=== PATIENT | male | born 1935 | race Caucasian/White ===

== ENCOUNTER → 2016-10-13 | Outpatient (CLI) | payer BC ==
[~2016-10-13] MED LIST: APIX1TAB3 PO; ASPCH81X PO; ASPI-435 PO; ATV/1 PO; ATV1 PO; CIPR-255 PO; CLON0.5T3 PO; CYAN10005 PO; DONE1TAB11 PO; ESCI10TA17 PO; HYDR-5688 PO; MECL1TAB42 PO; METO50TA7 PO; MONT1TAB3 PO; MULT-506 PO; OMEG10007 PO; OXYC-57 PO; PHEN-775 PO; PRS5 PO
== END | disposition home or self-care (01) ==
LOC: C.LABSPEC 17:07
PROVIDERS: ATTEND Internal Medicine
DX: N20.0 Calculus of kidney (principal)

== ENCOUNTER → 2016-11-04 | Day surgery (SDC) | payer BC ==
[2016-10-27 08:22] VITALS: BMI 21.0
[2016-10-27 10:17] LABS: BASO % 0.2 %; BASO ABS # 0.01 K/uL (0-0.2); COMPLETE YES; EOS % 1.7 %; HEMATOCRIT 40.4 % (42-52); LYMPH % 12.3 %; LYMPH ABS # 0.59 K/uL (1.2-3.4); MEAN CELL VOLUME 85.1 fL (80-100); MEAN CORPUSCULAR HEMOGLOBIN 29.3 pg (25-34); MEAN CORPUSCULAR HGB CONC 34.4 g/dl (32-36); MEAN PLATELET VOLUME 8.6 fL (7.4-10.4); MONO % 9.4 %; NEUT % 76.4 %; PLATELET COUNT 187 K/uL (130-400); RED BLOOD COUNT 4.75 M/uL (4.7-6.1)
[2016-10-27 10:54] LABS: BUN/CREATININE RATIO 25.2 (10-20); CALCIUM 8.9 mg/dl (8.5-10.1); CREATININE 0.8 mg/dl (0.60-1.40); POTASSIUM 3.8 mmol/L (3.5-5.1)
[~2016-11-04] VITALS: Ht 177.8 cm; Wt 68.2 kg
[~2016-11-04] MED LIST changes: +ATROPINE SULFATE 0.1 MG/ML 5ML SYR IV PRN; +CIPROFLOXACIN / D5W 400 MG IV SCH; +CONRAY 30% 150ML BOTTLE INSTIL ONE; +DEXAMETHASONE SOD INJ 4 MG/ML VIAL ONE; +EpHEDrine SULFATE INJ 50 MG/ML AMP IV PRN; +FENTANYL CITRATE INJ 50 MCG/1 ML 2 ML VIAL IV PRN; +FENTANYL CITRATE INJ 50 MCG/1 ML 2 ML VIAL ONE; +LACTATED RINGER'S 1000ML 1,000 ML IV SCH; +LIDOCAINE HCL 2% 2 ML VIAL (20MG/ML) ONE; +MIDAZOLAM HCL 1 MG/ML 2ML VIAL ONE; -OMEG10007 PO; +ONDANSETRON INJ 2 MG/ML 2 ML VIAL ONE; -OXYC-57 PO; +OXYCODONE/ACETAMINOPHEN 5-325 TAB PO PRN; +PROPOFOL IV EMULSION 10 MG/ML 20 ML VIAL IV ONE; +SODIUM CHLORIDE 0.9% 1000ML 1,000 ML IV SCH; +TAMSULOSIN HCL 0.4 MG CAP PO SCH
[2016-11-04 10:09] VITALS: BP 157/92; PULSE 92; TEMP 36.4; O2SAT 97
[2016-11-04 10:10] VITALS: Ht 177.8 cm; Wt 68.2 kg
--- NOTE | 2016-11-04 11:53 | History & Physical Bridge Note ---
H&P Re-Evaluation Bridge Note: I have examined the patient, reviewed the History & Physical and in the interval since the performance of the History & Physical I have noted the following changes of clinical significance: No changes noted
--- NOTE | 2016-11-04 13:05 | [facility] Post Operative Brief Note ---
Immediate Operative Summary Operative Date Nov 04, 2016. Pre-Operative Diagnosis Left ureteral pelvic junction stones Post-Operative Diagnosis Same as preoperative diagnosis Procedure(s) Performed Cystoscopy, Left Flexible Ureteroscopy, Laser Lithotripsy of renal stones; Stent placement left ureter ([id number]), left retrograde pyelogram Surgeon Dr. Silas Silvestre Sports Equipment Repairer Surgeon(s) None Estimated Blood Loss 0 mL Findings Healthy appearing left collecting system. Several small stones within the kidney. No single, large stone appreciated. 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 Specimens No pathology specimens Drains [id number] Anesthesia Gen Complication(s) None Disposition Recovery Room / PACU (stable)
--- NOTE | 2016-11-04 13:11 | Discharge Instructions ---
Discharge Instructions Admission Reason for Admission: Stones Discharge Discharge Diagnosis / Problem: stones Discharge Goals Goal(s): Decrease discomfort, Improve function, Increase independence, Improve disease control Activity Recommendations Activity Limitations: resume your previous activity Lifting Limitations: none Exercise/Sports Limitations: none May Resume Sexual Activity: when tolerated Shower/Bathe: no limitations Driving or Machine Use: no limitations (as long as you are off of pain medications.) . Instructions / Follow-Up Instructions / Follow-Up Please come to Dr. Silvestre's on November 12 at 12:40PM to have your stent removed. Discharge Diet Recommended Diet: Regular Diet Procedures Procedures Performed: Cystoscopy, Left Flexible Ureteroscopy, Laser Lithotripsy of renal stones; Stent placement left ureter ([id number]), left retrograde pyelogram Pending Studies Studies pending at discharge: no Medical Emergencies . Who to Call and When: Medical Emergencies: If at any time you feel your situation is an emergency, please call 911 immediately. . Non-Emergent Contact Non-Emergency issues call your: Urologist Call Non-Emergent contact if: you have a fever, temperature is above 101.5, your pain is not controlled, your pain is worsening . . "Provider Documentation" section prepared by Jesus Zelaya. VTE Core Measure Inpt VTE Proph given/why not?: Treatment not indicated [place] Drug Monitoring Program Search Results: patient reviewed within database, no issues identified
[2016-11-04 13:55] VITALS: BP 119/62; PULSE 61; TEMP 36.7; O2SAT 99
[2016-11-04 14:25] VITALS: BP 138/77; PULSE 69; O2SAT 98
--- NOTE | 2016-11-04 14:40 | OPERATIVE REPORT ---
DATE OF OPERATION: 11/04/2016 PREOPERATIVE DIAGNOSIS: Left renal calculi. POSTOPERATIVE DIAGNOSIS: Left renal calculi. PROCEDURES PERFORMED: Cystoscopy, left ureteroscopy, left laser lithotripsy, left ureteral stent placement 6 Slovenian x 22-32 cm. ANESTHESIA: General. ESTIMATED BLOOD LOSS: 0. URINE OUTPUT: Not recorded. SPECIMENS: There were no specimens. COMPLICATIONS: There were no complications. DESCRIPTION OF THE PROCEDURE: Luis Carlos Arzate was identified in the preoperative holding area. Appropriate informed consents were reviewed and completed and the patient was transported to the operating suite. Upon arrival, he received appropriate preoperative antibiotics in the form of ciprofloxacin as well as general anesthesia. He was sterilely prepped and draped in standard fashion before I passed a 22 Slovenian cystoscope per urethra. Inspection of the urethra revealed no evidence of stricture disease. Prostate was relatively small in size. Upon entering the bladder, he has moderate trabeculation. No other evidence of mucosal disease. Ureteral orifices were easily identified in an orthotopic position. I cannulated the left ureteral orifice with a sensor wire and a 10-Slovenian double lumen catheter. Under fluoroscopic guidance, I advanced this wire to the kidney. I then placed a second wire via the second port of the 10-Slovenian double lumen catheter. After withdrawing the catheter, I passed a flexible ureteroscope over one wire while reserving the other as a safety wire. Full renoscopy was carried out. There were several small stones found within the kidney, but no large stone. 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 After this inspection, I passed a 270 micron laser fiber and I fragmented all the small stones into dust and I freed all the Dontae plaques and fragmented these. I then performed a very careful repeat renoscopy and an exit ureteroscopy, confirming no other large stones or obstructing stones. I did opacify the collecting system before placing a 6 Slovenian x 22-32 cm double-J ureteral stent. I saw good curl in the kidney as well as the bladder. Bladder was decompressed and the case concluded. The patient was extubated and taken to the PACU in stable condition. I attest to the content of the Intraoperative Record and any orders documented therein. Any exceptio ns are noted below.
[2016-11-04 14:55] VITALS: BP 136/74; PULSE 78; TEMP 36.5; O2SAT 100
--- NOTE | 2016-11-04 16:50 | Anesthesiology Progress Note ---
Anesthesia Post Op Note Date & Time Nov 04, 2016 at 16:50 Vital Signs Pain Intensity: 0 Vital Signs Past 12 Hours Date Time Temp Pulse Resp B/P Pulse Ox O2 Delivery O2 Flow Rate FiO2 11/04/16 14:55 36.5 78 18 136/74 100 Room Air 11/04/16 14:25 69 18 138/77 98 Room Air 11/04/16 13:55 36.7 61 16 119/62 99 Room Air 11/04/16 13:50 36.2 11/04/16 13:45 62 16 115/55 96 Room Air 11/04/16 13:35 60 16 117/57 100 Room Air 11/04/16 13:25 60 16 123/64 100 Mask 10 11/04/16 13:16 36.3 62 16 124/64 100 Mask 10 11/04/16 10:09 36.4 92 20 157/92 97 Room Air Notes Mental Status: alert / awake / arousable, participated in evaluation Pt Amnestic to Procedure: Yes Nausea / Vomiting: adequately controlled Pain: adequately controlled Airway Patency, RR, SpO2: stable & adequate BP & HR: stable & adequate Hydration State: stable & adequate Anesthetic Complications: no major complications apparent
== END | disposition home or self-care (01) ==
LOC: C.ACU 09:41
PROVIDERS: ATTEND Urology
DX: N20.0 Calculus of kidney (principal); I48.91 Unspecified atrial fibrillation; G47.33 Obstructive sleep apnea (adult) (pediatric); N18.9 Chronic kidney disease, unspecified; I12.9 Hypertensive chronic kidney disease with stage 1 through stage 4 chronic kidney disease, or unspecified chronic kidney disease; I25.10 Atherosclerotic heart disease of native coronary artery without angina pectoris; G30.1 Alzheimer's disease with late onset; F02.80 Dementia in other diseases classified elsewhere, unspecified severity, without behavioral disturbance, psychotic disturbance, mood disturbance, and anxiety; Z98.890 Other specified postprocedural states; Z95.0 Presence of cardiac pacemaker; Z90.89 Acquired absence of other organs; Z95.1 Presence of aortocoronary bypass graft; Z90.49 Acquired absence of other specified parts of digestive tract; Z86.73 Personal history of transient ischemic attack (TIA), and cerebral infarction without residual deficits; Z87.891 Personal history of nicotine dependence; Z79.82 Long term (current) use of aspirin

== ENCOUNTER 2016-12-18 17:12 | Emergency (ER) | payer BC ==
[~2016-12-18] VITALS: Ht 182.9 cm; Wt 68.2 kg
[~2016-12-18 17:12] MED LIST changes: -APIX1TAB3 PO; -ASPCH81X PO; -ATROPINE SULFATE 0.1 MG/ML 5ML SYR IV PRN; -ATV/1 PO; -ATV1 PO; -CIPROFLOXACIN / D5W 400 MG IV SCH; -CONRAY 30% 150ML BOTTLE INSTIL ONE; -CYAN10005 PO; -DEXAMETHASONE SOD INJ 4 MG/ML VIAL ONE; -EpHEDrine SULFATE INJ 50 MG/ML AMP IV PRN; -FENTANYL CITRATE INJ 50 MCG/1 ML 2 ML VIAL IV PRN; -FENTANYL CITRATE INJ 50 MCG/1 ML 2 ML VIAL ONE; -LACTATED RINGER'S 1000ML 1,000 ML IV SCH; -LIDOCAINE HCL 2% 2 ML VIAL (20MG/ML) ONE; -MIDAZOLAM HCL 1 MG/ML 2ML VIAL ONE; -MONT1TAB3 PO; -MULT-506 PO; -ONDANSETRON INJ 2 MG/ML 2 ML VIAL ONE; -OXYCODONE/ACETAMINOPHEN 5-325 TAB PO PRN; -PHEN-775 PO; -PROPOFOL IV EMULSION 10 MG/ML 20 ML VIAL IV ONE; -SODIUM CHLORIDE 0.9% 1000ML 1,000 ML IV SCH; -TAMSULOSIN HCL 0.4 MG CAP PO SCH
[2016-12-18 17:17] VITALS: TEMP 36.8; Ht 182.9 cm; Wt 68.2 kg
[2016-12-18] MEDS ORDERED: SODIUM CHLORIDE 0.9% 500ML 500 ML IV STA (19:04)
[2016-12-18] MEDS ORDERED: FLUCONAZOLE 100 MG TAB PO STA (19:05)
[2016-12-18] MEDS ORDERED: NITROFURANTOIN MONOHYDRATE 100 MG CAP PO STA (19:05)
--- NOTE | 2016-12-18 19:05 | EMERGENCY ROOM VISIT NOTE ---
History Report prepared by Patsy: Flakito Cooper Under the Supervision of: Dr. Oskar Bee M.D. First contact with patient: 18:48 Chief Complaint: DIZZY Stated Complaint: FAST HEARTRATE, HEAD PAIN, DIZZY, HEAD FEELS FUNNY Nursing Triage Summary: family states he is dizzy and having trouble walking, feeling off over the past few days and feeling shaky, c/o chest pain earlier today, pt states everytime he takes a deep breath it hurts his heart, hx of valve replacement and pacemaker History of Present Illness The patient is a 81 year old male who presents to the Emergency Room with complaints of an episode of chest pain that started earlier today. He says the episode occurred when he was going bowling, and he had to quit his game of bowling due to the pain. The pain came on every time he took a deep breath. He says the pain did not radiate anywhere. The pain went away when he stopped bowling. Per the patient's family, the patient has said that he has been confused today. The patient also notes being dizzy and feeling shaky for the past few days. His head feels swollen and his eyes feel tight. He says he "cannot think" currently. The patient states his head symptoms are very similar to what he had a few years ago, and he ended up being sent to [facility] for treatment for sick sinus syndrome. The patient has a pacemaker and a history of a valve replacement. Source of History: patient, family Onset: Earlier today Position: chest Timing: other (episode) Modifying Factors (Worsening): breathing Note: Associated symptoms: Confusion, dizziness, shakiness. Head feels swollen and eyes feel tight. "Cannot think" currently. Review of Systems See HPI for pertinent positives & negatives. A total of 10 systems reviewed and were otherwise negative. Past Medical & Surgical Medical Problems: (1) A-fib (2) Altered mental status (3) Atrial fibrillation with RVR (4) Atrial fibrillation with RVR (5) Atrial fibrillation with RVR (6) Atrial flutter with rapid ventricular response (7) Back pain (8) Bradycardia (9) Cataract, left eye (10) Cataract, right eye (11) CHF (congestive heart failure) (12) Complete heart block (13) Constipation (14) Dyspnea (15) Elevated troponin (16) GERD (gastroesophageal reflux disease) (17) GERD (gastroesophageal reflux disease) (18) Heart disease (19) Hyperglycemia (20) Kidney disease (21) Kidney stone (22) Kidney stone (23) Kidney stones (24) Nausea (25) Patella fracture (26) Shortness of breath (27) Shortness of breath (28) Sick sinus syndrome with tachycardia (29) Sleep apnea (30) Symptomatic bradycardia (31) Tachyarrhythmia (32) Tick bite Surgical Problems: (1) Heart valve replaced Family History Diabetes mellitus FH: Parkinson's disease FH: aortic aneurysm Heart disease Hypertension Social History Smoking Status: Former Smoker Alcohol Use: occasionally Drug Use: none Marital Status: Housing Status: lives with family Occupation Status: retired Current/Historical Medications Scheduled Apixaban (Eliquis), 5 MG PO BID Clonazepam (Klonopin), 0.5 MG PO HS Cyanocobalamin (Vitamin B-12), 1,000 MCG PO QAM Donepezil Hydrochloride (Donepezil Hcl), 1 TAB PO HS Escitalopram (Lexapro), 10 MG PO QAM Finasteride (Finasteride), 5 MG PO QAM Metoprolol Succ (Toprol Xl) (Toprol-Xl), 0.5 TAB PO BID Scheduled PRN Hydrocodone/Acetaminophen 5MG/325MG ([place] 5MG/325MG), 1 TABLET PO Q6H PRN for Pain Lorazepam (Lorazepam), 0.5-1 MG PO HS PRN for Sleep Meclizine Hcl (Meclizine Hcl), 1 TAB PO TID PRN for Dizziness or Vertigo Allergies Coded Allergies: [place] Pepper (Verified Allergy, Severe, SHORTNESS OF BREATH, 11/04/16) NO KNOWN DRUG ALLERGIES (Verified Allergy, Unknown, none, 11/04/16) Physical Exam Vital Signs Date Time Temp Pulse Resp B/P Pulse Ox O2 Delivery O2 Flow Rate FiO2 12/18/16 21:53 80 18 133/66 96 Room Air 12/18/16 20:31 99 18 99 Room Air 12/18/16 19:40 100 Room Air 12/18/16 19:21 63 16 175/78 100 Room Air 71 168/82 76 140/72 12/18/16 19:17 73 12/18/16 19:08 72 14 177/98 99 Room Air 12/18/16 19:08 99 Room Air 12/18/16 17:17 36.8 83 18 177/83 95 Room Air Physical Exam GENERAL: Patient is a healthy-appearing well-nourished. Hard of hearing. HEAD: Normocephalic atraumatic EYES: Ocular movements intact pupils equal and react to light OROPHARYNX mucous membranes are moist no exudates present no erythema or edema present NECK: Supple no nuchal rigidity CHEST: Good equal expansion LUNGS: Clear and equal to auscultation CARDIAC: Normal S1 and S2 ABDOMEN: Soft nontender no guarding BACK: No CVA tenderness EXTREMITIES: No pain upon palpation normal muscle strength in all groups no clubbing cyanosis or edema NEURO: Patient is following commands is answering questions appropriately. Alert and oriented x3 Cranial Nerves 2-12 grossly intact Medical Decision & Procedures ER Provider Diagnostic Interpretation: Radiology results as stated below per my review and radiologist interpretation: CT HEAD WITHOUT CONTRAST (CT) CLINICAL HISTORY: Dizziness COMPARISON STUDY: 01/27/2016 TECHNIQUE: Axial CT of the brain is performed from the vertex to the skull base. IV contrast was not administered for this examination. CT DOSE: 884.54 mGy.cm FINDINGS: No intra or extra-axial mass lesions are visualized. There is no CT evidence of acute cortical infarction. There is no evidence of midline shift. There is no acute hemorrhage. No calvarial fractures are visualized. There are patchy white matter hypodensities likely on a small vessel basis. 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 There is no evidence of acute sinusitis IMPRESSION: No acute intracranial findings Electronically signed by: Pepe Rodrigez M.D. 12/18/2016 7:56 PM Dictated Date/Time: 12/18/2016 7:54 PM CHEST ONE VIEW PORTABLE CLINICAL HISTORY: Shortness of breath COMPARISON STUDY: June 04, 2016 FINDINGS: There are postsurgical changes of midline sternotomy. There is a left subclavian dual-chamber central venous pacemaker present. There is no focal pulmonary consolidation. There is no failure. There are no pleural effusions. There is a linear area of atelectasis/scar at the left lung base.[ IMPRESSION: No active disease in the chest. Electronically signed by: Pepe Rodrigez M.D. 12/18/2016 7:41 PM Dictated Date/Time: 12/18/2016 7:40 PM Laboratory Results 3/9/17 19:18 Red Blood Count 5.07, Mean Corpuscular Volume 80.7, Mean Corpuscular Hemoglobin 27.6, Mean Corpuscular Hemoglobin Concent 34.2, Mean Platelet Volume 8.8, Neutrophils (%) (Auto) 70.0, Lymphocytes (%) (Auto) 20.8, Monocytes (%) (Auto) 7.1, Eosinophils (%) (Auto) 1.3, Basophils (%) (Auto) 0.5, Neutrophils # (Auto) 2.66, Lymphocytes # (Auto) 0.79, Monocytes # (Auto) 0.27, Eosinophils # (Auto) 0.05, Basophils # (Auto) 0.02 12/18/16 19:18 Test 12/18/16 19:15 12/18/16 19:18 12/18/16 19:25 Bedside Glucose 95 mg/dl (70-99) White Blood Count 3.80 K/uL (4.8-10.8) Red Blood Count 5.07 M/uL (4.7-6.1) Hemoglobin 14.0 g/dL (14.0-18.0) Hematocrit 40.9 % (42-52) Mean Corpuscular Volume 80.7 fL (80-100) Mean Corpuscular Hemoglobin 27.6 pg (25-34) Mean Corpuscular Hemoglobin Concent 34.2 g/dl (32-36) Platelet Count 227 K/uL (130-400) Mean Platelet Volume 8.8 fL (7.4-10.4) Neutrophils (%) (Auto) 70.0 % Lymphocytes (%) (Auto) 20.8 % Monocytes (%) (Auto) 7.1 % Eosinophils (%) (Auto) 1.3 % Basophils (%) (Auto) 0.5 % Neutrophils # (Auto) 2.66 K/uL (1.4-6.5) Lymphocytes # (Auto) 0.79 K/uL (1.2-3.4) Monocytes # (Auto) 0.27 K/uL (0.11-0.59) Eosinophils # (Auto) 0.05 K/uL (0-0.5) Basophils # (Auto) 0.02 K/uL (0-0.2) RDW Standard Deviation 40.7 fL (36.4-46.3) RDW Coefficient of Variation 13.8 % (11.5-14.5) Immature Granulocyte % (Auto) 0.3 % Immature Granulocyte # (Auto) 0.01 K/uL (0.00-0.02) Anion Gap 6.0 mmol/L (3-11) Est Creatinine Clear Calc Drug Dose 72.2 ml/min Estimated GFR () 98.5 Estimated GFR (Non- 85.0 BUN/Creatinine Ratio 15.7 (10-20) Calcium Level 9.0 mg/dl (8.5-10.1) Total Bilirubin 2.7 mg/dl (0.2-1) Direct Bilirubin 0.4 mg/dl (0-0.2) Aspartate Amino Transf (AST/SGOT) 12 U/L (15-37) Alanine Aminotransferase (ALT/SGPT) 16 U/L (12-78) Alkaline Phosphatase 62 U/L (45-117) Total Creatine Kinase 27 U/L (39-308) Creatine Kinase MB 1.0 ng/ml (0.5-3.6) Creatine Kinase MB Ratio 3.7 (0-3.0) Troponin I < 0.015 ng/ml (0-0.045) Total Protein 7.4 gm/dl (6.4-8.2) Albumin 4.2 gm/dl (3.4-5.0) Thyroid Stimulating Hormone (TSH) 1.000 uIu/ml (0.300-4.500) Urine Color YELLOW Urine Appearance CLEAR (CLEAR) Urine pH 8.5 (4.5-7.5) Urine Specific [place] 1.003 (1.000-1.030) Urine Protein NEG (NEG) Urine Glucose (UA) NEG (NEG) Urine Ketones NEG (NEG) Urine Occult Blood 1+ (NEG) Urine Nitrite NEG (NEG) Urine Bilirubin NEG (NEG) Urine Urobilinogen NEG (NEG) Urine Leukocyte Esterase NEG (NEG) Urine WBC (Auto) 0 /hpf (0-5) Urine RBC (Auto) 5-10 /hpf (0-4) Urine Hyaline Casts (Auto) 0 /lpf (0-5) Urine Epithelial Cells (Auto) 0-5 /lpf (0-5) Urine Bacteria (Auto) NEG (NEG) Labs reviewed by ED physician. Medications Administered Medications (Trade) Dose Ordered Sig/Juan A Route Start Time Stop Time Status Last Admin Dose Admin Sodium Chloride (Nss 500ml) 500 ml @ 999 mls/hr Q31M STAT IV 12/18/16 19:04 12/18/16 19:34 DC 12/18/16 19:38 999 MLS/HR Fluconazole (Diflucan Tab) 150 mg NOW STAT PO 12/18/16 19:05 12/18/16 19:07 DC 12/18/16 19:35 150 MG Nitrofurantoin Macrocrystals (Macrobid Cap) 100 mg ONE STAT PO 12/18/16 19:05 12/18/16 19:07 DC 12/18/16 19:35 100 MG Meclizine HCl (Antivert Tab) 25 mg NOW STAT PO 12/18/16 20:59 12/18/16 21:00 DC 12/18/16 21:52 25 MG ECG Indication: chest pain Rate (beats per minute): 68 Rhythm: other (paced rhythm) Findings: no acute ischemic change, no ectopy ED Course 1849: Past medical records reviewed. The patient was evaluated in room C1B. A complete history and physical examination was performed. 1903: Ordered NSS 500 ml @ 999 mls/hr IV. 1904: Ordered Macrobid Cap 100 mg PO, Diflucan Tab 150 mg PO. 2058: Ordered Antivert Tab 25 mg PO. 2113: Upon reexamination the patient is resting comfortably. I discussed results and treatment plan with the patient. He verbalizes agreement and understanding. The patient is ready for discharge. Medical Decision Differential diagnosis: Etiologies such as cardiac ischemia, aortic dissection, pulmonary embolism, pneumonia, pneumothorax, musculoskeletal, infections, pericarditis, myocarditis , esophageal rupture, gastrointestinal, as well as others were entertained. This is a 81-year-old male who presents emergency part complaining of multiple complaints. His heart been down what exactly the patient is here for but he is complaining of chest pain, dizziness as well as rapid heart rate. I will note the patient is not tachycardic upon arrival to the emergency department. He was given normal saline bolus along with meclizine. He is a normal EKG as well as normal CK-MB troponin. I do believe that the patient is well enough he can be safely discharged home for follow-up with his primary care physician. I stressed no strenuous activity until follow-up with cardiology. Patient was in agreement with the treatment plan. Impression Primary Impression: Dizziness, nonspecific Scribe Attestation The scribe's documentation has been prepared under my direction and personally reviewed by me in its entirety. I confirm that the note above accurately reflects all work, treatment, procedures, and medical decision making performed by me. Departure Information Dispostion Home / Self-Care Prescriptions Meclizine Hcl (MECLIZINE HCL) 25 Mg Tab 1 TAB PO TID Y for Dizziness or Vertigo for 10 Days, #30 TAB Prov: Oskar Bee MD 12/18/16 Referrals Silas Garcia M.D. (PCP) Forms HOME CARE DOCUMENTATION FORM, IMPORTANT VISIT INFORMATION, School Instructions, Work Instructions Patient Instructions ED Dizziness [facility], My [facility] Additional Instructions Follow up with DR Borrego's office No strenuous activity until follow up You have been examined and treated today on an emergency basis only. This is not a substitute for, or an effort to provide, complete comprehensive medical care. It is impossible to recognize and treat all injuries or illnesses in a single emergency department visit. It is therefore important that you follow up closely with Dr Garcia. Call as soon as possible for an appointment. Thank you for your time and consideration. I look forward to speaking with you again soon. Please don't hesitate to call us if you have any questions.
[2016-12-18 19:40] VITALS: O2SAT 100
[2016-12-18 19:40] LABS: BASO % 0.5 %; BASO ABS # 0.02 K/uL (0-0.2); COMPLETE YES; EOS % 1.3 %; HEMATOCRIT 40.9 % (42-52); IG% 0.3 %; LYMPH % 20.8 %; LYMPH ABS # 0.79 K/uL (1.2-3.4); MEAN CELL VOLUME 80.7 fL (80-100); MEAN CORPUSCULAR HEMOGLOBIN 27.6 pg (25-34); MEAN CORPUSCULAR HGB CONC 34.2 g/dl (32-36); MEAN PLATELET VOLUME 8.8 fL (7.4-10.4); MONO % 7.1 %; PLATELET COUNT 227 K/uL (130-400); RED BLOOD COUNT 5.07 M/uL (4.7-6.1)
--- NOTE | 2016-12-18 19:42 | DIAGNOSTIC IMAGING REPORT ---
CHEST ONE VIEW PORTABLE CLINICAL HISTORY: Shortness of breath COMPARISON STUDY: June 04, 2016 FINDINGS: There are postsurgical changes of midline sternotomy. There is a left subclavian dual-chamber central venous pacemaker present. There is no focal pulmonary consolidation. There is no failure. There are no pleural effusions. There is a linear area of atelectasis/scar at the left lung base.[ IMPRESSION: No active disease in the chest. Electronically signed by: Pepe Rodrigez M.D. 12/18/2016 7:41 PM Dictated Date/Time: 12/18/2016 7:40 PM
--- NOTE | 2016-12-18 19:57 | DIAGNOSTIC IMAGING REPORT ---
CT HEAD WITHOUT CONTRAST (CT) CLINICAL HISTORY: Dizziness COMPARISON STUDY: 01/27/2016 TECHNIQUE: Axial CT of the brain is performed from the vertex to the skull base. IV contrast was not administered for this examination. CT DOSE: 884.54 mGy.cm FINDINGS: No intra or extra-axial mass lesions are visualized. There is no CT evidence of acute cortical infarction. There is no evidence of midline shift. There is no acute hemorrhage. No calvarial fractures are visualized. There are patchy white matter hypodensities likely on a small vessel basis. 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 There is no evidence of acute sinusitis IMPRESSION: No acute intracranial findings Electronically signed by: Pepe Rodrigez M.D. 12/18/2016 7:56 PM Dictated Date/Time: 12/18/2016 7:54 PM
[2016-12-18 20:04] LABS: ALT/SGPT 16 U/L (12-78); AST/SGOT 12 U/L (15-37); BLOOD UREA NITROGEN 13 mg/dl (7-18); BUN/CREATININE RATIO 15.7 (10-20); CARBON DIOXIDE 31 mmol/L (21-32); CHLORIDE 107 mmol/L (98-107); GLUCOSE 90 mg/dl (70-99); POTASSIUM 3.8 mmol/L (3.5-5.1); SODIUM 144 mmol/L (136-145)
[2016-12-18 20:15] LABS: ALKALINE PHOSPHATASE 62 U/L (45-117); CKMB/CK RATIO 3.7 (0-3.0)
[2016-12-18 20:20] LABS: URINE APPEARANCE CLEAR (CLEAR); URINE BILIRUBIN NEG (NEG); URINE COLOR YELLOW; URINE EPITHELIAL CELL AUTO 0-5 /lpf (0-5); URINE NITRITE NEG (NEG); URINE PH 8.5 (4.5-7.5); URINE SPECIFIC GRAVITY 1.003 (1.000-1.030); UROBILINOGEN NEG (NEG)
[2016-12-18 20:22] LABS: MANUAL MICROSCOPIC REQUIRED? NO; REVIEW REQ? NO
[2016-12-18] MEDS ORDERED: MECLIZINE HCL 25 MG TAB PO STA (20:59)
[2016-12-18] MEDS ORDERED: MECL1TAB42 PO (21:19)
[2016-12-18 21:53] VITALS: BP 133/66; PULSE 80; O2SAT 96
[2016-12-18] MEDS ORDERED: APIX1TAB3 PO (22:38)
[2016-12-18] MEDS ORDERED: CYAN10005 PO (23:01)
[2016-12-18] MEDS ORDERED: ATV1 PO (23:22)
== END 2016-12-18 22:14 | disposition home or self-care (01) ==
LOC: C.EDB 17:14 → C.EDC 22:14
DX: R42 Dizziness and giddiness (principal); I48.91 Unspecified atrial fibrillation; I48.92 Unspecified atrial flutter; I50.9 Heart failure, unspecified; K21.9 Gastro-esophageal reflux disease without esophagitis; N18.9 Chronic kidney disease, unspecified; G47.30 Sleep apnea, unspecified; Z87.442 Personal history of urinary calculi; Z87.81 Personal history of (healed) traumatic fracture; Z98.49 Cataract extraction status, unspecified eye; Z95.2 Presence of prosthetic heart valve; Z87.891 Personal history of nicotine dependence; Z79.899 Other long term (current) drug therapy; Z91.018 Allergy to other foods; Z83.3 Family history of diabetes mellitus; Z82.49 Family history of ischemic heart disease and other diseases of the circulatory system

== ENCOUNTER 2017-01-05 16:25 | Emergency (ER) | payer BC ==
[~2017-01-05 16:25] MED LIST changes: +APIX1TAB3 PO; -ASPI-435 PO; +ATV1 PO; -CIPR-255 PO; +CYAN10005 PO; -MECL1TAB42 PO
[2017-01-05 16:33] VITALS: BP 143/74; PULSE 84; TEMP 36.8; O2SAT 100; Ht 182.9 cm
== END 2017-01-05 17:45 | disposition left against medical advice (07) ==
LOC: C.EDB 16:27
DX: R06.00 Dyspnea, unspecified (principal); Z53.21 Procedure and treatment not carried out due to patient leaving prior to being seen by health care provider

== ENCOUNTER 2017-01-08 12:11 | Emergency (ER) | payer BC ==
[~2017-01-08] VITALS: Ht 182.9 cm; Wt 67.8 kg
[2017-01-08 12:29] VITALS: TEMP 36.7; Ht 182.9 cm; Wt 67.8 kg
--- NOTE | 2017-01-08 13:06 | EMERGENCY ROOM VISIT NOTE ---
History Report prepared by Kizzyibclaudia: Amanda Jefferson Under the Supervision of: Dr. Herbie Hernandes D.O. First contact with patient: 12:45 Chief Complaint: DIZZY Stated Complaint: DIZZINESS Nursing Triage Summary: Patient arrived via ALS. Patient states has not had a BM in 4 days. Patient states went to doctor this AM. Patient took senokot to help bowels. Patient felt dizzy on way home from doctors appointment. History of Present Illness The patient is a 81 year old male who presents to the Emergency Room via ALS with complaints of dizziness [employer] WORK[employer]. The patient states that he has been having intermittent constipation over the past 3-4 weeks. He states that he goes about 4 days between each bowel movement. He has been taking medication, including Senokot, to help him have bowel movements. Per nursing notes, the patient had a bowel movement earlier today. He saw his PCP today for dizziness, constipation, and high blood pressure. When he left his doctor's appointment, he was dizzy. He states that he was also concerned about his high blood pressure. He reports a burning chest pain at the site of his pacemaker earlier today. He does not currently have any chest pain. Denies abdominal pain, leg pain or swelling, or other complaints. 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 A total of 10 systems reviewed and were otherwise negative. Past Medical & Surgical Medical Problems: (1) A-fib (2) Altered mental status (3) Atrial fibrillation with RVR (4) Atrial fibrillation with RVR (5) Atrial fibrillation with RVR (6) Atrial flutter with rapid ventricular response (7) Back pain (8) Bradycardia (9) Cataract, left eye (10) Cataract, right eye (11) CHF (congestive heart failure) (12) Complete heart block (13) Constipation (14) Dyspnea (15) Elevated troponin (16) GERD (gastroesophageal reflux disease) (17) GERD (gastroesophageal reflux disease) (18) Heart disease (19) Hyperglycemia (20) Kidney disease (21) Kidney stone (22) Kidney stone (23) Kidney stones (24) Nausea (25) Patella fracture (26) Shortness of breath (27) Shortness of breath (28) Sick sinus syndrome with tachycardia (29) Sleep apnea (30) Symptomatic bradycardia (31) Tachyarrhythmia (32) Tick bite Surgical Problems: (1) Heart valve replaced Family History Diabetes mellitus FH: Parkinson's disease FH: aortic aneurysm Heart disease Hypertension Social History Smoking Status: Former Smoker Alcohol Use: occasionally Drug Use: none Marital Status: Housing Status: lives with family Occupation Status: retired Current/Historical Medications Scheduled Apixaban (Eliquis), 5 MG PO BID Clonazepam (Klonopin), 0.5 MG PO Q12 Donepezil Hydrochloride (Donepezil Hcl), 1 TAB PO HS Escitalopram (Lexapro), 10 MG PO QAM Finasteride (Finasteride), 5 MG PO QAM Metoprolol Succ (Toprol Xl) (Toprol-Xl), 50 MG PO DAILY Scheduled PRN Meclizine Hcl (Meclizine Hcl), 1 TAB PO TID PRN for Dizziness or Vertigo Allergies Coded Allergies: Greene Pepper (Verified Allergy, Severe, SHORTNESS OF BREATH, 11/04/16) NO KNOWN DRUG ALLERGIES (Verified Allergy, Unknown, none, 11/04/16) Physical Exam Vital Signs Date Time Temp Pulse Resp B/P Pulse Ox O2 Delivery O2 Flow Rate FiO2 01/08/17 16:22 77 20 162/86 100 01/08/17 14:29 63 20 149/75 99 Room Air 01/08/17 12:29 36.7 79 16 161/80 99 Room Air 01/08/17 12:18 86 Physical Exam GENERAL: Patient is awake, alert, and in no acute distress. Patient is resting comfortably and showing no signs of anxiety EYES: The conjunctivae are clear. The pupils are round and reactive. EARS, NOSE, MOUTH AND THROAT: The nose is without any evidence of any deformity. Mucous membranes are moist tongue is midline NECK: The neck is nontender and supple. RESPIRATORY: Normal respiratory effort is noted there is no evidence of wheezing rhonchi or rales CARDIOVASCULAR: Regular rate and rhythm noted there no murmurs rubs or gallops normal S1 normal S2 GASTROINTESTINAL: The abdomen is soft. Bowel sounds are present in all quadrants. Abdomen is nontender MUSCULOSKELETAL/EXTREMITIES: There is no evidence of gross deformity full range of motion is noted in the hips and shoulders SKIN: There is no obvious evidence of any rash. There are no petechiae, pallor or cyanosis noted. NEUROLOGIC: Patient is awake alert and oriented x3 strength is symmetric patellar reflexes are 2+ bilaterally Medical Decision & Procedures ER Provider Diagnostic Interpretation: Radiology results as stated below per my review and radiologist interpretation: ABDOMEN 2VIEW W/PA CHEST RTN CLINICAL HISTORY: Denies abdominal pain COMPARISON STUDY: Chest x-ray dated 12/18/2016 FINDINGS: The erect chest reveals no free intraperitoneal air. There is no focal pulmonary consolidation. There is no free intraperitoneal air. Erect and supine views the abdomen reveal multiple right lower quadrant air-fluid levels. There are surgical clips the right upper quadrant consistent with a prior cholecystectomy. There are calcifications project over each renal shadow. Renal calculi are suspected. There are no transition zones indicate bowel obstruction.. IMPRESSION: 1. No evidence of bowel obstruction. No evidence of free air 2. Bilateral nephrolithiasis 3. Scattered right lower quadrant air-fluid levels Electronically signed by: Pepe Rodrigez M.D. 01/08/2017 1:55 PM Dictated Date/Time: 01/08/2017 1:[address] SCAN OF THE ABDOMEN AND PELVIS WITHOUT IV CONTRAST CLINICAL HISTORY: Left flank pain. COMPARISON STUDY: Abdominal CT dated 05/28/2015. Abdominal radiographs dated 01/08/2017. TECHNIQUE: CT scan of the abdomen and pelvis is performed from the lung bases to the proximal femora. Images are reviewed in the axial, sagittal, and coronal planes. IV contrast was not administered for this examination. Automated dose control exposure was utilized. Examination is moderately degraded by motion artifact. CT DOSE: 283.25 mGy.cm FINDINGS: Lung bases: The patient is status post midline sternotomy. The heart is mildly enlarged and without pericardial effusion. The coronary arteries and mitral annulus are densely calcified. Pacemaker leads are noted. Emphysematous change is suspected. The lung bases are otherwise clear. Liver: The unenhanced liver is normal in size, contour, and attenuation. There is no intrahepatic biliary ductal dilatation. Gallbladder: Surgically absent noting clips in the gallbladder fossa. Spleen: Normal in size and attenuation. There are numerous calcified splenic granulomas. Pancreas: The unenhanced pancreas is moderately atrophic and grossly unremarkable. Adrenal glands: Unremarkable. Kidneys: The unenhanced kidneys are atrophic and without hydronephrosis. There are numerous bilateral nonobstructing renal calculi (less than 10) measuring up to 9 mm. A 2.7 cm partially exophytic cyst arises from the lower pole of the right kidney. Abdominal vasculature: There is advanced atherosclerotic calcification of ectasia of the abdominal aorta. Bowel: The small bowel and colon are normal in course and caliber. There is moderate sigmoid diverticulosis without CT evidence of acute diverticulitis. The appendix is normal as visualized. Peritoneum: There is no intraperitoneal free air or abdominal ascites. Lymphadenopathy: None. Pelvic viscera: The prostate gland is enlarged and heterogeneous, measuring 5.9 cm transverse diameter. There is median lobe hypertrophy. The bladder is distended and grossly unremarkable. The penile corpora are densely calcified suggesting Peyronie's disease. Skeletal structures: The skeletal structures are osteopenic. There is moderate lumbosacral spondylosis. Degenerative changes also seen involving the sacroiliac joints. There are mild chronic superior endplate compression deformities of L3 and L5. No lytic or blastic lesions are seen. IMPRESSION: 1. Significantly motion degraded examination. 2. There are no acute infectious or inflammatory findings in the abdomen or pelvis. 3. Bilateral nonobstructing renal calculi. 4. Moderate sigmoid diverticulosis without CT evidence of acute diverticulosis. 5. Prostatomegaly. 6. Additional changes as above. Electronically signed by: Naeem Farrell M.D. 01/08/2017 3:42 PM Dictated Date/Time: 01/08/2017 3:35 PM Laboratory Results 01/08/17 11:55 Red Blood Count 5.24, Mean Corpuscular Volume 79.4, Mean Corpuscular Hemoglobin 27.1, Mean Corpuscular Hemoglobin Concent 34.1, Mean Platelet Volume 8.8, Neutrophils (%) (Auto) 74.8, Lymphocytes (%) (Auto) 16.2, Monocytes (%) (Auto) 7.5, Eosinophils (%) (Auto) 1.1, Basophils (%) (Auto) 0.2, Neutrophils # (Auto) 3.27, Lymphocytes # (Auto) 0.71, Monocytes # (Auto) 0.33, Eosinophils # (Auto) 0.05, Basophils # (Auto) 0.01 01/08/17 11:55 Test 01/08/17 11:55 01/08/17 13:50 01/08/17 14:10 White Blood Count 4.38 K/uL (4.8-10.8) Red Blood Count 5.24 M/uL (4.7-6.1) Hemoglobin 14.2 g/dL (14.0-18.0) Hematocrit 41.6 % (42-52) Mean Corpuscular Volume 79.4 fL (80-100) Mean Corpuscular Hemoglobin 27.1 pg (25-34) Mean Corpuscular Hemoglobin Concent 34.1 g/dl (32-36) Platelet Count 251 K/uL (130-400) Mean Platelet Volume 8.8 fL (7.4-10.4) Neutrophils (%) (Auto) 74.8 % Lymphocytes (%) (Auto) 16.2 % Monocytes (%) (Auto) 7.5 % Eosinophils (%) (Auto) 1.1 % Basophils (%) (Auto) 0.2 % Neutrophils # (Auto) 3.27 K/uL (1.4-6.5) Lymphocytes # (Auto) 0.71 K/uL (1.2-3.4) Monocytes # (Auto) 0.33 K/uL (0.11-0.59) Eosinophils # (Auto) 0.05 K/uL (0-0.5) Basophils # (Auto) 0.01 K/uL (0-0.2) RDW Standard Deviation 41.2 fL (36.4-46.3) RDW Coefficient of Variation 14.4 % (11.5-14.5) Immature Granulocyte % (Auto) 0.2 % Immature Granulocyte # (Auto) 0.01 K/uL (0.00-0.02) Anion Gap 8.0 mmol/L (3-11) Est Creatinine Clear Calc Drug Dose 63.1 ml/min Estimated GFR () 92.6 Estimated GFR (Non- 79.9 BUN/Creatinine Ratio 22.4 (10-20) Calcium Level 9.3 mg/dl (8.5-10.1) Total Bilirubin 3.0 mg/dl (0.2-1) Direct Bilirubin 0.4 mg/dl (0-0.2) Aspartate Amino Transf (AST/SGOT) 14 U/L (15-37) Alanine Aminotransferase (ALT/SGPT) 17 U/L (12-78) Alkaline Phosphatase 56 U/L (45-117) Total Creatine Kinase 48 U/L (39-308) Creatine Kinase MB 1.8 ng/ml (0.5-3.6) Creatine Kinase MB Ratio 3.8 (0-3.0) Troponin I < 0.015 ng/ml (0-0.045) Total Protein 7.5 gm/dl (6.4-8.2) Albumin 4.3 gm/dl (3.4-5.0) Lipase 174 U/L (73-393) Prothrombin Time 14.0 SECONDS (9.0-12.0) Prothromb Time International Ratio 1.3 (0.9-1.1) Activated Partial Thromboplast Time 31.2 SECONDS (21.0-31.0) Partial Thromboplastin Ratio 1.2 Urine Color YELLOW Urine Appearance CLEAR (CLEAR) Urine pH 6.5 (4.5-7.5) Urine Specific [place] 1.006 (1.000-1.030) Urine Protein NEG (NEG) Urine Glucose (UA) NEG (NEG) Urine Ketones NEG (NEG) Urine Occult Blood TRACE (NEG) Urine Nitrite NEG (NEG) Urine Bilirubin NEG (NEG) Urine Urobilinogen NEG (NEG) Urine Leukocyte Esterase NEG (NEG) Urine WBC (Auto) 0 /hpf (0-5) Urine RBC (Auto) 0-4 /hpf (0-4) Urine Hyaline Casts (Auto) 0 /lpf (0-5) Urine Epithelial Cells (Auto) 0-5 /lpf (0-5) Urine Bacteria (Auto) NEG (NEG) Laboratory results per my review. ECG Indication: other (dizzy) Rate (beats per minute): 94 Rhythm: other (ventricularly paced) Findings: other (few [place]well beats, no acute ST segment abnormality) Comparison ECG Date: 12/18/16 Change: no significant change ED Course 1254: The patient was evaluated in room C1B. A complete history and physical examination were performed. 1610: Upon reevaluation, the patient is resting comfortably. I discussed the results and treatment plan with the patient. He verbalized agreement of the treatment plan. The patient was discharged home. Medical Decision Prior records/ancillary studies reviewed. Triage Nursing notes reviewed.. Differential diagnosis: Etiologies such as benign positional vertigo, dehydration, hypovolemia, anemia, tumor, infection, hypoglycemia, electrolyte abnormalities, cardiac sources, intracerebral event, toxicologic, neurologic, as well as others were entertained. The patient is a 81-year-old male who presented to the emergency department with multiple complaints. The patient has been seen in our facility recently for similar visits. He complains of constipation but also complains of left- sided abdominal pain and dizziness. The patient does not have any focal neurologic deficits. He is able to ambulate without difficulty. He had an episode of having a bowel movement while in the emergency department but states that he feels somewhat constipated yet. I discussed the patient's laboratory and radiographic studies with him. He complained of left flank pain so a CAT scan the abdomen and pelvis was obtained to rule out any ureteral cocktail's. The patient was reevaluated multiple times. The patient was also evaluated by the department medical case manager. No needs were identified at this time. The patient was encouraged to continue all medications and follow-up with his primary care physician as soon as possible for further evaluation. He was also encouraged to rest and avoid any strenuous activity and return to the emergency department immediately if symptoms change worsen or the need arises. Impression Primary Impression: Dizziness Additional Impressions: Constipation Abdominal pain, left upper quadrant Scribe Attestation The scribe's documentation has been prepared under my direction and personally reviewed by me in its entirety. I confirm that the note above accurately reflects all work, treatment, procedures, and medical decision making performed by me. Departure Information Dispostion Home / Self-Care Referrals Silas Garcia M.D. (PCP) Patient Instructions ED Dizziness [facility], [facility] Additional Instructions Continue all medications as prescribed. Follow-up with your family doctor as scheduled. Problem Qualifiers Additional Impressions: Constipation Constipation type: unspecified constipation type Qualified Codes: K59.00 - Constipation, unspecified
[2017-01-08 13:15] LABS: BASO % 0.2 %; BASO ABS # 0.01 K/uL (0-0.2); COMPLETE YES; EOS % 1.1 %; HEMATOCRIT 41.6 % (42-52); IG% 0.2 %; LYMPH % 16.2 %; LYMPH ABS # 0.71 K/uL (1.2-3.4); MEAN CELL VOLUME 79.4 fL (80-100); MEAN CORPUSCULAR HEMOGLOBIN 27.1 pg (25-34); MEAN CORPUSCULAR HGB CONC 34.1 g/dl (32-36); MEAN PLATELET VOLUME 8.8 fL (7.4-10.4); MONO % 7.5 %; NEUT % 74.8 %; PLATELET COUNT 251 K/uL (130-400); RED BLOOD COUNT 5.24 M/uL (4.7-6.1); WHITE BLOOD COUNT 4.38 K/uL (4.8-10.8)
[2017-01-08 13:21] LABS: BLOOD UREA NITROGEN 20 mg/dl (7-18); BUN/CREATININE RATIO 22.4 (10-20); CALCIUM 9.3 mg/dl (8.5-10.1); CARBON DIOXIDE 29 mmol/L (21-32); CHLORIDE 102 mmol/L (98-107); CREATININE 0.91 mg/dl (0.60-1.40); GLUCOSE 162 mg/dl (70-99); POTASSIUM 3.9 mmol/L (3.5-5.1); SODIUM 139 mmol/L (136-145)
[2017-01-08 13:26] LABS: ALKALINE PHOSPHATASE 56 U/L (45-117); ALT/SGPT 17 U/L (12-78); AST/SGOT 14 U/L (15-37); CKMB/CK RATIO 3.8 (0-3.0)
--- NOTE | 2017-01-08 13:56 | DIAGNOSTIC IMAGING REPORT ---
ABDOMEN 2VIEW W/PA CHEST RTN CLINICAL HISTORY: Denies abdominal pain COMPARISON STUDY: Chest x-ray dated 12/18/2016 FINDINGS: The erect chest reveals no free intraperitoneal air. There is no focal pulmonary consolidation. There is no free intraperitoneal air. Erect and supine views the abdomen reveal multiple right lower quadrant air-fluid levels. There are surgical clips the right upper quadrant consistent with a prior cholecystectomy. There are calcifications project over each renal shadow. Renal calculi are suspected. There are no transition zones indicate bowel obstruction.. IMPRESSION: 1. No evidence of bowel obstruction. No evidence of free air 2. Bilateral nephrolithiasis 3. Scattered right lower quadrant air-fluid levels Electronically signed by: Pepe Rodrigez M.D. 01/08/2017 1:55 PM Dictated Date/Time: 01/08/2017 1:51 PM
[2017-01-08 14:15] LABS: INR 1.3 (0.9-1.1); PARTIAL THROMBOPLASTIN RATIO 1.2
[2017-01-08] MEDS ORDERED: MECL1TAB42 PO (14:38)
[2017-01-08 14:49] LABS: URINE APPEARANCE CLEAR (CLEAR); URINE BILIRUBIN NEG (NEG); URINE COLOR YELLOW; URINE EPITHELIAL CELL AUTO 0-5 /lpf (0-5); URINE NITRITE NEG (NEG); URINE PH 6.5 (4.5-7.5); URINE SPECIFIC GRAVITY 1.006 (1.000-1.030); UROBILINOGEN NEG (NEG)
[2017-01-08 14:58] LABS: MANUAL MICROSCOPIC REQUIRED? NO; REVIEW REQ? NO
--- NOTE | 2017-01-08 15:43 | DIAGNOSTIC IMAGING REPORT ---
CT SCAN OF THE ABDOMEN AND PELVIS WITHOUT IV CONTRAST CLINICAL HISTORY: Left flank pain. COMPARISON STUDY: Abdominal CT dated 05/28/2015. Abdominal radiographs dated 01/08/2017. TECHNIQUE: CT scan of the abdomen and pelvis is performed from the lung bases to the proximal femora. Images are reviewed in the axial, sagittal, and coronal planes. IV contrast was not administered for this examination. Automated dose control exposure was utilized. Examination is moderately degraded by motion artifact. CT DOSE: 283.25 mGy.cm FINDINGS: Lung bases: The patient is status post midline sternotomy. The heart is mildly enlarged and without pericardial effusion. The coronary arteries and mitral annulus are densely calcified. Pacemaker leads are noted. Emphysematous change is suspected. The lung bases are otherwise clear. Liver: The unenhanced liver is normal in size, contour, and attenuation. There is no intrahepatic biliary ductal dilatation. Gallbladder: Surgically absent noting clips in the gallbladder fossa. Spleen: Normal in size and attenuation. There are numerous calcified splenic granulomas. Pancreas: The unenhanced pancreas is moderately atrophic and grossly unremarkable. Adrenal glands: Unremarkable. Kidneys: The unenhanced kidneys are atrophic and without hydronephrosis. There are numerous bilateral nonobstructing renal calculi (less than 10) measuring up to 9 mm. A 2.7 cm partially exophytic cyst arises from the lower pole of the right kidney. Abdominal vasculature: There is advanced atherosclerotic calcification of ectasia of the abdominal aorta. Bowel: The small bowel and colon are normal in course and caliber. There is moderate sigmoid diverticulosis without CT evidence of acute diverticulitis. The appendix is normal as visualized. Peritoneum: There is no intraperitoneal free air or abdominal ascites. Lymphadenopathy: None. Pelvic viscera: The prostate gland is enlarged and heterogeneous, measuring 5.9 cm transverse diameter. There is median lobe hypertrophy. The bladder is distended and grossly unremarkable. The penile corpora are densely calcified suggesting Peyronie's disease. Skeletal structures: The skeletal structures are osteopenic. There is moderate lumbosacral spondylosis. Degenerative changes also seen involving the sacroiliac joints. There are mild chronic superior endplate compression deformities of L3 and L5. No lytic or blastic lesions are seen. IMPRESSION: 1. Significantly motion degraded examination. 2. There are no acute infectious or inflammatory findings in the abdomen or pelvis. 3. Bilateral nonobstructing renal calculi. 4. Moderate sigmoid diverticulosis without CT evidence of acute diverticulosis. 5. Prostatomegaly. 6. Additional changes as above. Electronically signed by: Naeem Farrell M.D. 01/08/2017 3:42 PM Dictated Date/Time: 01/08/2017 3:35 PM
[2017-01-08 16:22] VITALS: BP 162/86; PULSE 77; O2SAT 100
== END 2017-01-08 16:22 | disposition home or self-care (01) ==
LOC: EDBD 12:11 → C.EDC 12:13
DX: R42 Dizziness and giddiness (principal); K59.00 Constipation, unspecified; R10.12 Left upper quadrant pain; I48.91 Unspecified atrial fibrillation; I50.9 Heart failure, unspecified; K21.9 Gastro-esophageal reflux disease without esophagitis; G47.30 Sleep apnea, unspecified; Z87.81 Personal history of (healed) traumatic fracture; Z87.442 Personal history of urinary calculi; Z95.2 Presence of prosthetic heart valve; Z87.891 Personal history of nicotine dependence; Z79.899 Other long term (current) drug therapy; Z91.018 Allergy to other foods; Z83.3 Family history of diabetes mellitus; Z82.49 Family history of ischemic heart disease and other diseases of the circulatory system

== ENCOUNTER → 2017-04-20 | Outpatient (CLI) | payer BC ==
[~2017-04-20] MED LIST changes: +ASPCH81X PO; +ATV/1 PO; -ATV1 PO; -CYAN10005 PO; -HYDR-5688 PO; +MECL1TAB42 PO; +MONT1TAB3 PO; +MULT-506 PO
[2017-04-20 12:24] LABS: BASO % 0.5 %; BASO ABS # 0.02 K/uL (0-0.2); COMPLETE YES; EOS % 1.1 %; HEMATOCRIT 40.6 % (42-52); LYMPH % 16.4 %; LYMPH ABS # 0.72 K/uL (1.2-3.4); MEAN CELL VOLUME 84.8 fL (80-100); MEAN CORPUSCULAR HEMOGLOBIN 29.6 pg (25-34); MEAN PLATELET VOLUME 8.5 fL (7.4-10.4); MONO % 7.5 %; NEUT % 74.5 %; PLATELET COUNT 220 K/uL (130-400); RED BLOOD COUNT 4.79 M/uL (4.7-6.1)
[2017-04-20 12:35] LABS: ALT/SGPT 17 U/L (12-78); BLOOD UREA NITROGEN 16 mg/dl (7-18); CALCIUM 9.1 mg/dl (8.5-10.1); CARBON DIOXIDE 29 mmol/L (21-32); CHLORIDE 106 mmol/L (98-107); CREATININE 0.99 mg/dl (0.60-1.40); GLUCOSE 91 mg/dl (70-99); POTASSIUM 4.1 mmol/L (3.5-5.1); SODIUM 141 mmol/L (136-145)
[2017-04-20 12:48] LABS: ALB/GLOB RATIO 1.2 (0.9-2); ALKALINE PHOSPHATASE 49 U/L (45-117); AST/SGOT 12 U/L (15-37); THYROID STIMULATING HORMONE 0.755 uIu/ml (0.300-4.500)
== END | disposition home or self-care (01) ==
LOC: C.LABBFT 10:57
PROVIDERS: ATTEND Physician Assistant Medical
DX: R63.4 Abnormal weight loss (principal)

== ENCOUNTER → 2017-04-23 | Outpatient (CLI) | payer BC ==
[~2017-04-23] MED LIST changes: -ASPCH81X PO; -ATV/1 PO; -MONT1TAB3 PO; -MULT-506 PO
--- NOTE | 2017-04-23 14:09 | DIAGNOSTIC IMAGING REPORT ---
CHEST 2 VIEWS ROUTINE CLINICAL HISTORY: R63.4 Weight [id number] weakness COMPARISON STUDY: 01/08/2017 FINDINGS: Mild emphysematous change. Lungs are clear. Prior median sternotomy. Permanent bipolar cardiac pacemaker area in IMPRESSION: Mild emphysematous change. No acute process. Electronically signed by: Josué Pena M.D. 04/23/2017 2:08 PM Dictated Date/Time: 04/23/2017 2:06 PM
== END | disposition home or self-care (01) ==
LOC: C.RAD 13:44
PROVIDERS: ATTEND Physician Assistant Medical
DX: R63.4 Abnormal weight loss (principal)

== ENCOUNTER → 2017-04-28 | Outpatient (CLI) | payer BC ==
[~2017-04-28] MED LIST changes: +ASPCH81X PO; +ATV/1 PO; +MONT1TAB3 PO; +MULT-506 PO
[2017-04-28 18:00] LABS: URINE APPEARANCE CLOUDY (CLEAR); URINE BILIRUBIN NEG (NEG); URINE COLOR DK YELLOW; URINE NITRITE NEG (NEG); URINE SPECIFIC GRAVITY 1.026 (1.000-1.030); UROBILINOGEN NEG (NEG); ZZUR CULT IF INDIC CLEAN CATCH NO
[2017-04-28 18:02] LABS: MANUAL MICROSCOPIC REQUIRED? NO; REVIEW REQ? YES
[2017-05-01 09:32] LABS: ALBUMIN 4.1 G/DL (3.8-4.8); ALBUMIN % 45.77 %; ALPHA-2-GLOBULIN % 15.12 %; BETA GLOBULIN % 20.08 %; CREATININE UR 182 MG/DL (20-370); GAMMA GLOBULIN % 15.78 %; TOTAL PROTEIN 6.6 G/DL (6.2-8.3)
== END ==
LOC: C.LABBFT 12:37
PROVIDERS: ATTEND Physician Assistant Medical
DX: R63.4 Abnormal weight loss (principal)

== ENCOUNTER → 2017-05-01 | Outpatient (CLI) | payer BC | LOC: C.LABBFT 10:36 | PROVIDERS: ATTEND Physician Assistant Medical | DX: R63.4 Abnormal weight loss (principal) ==

== ENCOUNTER → 2017-05-13 | Outpatient (CLI) | payer BC ==
--- NOTE | 2017-05-13 14:50 | DIAGNOSTIC IMAGING REPORT ---
KUB CLINICAL HISTORY: N20.0 Kidney [id number] COMPARISON STUDY: 01/08/2017 FINDINGS: There is no pathologic bowel dilatation. There are surgical clips within the right upper quadrant consistent with a prior cholecystectomy. There are multiple bilateral renal calcifications consistent with calculi. There is an 11 mm calcification projected over the L3 transverse process. While this could represent a proximal left ureteral calculus, no similar-appearing renal calculus was visualized on the prior examination. IMPRESSION: 1. No evidence of pathologic bowel dilatation 2. Bilateral nephrolithiasis 3. 11 mm calcification projected over the L3 transverse process. A proximal ureteral calculus cannot be excluded, although no similar appearing calcification was visualized on the prior December study. A follow-up KUB, or CT scan might be considered in follow-up as deemed clinically appropriate Electronically signed by: Pepe Rodrigez M.D. 05/13/2017 2:49 PM Dictated Date/Time: 05/13/2017 2:46 PM
== END | disposition home or self-care (01) ==
LOC: C.RAD 14:16
PROVIDERS: ATTEND Urology
DX: R31.29 Other microscopic hematuria (principal); N20.0 Calculus of kidney; R82.8 Abnormal findings on cytological and histological examination of urine

== ENCOUNTER → 2017-05-14 | Outpatient (CLI) | payer BC ==
--- NOTE | 2017-05-14 14:21 | DIAGNOSTIC IMAGING REPORT ---
(RENAL)RETROPERITONEA COMP HISTORY: Hematuria R31.29 Hematuria, microscopic COMPARISON: None. FINDINGS: Right kidney: Maximum dimension 12.3 cm. Several nonobstructing renal calcifications. Lower pole cyst measuring 3 cm. Normal corticomedullary differentiation and cortical thickness. Left kidney: Maximum dimension 11.5 cm. No evidence for hydronephrosis. Small nonobstructing lower pole calcification. 2.2 cm lower pole cyst. Normal corticomedullary differentiation and cortical thickness. Bladder: No bladder wall thickening. The bilateral ureteral jets were identified. IMPRESSION: 1. Several nonobstructing renal calcifications bilaterally. 2. Several small renal cysts bilaterally. 3. No evidence for hydronephrosis. The above report was generated using voice recognition software. It may contain grammatical, syntax or spelling errors. Electronically signed by: Josué Pena M.D. 05/14/2017 2:20 PM Dictated Date/Time: 05/14/2017 2:16 PM
== END | disposition home or self-care (01) ==
LOC: C.ULTR 13:18
PROVIDERS: ATTEND Nurse Practitioner Adult Health
DX: R31.29 Other microscopic hematuria (principal); N20.0 Calculus of kidney; N28.1 Cyst of kidney, acquired

== ENCOUNTER → 2017-06-03 | Outpatient (CLI) | payer BC | END | disposition home or self-care (01) | LOC: C.PATHSPEC 17:08 | PROVIDERS: ATTEND Dermatology | DX: L57.0 Actinic keratosis (principal); C44.612 Basal cell carcinoma of skin of right upper limb, including shoulder ==

== ENCOUNTER 2017-06-17 08:23 | Emergency (ER) | payer BC ==
[~2017-06-17] VITALS: Ht 182.9 cm; Wt 63.5 kg
[~2017-06-17 08:23] MED LIST changes: -ASPCH81X PO; -ATV/1 PO; -MONT1TAB3 PO; -MULT-506 PO
[2017-06-17 08:33] VITALS: TEMP 36.4; Ht 182.9 cm; Wt 63.5 kg
[2017-06-17 08:46] VITALS: O2SAT 100
[2017-06-17] MEDS ORDERED: MONT1TAB3 PO (09:01)
[2017-06-17] MEDS ORDERED: ASPCH81X PO (09:01)
[2017-06-17] MEDS ORDERED: MULT-506 PO (09:01)
[2017-06-17] MEDS ORDERED: ATV/1 PO (09:03)
[2017-06-17] MEDS ORDERED: SODIUM CHLORIDE 0.9% 1000ML 1,000 ML IV STA (09:07)
[2017-06-17 09:37] LABS: BASO % 0.7 %; BASO ABS # 0.03 K/uL (0-0.2); COMPLETE YES; EOS % 0.9 %; IG% 0.2 %; LYMPH % 12.5 %; LYMPH ABS # 0.54 K/uL (1.2-3.4); MEAN CELL VOLUME 85.4 fL (80-100); MEAN CORPUSCULAR HEMOGLOBIN 30.3 pg (25-34); MEAN CORPUSCULAR HGB CONC 35.5 g/dl (32-36); MEAN PLATELET VOLUME 8.5 fL (7.4-10.4); MONO % 7.4 %; NEUT % 78.3 %; PLATELET COUNT 192 K/uL (130-400); RED BLOOD COUNT 4.92 M/uL (4.7-6.1); WHITE BLOOD COUNT 4.32 K/uL (4.8-10.8)
[2017-06-17 09:42] LABS: URINE APPEARANCE CLEAR (CLEAR); URINE BILIRUBIN NEG (NEG); URINE COLOR YELLOW; URINE EPITHELIAL CELL AUTO 0-5 /lpf (0-5); URINE NITRITE NEG (NEG); URINE SPECIFIC GRAVITY 1.017 (1.000-1.030); UROBILINOGEN NEG (NEG); ZZUR CULT IF INDIC CLEAN CATCH NO
[2017-06-17 09:43] LABS: INR 1.3 (0.9-1.1); PARTIAL THROMBOPLASTIN RATIO 1.2; PROTHROMBIN TIME (PATIENT) 13.8 SECONDS (9.0-12.0)
[2017-06-17 09:44] LABS: ALT/SGPT 16 U/L (12-78); BLOOD UREA NITROGEN 14 mg/dl (7-18); BUN/CREATININE RATIO 15.7 (10-20); CALCIUM 9.6 mg/dl (8.5-10.1); CARBON DIOXIDE 31 mmol/L (21-32); CHLORIDE 104 mmol/L (98-107); CREATININE 0.91 mg/dl (0.60-1.40); GLUCOSE 94 mg/dl (70-99); MAGNESIUM 2.3 mg/dl (1.8-2.4); POTASSIUM 3.6 mmol/L (3.5-5.1); SODIUM 138 mmol/L (136-145)
[2017-06-17 09:47] LABS: MANUAL MICROSCOPIC REQUIRED? NO; REVIEW REQ? NO
[2017-06-17 09:53] LABS: ALKALINE PHOSPHATASE 52 U/L (45-117); AST/SGOT 18 U/L (15-37); CKMB/CK RATIO 3.2 (0-3.0)
--- NOTE | 2017-06-17 10:11 | DIAGNOSTIC IMAGING REPORT ---
CHEST ONE VIEW PORTABLE CLINICAL HISTORY: EVALUATE ALTERED MENTAL STATUS/WEAKNESS COMPARISON STUDY: 04/23/2017 FINDINGS: Prior median sternotomy. Permanent bipolar cardiac pacer. Diaphragms smooth. Lungs are clear. IMPRESSION: No acute process. The above report was generated using voice recognition software. It may contain grammatical, syntax or spelling errors. Electronically signed by: Josué Pena M.D. 06/17/2017 10:10 AM Dictated Date/Time: 06/17/2017 10:09 AM
--- NOTE | 2017-06-17 10:48 | EMERGENCY ROOM VISIT NOTE ---
History Report prepared by Patsy: Mary Doran Under the Supervision of: Dr. Oskar Copeland D.O. First contact with patient: 09:06 Chief Complaint: ILLNESS Stated Complaint: CAN'T WARM UP, DIZZY History of Present Illness The patient is a 81 year old male who presents to the Emergency Room with complaints of a persistent illness over the past several weeks. Per the patient 's , the patient has been feeling "lousy" over the past few weeks, noting that she feels it is more of his dementia setting in. The patient reports a headache, stating that he felt his sinuses were recently congested. He additionally reports feeling dizzy today. Per nursing notes the patient has complained of a cough and shortness of breath intermittently. Source of History: patient Onset: past several weeks Position: other (global) Quality: other (illness) Timing: other (persistent) Associated Symptoms: + headache, + cough, + SOB Note: Associated Symptoms: sinus congestion, feeling lousy, increased dementia, dizzy Review of Systems See HPI for pertinent positives & negatives. A total of 10 systems reviewed and were otherwise negative. Past Medical & Surgical Medical Problems: (1) A-fib (2) Altered mental status (3) Atrial fibrillation with RVR (4) Atrial fibrillation with RVR (5) Atrial fibrillation with RVR (6) Atrial flutter with rapid ventricular response (7) Back pain (8) Bradycardia (9) Cataract, left eye (10) Cataract, right eye (11) CHF (congestive heart failure) (12) Complete heart block (13) Constipation (14) Dyspnea (15) Elevated troponin (16) GERD (gastroesophageal reflux disease) (17) GERD (gastroesophageal reflux disease) (18) Heart disease (19) Hyperglycemia (20) Kidney disease (21) Kidney stone (22) Kidney stone (23) Kidney stones (24) Nausea (25) Patella fracture (26) Shortness of breath (27) Shortness of breath (28) Sick sinus syndrome with tachycardia (29) Sleep apnea (30) Symptomatic bradycardia (31) Tachyarrhythmia (32) Tick bite Surgical Problems: (1) Heart valve replaced Family History Diabetes mellitus FH: Parkinson's disease FH: aortic aneurysm Heart disease Hypertension Social History Smoking Status: Former Smoker Alcohol Use: occasionally Drug Use: none Marital Status: Housing Status: lives with family Occupation Status: retired Current/Historical Medications Scheduled Apixaban (Eliquis), 5 MG PO BID Aspirin (Aspirin Chewable), 81 MG PO DAILY Escitalopram (Lexapro), 10 MG PO QAM Finasteride (Finasteride), 5 MG PO QAM Metoprolol Succ (Toprol Xl) (Toprol-Xl), 50 MG PO DAILY Montelukast Sodium (Singulair), 10 MG PO DAILY Multivitamin (Multivitamin), 1 TAB PO DAILY Scheduled PRN Lorazepam (Ativan), 0.5-1 MG PO UD PRN for SLEEP OR SOB Meclizine Hcl (Meclizine Hcl), 1 TAB PO TID PRN for Dizziness or Vertigo Allergies Coded Allergies: [place] Pepper (Verified Allergy, Severe, SHORTNESS OF BREATH, 06/17/17) NO KNOWN DRUG ALLERGIES (Verified Allergy, Unknown, none, 06/17/17) Physical Exam Vital Signs Date Time Temp Pulse Resp B/P (MAP) Pulse Ox O2 Delivery O2 Flow Rate FiO2 06/17/17 10:21 62 18 139/66 98 Room Air 06/17/17 08:49 77 06/17/17 08:46 100 Room Air 06/17/17 08:42 88 141/83 90 132/75 89 122/67 06/17/17 08:33 36.4 94 18 126/78 98 Room Air Physical Exam CONSTITUTIONAL/VITAL SIGNS: Reviewed / noted above. GENERAL: Non-toxic in appearance. INTEGUMENTARY: Warm, dry, and [place]. HEAD: Normocephalic. EYES: without scleral icterus or trauma. ENT/OROPHARYNX: clear and moist. LYMPHADENOPATHY/NECK: Is supple without lymphadenopathy or meningismus. RESPIRATORY: Lungs clear and equal. CARDIOVASCULAR: Regular rate and rhythm. GI/ABDOMEN: Soft and nontender. No organomegaly or pulsatile mass. No rebound or guarding. Normal bowel sounds. EXTREMITIES: Warm and well perfused. BACK: No CVA tenderness. NEUROLOGICAL: Intact without focal deficits. PSYCHIATRIC: normal affect. MUSCULOSKELETAL: Normally developed with good muscle tone. Medical Decision & Procedures ER Provider Diagnostic Interpretation: Radiology results as stated below per my review and radiologist interpretation: CHEST ONE VIEW PORTABLE CLINICAL HISTORY: EVALUATE ALTERED MENTAL STATUS/WEAKNESS COMPARISON STUDY: 04/23/2017 FINDINGS: Prior median sternotomy. Permanent bipolar cardiac pacer. Diaphragms smooth. Lungs are clear. IMPRESSION: No acute process. The above report was generated using voice recognition software. It may contain grammatical, syntax or spelling errors. Electronically signed by: Josué Pena M.D. 06/17/2017 10:10 AM Dictated Date/Time: 06/17/2017 10:09 AM Laboratory Results 06/17/17 09:00 Red Blood Count 4.92, Mean Corpuscular Volume 85.4, Mean Corpuscular Hemoglobin 30.3, Mean Corpuscular Hemoglobin Concent 35.5, Mean Platelet Volume 8.5, Neutrophils (%) (Auto) 78.3, Lymphocytes (%) (Auto) 12.5, Monocytes (%) (Auto) 7.4, Eosinophils (%) (Auto) 0.9, Basophils (%) (Auto) 0.7, Neutrophils # (Auto) 3.38, Lymphocytes # (Auto) 0.54, Monocytes # (Auto) 0.32, Eosinophils # (Auto) 0.04, Basophils # (Auto) 0.03 06/17/17 09:00 Test 06/17/17 09:00 06/17/17 09:30 White Blood Count 4.32 K/uL (4.8-10.8) Red Blood Count 4.92 M/uL (4.7-6.1) Hemoglobin 14.9 g/dL (14.0-18.0) Hematocrit 42.0 % (42-52) Mean Corpuscular Volume 85.4 fL (80-100) Mean Corpuscular Hemoglobin 30.3 pg (25-34) Mean Corpuscular Hemoglobin Concent 35.5 g/dl (32-36) Platelet Count 192 K/uL (130-400) Mean Platelet Volume 8.5 fL (7.4-10.4) Neutrophils (%) (Auto) 78.3 % Lymphocytes (%) (Auto) 12.5 % Monocytes (%) (Auto) 7.4 % Eosinophils (%) (Auto) 0.9 % Basophils (%) (Auto) 0.7 % Neutrophils # (Auto) 3.38 K/uL (1.4-6.5) Lymphocytes # (Auto) 0.54 K/uL (1.2-3.4) Monocytes # (Auto) 0.32 K/uL (0.11-0.59) Eosinophils # (Auto) 0.04 K/uL (0-0.5) Basophils # (Auto) 0.03 K/uL (0-0.2) RDW Standard Deviation 43.5 fL (36.4-46.3) RDW Coefficient of Variation 13.9 % (11.5-14.5) Immature Granulocyte % (Auto) 0.2 % Immature Granulocyte # (Auto) 0.01 K/uL (0.00-0.02) Prothrombin Time 13.8 SECONDS (9.0-12.0) Prothromb Time International Ratio 1.3 (0.9-1.1) Activated Partial Thromboplast Time 32.2 SECONDS (21.0-31.0) Partial Thromboplastin Ratio 1.2 Anion Gap 3.0 mmol/L (3-11) Est Creatinine Clear Calc Drug Dose 59.1 ml/min Estimated GFR () 92.6 Estimated GFR (Non- 79.9 BUN/Creatinine Ratio 15.7 (10-20) Calcium Level 9.6 mg/dl (8.5-10.1) Magnesium Level 2.3 mg/dl (1.8-2.4) Total Bilirubin 3.8 mg/dl (0.2-1) Direct Bilirubin 0.3 mg/dl (0-0.2) Aspartate Amino Transf (AST/SGOT) 18 U/L (15-37) Alanine Aminotransferase (ALT/SGPT) 16 U/L (12-78) Alkaline Phosphatase 52 U/L (45-117) Total Creatine Kinase 25 U/L (39-308) Creatine Kinase MB 0.8 ng/ml (0.5-3.6) Creatine Kinase MB Ratio 3.2 (0-3.0) Troponin I < 0.015 ng/ml (0-0.045) Total Protein 6.9 gm/dl (6.4-8.2) Albumin 3.9 gm/dl (3.4-5.0) Lipase 98 U/L (73-393) Thyroid Stimulating Hormone (TSH) 0.790 uIu/ml (0.300-4.500) Urine Color YELLOW Urine Appearance CLEAR (CLEAR) Urine pH 6.0 (4.5-7.5) Urine Specific [place] 1.017 (1.000-1.030) Urine Protein NEG (NEG) Urine Glucose (UA) NEG (NEG) Urine Ketones NEG (NEG) Urine Occult Blood 1+ (NEG) Urine Nitrite NEG (NEG) Urine Bilirubin NEG (NEG) Urine Urobilinogen NEG (NEG) Urine Leukocyte Esterase NEG (NEG) Urine WBC (Auto) 1-5 /hpf (0-5) Urine RBC (Auto) 5-10 /hpf (0-4) Urine Hyaline Casts (Auto) 0 /lpf (0-5) Urine Epithelial Cells (Auto) 0-5 /lpf (0-5) Urine Bacteria (Auto) NEG (NEG) Laboratory results as stated above per my review. Medications Administered Medications (Trade) Dose Ordered Sig/Juan A Route Start Time Stop Time Status Last Admin Dose Admin Sodium Chloride 1,000 ml @ 999 mls/hr Q1H1M STAT IV 06/17/17 09:07 06/17/17 10:07 DC 06/17/17 09:35 999 MLS/HR ECG Indication: other (illness) Rate (beats per minute): 71 Rhythm: other (paced ventricular rhtyhm) Findings: no acute ischemic change, no ectopy ED Course 0907: Ordered Sodium Chloride 1000 ml @ 999 mls/hr IV. 1026: Previous medical records were reviewed. The patient was evaluated in room A12B. A complete history and physical examination was performed. I discussed all the exam findings with him and I discussed the treatment plan. He verbalized complete understanding and agreement. He is ready to go home. Medical Decision Differentials include: Acute coronary syndrome, myocardial infarction, CVA, TIA , anemia, infection, pneumonia, UTI, pyelonephritis, poor nutrition, dehydration , electrolyte disturbance, and hypoglycemia. This is a 81-year-old male who presents to the ED with a chief complaint of generalized malaise. The patient's reports that he has been feeling this way for several weeks. He also seems to focus on nasal issues. He has seen multiple ENT doctors for this. The patient had some dizziness this morning and this is the reason that he was brought in. The states that he has dementia and is a poor historian anyway. The reports that he has had dizziness in the past and was given a meclizine this morning. He is no longer dizzy. The patient's exam was unremarkable. He is in no distress. His vital signs are stable. His laboratory studies including a CBC, complete metabolic panel, cardiac enzymes were normal. Chest x-ray did not show acute disease. Urine did not show infection. EKG shows a paced rhythm. After evaluating the patient and talking with the as well as reviewing the laboratory studies and other tests, the patient is felt to be stable for discharge and outpatient follow-up. Medication Reconcilliation Current Medication List: was personally reviewed by me Blood Pressure Screening Patient's blood pressure: Normal blood pressure Blood pressure disposition: Did not require urgent referral Impression Primary Impression: Dizziness, nonspecific Scribe Attestation The scribe's documentation has been prepared under my direction and personally reviewed by me in its entirety. I confirm that the note above accurately reflects all work, treatment, procedures, and medical decision making performed by me. Departure Information Dispostion Home / Self-Care Referrals Silas Garcia M.D. (PCP) Patient Instructions My [facility] Additional Instructions Use meclizine as needed. Follow-up with your doctor for further care and evaluation in 1-2 days. Return to the emergency department for worsening or new symptoms or any concerns. You have been examined and treated today on an emergency basis only. This is not a substitute for, or an effort to provide, complete comprehensive medical care. It is impossible to recognize and treat all injuries or illnesses in a single emergency department visit. It is therefore important that you follow up closely with your doctor. Call as soon as possible for an appointment.
[2017-06-17 10:59] VITALS: BP 134/64; PULSE 66; O2SAT 99
== END 2017-06-17 11:00 | disposition home or self-care (01) ==
LOC: C.EDB 08:26 → C.EDA 11:00
DX: R42 Dizziness and giddiness (principal); R06.02 Shortness of breath; R05 Cough; I48.91 Unspecified atrial fibrillation; Z79.01 Long term (current) use of anticoagulants; Z79.82 Long term (current) use of aspirin; Z87.442 Personal history of urinary calculi; Z95.2 Presence of prosthetic heart valve

== ENCOUNTER 2017-06-20 21:02 | Emergency (ER) | payer BC ==
[~2017-06-20] VITALS: Ht 182.9 cm; Wt 64.3 kg
[~2017-06-20 21:02] MED LIST changes: +ASPCH81X PO; +ATV/1 PO; -CLON0.5T3 PO; -DONE1TAB11 PO; +MONT1TAB3 PO; +MULT-506 PO
[2017-06-20 21:05] VITALS: BP 116/65; TEMP 36.5; Ht 182.9 cm; Wt 64.3 kg
[2017-06-20] MEDS ORDERED: SODIUM CHLORIDE 0.9% 1000ML 500 ML IV STA (21:23)
--- NOTE | 2017-06-20 21:50 | DIAGNOSTIC IMAGING REPORT ---
CHEST ONE VIEW PORTABLE CLINICAL HISTORY: EVALUATE ALTERED MENTAL STATUS/WEAKNESS dyspnea COMPARISON STUDY: 06/17/2017 FINDINGS: Prior median sternotomy. Bipolar cardiac pacemaker. Lungs are clear. There is component of mild emphysematous change. IMPRESSION: Chronic change. No acute process. The above report was generated using voice recognition software. It may contain grammatical, syntax or spelling errors. Electronically signed by: Josué Pena M.D. 06/20/2017 9:48 PM Dictated Date/Time: 06/20/2017 9:48 PM
[2017-06-20 21:57] LABS: BASO % 0.4 %; BASO ABS # 0.02 K/uL (0-0.2); COMPLETE YES; EOS % 0.6 %; LYMPH % 13.7 %; LYMPH ABS # 0.65 K/uL (1.2-3.4); MEAN CELL VOLUME 86.1 fL (80-100); MEAN CORPUSCULAR HEMOGLOBIN 30.7 pg (25-34); MEAN CORPUSCULAR HGB CONC 35.6 g/dl (32-36); MEAN PLATELET VOLUME 8.6 fL (7.4-10.4); MONO % 7.6 %; NEUT % 77.7 %; PLATELET COUNT 208 K/uL (130-400); RED BLOOD COUNT 4.53 M/uL (4.7-6.1); WHITE BLOOD COUNT 4.74 K/uL (4.8-10.8)
--- NOTE | 2017-06-20 22:03 | EMERGENCY ROOM VISIT NOTE ---
History Report prepared by Patsy: Lia Nunez Under the Supervision of: Dr. Naeem Edmond M.D. First contact with patient: 21:18 Chief Complaint: RESPIRATORY PROBLEMS Stated Complaint: BREATHING DIFFICULTIES History of Present Illness The patient is a 81 year old male who presents to the Emergency Room with complaints of an episode of breathing difficulties starting a few days ago. The patient states that his forced him to come to the ED tonight because he has had increased shortness of breath. The patient complains of dizziness. The patient denies a cough, fever, vomiting, and diarrhea. He reports that he has O2 at home and has been using it occasionally. The son notes that he does not know of O2 being available at home, but notes that the patient is on a C-PAP machine. The son notes he may have early dementia. The patient notes he has been drinking and eating enough. The son states that the patient has been losing weight for the past year. Source of History: patient, family Onset: few days ago Position: other (global) Quality: other (global) Timing: other (episode) Associated Symptoms: No fevers, No cough, No vomiting, No diarrhea Note: The patient complains of dizziness. Review of Systems See HPI for pertinent positives & negatives. A total of 10 systems reviewed and were otherwise negative. Past Medical & Surgical Medical Problems: (1) A-fib (2) Altered mental status (3) Atrial fibrillation with RVR (4) Atrial fibrillation with RVR (5) Atrial fibrillation with RVR (6) Atrial flutter with rapid ventricular response (7) Back pain (8) Bradycardia (9) Cataract, left eye (10) Cataract, right eye (11) CHF (congestive heart failure) (12) Complete heart block (13) Constipation (14) Dyspnea (15) Elevated troponin (16) GERD (gastroesophageal reflux disease) (17) GERD (gastroesophageal reflux disease) (18) Heart disease (19) Hyperglycemia (20) Kidney disease (21) Kidney stone (22) Kidney stone (23) Kidney stones (24) Nausea (25) Patella fracture (26) Shortness of breath (27) Shortness of breath (28) Sick sinus syndrome with tachycardia (29) Sleep apnea (30) Symptomatic bradycardia (31) Tachyarrhythmia (32) Tick bite Surgical Problems: (1) Heart valve replaced Family History Diabetes mellitus FH: Parkinson's disease FH: aortic aneurysm Heart disease Hypertension Social History Smoking Status: Never Smoker Alcohol Use: occasionally Drug Use: none Marital Status: Housing Status: lives with family Occupation Status: retired Current/Historical Medications Scheduled Apixaban (Eliquis), 5 MG PO BID Aspirin (Aspirin Chewable), 81 MG PO DAILY Finasteride (Finasteride), 5 MG PO QAM Metoprolol Succ (Toprol Xl) (Toprol-Xl), 50 MG PO DAILY Multivitamin (Multivitamin), 1 TAB PO DAILY Scheduled PRN Lorazepam (Ativan), 0.5-1 MG PO UD PRN for SLEEP OR SOB Meclizine Hcl (Meclizine Hcl), 1 TAB PO TID PRN for Dizziness or Vertigo Allergies Coded Allergies: [place] Pepper (Verified Allergy, Severe, SHORTNESS OF BREATH, 06/20/17) NO KNOWN DRUG ALLERGIES (Verified Allergy, Unknown, none, 06/20/17) Physical Exam Vital Signs Date Time Temp Pulse Resp B/P (MAP) Pulse Ox O2 Delivery O2 Flow Rate FiO2 06/20/17 22:45 80 18 94 06/20/17 22:04 62 06/20/17 21:05 36.5 88 22 116/65 97 Room Air Physical Exam GENERAL: Patient is in no acute distress. Seems mildly anxious. HEENT: No acute trauma, normocephalic atraumatic, mucous membranes moist, no nasal congestion, no scleral icterus. NECK: No stridor, no adenopathy, no meningismus, trachea is midline. LUNGS: Clear to auscultation bilaterally, no wheeze, no rhonchi, breath sounds equal. HEART: Without murmurs gallops or rubs, regular rate and rhythm. ABDOMEN: Soft, nontender, bowel sounds positive, no hernias, no peritonitis. EXTREMITIES: No cyanosis or edema, full range of motion of all the joints without pain or difficulty, no signs for acute trauma. NEUROLOGIC: Mild dementia noted. Awake and alert. No focal motor deficits. SKIN: No rash, no jaundice, no diaphoresis. Medical Decision & Procedures ER Provider Diagnostic Interpretation: Radiology results as stated below per my review and radiologist interpretation: CHEST ONE VIEW PORTABLE CLINICAL HISTORY: EVALUATE ALTERED MENTAL STATUS/WEAKNESS dyspnea COMPARISON STUDY: 06/17/2017 FINDINGS: Prior median sternotomy. Bipolar cardiac pacemaker. Lungs are clear. There is component of mild emphysematous change. IMPRESSION: Chronic change. No acute process. The above report was generated using voice recognition software. It may contain grammatical, syntax or spelling errors. Electronically signed by: Josué Pena M.D. 06/20/2017 9:48 PM Dictated Date/Time: 06/20/2017 9:48 PM Laboratory Results 06/20/17 21:43 Red Blood Count 4.53, Mean Corpuscular Volume 86.1, Mean Corpuscular Hemoglobin 30.7, Mean Corpuscular Hemoglobin Concent 35.6, Mean Platelet Volume 8.6, Neutrophils (%) (Auto) 77.7, Lymphocytes (%) (Auto) 13.7, Monocytes (%) (Auto) 7.6, Eosinophils (%) (Auto) 0.6, Basophils (%) (Auto) 0.4, Neutrophils # (Auto) 3.68, Lymphocytes # (Auto) 0.65, Monocytes # (Auto) 0.36, Eosinophils # (Auto) 0.03, Basophils # (Auto) 0.02 06/20/17 21:43 Test 06/20/17 21:43 White Blood Count 4.74 K/uL (4.8-10.8) Red Blood Count 4.53 M/uL (4.7-6.1) Hemoglobin 13.9 g/dL (14.0-18.0) Hematocrit 39.0 % (42-52) Mean Corpuscular Volume 86.1 fL (80-100) Mean Corpuscular Hemoglobin 30.7 pg (25-34) Mean Corpuscular Hemoglobin Concent 35.6 g/dl (32-36) Platelet Count 208 K/uL (130-400) Mean Platelet Volume 8.6 fL (7.4-10.4) Neutrophils (%) (Auto) 77.7 % Lymphocytes (%) (Auto) 13.7 % Monocytes (%) (Auto) 7.6 % Eosinophils (%) (Auto) 0.6 % Basophils (%) (Auto) 0.4 % Neutrophils # (Auto) 3.68 K/uL (1.4-6.5) Lymphocytes # (Auto) 0.65 K/uL (1.2-3.4) Monocytes # (Auto) 0.36 K/uL (0.11-0.59) Eosinophils # (Auto) 0.03 K/uL (0-0.5) Basophils # (Auto) 0.02 K/uL (0-0.2) RDW Standard Deviation 43.0 fL (36.4-46.3) RDW Coefficient of Variation 13.8 % (11.5-14.5) Immature Granulocyte % (Auto) 0.0 % Immature Granulocyte # (Auto) 0.00 K/uL (0.00-0.02) Anion Gap 6.0 mmol/L (3-11) Est Creatinine Clear Calc Drug Dose 64.1 ml/min Estimated GFR () 96.1 Estimated GFR (Non- 82.9 BUN/Creatinine Ratio 28.8 (10-20) Calcium Level 8.8 mg/dl (8.5-10.1) Magnesium Level 2.3 mg/dl (1.8-2.4) Total Bilirubin 2.6 mg/dl (0.2-1) Aspartate Amino Transf (AST/SGOT) 14 U/L (15-37) Alanine Aminotransferase (ALT/SGPT) 14 U/L (12-78) Alkaline Phosphatase 53 U/L (45-117) Troponin I 0.020 ng/ml (0-0.045) Total Protein 6.8 gm/dl (6.4-8.2) Albumin 3.7 gm/dl (3.4-5.0) Globulin 3.1 gm/dl (2.5-4.0) Albumin/Globulin Ratio 1.2 (0.9-2) Thyroid Stimulating Hormone (TSH) 1.100 uIu/ml (0.300-4.500) Laboratory results reviewed by me. Medications Administered Medications (Trade) Dose Ordered Sig/Juan A Route Start Time Stop Time Status Last Admin Dose Admin Sodium Chloride 500 ml @ 999 mls/hr Q31M STAT IV 06/20/17 21:23 06/20/17 21:53 DC 06/20/17 22:01 999 MLS/HR ECG Indication: SOB/dyspnea Rate (beats per minute): 60 Rhythm: other (ventricular pace maker) Findings: no acute ischemic change, no ectopy ED Course 2119: The patient was evaluated in room C9. A complete history and physical exam was performed. 2122: Ordered NSS 500 ml @ 999 mls/hr IV. 2240: Reevaluated the patient and he feels fine. He was reassured. The is here now and states that the patient becomes panicked frequently. Discussed results and discharge instructions: he and his verbalized understanding and agreement. The patient is ready for discharge. Medical Decision Differential diagnoses include bronchitis, pneumonia, CHF, cardiac ischemia, anemia, electrolyte imbalance, dehydration, anxiety, dementia. There is no leukocytosis or concerning anemia. No significant electrolyte abnormality, kidney failure or hepatitis. EKG shows a ventricular pacemaker, no acute ischemia. Cardiac enzyme testing times one is not consistent with acute cardiac injury. Chest x-ray does not show pneumonia, CHF or mediastinal widening. There was no pneumothorax. The patient appears to be in a euthyroid state. On exam, the patient was not hypoxic or febrile. He was not toxic. His lungs were clear. The patient received IV saline, he is resting comfortably. His has arrived. She is going to take him home. She feels he is anxious and suffers from some dementia, she does not feel his lungs are the problem. Certainly, his workup is benign. He is being discharged in the care of his spouse. He can follow with his doctors for a recheck this week. Medication Reconcilliation Current Medication List: was personally reviewed by me Blood Pressure Screening Patient's blood pressure: Normal blood pressure Blood pressure disposition: Did not require urgent referral Impression Primary Impression: SOB (shortness of breath) Scribe Attestation The scribe's documentation has been prepared under my direction and personally reviewed by me in its entirety. I confirm that the note above accurately reflects all work, treatment, procedures, and medical decision making performed by me. Departure Information Dispostion Home / Self-Care Referrals Silas Garcia M.D. (PCP) Forms HOME CARE DOCUMENTATION FORM, IMPORTANT VISIT INFORMATION, WORK / SCHOOL INSTRUCTIONS Patient Instructions My [facility] [employer] Additional Instructions testing today was all ok chest film was ok oxygen level today was ok follow with ghazala garcia this week for a recheck
[2017-06-20 22:14] LABS: BUN/CREATININE RATIO 28.8 (10-20); CALCIUM 8.8 mg/dl (8.5-10.1); CREATININE 0.85 mg/dl (0.60-1.40); MAGNESIUM 2.3 mg/dl (1.8-2.4); POTASSIUM 3.9 mmol/L (3.5-5.1)
[2017-06-20 22:25] LABS: ALB/GLOB RATIO 1.2 (0.9-2); THYROID STIMULATING HORMONE 1.1 uIu/ml (0.300-4.500)
[2017-06-20 22:45] VITALS: PULSE 80; O2SAT 94
== END 2017-06-20 22:45 | disposition home or self-care (01) ==
LOC: C.EDB 21:03 → C.EDC 22:45
DX: R06.02 Shortness of breath (principal); I48.91 Unspecified atrial fibrillation; I48.92 Unspecified atrial flutter; K21.9 Gastro-esophageal reflux disease without esophagitis; N18.9 Chronic kidney disease, unspecified; I51.9 Heart disease, unspecified; G47.39 Other sleep apnea; Z87.442 Personal history of urinary calculi; Z87.828 Personal history of other (healed) physical injury and trauma; Z98.49 Cataract extraction status, unspecified eye; Z95.2 Presence of prosthetic heart valve; Z79.82 Long term (current) use of aspirin; Z79.899 Other long term (current) drug therapy; Z91.018 Allergy to other foods; Z83.3 Family history of diabetes mellitus; Z82.49 Family history of ischemic heart disease and other diseases of the circulatory system

== ENCOUNTER 2017-07-03 10:40 | Emergency (ER) | payer BC ==
[~2017-07-03 10:40] MED LIST changes: -ESCI10TA17 PO; -MONT1TAB3 PO
[2017-07-03 10:51] VITALS: TEMP 36.6; Ht 188 cm
--- NOTE | 2017-07-03 11:33 | EMERGENCY ROOM VISIT NOTE ---
History First contact with patient: 11:02 Chief Complaint: LEG PAIN,LEG INJURY Stated Complaint: GROIN DOWN TO KNEE BLACK AND BLUE/PAINFUL History of Present Illness The patient is a 81 year old male who presents to the Emergency Room via private vehicle accompanied by with complaints of "right groin pain, black and blue down to knee. The patient states that approximately 1 week ago he was bowling, as he was returning the ball, he states that he developed pain in the right groin. He now notes that his right leg is turning yellow, and has bruising. He has been on all her questions for 2 years now. 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 He denies any abdominal pain, fevers or chills. Review of Systems A complete 10-point Review of Systems was discussed with the patient, with pertinent positives and negatives listed in the History of Present Illness. All remaining Review of Systems questions can be considered negative unless otherwise specified. Past Medical/Surgical History Medical Problems: (1) A-fib (2) Altered mental status (3) Atrial fibrillation with RVR (4) Atrial fibrillation with RVR (5) Atrial fibrillation with RVR (6) Atrial flutter with rapid ventricular response (7) Back pain (8) Bradycardia (9) Cataract, left eye (10) Cataract, right eye (11) CHF (congestive heart failure) (12) Complete heart block (13) Constipation (14) Dyspnea (15) Elevated troponin (16) GERD (gastroesophageal reflux disease) (17) GERD (gastroesophageal reflux disease) (18) Heart disease (19) Hyperglycemia (20) Kidney disease (21) Kidney stone (22) Kidney stone (23) Kidney stones (24) Nausea (25) Patella fracture (26) Shortness of breath (27) Shortness of breath (28) Sick sinus syndrome with tachycardia (29) Sleep apnea (30) Symptomatic bradycardia (31) Tachyarrhythmia (32) Tick bite Surgical Problems: (1) Heart valve replaced Family History Diabetes mellitus FH: Parkinson's disease FH: aortic aneurysm Heart disease Hypertension Social History Smoking Status: Former Smoker Alcohol Use: occasionally Drug Use: none Marital Status: Housing Status: lives with family Occupation Status: retired Current/Historical Medications Scheduled Apixaban (Eliquis), 5 MG PO BID Aspirin (Aspirin Chewable), 81 MG PO DAILY Finasteride (Finasteride), 5 MG PO QAM Metoprolol Succ (Toprol Xl) (Toprol-Xl), 25 MG PO BID Multivitamin (Multivitamin), 1 TAB PO DAILY Scheduled PRN Lorazepam (Ativan), 0.5-1 MG PO UD PRN for SLEEP OR SOB Meclizine Hcl (Meclizine Hcl), 1 TAB PO TID PRN for Dizziness or Vertigo Physical Exam Vital Signs Date Time Temp Pulse Resp B/P (MAP) Pulse Ox O2 Delivery O2 Flow Rate FiO2 07/03/17 13:45 61 16 126/66 100 Room Air 07/03/17 11:45 68 17 107/53 100 Room Air 07/03/17 10:51 36.6 74 18 116/55 99 Room Air Physical Exam VITAL SIGNS - Vital signs and nursing notes were reviewed. Stable. GENERAL -81-year-old male appearing his stated age who is in no acute distress. Communicates well with provider and answers questions appropriately. SKIN - there is bruising noted to the right leg, with various stages of bruising , mostly yellow, with some darkened purple/black bruising to the right distal medial thigh. HEAD - NC/AT. EYES - Sclera anicteric. EARS - No deformities of external structures noted on gross examination bilaterally. NOSE - Midline and without cyanosis. No epistaxis or purulent drainage noted. MOUTH/OROPHARYNX - Without perioral cyanosis. LUNGS - Chest wall symmetric without accessory muscle use, intercostals retractions, or central cyanosis. Normal vesicular breath sounds CTA B/L. No wheezes, rales, or rhonchi appreciated. CARDIAC - RRR with S1/S2. No murmur, rubs, or gallops appreciated. ABDOMEN - Abdominal contour without pulsations or visible masses. BS normoactive all four quadrants. No tenderness, palpable masses, hepatosplenomegaly, or ascites noted. EXTREMITIES - No clubbing or peripheral cyanosis. No pretibial edema present. Neurovascularly intact in the right lower extremity. Full range of motion. Tenderness in the right medial proximal groin. +5/5 strength noted in UE/LE bilaterally. NEUROLOGIC - Cranial nerves II through XII grossly intact. Sensory intact to light touch throughout. PSYCH - A&Ox3 and cooperates fully with examiner. Pt is very pleasant and interacts well with examiner. Medical Decision & Procedures ER Provider Diagnostic Interpretation: RIGHT THIGH ULTRASOUND CLINICAL HISTORY: Right thigh pain, bruising. Concern for hematoma. COMPARISON STUDY: No previous studies for comparison. FINDINGS: Note is made of a 6.2 x 2.7 x 5.4 cm intramuscular hypoechoic mass-like abnormality within the musculature of the proximal medial right thigh. This represents the palpable abnormality. No color flow is shown within this suspected hematoma. IMPRESSION: 6.2 x 2.7 x 5.4 cm intramuscular hematoma within the proximal medial right thigh. A follow-up ultrasound in 3 months to ensure resolution is recommended to exclude the unlikely possibility of an underlying mass. Electronically signed by: Troy Dejesus M.D. 07/03/2017 2:09 PM Dictated Date/Time: 07/03/2017 2:02 PM R FEMUR 2 VIEWS ROUTINE CLINICAL HISTORY: Right thigh pain diffuse ecchymosis. COMPARISON: None. DISCUSSION: There are vascular calcifications present. No acute fractures are visualized. No destructive lesions are evident. IMPRESSION: No acute fractures. No destructive lesions are visualized on conventional radiographic imaging Electronically signed by: Pepe Rodrigez M.D. 07/03/2017 11:42 AM Dictated Date/Time: 07/03/2017 11:42 AM Laboratory Results 07/03/17 11:45 Red Blood Count 4.26, Mean Corpuscular Volume 85.0, Mean Corpuscular Hemoglobin 30.3, Mean Corpuscular Hemoglobin Concent 35.6, Mean Platelet Volume 8.3, Neutrophils (%) (Auto) 83.4, Lymphocytes (%) (Auto) 8.8, Monocytes (%) (Auto) 6.9, Eosinophils (%) (Auto) 0.2, Basophils (%) (Auto) 0.5, Neutrophils # (Auto) 3.60, Lymphocytes # (Auto) 0.38, Monocytes # (Auto) 0.30, Eosinophils # (Auto) 0.01, Basophils # (Auto) 0.02 07/03/17 11:45 Test 07/03/17 11:45 White Blood Count 4.32 K/uL (4.8-10.8) Red Blood Count 4.26 M/uL (4.7-6.1) Hemoglobin 12.9 g/dL (14.0-18.0) Hematocrit 36.2 % (42-52) Mean Corpuscular Volume 85.0 fL (80-100) Mean Corpuscular Hemoglobin 30.3 pg (25-34) Mean Corpuscular Hemoglobin Concent 35.6 g/dl (32-36) Platelet Count 245 K/uL (130-400) Mean Platelet Volume 8.3 fL (7.4-10.4) Neutrophils (%) (Auto) 83.4 % Lymphocytes (%) (Auto) 8.8 % Monocytes (%) (Auto) 6.9 % Eosinophils (%) (Auto) 0.2 % Basophils (%) (Auto) 0.5 % Neutrophils # (Auto) 3.60 K/uL (1.4-6.5) Lymphocytes # (Auto) 0.38 K/uL (1.2-3.4) Monocytes # (Auto) 0.30 K/uL (0.11-0.59) Eosinophils # (Auto) 0.01 K/uL (0-0.5) Basophils # (Auto) 0.02 K/uL (0-0.2) RDW Standard Deviation 42.6 fL (36.4-46.3) RDW Coefficient of Variation 13.8 % (11.5-14.5) Immature Granulocyte % (Auto) 0.2 % Immature Granulocyte # (Auto) 0.01 K/uL (0.00-0.02) Prothrombin Time 14.1 SECONDS (9.0-12.0) Prothromb Time International Ratio 1.3 (0.9-1.1) Activated Partial Thromboplast Time 32.3 SECONDS (21.0-31.0) Partial Thromboplastin Ratio 1.2 Anion Gap 5.0 mmol/L (3-11) Estimated GFR () 97.5 Estimated GFR (Non- 84.1 BUN/Creatinine Ratio 15.9 (10-20) Calcium Level 9.0 mg/dl (8.5-10.1) Total Bilirubin 4.1 mg/dl (0.2-1) Aspartate Amino Transf (AST/SGOT) 16 U/L (15-37) Alanine Aminotransferase (ALT/SGPT) 12 U/L (12-78) Alkaline Phosphatase 48 U/L (45-117) Total Protein 6.6 gm/dl (6.4-8.2) Albumin 3.7 gm/dl (3.4-5.0) Globulin 2.9 gm/dl (2.5-4.0) Albumin/Globulin Ratio 1.3 (0.9-2) Medical Decision Patient was seen and evaluated as above. He presents to us today with right medial groin pain radiating down to the knee area with bruising. It appears as though his request is making him more likely to bleed, and is likely pulled a muscle,/had a small blood vessel rupture and had bleeding. There is no evidence of active extravasation on exam. X-rays negative for acute process. Results as above. Ultrasound was then obtained, and reveals a hematoma. I do not believe that there is any active extravasation. At this time the patient appears stable for outpatient management. He is anemic, with a 2.0 drop since the beginning of the month but favor the hematoma to be the cause of most of the decrease. No concerning leukocytosis. No evidence of kidney or liver failure. Case was discussed with the attending physician, who also personally evaluate the patient. The patient also had an abrasion to his finger, noting amputation in the past. This was cleansed, dressed with a bacitracin dressing. Patient was educated upon worrisome symptoms which to return, had questions admitted, and was discharged home in good condition. In evaluation treatment this patient the following differential diagnoses retained: Fracture, dislocation, muscle tear, strain, hematoma, among others. Impression Primary Impression: Leg pain, right Additional Impressions: Anemia Hematoma Departure Information Dispostion Home / Self-Care Condition GOOD Referrals Silas Garcia M.D. (PCP) Patient Instructions My [facility] Additional Instructions You were seen in the emergency Department for right leg pain. The ultrasound revealed that you have a large area collection of blood in the right leg, this should subside over time. This will take weeks to go away. I do recommend icing the area, and elevation. Please follow with Dr. Garcia/your family doctor for recheck within 1 week. Please also follow-up regarding your blood work here. Please follow with your family doctor. Please watch for signs of infection on your finger. Please return with any new/concerning symptoms. Problem Qualifiers
--- NOTE | 2017-07-03 11:44 | DIAGNOSTIC IMAGING REPORT ---
R FEMUR 2 VIEWS ROUTINE CLINICAL HISTORY: Right thigh pain diffuse ecchymosis. COMPARISON: None. DISCUSSION: There are vascular calcifications present. No acute fractures are visualized. No destructive lesions are evident. IMPRESSION: No acute fractures. No destructive lesions are visualized on conventional radiographic imaging Electronically signed by: Pepe Rodrigez M.D. 07/03/2017 11:42 AM Dictated Date/Time: 07/03/2017 11:42 AM
[2017-07-03 12:05] LABS: BASO % 0.5 %; BASO ABS # 0.02 K/uL (0-0.2); COMPLETE YES; EOS % 0.2 %; HEMATOCRIT 36.2 % (42-52); IG% 0.2 %; LYMPH % 8.8 %; LYMPH ABS # 0.38 K/uL (1.2-3.4); MEAN CORPUSCULAR HEMOGLOBIN 30.3 pg (25-34); MEAN CORPUSCULAR HGB CONC 35.6 g/dl (32-36); MEAN PLATELET VOLUME 8.3 fL (7.4-10.4); MONO % 6.9 %; NEUT % 83.4 %; PLATELET COUNT 245 K/uL (130-400); RED BLOOD COUNT 4.26 M/uL (4.7-6.1); WHITE BLOOD COUNT 4.32 K/uL (4.8-10.8)
[2017-07-03 12:16] LABS: INR 1.3 (0.9-1.1); PARTIAL THROMBOPLASTIN RATIO 1.2; PROTHROMBIN TIME (PATIENT) 14.1 SECONDS (9.0-12.0)
[2017-07-03 12:24] LABS: ALT/SGPT 12 U/L (12-78); BLOOD UREA NITROGEN 13 mg/dl (7-18); BUN/CREATININE RATIO 15.9 (10-20); CARBON DIOXIDE 32 mmol/L (21-32); CHLORIDE 101 mmol/L (98-107); CREATININE 0.82 mg/dl (0.60-1.40); GLUCOSE 136 mg/dl (70-99); POTASSIUM 3.7 mmol/L (3.5-5.1); SODIUM 138 mmol/L (136-145)
[2017-07-03 12:27] LABS: ALB/GLOB RATIO 1.3 (0.9-2); ALKALINE PHOSPHATASE 48 U/L (45-117); AST/SGOT 16 U/L (15-37)
[2017-07-03 13:45] VITALS: BP 126/66; PULSE 61; O2SAT 100
--- NOTE | 2017-07-03 14:10 | DIAGNOSTIC IMAGING REPORT ---
RIGHT THIGH ULTRASOUND CLINICAL HISTORY: Right thigh pain, bruising. Concern for hematoma. COMPARISON STUDY: No previous studies for comparison. FINDINGS: Note is made of a 6.2 x 2.7 x 5.4 cm intramuscular hypoechoic mass-like abnormality within the musculature of the proximal medial right thigh. This represents the palpable abnormality. No color flow is shown within this suspected hematoma. IMPRESSION: 6.2 x 2.7 x 5.4 cm intramuscular hematoma within the proximal medial right thigh. A follow-up ultrasound in 3 months to ensure resolution is recommended to exclude the unlikely possibility of an underlying mass. Electronically signed by: Troy Dejesus M.D. 07/03/2017 2:09 PM Dictated Date/Time: 07/03/2017 2:02 PM
--- NOTE | 2017-07-03 14:25 | EMERGENCY ROOM VISIT NOTE ---
ED Visit Note First contact with patient: 11:02 The patient was seen and examined with Clayton Zapata PA-C. I agree with the history, physical and findings. Please see the note for disposition and details. Ultrasound shows a hematoma. Clinically the patient is doing well. Conservative management discussed.
== END 2017-07-03 14:45 | disposition home or self-care (01) ==
LOC: C.EDB 10:42 → C.EDC 14:45
DX: R10.31 Right lower quadrant pain (principal); D64.9 Anemia, unspecified; S70.11XA Contusion of right thigh, initial encounter; X58.XXXA Exposure to other specified factors, initial encounter; I48.91 Unspecified atrial fibrillation; H26.9 Unspecified cataract; I50.9 Heart failure, unspecified; I44.2 Atrioventricular block, complete; K59.00 Constipation, unspecified; K21.9 Gastro-esophageal reflux disease without esophagitis; G47.30 Sleep apnea, unspecified; Z89.022 Acquired absence of left finger(s); Z95.2 Presence of prosthetic heart valve; Z87.891 Personal history of nicotine dependence; Z83.3 Family history of diabetes mellitus; Z82.49 Family history of ischemic heart disease and other diseases of the circulatory system; Z82.0 Family history of epilepsy and other diseases of the nervous system; Z79.82 Long term (current) use of aspirin; M79.604 Pain in right leg

== ENCOUNTER → 2017-10-20 | Outpatient (CLI) | payer BC ==
--- NOTE | 2017-10-20 12:16 | DIAGNOSTIC IMAGING REPORT ---
CHEST 2 VIEWS ROUTINE HISTORY: M10.9 Gout, unspecified cause, unspecified chronicity, unspecified COMPARISON: Chest 06/20/2017. FINDINGS: Left-sided dual-chamber pacemaker. 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 Mild calcified plaque within the thoracic aorta. No focal lung consolidations to suggest pneumonia. No evidence for pulmonary edema. The heart is normal in size. No pleural effusions. No pneumothorax. IMPRESSION: No significant change compared to the prior study. No acute process. Electronically signed by: Steve Elliott M.D. 10/20/2017 12:14 PM Dictated Date/Time: 10/20/2017 12:13 PM
--- NOTE | 2017-10-20 12:19 | DIAGNOSTIC IMAGING REPORT ---
L HAND MIN 3 VIEWS ROUTINE CLINICAL HISTORY: M10.9 Gout, unspecified cause, unspecified chronicity, unspecifi COMPARISON: None. DISCUSSION: Severe degenerative change first carpometacarpal joint. Absent distal phalanx third finger with absent distal aspect middle phalanx. Absent distal aspect of the distal phalanx fourth finger. Generalized degenerative change throughout. Soft tissue vascular calcification. There is no evidence for soft tissue swelling. IMPRESSION: Considerable degenerative change with no acute process. Findings consistent with old posttraumatic or postoperative changes to the distal phalanges of the third and fourth fingers. The above report was generated using voice recognition software. It may contain grammatical, syntax or spelling errors. Electronically signed by: Josué Pena M.D. 10/20/2017 12:18 PM Dictated Date/Time: 10/20/2017 12:17 PM
--- NOTE | 2017-10-20 12:21 | DIAGNOSTIC IMAGING REPORT ---
R HAND MIN 3 VIEWS ROUTINE CLINICAL HISTORY: GOUT, UNSPECIFIED CAUSE pain COMPARISON: None. DISCUSSION: Considerable degenerative change throughout all major osseous structures. Soft tissue calcifications adjacent to the articular services of the proximal interphalangeal joint of the fourth and fifth fingers. Considerable degenerative change of the distal interphalangeal joints throughout. Significant degenerative change first carpometacarpal joint. No apparent acute bony abnormality. No significant and/or only mild soft tissue edematous change. IMPRESSION: Considerable degenerative change throughout all major osseous structures and and wrist. No acute process. The above report was generated using voice recognition software. It may contain grammatical, syntax or spelling errors. Electronically signed by: Josué Pena M.D. 10/20/2017 12:20 PM Dictated Date/Time: 10/20/2017 12:19 PM
--- NOTE | 2017-10-20 12:46 | DIAGNOSTIC IMAGING REPORT ---
SI JOINTS 3 OR MORE VIEWS CLINICAL HISTORY: M10.9 Gout, unspecified cause, unspecified chronicity, unspecifi pain COMPARISON STUDY: None FINDINGS: Sinuses is partial bony ankylosis and/or fusion of the sacroiliac joints. Sacral foramina appear symmetric. Soft tissue vascular calcifications are present. Moderate degenerative change of both hips. No evidence for acetabular protrusion. 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 Moderate degenerative change of both hips. Probable ankylosis of components of the low lumbar spine The above report was generated using voice recognition software. It may contain grammatical, syntax or spelling errors. Electronically signed by: Josué Pena M.D. 10/20/2017 12:44 PM Dictated Date/Time: 10/20/2017 12:43 PM
--- NOTE | 2017-10-20 15:13 | DIAGNOSTIC IMAGING REPORT ---
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 COMPARISON: None. FINDINGS: Mild scattered degenerative activity throughout the entire spine. Potentially is indicative of a component of ankylosis and/or ankylosing spondylitis. Bilateral renal activity is present. Findings minimal scattered degenerative activity osseous structures. No abnormal soft tissue activity characteristics are present. IMPRESSION: 1. Subtle increase in activity throughout the entire spine suggesting potential ankylosis or ankylosing spondylitis. 2. Minimal additional degenerative change of the major joints. 3. The study is otherwise negative. The above report was generated using voice recognition software. It may contain grammatical, syntax or spelling errors. Electronically signed by: Josué Pena M.D. 10/20/2017 3:12 PM Dictated Date/Time: 10/20/2017 3:10 PM
[2017-10-20 17:02] LABS: URIC ACID 5.4 mg/dl (2.6-7.2)
== END | disposition home or self-care (01) ==
LOC: C.NUCL 11:18
PROVIDERS: ATTEND Internal Medicine Rheumatology
DX: J34.89 Other specified disorders of nose and nasal sinuses (principal); M13.0 Polyarthritis, unspecified; M45.9 Ankylosing spondylitis of unspecified sites in spine; R63.4 Abnormal weight loss; M1A.9XX0 Chronic gout, unspecified, without tophus (tophi)

== ENCOUNTER → 2017-11-02 | Outpatient (CLI) | payer BC ==
--- NOTE | 2017-11-02 13:45 | DIAGNOSTIC IMAGING REPORT ---
KUB CLINICAL HISTORY: Nephrolithiasis. Microscopic hematuria. FINDINGS: 2 AP supine abdominal radiograph are compared to study dated 05/13/2017 and correlated with abdominal CT dated 01/08/2017. Cholecystectomy clips are seen in the right upper quadrant. There is a nonobstructed abdominal bowel gas pattern. Moderate fecal retention is observed. There are at least 4 nonobstructing left or a calculi measuring up to 6 mm. There are least 3 small nonobstructing right renal calculi measuring up to 5 mm. No calcifications are seen along the course of the ureters. Calcified splenic granulomas are noted in the left upper quadrant. Phleboliths are seen in the pelvis. The skeletal structures are osteopenic. Lumbosacral spondylosis is observed. IMPRESSION: 1. Bilateral nonobstructing renal calculi. 2. There is no radiographic evidence of ureteral stone. Electronically signed by: Naeem Farrell M.D. 11/02/2017 1:44 PM Dictated Date/Time: 11/02/2017 1:41 PM
== END | disposition home or self-care (01) ==
LOC: C.RAD 12:51
PROVIDERS: ATTEND Urology
DX: N20.0 Calculus of kidney (principal); R41.3 Other amnesia; R20.0 Anesthesia of skin

== ENCOUNTER 2017-11-10 13:52 | Emergency (ER) | payer BC ==
[~2017-11-10] VITALS: Ht 182.9 cm; Wt 68.0 kg
[2017-11-10 13:58] VITALS: TEMP 36.7; Ht 182.9 cm; Wt 68.0 kg
[2017-11-10] MEDS ORDERED: ARC5 PO (14:36)
[2017-11-10] MEDS ORDERED: SNG10 PO (14:36)
--- NOTE | 2017-11-10 15:05 | DIAGNOSTIC IMAGING REPORT ---
R WRIST W/NAVICULAR MIN 3 VIEWS CLINICAL HISTORY: Right wrist pain following fall. COMPARISON: Right hand radiographs October 20, 2017. FINDINGS: Alignment of the right wrist is anatomic. There is no acute fracture. There is extensive vascular calcification. 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 There is suspected mild right wrist soft tissue swelling. IMPRESSION: No acute fracture or dislocation of the right wrist. Electronically signed by: Troy Dejesus M.D. 11/10/2017 3:03 PM Dictated Date/Time: 11/10/2017 3:01 PM
--- NOTE | 2017-11-10 15:08 | EMERGENCY ROOM VISIT NOTE ---
History First contact with patient: 14:02 Chief Complaint: FALL Stated Complaint: FELL AND HURT R WRIST, History of Present Illness The patient is a 82 year old male who presents to the Emergency Room via private vehicle accompanied by with complaints of "fell on her right wrist ". The patient states that earlier today he was descending a flight of steps that were icy, and notes that he slipped, and fell to the ground landing on his right wrist. He denies hitting his head or loss of consciousness. He does not that he is on a Eliquis. His notes that he did then walk into town. He was feeling fine up until about 2 hours ago he developed right wrist pain. He decided to have this checked therefore prompting his visit here to the emergency department today. Review of Systems A complete 6-point Review of Systems was discussed with the patient, with pertinent positives and negatives listed in the History of Present Illness. All remaining Review of Systems questions can be considered negative unless otherwise specified. Past Medical/Surgical History Medical Problems: (1) A-fib (2) Altered mental status (3) Atrial fibrillation with RVR (4) Atrial fibrillation with RVR (5) Atrial fibrillation with RVR (6) Atrial flutter with rapid ventricular response (7) Back pain (8) Bradycardia (9) Cataract, left eye (10) Cataract, right eye (11) CHF (congestive heart failure) (12) Complete heart block (13) Constipation (14) Dyspnea (15) Elevated troponin (16) GERD (gastroesophageal reflux disease) (17) GERD (gastroesophageal reflux disease) (18) Heart disease (19) Hyperglycemia (20) Kidney disease (21) Kidney stone (22) Kidney stone (23) Kidney stones (24) Nausea (25) Patella fracture (26) Shortness of breath (27) Shortness of breath (28) Sick sinus syndrome with tachycardia (29) Sleep apnea (30) Symptomatic bradycardia (31) Tachyarrhythmia (32) Tick bite Surgical Problems: (1) Heart valve replaced Family History Diabetes mellitus FH: Parkinson's disease FH: aortic aneurysm Heart disease Hypertension Social History Smoking Status: Former Smoker Alcohol Use: occasionally Drug Use: none Marital Status: Housing Status: lives with family Occupation Status: retired Current/Historical Medications Scheduled Apixaban (Eliquis), 5 MG PO BID Aspirin (Aspirin Chewable), 81 MG PO DAILY Finasteride (Finasteride), 5 MG PO QAM Metoprolol Succ (Toprol Xl) (Toprol-Xl), 50 MG PO QAM Montelukast Sod (Montelukast Sodium), 10 MG PO DAILY Multivitamin (Multivitamin), 1 TAB PO DAILY Scheduled PRN Meclizine Hcl (Meclizine Hcl), 1 TAB PO TID PRN for Dizziness or Vertigo Physical Exam Vital Signs Date Time Temp Pulse Resp B/P (MAP) Pulse Ox O2 Delivery O2 Flow Rate FiO2 11/10/17 15:35 81 20 136/80 100 11/10/17 13:58 36.7 78 16 130/60 94 Room Air Physical Exam VITAL SIGNS - Vital signs and nursing notes were reviewed. Stable. GENERAL - 82-year-old male appearing his stated age who is in no acute distress. Communicates well with provider and answers questions appropriately. SKIN - Without rashes. Skin overlying R wrist is unremarkable. HEAD - NC/AT. EYES - PERRL with EOMI bilaterally. EARS - No deformities of external structures noted on gross examination bilaterally. EXTREMITIES - R wrist unremarkable to inspection. R wrist is tender to palpation throughout. No hand or proximal forearm tenderness on the right. FROM noted. Neurovascularly intact in the R upper extremity. Medical Decision & Procedures ER Provider Diagnostic Interpretation: R WRIST W/NAVICULAR MIN 3 VIEWS CLINICAL HISTORY: Right wrist pain following fall. COMPARISON: Right hand radiographs October 20, 2017. FINDINGS: Alignment of the right wrist is anatomic. There is no acute fracture. There is extensive vascular calcification. 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 There is suspected mild right wrist soft tissue swelling. IMPRESSION: No acute fracture or dislocation of the right wrist. Electronically signed by: Troy Dejesus M.D. 11/10/2017 3:03 PM Dictated Date/Time: 11/10/2017 3:01 PM Medical Decision Patient was seen and evaluated as above. He presents to us today status post fall with right wrist pain. He is nontoxic on exam. He notes that he did not hit his head, this was verified by his . She notes that he has been acting appropriate. I did discuss in depth with him that he is on a blood thinner, but he verifies that he did not hit his head or loose consciousness. There is no headache. He reassures me that he just fell landing on his right wrist. That is the only thing that is hurting him at this time. X-ray was obtained. Results as above. No fracture. I suspect he likely has a soft tissue contusion or perhaps a sprain. He was placed in a Velcro wrist lacer splint of the right wrist. He appears stable for outpatient management. They were educated upon worrisome symptoms which to return, to include but not limited to signs of intracranial injury. Again he is not presenting as such, however this was thoroughly discussed given his anticoagulant history. He was educated upon management, educated on worrisome symptoms which to return, had questions about discharge, and was discharged home in good condition. In the evaluation and treatment of this patient, the following differential diagnoses were considered: Wrist Sprain, Wrist Fracture, Wrist Dislocation, Scapholunate Dissociation, Carpal Fracture, Metacarpal Fracture, Radial Styloid Process Fracture, Ulnar Styloid Process Fracture, or Carpal Tunnel Syndrome. Impression Primary Impression: Fall Departure Information Dispostion Home / Self-Care Condition GOOD Referrals Silas Garcia M.D. (PCP) Russell Castillo D.O. Patient Instructions My [facility] Additional Instructions You have been treated in the Emergency Department for Wrist Pain. For pain control, you can use the following [id number] medicines: - Regular strength (325mg/tab) Tylenol (acetaminophen) 2 tabs every 4-6 hours as needed. Do not exceed 12 tablets in a 24 hour period. Avoid taking more than 3 grams (3000 mg) of Tylenol per day. This includes any other sources of acetaminophen you may take on a regular basis. - Regular strength (200 mg/tab) Advil (ibuprofen) 1-2 tabs every 4-6 hours as needed. Do not exceed a dose of 3200 mg per day. If this is a recent injury (<24 hrs), ice can be applied to the area of pain for the first 3 days to help decrease pain and inflammation. You have been provided the number for an Orthopaedic Surgeon. You should call this number as soon as possible to establish a follow-up visit from today's Emergency Department visit. Keep the brace/splint in place until evaluated by Orthopedics. Return to the Emergency Department if your current symptoms worsen despite treatment course outlined above, or if you develop any of the following symptoms : intractable pain despite aforementioned treatment course or new onset of numbness or tingling of the fingers.
--- NOTE | 2017-11-10 15:26 | EMERGENCY ROOM VISIT NOTE ---
ED Visit Note First contact with patient: 14:02 Staff note: I have reviewed the Patients chart and have discussed this case with my PA. I generally agree with the ED note and findings.
[2017-11-10 15:35] VITALS: BP 136/80; PULSE 81; O2SAT 100
== END 2017-11-10 15:25 | disposition home or self-care (01) ==
LOC: C.EDB 13:54 → C.EDD 15:25
DX: M25.531 Pain in right wrist (principal); W00.1XXA Fall from stairs and steps due to ice and snow, initial encounter; I50.9 Heart failure, unspecified; I48.2 Chronic atrial fibrillation; R00.1 Bradycardia, unspecified; I49.5 Sick sinus syndrome; Z79.01 Long term (current) use of anticoagulants; Z79.82 Long term (current) use of aspirin; Z87.891 Personal history of nicotine dependence; Z83.3 Family history of diabetes mellitus; Z82.49 Family history of ischemic heart disease and other diseases of the circulatory system; Z82.0 Family history of epilepsy and other diseases of the nervous system

== ENCOUNTER 2017-12-22 08:08 | Inpatient (IN) | payer BC, OTHER ==
[~2017-12-22] VITALS: Ht 188 cm; Wt 70.5 kg
[~2017-12-22 08:08] MED LIST changes: -ATV/1 PO; +DONE5TAB26 PO; -METO50TA7 PO; +METO50TA8 PO; +SNG10 PO
[2017-12-22] MEDS ORDERED: HYDROmorphone INJ 0.5 MG/0.5 ML SYR IV PRN (08:30)
--- NOTE | 2017-12-22 09:57 | DIAGNOSTIC IMAGING REPORT ---
HEAD WITHOUT CONTRAST (CT) CT DOSE: 691.05 mGy.cm HISTORY: Pain Pt c/o Rt hip pain TECHNIQUE: Multiaxial CT images of the head were performed without the use of intravenous contrast. A dose lowering technique was utilized adhering to the principles of ALARA. Comparison: 12/18/2016 Findings: The paranasal sinuses and mastoid air cells are clear. The calvarium and skull base are intact. The ventricles and sulci are within normal limits. There is no mass, hematoma, midline shift, or acute infarct. Age-related atrophy and chronic small vessel change. Ventricular system is midline. Impression: Age-related atrophy and chronic small vessel change. No acute process. The above report was generated using voice recognition software. It may contain grammatical, syntax or spelling errors. Electronically signed by: Josué Pena M.D. 12/22/2017 9:55 AM Dictated Date/Time: 12/22/2017 9:50 AM
--- NOTE | 2017-12-22 10:03 | DIAGNOSTIC IMAGING REPORT ---
PELVIS 1 OR 2 VIEW ROUTINE CLINICAL HISTORY: Pt c/o Rt hip pain pain COMPARISON: None. DISCUSSION: Comminuted fracture proximal femoral shaft. No evidence for dislocation or acetabular protrusion. Old partial avulsion of the greater trochanter. Moderate degenerative change of all additional osseous structures. There is no evidence for soft tissue swelling. IMPRESSION: Oblique moderately distracted and comminuted fracture proximal right femoral shaft. The above report was generated using voice recognition software. It may contain grammatical, syntax or spelling errors. Electronically signed by: Josué Pena M.D. 12/22/2017 10:01 AM Dictated Date/Time: 12/22/2017 10:00 AM
--- NOTE | 2017-12-22 10:04 | DIAGNOSTIC IMAGING REPORT ---
CHEST ONE VIEW PORTABLE HISTORY: 82 years-old Male Pt c/o Rt hip pain acute chest injury status post post fall. COMPARISON: Chest radiographs 10/20/2017 TECHNIQUE: Portable AP view the chest FINDINGS: The patient is rotated to the right. Cardiac silhouette is within normal limits. Prior median sternotomy. Atherosclerosis of the aorta. Left subclavian pacer is noted with leads unchanged. There is no pneumothorax, pleural effusion, focal airspace consolidation or overt pulmonary edema. Linear subsegmental opacity of the left lung base suggest areas of atelectasis. The bones of the chest appear grossly intact. Degenerative changes are seen within the shoulders and spine. Surgical clips of the right upper abdomen suggest prior cholecystectomy. IMPRESSION: No acute process. The above report was generated using voice recognition software. It may contain grammatical, syntax or spelling errors. Electronically signed by: Bob Quinn M.D. 12/22/2017 10:02 AM Dictated Date/Time: 12/22/2017 10:01 AM
--- NOTE | 2017-12-22 10:05 | DIAGNOSTIC IMAGING REPORT ---
R FEMUR 2 VIEWS ROUTINE CLINICAL HISTORY: Pt c/o Rt hip pain trauma. Pain. COMPARISON: 07/03/2017 DISCUSSION: Comminuted oblique fracture proximal femoral shaft. Fracture extends to and demonstrates avulsion of the lesser trochanter. Significant bony distraction at the inferior aspect of the fracture with an estimated distance of distraction of 4.5 cm. No evidence of dislocation. No evidence for acetabular protrusion. Mid and distal femoral shafts including visualized components of the right knee show no additional acute abnormality. There is a small partial old avulsion of the greater trochanter There is no evidence for soft tissue swelling. IMPRESSION: Comminuted distracted oblique fracture proximal right femoral shaft. The above report was generated using voice recognition software. It may contain grammatical, syntax or spelling errors. Electronically signed by: Josué Pena M.D. 12/22/2017 10:03 AM Dictated Date/Time: 12/22/2017 10:02 AM
--- NOTE | 2017-12-22 10:12 | EMERGENCY ROOM VISIT NOTE ---
History Report prepared by Scribe: Brian Singh Under the Supervision of: Dr. Oskar Bee M.D. First contact with patient: 08:13 Chief Complaint: FALL Stated Complaint: FALL/R-HIP PAIN History of Present Illness The patient is a 82 year old male who presents to the Emergency Room by EMS with complaints of constant right hip pain s/p fall occurring just prior to arrival. He was out moving trash cans this morning when he slipped on ice. He was down for about 10 minutes before he was found on the ground. The patient states that he is unable to move his right leg currently. He did not hit his head or lose consciousness during the fall. He has a pacemaker in place. Source of History: patient Onset: Just prior to arrival Position: pelvis (right hip) Quality: other (pain s/p fall) Timing: constant Associated Symptoms: No LOC Review of Systems See HPI for pertinent positives & negatives. A total of 10 systems reviewed and were otherwise negative. Past Medical & Surgical Medical Problems: (1) A-fib (2) Altered mental status (3) Atrial fibrillation with RVR (4) Atrial fibrillation with RVR (5) Atrial fibrillation with RVR (6) Atrial flutter with rapid ventricular response (7) Back pain (8) Bradycardia (9) Cataract, left eye (10) Cataract, right eye (11) CHF (congestive heart failure) (12) Closed right femoral fracture (13) Complete heart block (14) Constipation (15) Dyspnea (16) Elevated troponin (17) GERD (gastroesophageal reflux disease) (18) GERD (gastroesophageal reflux disease) (19) Heart disease (20) Hyperglycemia (21) Kidney disease (22) Kidney stone (23) Kidney stone (24) Kidney stones (25) Nausea (26) Patella fracture (27) Shortness of breath (28) Shortness of breath (29) Sick sinus syndrome with tachycardia (30) Sleep apnea (31) Symptomatic bradycardia (32) Tachyarrhythmia (33) Tick bite Surgical Problems: (1) Heart valve replaced Family History Diabetes mellitus FH: Parkinson's disease FH: aortic aneurysm Heart disease Hypertension Social History Smoking Status: Former Smoker Alcohol Use: occasionally Drug Use: none Marital Status: Housing Status: lives with family Occupation Status: retired Current/Historical Medications Scheduled Apixaban (Eliquis), 5 MG PO BID Aspirin (Aspirin Chewable), 81 MG PO QAM Finasteride (Finasteride), 5 MG PO QAM Metoprolol Succ (Toprol Xl) (Toprol-Xl), 50 MG PO HS Montelukast Sod (Montelukast Sodium), 10 MG PO HS Multivitamin (Multivitamin), 1 TAB PO QAM Scheduled PRN Donepezil Hydrochloride (Donepezil Hcl), 1 TAB PO HS PRN for PRN Meclizine Hcl (Meclizine Hcl), 1 TAB PO TID PRN for Dizziness or Vertigo Allergies Coded Allergies: [place] Pepper (Verified Allergy, Severe, SHORTNESS OF BREATH, 12/22/17) NO KNOWN DRUG ALLERGIES (Verified Allergy, Unknown, none, 12/22/17) Physical Exam Vital Signs Date Time Temp Pulse Resp B/P (MAP) Pulse Ox O2 Delivery O2 Flow Rate FiO2 12/22/17 10:12 63 16 120/55 100 12/22/17 08:32 60 12/22/17 08:19 36.4 72 18 136/72 100 Physical Exam GENERAL: Awake, alert, well-appearing, in no acute distress HENT: Normocephalic, atraumatic. Oropharynx unremarkable. EYES: Normal conjunctiva. Sclera non-icteric. NECK: Supple. No nuchal rigidity. FROM. No JVD. RESPIRATORY: Clear to auscultation. CARDIAC: Regular rate, normal rhythm. Extremities warm and well perfused. Pulses equal. ABDOMEN: Soft, non-distended. No tenderness to palpation. No rebound or guarding. No masses. RECTAL: Deferred. MUSCULOSKELETAL: Chest examination reveals no tenderness. The back is symmetrical on inspection without obvious abnormality. There is no CVA tenderness to palpation. No joint edema. LOWER EXTREMITIES: Large amount of swelling to the mid-shaft of the right femur. Leg in position of comfort. Unable to lift leg at the hip. Leg appears internally rotated. Calves are equal size bilaterally and non-tender. NEURO: Normal sensorium. No sensory or motor deficits noted. SKIN: No rash or jaundice noted. Medical Decision & Procedures ER Provider Diagnostic Interpretation: Radiology results as stated below per my review and radiologist interpretation: PELVIS 1 OR 2 VIEW ROUTINE DISCUSSION: Comminuted fracture proximal femoral shaft. No evidence for dislocation or acetabular protrusion. Old partial avulsion of the greater trochanter. Moderate degenerative change of all additional osseous structures. There is no evidence for soft tissue swelling. IMPRESSION: Oblique moderately distracted and comminuted fracture proximal right femoral shaft. The above report was generated using voice recognition software. It may contain grammatical, syntax or spelling errors. Electronically signed by: Josué Pena M.D. 12/22/2017 10:01 AM R FEMUR 2 VIEWS ROUTINE DISCUSSION: Comminuted oblique fracture proximal femoral shaft. Fracture extends to and demonstrates avulsion of the lesser trochanter. Significant bony distraction at the inferior aspect of the fracture with an estimated distance of distraction of 4.5 cm. No evidence of dislocation. No evidence for acetabular protrusion. Mid and distal femoral shafts including visualized components of the right knee show no additional acute abnormality. There is a small partial old avulsion of the greater trochanter There is no evidence for soft tissue swelling. IMPRESSION: Comminuted distracted oblique fracture proximal right femoral shaft. The above report was generated using voice recognition software. It may contain grammatical, syntax or spelling errors. Electronically signed by: Josué Pena M.D. 12/22/2017 10:03 AM CHEST ONE VIEW PORTABLE FINDINGS: The patient is rotated to the right. Cardiac silhouette is within normal limits. Prior median sternotomy. Atherosclerosis of the aorta. Left subclavian pacer is noted with leads unchanged. There is no pneumothorax, pleural effusion, focal airspace consolidation or overt pulmonary edema. Linear subsegmental opacity of the left lung base suggest areas of atelectasis. The bones of the chest appear grossly intact. Degenerative changes are seen within the shoulders and spine. Surgical clips of the right upper abdomen suggest prior cholecystectomy. IMPRESSION: No acute process. The above report was generated using voice recognition software. It may contain grammatical, syntax or spelling errors. Electronically signed by: Bob Quinn M.D. 12/22/2017 10:02 AM HEAD WITHOUT CONTRAST (CT) Findings: The paranasal sinuses and mastoid air cells are clear. The calvarium and skull base are intact. The ventricles and sulci are within normal limits. There is no mass, hematoma, midline shift, or acute infarct. Age-related atrophy and chronic small vessel change. Ventricular system is midline. Impression: Age-related atrophy and chronic small vessel change. No acute process. The above report was generated using voice recognition software. It may contain grammatical, syntax or spelling errors. Electronically signed by: Josué Pena M.D. 12/22/2017 9:55 AM Laboratory Results 12/22/17 10:04 Red Blood Count 4.13, Mean Corpuscular Volume 79.4, Mean Corpuscular Hemoglobin 26.4, Mean Corpuscular Hemoglobin Concent 33.2, Mean Platelet Volume 8.3, Neutrophils (%) (Auto) 85.5, Lymphocytes (%) (Auto) 7.9, Monocytes (%) (Auto) 5.4, Eosinophils (%) (Auto) 0.8, Basophils (%) (Auto) 0.2, Neutrophils # (Auto) 5.56, Lymphocytes # (Auto) 0.51, Monocytes # (Auto) 0.35, Eosinophils # (Auto) 0.05, Basophils # (Auto) 0.01 12/22/17 10:04 Test 12/22/17 10:04 12/22/17 10:10 White Blood Count 6.49 K/uL (4.8-10.8) Red Blood Count 4.13 M/uL (4.7-6.1) Hemoglobin 10.9 g/dL (14.0-18.0) Hematocrit 32.8 % (42-52) Mean Corpuscular Volume 79.4 fL (80-100) Mean Corpuscular Hemoglobin 26.4 pg (25-34) Mean Corpuscular Hemoglobin Concent 33.2 g/dl (32-36) Platelet Count 183 K/uL (130-400) Mean Platelet Volume 8.3 fL (7.4-10.4) Neutrophils (%) (Auto) 85.5 % Lymphocytes (%) (Auto) 7.9 % Monocytes (%) (Auto) 5.4 % Eosinophils (%) (Auto) 0.8 % Basophils (%) (Auto) 0.2 % Neutrophils # (Auto) 5.56 K/uL (1.4-6.5) Lymphocytes # (Auto) 0.51 K/uL (1.2-3.4) Monocytes # (Auto) 0.35 K/uL (0.11-0.59) Eosinophils # (Auto) 0.05 K/uL (0-0.5) Basophils # (Auto) 0.01 K/uL (0-0.2) RDW Standard Deviation 41.4 fL (36.4-46.3) RDW Coefficient of Variation 14.4 % (11.5-14.5) Immature Granulocyte % (Auto) 0.2 % Immature Granulocyte # (Auto) 0.01 K/uL (0.00-0.02) Prothrombin Time 13.4 SECONDS (9.0-12.0) Prothromb Time International Ratio 1.3 (0.9-1.1) Activated Partial Thromboplast Time 26.0 SECONDS (21.0-31.0) Partial Thromboplastin Ratio 1.0 Anion Gap 6.0 mmol/L (3-11) Est Creatinine Clear Calc Drug Dose 65.9 ml/min Estimated GFR () 91.9 Estimated GFR (Non- 79.3 BUN/Creatinine Ratio 27.3 (10-20) Calcium Level 8.6 mg/dl (8.5-10.1) Urine Color YELLOW Urine Appearance CLEAR (CLEAR) Urine pH 5.0 (4.5-7.5) Urine Specific [place] 1.018 (1.000-1.030) Urine Protein NEG (NEG) Urine Glucose (UA) NEG (NEG) Urine Ketones NEG (NEG) Urine Occult Blood NEG (NEG) Urine Nitrite NEG (NEG) Urine Bilirubin NEG (NEG) Urine Urobilinogen NEG (NEG) Urine Leukocyte Esterase NEG (NEG) Labs reviewed by ED physician. Medications Administered Medications (Trade) Dose Ordered Sig/Juan A Route Start Time Stop Time Status Last Admin Dose Admin Hydromorphone HCl (Dilaudid Inj) 0.5 mg Q20M PRN IV 12/22/17 08:30 12/22/17 12:00 DC 12/22/17 08:43 0.5 MG ECG Per My Interpretation Indication: other (fall) Rate (beats per minute): 66 Rhythm: other (Paced rhythm) Findings: PVC, other (No ST elevations or depressions. ) ED Course 821: Past medical records reviewed. The patient was evaluated in room B6. A complete history and physical examination was performed. 0830: Ordered Dilaudid Inj 0.5 mg IV. 0955: Upon reexamination the patient is resting comfortably. I discussed results and treatment plan with the patient. He verbalizes agreement and understanding. I spoke with Dr. Sher from the [facility] – [place] Hospitalist Service. The patient will be evaluated for further management. Medical Decision Differential diagnosis: Etiologies such as fracture, dislocation, neurovascular compromise, compartment syndrome, soft tissue injury, as well as others were entertained. After fall at home today. Patient is complaining of right hip pain. Physical examination the patient is unable to lift the hip. He is neurovascularly intact at the foot. Patient was given Dilaudid here in the emergency department he does have a right femoral fracture is on Eliquis. I did discuss the case with both the orthopedic surgeon as well as the hospitalist service who agreed to admit the patient. Patient was in agreement with treatment plan. Medication Reconcilliation Current Medication List: was personally reviewed by me Blood Pressure Screening Patient's blood pressure: Elevated blood pressure Blood pressure disposition: Elevated BP felt to be situational Consults Time Called: [phone] Consulting Physician: Dr. Sher - [facility] – [place] Hospitalist Returned Call: [phone] I discussed the patient's case with Dr. Sher, he has agreed to evaluate the patient for further management and care. Impression Primary Impression: Femur fracture Scribe Attestation The scribe's documentation has been prepared under my direction and personally reviewed by me in its entirety. I confirm that the note above accurately reflects all work, treatment, procedures, and medical decision making performed by me. Departure Information Dispostion Being Evaluated By Hospitalist Referrals Silas Garcia M.D. (PCP) Patient Instructions My [facility] Problem Qualifiers Primary Impression: Femur fracture Encounter type: initial encounter Femur location: shaft Fracture type: closed Fracture morphology: unspecified fracture morphology Laterality: right Qualified Codes: S72.301A - Unspecified fracture of shaft of right femur , initial encounter for closed fracture
[2017-12-22 10:17] LABS: BASO % 0.2 %; BASO ABS # 0.01 K/uL (0-0.2); EOS % 0.8 %; EOS ABS # 0.05 K/uL (0-0.5); HEMATOCRIT 32.8 % (42-52); HEMOGLOBIN 10.9 g/dL (14.0-18.0); IG# 0.01 K/uL (0.00-0.02); LYMPH % 7.9 %; LYMPH ABS # 0.51 K/uL (1.2-3.4); MEAN CELL VOLUME 79.4 fL (80-100); MEAN CORPUSCULAR HEMOGLOBIN 26.4 pg (25-34); MEAN CORPUSCULAR HGB CONC 33.2 g/dl (32-36); MEAN PLATELET VOLUME 8.3 fL (7.4-10.4); MONO % 5.4 %; MONO ABS # 0.35 K/uL (0.11-0.59); NEUT % 85.5 %; NEUT ABS # 5.56 K/uL (1.4-6.5); PLATELET COUNT 183 K/uL (130-400); RED CELL DISTRIBUTION WIDTH CV 14.4 % (11.5-14.5); RED CELL DISTRIBUTION WIDTH SD 41.4 fL (36.4-46.3); WHITE BLOOD COUNT 6.49 K/uL (4.8-10.8)
[2017-12-22 10:27] LABS: INR 1.3 (0.9-1.1)
[2017-12-22 10:35] LABS: CALCIUM 8.6 mg/dl (8.5-10.1); CREATININE 0.91 mg/dl (0.60-1.40); POTASSIUM 3.7 mmol/L (3.5-5.1)
[2017-12-22] MEDS ORDERED: ONDANSETRON INJ 2 MG/ML 2 ML VIAL IV PRN (10:45)
[2017-12-22] MEDS ORDERED: ACETAMINOPHEN 325 MG TAB PO PRN (10:45)
[2017-12-22] MEDS ORDERED: ALUMINUM/MAGNESIUM/SIMETH (MAALOX MAX) 30 ML UDC PO PRN (10:45)
[2017-12-22] MEDS ORDERED: SOD PHOSPHATE/SOD BIPHOSPHATE ENEMA 132 ML BTL PR PRN (10:45)
[2017-12-22] MEDS ORDERED: BISACODYL 10 MG SUPP PR PRN (10:45)
[2017-12-22] MEDS ORDERED: NALOXONE HCL 0.4 MG/1 ML VIAL/CARP IV PRN (10:45)
[2017-12-22] MEDS ORDERED: POLYETHYLENE (MIRALAX) 17 GM PACK PO PRN ×2 (10:45)
[2017-12-22] MEDS ORDERED: MECLIZINE HCL 12.5 MG TAB PO PRN (10:45)
[2017-12-22] MEDS ORDERED: MAGNESIUM HYDROXIDE SUSP 30 ML UDC PO PRN ×2 (10:45)
--- NOTE | 2017-12-22 11:10 | History and Physical ---
History & Physical Date & Time of Service: Dec 22, 2017 at 11:00 Chief Complaint: Fall/R-Hip Pain Primary Care Physician: Silas Garcia M.D. History of Present Illness Source: patient, family Mr. 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 Patient reports he woke up and was taking the trash to the street when he slipped on ice. He states he was in his normal state of health when he woke up this morning and denies lightheadedness/dizziness or chest pain/SOB prior to this fall. He reports only being on the ground approximately 10 minutes as the manager operations witnessed the fall. He developed acute right hip pain that radiates through the thigh and into the right knee. He reports intermittent numbness in the right leg. Patient has a history of Raynauds and chronically has cold feet. Motor function intact to wiggling of the toes. Patient is lying supine with hip externally rotated and flexed at the knee. He states this position is comfortable for him and it hurts to straighten the leg out. Patient is maintained on Eliquis however has been off this medication approximately 1 week as he has a scheduled colonoscopy next week. Patient follows with Dr. Mckoy as his integrity engineer. He reports being stable from a cardiac standpoint. Prior to this fall he is independently ambulatory without assistive devices. He states he is able to perform his ADLs without exertional chest pain or exertional shortness of breath. He denies recent illness or sick contacts. Patient reports only one relatively recent fall due to a mechanical cause in October 2017. Pacemaker interrogation revealing runs of VT vs A Fib with Aberrancy will consult cardiology for their opinion on interrogation Past Medical/Surgical History 1. CAD S/P CABG 2. S/P Bioprosthetic AVR with Repair (2003 and 2009 respectively) 3. S/P Dual Chamber Pacer - Pacer Dependent 4. Dementia - Vascular and Alzheimers 5. Basal Cell CA - R Shoulder 6. Persistent Atrial Fibrillation 7. S/P AV Michelle Ablation 8. BPH 9. SEBLE - intermittent BiPAP Family History Diabetes mellitus FH: Parkinson's disease FH: aortic aneurysm Heart disease Hypertension Social History Smoking Status: Former Smoker Smokeless Tobacco Use: No Alcohol Use: none Drug Use: none Marital Status: Housing status: lives with family Occupational Status: retired Immunizations History of Influenza Vaccine: N/A History of Tetanus Vaccine?: Yes History of Pneumococcal: Yes Pneumococcal Date: Jun 30, 2008 History of Hepatitis B Vaccine: Unknown Allergies Coded Allergies: Greene Pepper (Verified Allergy, Severe, SHORTNESS OF BREATH, 12/22/17) NO KNOWN DRUG ALLERGIES (Verified Allergy, Unknown, none, 12/22/17) Home Medications Scheduled Apixaban (Eliquis), 5 MG PO BID Aspirin (Aspirin Chewable), 81 MG PO QAM Finasteride (Finasteride), 5 MG PO QAM Metoprolol Succ (Toprol Xl) (Toprol-Xl), 50 MG PO HS Montelukast Sod (Montelukast Sodium), 10 MG PO HS Multivitamin (Multivitamin), 1 TAB PO QAM Scheduled PRN Donepezil Hydrochloride (Donepezil Hcl), 1 TAB PO HS PRN for PRN Meclizine Hcl (Meclizine Hcl), 1 TAB PO TID PRN for Dizziness or Vertigo Review of Systems Constitutional: No fever, No chills ENT: + nasal symptoms (chronic rhinitis), No sore throat, No trouble swallowing Respiratory: No cough, No sputum, No dyspnea on exertion, No dyspnea at rest Cardiovascular: No chest pain, No orthopnea, No palpitations Abdomen: No pain, No nausea, No vomiting, No diarrhea, No constipation Musculoskeletal: + joint pain (R hip radiating to R knee) Genitourinary - Male: No dysuria Hematologic / Lymphatic: No abnormal bleeding/bruising Integumentary: No rash Physical Exam Vital Signs Date Time Temp Pulse Resp B/P (MAP) Pulse Ox O2 Delivery O2 Flow Rate FiO2 12/22/17 10:12 63 16 120/55 100 12/22/17 08:32 60 12/22/17 08:19 36.4 72 18 136/72 100 General Appearance: WD/WN, no apparent distress Head: normocephalic, atraumatic Eyes: PERRL, EOMI, sclerae normal ENT: pharynx normal, + pertinent finding (mildly [place]) Neck: supple, no JVD, trachea midline Respiratory/Chest: lungs clear, normal breath sounds, no respiratory distress, no accessory muscle use Cardiovascular: regular rate, rhythm, + systolic murmur (II/) Abdomen/GI: normal bowel sounds, non tender, soft Extremities/Musculoskelatal: no calf tenderness, normal capillary refill, no pedal edema, + pertinent finding (RLE externally rotated at hip and flexion of knee; + pedal pulses) Neurologic/Psych: alert Skin: normal color, warm/dry Diagnostics Laboratory Results Results Past 24 Hours Test 12/22/17 10:04 12/22/17 10:10 Range/Units White Blood Count 6.49 4.8-10.8 K/uL Red Blood Count 4.13 4.7-6.1 M/uL Hemoglobin 10.9 14.0-18.0 g/dL Hematocrit 32.8 42-52 % Mean Corpuscular Volume 79.4 80-100 fL Mean Corpuscular Hemoglobin 26.4 25-34 pg Mean Corpuscular Hemoglobin Concent 33.2 32-36 g/dl Platelet Count 183 130-400 K/uL Mean Platelet Volume 8.3 7.4-10.4 fL Neutrophils (%) (Auto) 85.5 % Lymphocytes (%) (Auto) 7.9 % Monocytes (%) (Auto) 5.4 % Eosinophils (%) (Auto) 0.8 % Basophils (%) (Auto) 0.2 % Neutrophils # (Auto) 5.56 1.4-6.5 K/uL Lymphocytes # (Auto) 0.51 1.2-3.4 K/uL Monocytes # (Auto) 0.35 0.11-0.59 K/uL Eosinophils # (Auto) 0.05 0-0.5 K/uL Basophils # (Auto) 0.01 0-0.2 K/uL RDW Standard Deviation 41.4 36.4-46.3 fL RDW Coefficient of Variation 14.4 11.5-14.5 % Immature Granulocyte % (Auto) 0.2 % Immature Granulocyte # (Auto) 0.01 0.00-0.02 K/uL Prothrombin Time 13.4 9.0-12.0 SECONDS Prothromb Time International Ratio 1.3 0.9-1.1 Activated Partial Thromboplast Time 26.0 21.0-31.0 SECONDS Partial Thromboplastin Ratio 1.0 Sodium Level 139 136-145 mmol/L Potassium Level 3.7 3.5-5.1 mmol/L Chloride Level 106 98-107 mmol/L Carbon Dioxide Level 27 21-32 mmol/L Anion Gap 6.0 3-11 mmol/L Blood Urea Nitrogen 25 7-18 mg/dl Creatinine 0.91 0.60-1.40 mg/dl Est Creatinine Clear Calc Drug Dose 65.9 ml/min Estimated GFR () 91.9 Estimated GFR (Non- 79.3 BUN/Creatinine Ratio 27.3 10-20 Random Glucose 127 70-99 mg/dl Calcium Level 8.6 8.5-10.1 mg/dl Urine Color YELLOW Urine Appearance CLEAR CLEAR Urine pH 5.0 4.5-7.[address] [place] 1.018 1.000-1.030 Urine Protein NEG NEG Urine Glucose (UA) NEG NEG Urine Ketones NEG NEG Urine Occult Blood NEG NEG Urine Nitrite NEG NEG Urine Bilirubin NEG NEG Urine Urobilinogen NEG NEG Urine Leukocyte Esterase NEG NEG Diagnostic Radiology PELVIS 1 OR 2 VIEW ROUTINE DISCUSSION: Comminuted fracture proximal femoral shaft. No evidence for dislocation or acetabular protrusion. Old partial avulsion of the greater trochanter. Moderate degenerative change of all additional osseous structures. There is no evidence for soft tissue swelling. IMPRESSION: Oblique moderately distracted and comminuted fracture proximal right femoral shaft HEAD WITHOUT CONTRAST (CT) Findings: The paranasal sinuses and mastoid air cells are clear. The calvarium and skull base are intact. The ventricles and sulci are within normal limits. There is no mass, hematoma, midline shift, or acute infarct. Age-related atrophy and chronic small vessel change. Ventricular system is midline. Impression: Age-related atrophy and chronic small vessel change. No acute process. EKG Ventricular-paced rhythm with occasional Premature ventricular complexes Abnormal ECG When compared with ECG of 20-JUN-2017 21:57, Premature ventricular complexes are now Present Vent. rate has increased BY 6 BPM Impression Assessment and Plan Mr. rAzate is an 82 y/o male with PMHx of CAD S/P CABG, S/P Bioprosthetic AVR ( 2003 with repair in 2009), Persistent Atrial Fibrillation S/P Pacer (Pacer Dependent), BPH, Raynauds, SEBLE (only intermittent BiPAP use), Chronic Rhinitis, and Dementia (Vascular/Alzheimers) who presents to the ED after a fall this AM. Patient reports he woke up and was taking the trash to the street when he slipped on ice. Mechanical Fall with R Distracted/Comminuted R Proximal Femur Fx: - Geriatric hip fx protocol - with pre-operative Abx - Place NPO at this time - patient has not had anything to eat or drink this AM - will add diet pending orthopedics assessment - NSS at 80 mL/hr - Eliquis on hold x 1 week and hold ASA therapy - Pain management with PRN morphine - Consult Orthopedic Surgery - appreciate recommendations/intervention Pre-Operative Clearance: - Has been off Eliquis x approx. 1 week due to planned colonoscopy for next week - Patient at baseline is independent and ambulatory without assistive devices; denies exertion CP or SOB and reports no limitations in ADLs due to this - EKG reveals a paced rhythm and he is dependent on the pacer - no acute ischemic findings on EKG and no CP currently; acceptable labs -- Reported small run of VT on monitor in ED - will have pacer interrogation - this may be true VT vs A Fib with aberrancy given A Fib is his underlying rhythm - Echo (2016) - EF 65-70% with no wall motion abnormalities; mildly dilated L atrium; bioprosthetic valve with expected velocity and gradient - [place] with minimal urine output but kidney function acceptable on labs - will need to monitor fluid status - Patient is a moderate risk given orthopedic procedure but given no acute coronary issues and stability of cardiac co-morbidities would be reasonable to go forward with surgical intervention with close monitoring VT vs A Fib with Aberrancy: - Pacer interrogation with these findings - would appreciate cardiologies input on findings. CAD S/P CABG and Bioprosthetic AVR and Persistent A Fib and S/P Pacer (Pacer Dependent): - Metoprolol 50 mg HS BPH: - Proscar 5 mg daily DVT Prophylaxis: SCDs; no chemical means pending surgical intervention Code Status: DO NOT RESUSCITATE Disposition: - PT/OT evaluations - will likely need SNF on D/C Resuscitation Status DO NOT RESUSCITATE VTE Prophylaxis Will order VTE Prophylaxis: Yes Reason for no VTE drug order: Contraindicated Note Attending Admission Note & Attestation: Pt seen/examined, chart reviewed, admission care plan d/w NANCI Brand. I agree w/ the ram components of her admission documentation. 82yo male with dementia, CAD, prior CABG, bioprosthetic AVR, a. fib on eliquis, pacemaker status - presents with right femoral shaft fracture after slipping on ice at home. During my assessment the patient is confused and cannot provide any meaningful history. is at bedside; she reports he is physically active at home and he has had no recent cardiopulmonary symptoms. Pacer interrogation done - he has had brief runs of nonsustained v-tach - likely without any symptoms. PMH, PSH, allergies, meds, sochx, famhx, ros - reviewed VSS except BPs low-normal gen - confused, NAD mouth - MM dry neck - no JVD heart - RRR, s1, s2 lungs - CTA b/l abd - soft, NT ext - right thigh markedly swollen; hip flexed, knee flexed on same side; left leg w/o abnormalities; pulses 2+ b/l labs - BUN elevated Hb 10.9 A/P: 1. fall with resulting right femur fracture 2. dementia; cannot rule out a superimposed psychosis 3. probable dehydration 4. nonsustained ventricular tachycardia - brief runs, likely no symptoms from such 5. CAD with prior CABG - no obvious ischemia at this time 6. h/o a. fib on chronic eliquis - DID have 1 dose of eliquis last pm 7. pacemaker status - good pacer function per cardiology from medical standpoint he appears optimized for ORIF of right femur fracture tomorrow cardiac risk is at least moderate based on known CAD, etc. will make haldol orally available to him prn for extreme delirium/agitation hydrate overnight, repeat labs in am Cedrick Sher MD
[2017-12-22] MEDS ORDERED: MoRPHine SULFATE 4 MG/ML 1 ML CARP\\VIAL IV PRN (11:15)
[2017-12-22 11:48] VITALS: BP 118/62; PULSE 61; TEMP 36.4; O2SAT 100; Ht 188 cm; Wt 70.5 kg
[2017-12-22] MEDS: SODIUM CHLORIDE 0.9% 1000ML 1,000 ML IV SCH ×2 (12:02→23:54)
[2017-12-22] MEDS ORDERED: MECLIZINE HCL 25 MG TAB PO PRN (12:15)
--- NOTE | 2017-12-22 14:46 | Progress Note ---
Progress Note Date of Service Dec 22, 2017. Progress Note Patient is an 82 year old M who sustained a hip fx after mechanical fall on the ice. He is scheduled for long troch nail with Dr Flores on 12/23. Medical history is notable for CABG/AVR, VVIR pacemaker for which he follows with Dr Mckoy, anemia, and moderate dementia. He is on Eliquis chronically for afib. Initial reports in the ER and via his admission H&P were that his eliquis had been stopped for approximately 1 week pending a colonoscopy that was scheduled for anemia. However, on discussion with the patient's who controls all of his medications, the stoppage was planned for tomorrow and he took Eliquis last night. Labs and studies were reviewed. Airway exam is remarkable for a very stiff neck and a broken upper incisor. He is coherent, but very difficult to direct appropriately in conversation due to his dementia. I discussed the case with Dr Flores in light of the patient's anticoagulation status. Although we prefer a spinal anesthetic given his age and neurologic comorbidities, this would probably require waiting 72 hours after his last Eliquis dose. After discussing the case with the surgeon, he feels this length of time would be of significant detriment to the patient and so we will plan instead to proceed with general anesthesia as scheduled. I did discuss these points with the patient's who agrees to proceed. Consent form will be signed by her prior to OR tomorrow.
--- NOTE | 2017-12-22 15:06 | Cardiology Consultation ---
Cardiology Consultation Date of Consultation: Dec 22, 2017. Requesting Physician: Nikky Reason for Consultation: VT, CAD, AVR Pt evaluation today including: conversation w/ patient, conversation w/ family , physical exam, chart review, lab review, review of studies, review of inpatient medication list, conversation w/ attending History of Present Illness The patient is an 82-year-old gentleman with an extensive cardiac history to include coronary artery disease, valvular heart disease and atrial fibrillation who was walking to take out the trash earlier this morning and slipped. The patient fell and fractured his hip. He was spotted by the nursery manager and EMS was called. He is brought to [facility] for an evaluation. Unfortunately, the patient has significant dementia and could not provide any useful history. His was present for today's interview provided the history. In general the patient is an active individual. Previously he was very sedentary but more recently he has engaged in a greater degree of activity. This involves walking to me friends for coffee through [facility] on daily basis. He also could perform routine activities at home and commonly ventures outside as he did today to perform chores. His states that he has complaints of nasal congestion and sinus symptoms. He also complains occasionally of a "cold" sensation in the chest. This appears to be fairly fleeting and infrequent. She thinks he occasionally may complain of dizziness, but this is not common. He generally does not have symptoms of pain. He does not describe breathing difficulty or appear short of breath. He states that generally speaking he sleeps well most nights. He has been eating and drinking well recently. His appetite appears to have improved. He has not suffered any syncope. 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 pacemaker implantation Dementia Gout Gastroesophageal reflux disease Nephrolithiasis Tubular adenoma of the colon Past surgical history Coronary artery bypass grafting x1 and bioprosthetic AVR 2003 Redo aortic valve replacement in 2009 due to insufficiency Dual-chamber pacemaker implantation, Medtronic Cholecystectomy Ear surgery Lithotripsy Tonsillectomy Family History Diabetes mellitus FH: Parkinson's disease FH: aortic aneurysm Heart disease Hypertension Noncontributory given his advanced age Social History Smoking Status: Former Smoker History of Alcohol Use: Yes (OCCASIONALLY) 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 Review of Systems Cardiac: + palpitations This could not be obtained from the patient given his significant dementia All Other Systems: Reviewed and Negative Allergies Coded Allergies: Greene Pepper (Verified Allergy, Severe, SHORTNESS OF BREATH, 12/22/17) NO KNOWN DRUG ALLERGIES (Verified Allergy, Unknown, none, 12/22/17) Medications Current Inpatient Medications Medications (Trade) Dose Ordered Sig/Juan A Route Start Time Stop Time Status Last Admin Dose Admin Sodium Chloride 1,000 ml @ 80 mls/hr [id number] IV 12/22/17 12:15 01/21/18 12:14 12/22/17 12:02 80 MLS/HR Acetaminophen (Tylenol Tab) 650 mg Q4H PRN PO 12/22/17 10:45 01/21/18 10:44 Al Hydrox/Mg Hydrox/Simethicone (Maalox Max Susp) 15 ml Q4H PRN PO 12/22/17 10:45 01/21/18 10:44 Magnesium Hydroxide (Milk Of Magnesia Susp) 30 ml Q12H PRN PO 12/22/17 10:45 01/21/18 10:44 Ondansetron HCl (Zofran Inj) 4 mg Q6H PRN IV 12/22/17 10:45 01/21/18 10:44 Naloxone HCl (Narcan Inj) 0.1 mg PRN PRN IV 12/22/17 10:45 01/21/18 10:44 Senna/Docusate Sodium (Senokot S Tab) 2 tab HS PO 12/22/17 21:00 01/21/18 20:59 Polyethylene (Miralax Powder Packet) 17 gm DAILY PRN PO 12/22/17 10:45 01/21/18 10:44 Magnesium Hydroxide (Milk Of Magnesia Susp) 30 ml DAILY PRN PO 12/22/17 10:45 01/21/18 10:44 Bisacodyl (Dulcolax Supp) 10 mg DAILY PRN OH 12/22/17 10:45 01/21/18 10:44 Sodium Biphosphate/ Sodium Phosphate (Fleet Enema) 132 ml PRN PRN OH 12/22/17 10:45 Finasteride (Proscar Tab) 5 mg QAM PO 12/23/17 09:00 01/22/18 08:59 Metoprolol Succinate (Toprol Xl Tab) 50 mg HS PO 12/22/17 21:00 01/21/18 20:59 Montelukast Sodium (Singulair Tab) 10 mg HS PO 12/22/17 21:00 01/21/18 20:59 Morphine Sulfate (MoRPHine SULFATE INJ) 2 mg Q3H PRN IV 12/22/17 11:15 01/05/18 11:14 Morphine Sulfate (MoRPHine SULFATE INJ) 4 mg Q3H PRN IV 12/22/17 11:15 01/05/18 11:14 Meclizine HCl (Antivert Tab) 25 mg TID PRN PO 12/22/17 12:15 01/21/18 12:14 Cefazolin Sodium 15 ml @ 3.75 mls/ min PREOP IV 12/23/17 06:00 12/23/17 18:00 Physical Exam Vital Signs Past 12 Hours Date Time Temp Pulse Resp B/P (MAP) Pulse Ox O2 Delivery O2 Flow Rate FiO2 12/22/17 11:48 36.4 61 16 118/62 (80) 100 12/22/17 11:48 36.4 61 18 118/62 100 12/22/17 11:15 36.4 60 16 101/48 100 12/22/17 10:56 60 16 101/48 100 12/22/17 10:12 63 16 120/55 100 12/22/17 08:32 60 12/22/17 08:19 36.4 72 18 136/72 100 The patient is alert and oriented to person. He did not answer most questions appropriately. He could not provide any useful history. He did follow instructions. HEENT: Pupils are equal and reactive to light and accommodation. Extraocular movements are intact. The sclerae are anicteric. Neuro: Cranial nerves intact Neck: Patient's neck is supple. He has palpable carotid pulses bilaterally without bruits on auscultation. There is no evidence of jugular venous distention. The thyroid is not enlarged. Lungs: Clear to auscultation bilaterally. He has good air movement without use of accessory muscles. No rales wheezes or rhonchi. Cardiac: Heart demonstrates a regular rate and rhythm with occasional ectopy. Normal S1 and S2. Crescendo systolic murmur. Pulses: The patient has palpable radial pulses bilaterally that are equal in intensity Extremities: There was no evidence of hypoperfusion. There is no cyanosis or clubbing. There is no edema. Skin: I did not appreciate any rashes on examination today. Data Laboratory Results: Last 24 Hours Test 12/22/17 10:04 12/22/17 10:10 White Blood Count 6.49 K/uL Red Blood Count 4.13 M/uL Hemoglobin 10.9 g/dL Hematocrit 32.8 % Mean Corpuscular Volume 79.4 fL Mean Corpuscular Hemoglobin 26.4 pg Mean Corpuscular Hemoglobin Concent 33.2 g/dl Platelet Count 183 K/uL Mean Platelet Volume 8.3 fL Neutrophils (%) (Auto) 85.5 % Lymphocytes (%) (Auto) 7.9 % Monocytes (%) (Auto) 5.4 % Eosinophils (%) (Auto) 0.8 % Basophils (%) (Auto) 0.2 % Neutrophils # (Auto) 5.56 K/uL Lymphocytes # (Auto) 0.51 K/uL Monocytes # (Auto) 0.35 K/uL Eosinophils # (Auto) 0.05 K/uL Basophils # (Auto) 0.01 K/uL RDW Standard Deviation 41.4 fL RDW Coefficient of Variation 14.4 % Immature Granulocyte % (Auto) 0.2 % Immature Granulocyte # (Auto) 0.01 K/uL Prothrombin Time 13.4 SECONDS Prothromb Time International Ratio 1.3 Activated Partial Thromboplast Time 26.0 SECONDS Partial Thromboplastin Ratio 1.0 Sodium Level 139 mmol/L Potassium Level 3.7 mmol/L Chloride Level 106 mmol/L Carbon Dioxide Level 27 mmol/L Anion Gap 6.0 mmol/L Blood Urea Nitrogen 25 mg/dl Creatinine 0.91 mg/dl Est Creatinine Clear Calc Drug Dose 65.9 ml/min Estimated GFR () 91.9 Estimated GFR (Non- 79.3 BUN/Creatinine Ratio 27.3 Random Glucose 127 mg/dl Calcium Level 8.6 mg/dl Urine Color YELLOW Urine Appearance CLEAR Urine pH 5.0 Urine Specific [place] 1.018 Urine Protein NEG Urine Glucose (UA) NEG Urine Ketones NEG Urine Occult Blood NEG Urine Nitrite NEG Urine Bilirubin NEG Urine Urobilinogen NEG Urine Leukocyte Esterase NEG Imaging: Head CT and chest x-ray did not demonstrate any acute process. Right hip films demonstrated a proximal right femoral fracture EKG: Paced rhythm with baseline atrial fibrillation Telemetry reviewed: 1 3 second run of ventricular tachycardia I reviewed the patient's device interrogation which did reveal 3 episodes of ventricular tachycardia over the past 3 months. The longest was 9 seconds in duration. Echocardiogram performed 04/01/2016: Preserved LV systolic function with severe left ventricular hypertrophy, moderately dilated left ventricle. Mild mitral regurgitation. Normally functioning bioprosthetic valve. This was a dobutamine study and no inducible ischemia was noted Assessment & Plan 1. Ventricular tachycardia: This appears to be appropriate classification for the arrhythmia identified. It is unclear the patient has any symptoms related to these events. The patient's thinks that perhaps his symptoms of feeling cold in the chest may be related. However there is no clear correlation. The events themselves are very brief in duration and have been noted on other interrogations over the years. I do not think this represents any concern for his surgery. In the absence of notable symptoms I think continued use of beta-maude is the only intervention required. 2. Atrial fibrillation: Patient has history of atrial fibrillation and his intracardiac electrograms suggest an alternate atrial arrhythmia perhaps an atrial flutter or tachycardia. He has not have rapid conduction. His overall rate histograms appear quite normal. He has been on appropriate anticoagulation. Anticoagulation can certainly be held to facilitate his surgery with re-initiation at the 1st opportunity. 3. Valvular heart disease: Patient had normal function of the valve replacement in 2016. There are no symptoms or suggestion of deterioration. Do not think he requires any reassessment prior to his surgery. Patient also has mild mitral regurgitation which can be followed over time. Unfortunately, given his comorbidities he is unlikely to be a good candidate for any additional surgeries. 4. Coronary artery disease: Patient was noted to have moderate nonobstructive coronary disease at the time of catheterization several years ago. He has dobutamine echocardiogram in 2016 which did not demonstrate inducible ischemia. He is a poor historian but there is no indication that he is having symptoms of angina currently. He should continue his aspirin and metoprolol. 5. Dual-chamber permanent pacemaker: Pacemaker appears to have normal function. His programmed to a VVI mode given the permanent nature of his atrial arrhythmia. He has normal rate histograms. The pacemaker is otherwise functioning normally with good longevity. He does appear to be dependent and the pacemaker itself should be reprogrammed or have magnet application for any surgery involving electro cautery.
[2017-12-22 15:43] VITALS: BP 114/51; PULSE 69; TEMP 36.8; O2SAT 97
--- NOTE | 2017-12-22 16:54 | CONSULTATION REPORT ---
DATE OF CONSULTATION: 12/22/2017 ORTHOPEDIC CONSULTATION CHIEF COMPLAINT: Right hip pain, femur fracture. HISTORY OF PRESENT ILLNESS: Luis Carlos is an 82-year-old male with a history of some dementia and a significant cardiac history as well, who was taking the trash out this morning, slipped on some ice and fell injuring his right hip. He was brought to [facility] where x-rays were obtained. He was found to have a proximal femur fracture. He was admitted to the hospitalist service and we are consulted for further orthopedic evaluation and management of this femur fracture. He complains only of pain in his right hip/thigh area. No other orthopedic complaints at this time. He previously ambulated independently. No pain in this hip or thigh area prior to this fall. No other complaints at this time. 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 MEDICATIONS: Include Eliquis, aspirin, finasteride, Toprol, montelukast, multivitamin, donepezil and meclizine. ALLERGIES: COFFMAN PEPPERS; no known drug allergies. SOCIAL HISTORY: He is a former smoker. He is and lives with his family. FAMILY HISTORY: Reviewed in the chart includes diabetes, Parkinson disease, aortic aneurysm, heart disease, and hypertension. REVIEW OF SYSTEMS: Noncontributory. PHYSICAL EXAMINATION: GENERAL: He is alert. He is in no distress. MUSCULOSKELETAL: Bilateral upper extremities, he has a good range of motion of his shoulders, elbows, wrists without any pain. He has previous amputations of multiple fingers on his left hand. He does not have any pain with range of motion of the left hip; left lower extremity, he is able to dorsiflex, plantarflex appropriately. His right lower extremity, he is holding his hip flexed and his leg is shortened and externally rotated. There is some swelling to his thigh. Skin is warm, dry and intact. I did not do any motion of his hip or right knee at this time. He was able to dorsiflex and plantarflex. Sensation is intact to touch. IMAGING DATA: X-rays were reviewed which show a comminuted displaced right subtrochanteric femur fracture. IMPRESSION: Right displaced comminuted subtrochanteric femur fracture. PLAN: His family is here with him today and I discussed the plan with them as well. We did recommend surgical fixation, specifically long trochanteric intramedullary nailing of the right femur fracture. The procedure was explained including the risks, benefits and alternatives to surgery and consent was obtained. We ordered a diet today. He will be n.p.o. after midnight. Plan for surgery tomorrow on Thursday. Will order GERA stockings and SCDs for DVT prophylaxis. He lives with his at home and they expressed interest in rehab, possibly [facility] postoperatively as well. Patient seen and examined. Agree with above. Will proceed with IM Nailing of Right comminuted Subtroch fracture. Quite a bit of swelling and edema due to anti-coagulation. KESHIA
[2017-12-22] MEDS ORDERED: HALOPERIDOL 1 MG TAB PO PRN (19:15)
[2017-12-22 19:24] VITALS: BP 116/58; PULSE 71; TEMP 36.8; O2SAT 95
[2017-12-22 20:32] VITALS: BP 117/68; PULSE 83
[2017-12-22] MEDS: METOPROLOL SUCC 50MG EXT REL TAB PO SCH (20:33)
[2017-12-22] MEDS: DOCUSATE SODIUM/SENNA 50/8.6MG TAB PO SCH (20:33)
[2017-12-22] MEDS: MONTELUKAST SOD 10 MG TAB PO SCH (20:33)
[2017-12-22] MEDS: HALOPERIDOL 1 MG TAB PO PRN (21:19)
[2017-12-22] MEDS: MoRPHine SULFATE 2 MG/ML CARP IV PRN (23:52)
[2017-12-23] VITALS (12 sets, daily range): BP systolic 92–131; BP diastolic 38–70; PULSE 62–91; TEMP 36.4–36.8; O2SAT 92–100
[2017-12-23] MEDS ORDERED: CEFAZOLIN IV 2,000 MG in DEXTROSE 5% 50ML 50 ML IV SCH (06:00)
[2017-12-23] MEDS ORDERED: CEFAZOLIN 2000MG IV PUSH 15 ML IV SCH (06:00)
[2017-12-23] MEDS ORDERED: BUPIVACAINE 0.5 % 5 MG/1 ML PF 10ML VIAL ONE (06:38)
[2017-12-23] MEDS: FINASTERIDE 5 MG TAB PO SCH (07:27)
[2017-12-23 07:58] LABS: CALCIUM 8.4 mg/dl (8.5-10.1); CREATININE 1.02 mg/dl (0.60-1.40)
[2017-12-23 08:34] LABS: HEMATOCRIT 24.1 % (42-52); MEAN CORPUSCULAR HEMOGLOBIN 26.2 pg (25-34); MEAN CORPUSCULAR HGB CONC 33.2 g/dl (32-36); PLATELET COUNT 182 K/uL (130-400); RED CELL DISTRIBUTION WIDTH CV 14.4 % (11.5-14.5); RED CELL DISTRIBUTION WIDTH SD 41.4 fL (36.4-46.3); WHITE BLOOD COUNT 7.65 K/uL (4.8-10.8)
[2017-12-23] MEDS: MoRPHine SULFATE 2 MG/ML CARP IV PRN (09:26)
--- NOTE | 2017-12-23 10:59 | Hospitalist Progress Note ---
Hospitalist Progress Note Date of Service Dec 23, 2017. (Verena Brand, BRYANC) Subjective Pt evaluation today including: conversation w/ patient, conversation w/ family , physical exam, chart review, lab review, review of studies, review of inpatient medication list Patient seen and evaluated. Continues to having non-sustained runs of VT on monitor. is at bedside who states that he has actually been taking his Eliquis and had a dose yesterday morning because she forgot and placed his med in the container and it wasn't there when she re-checked them. Daughter thought he has been off this yesterday due to upcoming scope. Hemoglobin dropped to 8 this AM which is likely some dilution. Baseline is higher than this. Appears asymptomatic from it. Will repeat H&H at this time. Reporting good pain control at this time. Also states he was able to sleep very well. Constitutional: No fever, No chills Respiratory: No cough, No shortness of breath Cardiovascular: No chest pain Abdomen: No pain, No nausea, No vomiting, No diarrhea, No constipation ( Verena Brand, NANCI-C) Medications Current Inpatient Medications Medications (Trade) Dose Ordered Sig/Juan A Route Start Time Stop Time Status Last Admin Dose Admin Sodium Chloride 1,000 ml @ 80 mls/hr [id number] IV 12/22/17 12:15 01/21/18 12:14 12/22/17 23:54 80 MLS/HR Acetaminophen (Tylenol Tab) 650 mg Q4H PRN PO 12/22/17 10:45 01/21/18 10:44 Al Hydrox/Mg Hydrox/Simethicone (Maalox Max Susp) 15 ml Q4H PRN PO 12/22/17 10:45 01/21/18 10:44 Magnesium Hydroxide (Milk Of Magnesia Susp) 30 ml Q12H PRN PO 12/22/17 10:45 01/21/18 10:44 Ondansetron HCl (Zofran Inj) 4 mg Q6H PRN IV 12/22/17 10:45 01/21/18 10:44 Naloxone HCl (Narcan Inj) 0.1 mg PRN PRN IV 12/22/17 10:45 01/21/18 10:44 Senna/Docusate Sodium (Senokot S Tab) 2 tab HS PO 12/22/17 21:00 01/21/18 20:59 12/22/17 20:33 2 TAB Polyethylene (Miralax Powder Packet) 17 gm DAILY PRN PO 12/22/17 10:45 01/21/18 10:44 Magnesium Hydroxide (Milk Of Magnesia Susp) 30 ml DAILY PRN PO 12/22/17 10:45 01/21/18 10:44 Bisacodyl (Dulcolax Supp) 10 mg DAILY PRN ID 12/22/17 10:45 01/21/18 10:44 Sodium Biphosphate/ Sodium Phosphate (Fleet Enema) 132 ml PRN PRN ID 12/22/17 10:45 Finasteride (Proscar Tab) 5 mg QAM PO 12/23/17 09:00 01/22/18 08:59 12/23/17 07:27 5 MG Metoprolol Succinate (Toprol Xl Tab) 50 mg HS PO 12/22/17 21:00 01/21/18 20:59 12/22/17 20:33 50 MG Montelukast Sodium (Singulair Tab) 10 mg HS PO 12/22/17 21:00 01/21/18 20:59 12/22/17 20:33 10 MG Morphine Sulfate (MoRPHine SULFATE INJ) 2 mg Q3H PRN IV 12/22/17 11:15 01/05/18 11:14 12/23/17 09:26 2 MG Morphine Sulfate (MoRPHine SULFATE INJ) 4 mg Q3H PRN IV 12/22/17 11:15 01/05/18 11:14 12/23/17 05:00 4 MG Meclizine HCl (Antivert Tab) 25 mg TID PRN PO 12/22/17 12:15 01/21/18 12:14 Cefazolin Sodium 15 ml @ 3.75 mls/ min PREOP IV 12/23/17 06:00 12/23/17 18:00 Haloperidol (Haldol Tab) 1 mg Q6H PRN PO 12/22/17 20:00 01/21/18 19:59 12/22/17 21:19 1 MG (Verena Brand PA-C) Objective Vital Signs Date Time Temp Pulse Resp B/P (MAP) Pulse Ox O2 Delivery O2 Flow Rate FiO2 12/23/17 08:03 98 Room Air 12/23/17 07:17 36.5 64 16 101/49 (66) 98 12/23/17 04:00 36.8 64 20 119/70 (86) 95 Room Air 12/23/17 04:00 Room Air 12/23/17 00:00 Room Air 12/23/17 00:00 36.6 78 20 128/61 (83) 96 Room Air 12/22/17 20:32 83 117/68 (84) 12/22/17 20:00 Room Air 12/22/17 19:24 36.8 71 20 116/58 (77) 95 Room Air 12/22/17 16:00 Room Air 12/22/17 15:43 36.8 69 16 114/51 (72) 97 Room Air 12/22/17 11:48 36.4 61 16 118/62 (80) 100 12/22/17 11:48 36.4 61 18 118/62 100 12/22/17 11:15 36.4 60 16 101/48 100 12/22/17 10:56 60 16 101/48 100 (Verena Brand, PA-C) Physical Exam General Appearance: no apparent distress, + obese Eyes: sclerae normal ENT: hearing grossly normal Neck: supple, no JVD, trachea midline Respiratory/Chest: lungs clear, normal breath sounds, no respiratory distress, no accessory muscle use Cardiovascular: regular rate, rhythm, + systolic murmur Abdomen: normal bowel sounds, non tender, soft Extremities: no pedal edema, + pertinent finding (R hip externally rotated with ) (Verena Brand, PA-C) Laboratory Results Last 24 Hours Test 12/23/17 06:51 White Blood Count 7.65 K/uL Red Blood Count 3.05 M/uL Hemoglobin 8.0 g/dL Hematocrit 24.1 % Mean Corpuscular Volume 79.0 fL Mean Corpuscular Hemoglobin 26.2 pg Mean Corpuscular Hemoglobin Concent 33.2 g/dl RDW Standard Deviation 41.4 fL RDW Coefficient of Variation 14.4 % Platelet Count 182 K/uL Mean Platelet Volume 9.0 fL Sodium Level 137 mmol/L Potassium Level 4.0 mmol/L Chloride Level 105 mmol/L Carbon Dioxide Level 25 mmol/L Anion Gap 7.0 mmol/L Blood Urea Nitrogen 36 mg/dl Creatinine 1.02 mg/dl Est Creatinine Clear Calc Drug Dose 57.6 ml/min Estimated GFR () 80.1 Estimated GFR (Non- 69.1 BUN/Creatinine Ratio 35.6 Random Glucose 128 mg/dl Calcium Level 8.4 mg/dl Magnesium Level 2.2 mg/dl Total Creatine Kinase 141 U/L (Verena Brand, PARemiC) Assessment and Plan Mr. 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 Patient reports he woke up and was taking the trash to the street when he slipped on ice. Mechanical Fall with R Distracted/Comminuted R Proximal Femur Fx: - Geriatric hip fx protocol - Eliquis initially reported it has been on hold per daughter but appears he did take this on Thursday per - Pain management with PRN morphine - Orthopedic Surgery following - plan for surgical repair today Pre-Operative Clearance: - Has been off Eliquis x approx. 1 week due to planned colonoscopy for next week - Patient at baseline is independent and ambulatory without assistive devices; denies exertion CP or SOB and reports no limitations in ADLs due to this - EKG reveals a paced rhythm and he is dependent on the pacer - no acute ischemic findings on EKG and no CP currently; acceptable labs -- Reported small run of VT on monitor in ED - will have pacer interrogation - this may be true VT vs A Fib with aberrancy given A Fib is his underlying rhythm - Echo (2016) - EF 65-70% with no wall motion abnormalities; mildly dilated L atrium; bioprosthetic valve with expected velocity and gradient - Chavarria with minimal urine output but kidney function acceptable on labs - will need to monitor fluid status - Patient is a moderate risk given orthopedic procedure but given no acute coronary issues and stability of cardiac co-morbidities would be reasonable to go forward with surgical intervention with close monitoring Acute Anemia: - Likely drop to 8 is dilutional and appearing asymptomatic - baseline is higher than this - Will transfuse 1 unit pre-operatively given cardiac history as well as was on blood thinners - continue to trend H&H VT vs A Fib with Aberrancy: STABLE - Had 11 beat run of VT on monitor overnight - will continue to monitor - Appreciate cardiologies input on interrogation reading - plan to continue to control with BB therapy CAD S/P CABG and Bioprosthetic AVR and Persistent A Fib and S/P Pacer (Pacer Dependent): - Metoprolol 50 mg HS BPH: - Proscar 5 mg daily DVT Prophylaxis: SCDs; no chemical means pending surgical intervention Code Status: DO NOT RESUSCITATE Disposition: - PT/OT evaluations - will likely need SNF on D/C Continued [facility] stay due to: ambulation difficulties, multiple IV medications needed Discharge planning: rehab hospital, assisted facility (Verena Brand PA-C) Attending Attestation - I attempted to see the patient multiple times this afternoon; however, he was in the OR and/or PACU when I attempted to see him. I did review Mr. Arzate's chart in detail and discussed his care plan with NANCI Brand. I agree with her documentation as outlined. Overnight VSS. Labs today - Hb 8.1, Cr 1 Mag, CPK wnl A/P: 1. right femur fracture s/p ORIF by orthopedics today. 2. anemia - acute/chronic; acute component likely some dilutional component as well as acute blood loss from bleeding into the right thigh from the femur fracture; I agree w/ 1 unit of PRBCs in light of his CAD, recurrent V-T, and moderate-high risk of cardiopulmonary events. 3. dementia, with possible superimposed encephalopathy - haldol low-dose (PO) prn for agitation/severe delirium 4. nonsustained V-tachycardia - keep Mag/K repleted; check in AM; telemetry post-op. Continue BB. 5. mild oliguria with stable creatinine - likely due to volume depletion - continue NS hydration. CPK checked; no evidence of rhabdomyolysis. Cedrick Sher MD (Cedrick Sher MD)
[2017-12-23 11:27] LABS: HEMATOCRIT 24.6 % (42-52); HEMOGLOBIN 8.2 g/dL (14.0-18.0)
[2017-12-23] MEDS ORDERED: VANCOMYCIN CONSULT ACTIVE PRN ×2 (12:15→18:00)
--- NOTE | 2017-12-23 12:18 | PROGRESS NOTE ---
DATE: 12/23/2017 SUBJECTIVE: An 82-year-old gentleman admitted with a right comminuted subtrochanteric fracture. Planning on surgery today. No new complaints. He describes isolated thigh pain. Pain is reasonably manageable. Denies any chest pain or shortness of breath. OBJECTIVE: VITAL SIGNS: Temperature 36.4. Vital signs stable. PHYSICAL EXAMINATION: GENERAL: Reveals a pleasant, demented elderly male. He is lying in bed, looks reasonably comfortable. EXTREMITIES: Examination of the right leg reveals it to be shortened and externally rotated. He has got some moderate, but significant thigh swelling. Certainly not worse than yesterday and actually a little bit less tense. He is neurologically intact. LABORATORY DATA: Hemoglobin 8.2. Hematocrit 24.6. Electrolytes are stable. ASSESSMENT: An 82-year-old male with multiple medical comorbidities and significant cardiac history with a right comminuted subtrochanteric femur fracture. His exam is stable. He is anemic, but this amount of blood loss is not expected with this type of fracture, especially considering that he is on anticoagulation. PLAN: We are going to take him to the operating today and do an open IM nailing of his right subtrochanteric fracture. We will likely need cables as well due to the comminuted nature and the location of the fracture and displacement. Risks and benefits were explained and family understand and an informed consent was obtained. In the meantime, we will continue iron supplementation. We will start him back on his Eliquis postop day 1 at likely a slightly lower dose. He will likely need a rehab stay.
[2017-12-23] MEDS ORDERED: VANCOMYCIN IV 1,000 MG in SODIUM CHLORIDE 0.9% 250ML 250 ML IV ONE (13:30)
[2017-12-23] MEDS: SODIUM CHLORIDE 0.9% 1000ML 1,000 ML IV SCH ×2 (13:55→23:42)
[2017-12-23] MEDS ORDERED: LIDOCAINE HCL 2% 2 ML VIAL (20MG/ML) ONE (14:14)
[2017-12-23] MEDS ORDERED: PROPOFOL IV EMULSION 10 MG/ML 20 ML VIAL IV ONE (14:14)
[2017-12-23] MEDS ORDERED: FENTANYL CITRATE INJ 50 MCG/1 ML 2 ML VIAL ONE ×2 (14:15→17:49)
[2017-12-23] MEDS ORDERED: BUPIVACAINE/EPINEPHRINE 0.5% MPF 1:200,000 30 ML VIAL ONE (14:40)
[2017-12-23] MEDS ORDERED: BACITRACIN 50000 UNIT VIAL ONE (14:40)
[2017-12-23] MEDS ORDERED: ONDANSETRON INJ 2 MG/ML 2 ML VIAL IV PRN (14:45)
[2017-12-23] MEDS ORDERED: FENTANYL CITRATE INJ 50 MCG/1 ML 2 ML VIAL IV PRN (14:45)
[2017-12-23] MEDS ORDERED: EpHEDrine SULFATE INJ 50 MG/ML AMP IV PRN (14:45)
[2017-12-23] MEDS ORDERED: ATROPINE SULFATE 0.1 MG/ML 5ML SYR IV PRN (14:45)
[2017-12-23 17:41] LABS: HEMOGLOBIN 9.3 g/dL (14.0-18.0)
[2017-12-23] MEDS ORDERED: PHENYLEPHRINE HCL INJ 10 MG/ML VIAL ONE (17:43)
[2017-12-23] MEDS ORDERED: ONDANSETRON INJ 2 MG/ML 2 ML VIAL ONE (17:44)
--- NOTE | 2017-12-23 17:58 | [facility] Post Operative Brief Note ---
Immediate Operative Summary Operative Date Dec 23, 2017. Pre-Operative Diagnosis Right comminuted subtrochanteric femur fracture, right knee effusion Post-Operative Diagnosis Right comminuted subtrochanteric femur fracture, right knee effusion Procedure(s) Performed Long intramedullary nail of right femur, right knee aspiration Surgeon Dr. Flores Perforator Operator Oil Well Surgeon(s) Zeny Mejia PA-C Estimated Blood Loss 500ml Findings Consistent with Post-Op Diagnosis Specimens Hemoglobin/hematocrit sent 1835 to lab Drains None Anesthesia Type General Complication(s) none Disposition Accompanied Pt To Recover: no Disposition: Recovery Room / PACU
[2017-12-23] MEDS ORDERED: HYDROmorphone INJ 0.5 MG/0.5 ML SYR IV PRN ×2 (18:00)
[2017-12-23] MEDS ORDERED: BISACODYL 10 MG SUPP PR PRN (18:00)
[2017-12-23] MEDS ORDERED: CEFAZOLIN IV 1,000 MG in DEXTROSE 5% 50ML 50 ML IV SCH (18:00)
[2017-12-23] MEDS ORDERED: MAGNESIUM HYDROXIDE SUSP 30 ML UDC PO PRN (18:00)
--- NOTE | 2017-12-23 18:57 | OPERATIVE REPORT ---
DATE OF OPERATION: 12/23/2017 SURGEON: Ryan Flores MD WELDER APPRENTICE GAS: NANCI Cedillo PREOPERATIVE DIAGNOSIS: 1. Right Comminuted Displaced Subtrochanteric/Intertrochanteric Demur Fracture 2. Right Knee Sympathetic Effusion POSTOPERATIVE DIAGNOSES: Same PROCEDURE: 1) Open reduction and long cephalomedullary nailing of a right comminuted subtrochanteric/intertrochanteric femur fracture. Right Knee Aspiration COMPLICATIONS: None. ESTIMATED BLOOD LOSS: 500 mL. FLUID REPLACEMENT: 1200 mL crystalloid fluid replacement with 2 units of packed red blood cells. ANESTHESIA: General. SPECIMENS: None. OPERATIVE INDICATIONS: The patient is an 82-year-old male with multiple medical comorbidities including significant cardiac disease as well as dementia, who was taking out the garbage yesterday and slipped on the ice. He had acute onset of pain and could not ambulate afterwards. He was brought to Emergency Room where x-rays revealed a comminuted intertrochanteric/subtrochanteric hip fracture. The patient was medically optimized and indicated for surgical treatment. He has been on chronic Eliquis and therefore could not have a spinal anesthetic. OPERATIVE FINDINGS: Operative findings revealed extremely comminuted subtrochanteric/intertrochanteric hip fracture. Quite a bit of swelling in his thigh as well. He had a significant knee joint effusion as well. OPERATIVE IMPLANTS: Consist of: 1. Synthes right 420 mm x 11 mm long trochanteric nail. 2. A 115 mm helical blade. 3. A 5.0 distal interlocking screws, 1 of 54 mm length and one of 48 mm length. 4. A 1.7 mm Synthes cables x 2. OPERATIVE PROCEDURE: The patient taken to the operating, identified and placed on the operative table in supine position. All contact areas were appropriately padded. IV antibiotics were provided by anesthesia team. 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 A general anesthetic was implemented. The patient was put on the fracture table. The right leg was placed in boot traction, left leg was placed in a well leg bedolla. We applied some longitudinal traction and pointed the leg, so the kneecap pointed to the ceiling. X-ray was brought in. The fracture lined up okay. There was a large displaced comminuted segment medially and then there was significant sag. The right hip was then prepped and draped in usual sterile fashion. A direct approach to the left proximal lateral femur was then performed through a curvilinear incision from just proximal to the tip of the trochanter to the fracture site. Sharp dissection was got through the subcutaneous tissue directly down to the IT band. The IT band and gluteal fascia were then incised longitudinally in line with skin incision. The vastus lateralis was incised and retracted anteriorly. There was quite a bit of swelling of this. I then directly manipulated the fragments. There was quite a bit of comminution. I placed 2 reduction clamps across the fracture fragments acceptably aligned. I then placed two 1.7 mm Synthes cables around the comminuted segments in order to hold them in position and tightened these. That is not crimped at this point. X-ray was brought in. The fracture was acceptably aligned. Attention was then drawn to the nailing. A guidewire was placed in just lateral to the tip of the trochanter and advanced down the IM canal. This was overreamed with the 17 mm reamer. I did place a ball-tipped guidewire down the canal and measured for nail length and a 420 mm nail was selected. I did over ream the guidewire with the 12 mm reamer. I then passed the 420 mm nail over the guidewire and removed the guidewire. We tapped this into position. The lateral aiming arm was placed. I could not advance to the lateral femur due to the cramps on the table, so I tightened the distal cable and then crimped it and then removed the tension device to this. I then advanced the lateral aiming arm to the lateral femur. A guidewire was placed in the central aspect of the femoral head and neck in both AP and lateral planes. He had a fairly varus neck, so we had to place it inferolaterally and a little bit more superiorly in the head. I measured for length. A 115 mm helical blade was selected. I then used a cortical drill to breach the cortex and then the triple reamer was set 115 mm. A 115 mm helical blade was placed over the guidewire and tapped into position. The proximal set screw was tightened. I then removed the lateral aiming arm. I then tightened the proximal Synthes cable and crimped it as well. Some final x-rays were obtained. Attention was then drawn toward distal interlocking. I took all tension off the fracture site. Due to the comminuted nature and the leg length stability due to the fracture, we elected to place 2 interlocking screws. This was done using the perfect southern ute technique. A longitudinal incision made over the distal interlocking hole. Perfect circles were obtained and I placed 2 interlocking screws in a standard fashion with the more distal one in a dynamic position and the more proximal one through the static hole. Some final x-rays were obtained. Attention was then drawn toward closing. All wounds were irrigated with copious amounts of normal saline. I did inject locally with 30 mL of 0.5% Marcaine with epinephrine. The vastus lateralis fascia was closed with 0 Vicryl suture in running fashion. The IT band and gluteal fascia and both incisions were then closed with #1 Vicryl suture in running fashion. Subcutaneous tissues well. Both wounds were closed with 2-0 Dexon suture in buried interrupted fashion. Skin was closed skin mariano. Leg was then cleaned and dried and a sterile dressing of Xeroform, 4 x 4's, ABD pad and foam tape was applied. I then proceeded with aspiration of the knee joint. The knee was cleaned with alcohol. I did aspirate the knee laterally for about 20 mL of serosanguineous fluid. I still felt that like there was a bunch of fluid in there, so I cleaned the knee up medially and attempted to aspirate it medially, but was unsuccessful. I believe there was some blood and there, but it was just clotted. We elected not to do anything more aggressive. The patient was then taken off the fracture table. He was brought out of general anesthesia and transferred to the recovery room in stable condition. The patient tolerated the procedure well with no complications. All needle and sponge counts were correct at the end of the operation. I attest to the content of the Intraoperative Record and any orders documented therein. Any exceptions are noted below. KESHIA
--- NOTE | 2017-12-23 19:20 | Anesthesiology Progress Note ---
Anesthesia Post Op Note Date & Time Dec 23, 2017 at 19:19 Vital Signs Pain Intensity: 2 Vital Signs Past 12 Hours Date Time Temp Pulse Resp B/P (MAP) Pulse Ox O2 Delivery O2 Flow Rate FiO2 12/23/17 18:45 36.4 61 16 107/42 100 Nasal Cannula 4 12/23/17 18:30 78 16 100/44 94 Nasal Cannula 4 12/23/17 18:20 66 16 103/41 94 Nasal Cannula 4 12/23/17 18:10 61 16 103/54 95 Oxymask 10 12/23/17 18:00 36.7 62 16 107/40 95 Oxymask 10 12/23/17 14:30 36.6 69 18 118/67 (84) 96 Room Air 12/23/17 12:00 98 Room Air 12/23/17 11:09 36.4 69 18 108/48 (68) 93 12/23/17 08:03 98 Room Air Notes Mental Status: alert / awake / arousable, participated in evaluation Pt Amnestic to Procedure: Yes Nausea / Vomiting: adequately controlled Pain: adequately controlled Airway Patency, RR, SpO2: stable & adequate BP & HR: stable & adequate Hydration State: stable & adequate Anesthetic Complications: no major complications apparent Patient is at baseline mental status and not requiring pressors. He was transfused intraoperatively 2u RBCs for hemoglobin 8.1 with ongoing blood loss and requiring vasoactive agents to maintain pressure. Post op hemoglobin was 9.
[2017-12-23] MEDS ORDERED: DOCUSATE SODIUM/SENNA 50/8.6MG TAB PO SCH (21:00)
[2017-12-23] MEDS: METOPROLOL SUCC 50MG EXT REL TAB PO SCH (21:00)
[2017-12-23] MEDS: MONTELUKAST SOD 10 MG TAB PO SCH (21:39)
[2017-12-23] MEDS: DOCUSATE SODIUM/SENNA 50/8.6MG TAB PO SCH (21:39)
[2017-12-23] MEDS: CEFAZOLIN IV 1,000 MG in SYRINGE 0 ML IV SCH (21:46)
[2017-12-24] VITALS (18 sets, daily range): BP systolic 101–135; BP diastolic 43–66; PULSE 60–98; TEMP 36.5–37.7; O2SAT 95–100
[2017-12-24] MEDS ORDERED: VANCOMYCIN IV 1,000 MG in SODIUM CHLORIDE 0.9% 250ML 250 ML IV SCH (02:00)
[2017-12-24] MEDS: MoRPHine SULFATE 2 MG/ML CARP IV PRN ×2 (03:14→06:16)
[2017-12-24] MEDS: HALOPERIDOL 1 MG TAB PO PRN (06:12)
[2017-12-24] MEDS: CEFAZOLIN IV 1,000 MG in SYRINGE 0 ML IV SCH (06:18)
[2017-12-24] MEDS: FINASTERIDE 5 MG TAB PO SCH (07:44)
[2017-12-24 07:50] LABS: HEMATOCRIT 23.8 % (42-52); HEMOGLOBIN 7.8 g/dL (14.0-18.0); MEAN CELL VOLUME 80.1 fL (80-100); MEAN CORPUSCULAR HEMOGLOBIN 26.3 pg (25-34); MEAN CORPUSCULAR HGB CONC 32.8 g/dl (32-36); MEAN PLATELET VOLUME 9.4 fL (7.4-10.4); PLATELET COUNT 164 K/uL (130-400); RED CELL DISTRIBUTION WIDTH CV 14.6 % (11.5-14.5); RED CELL DISTRIBUTION WIDTH SD 42.4 fL (36.4-46.3); WHITE BLOOD COUNT 11.91 K/uL (4.8-10.8)
--- NOTE | 2017-12-24 07:54 | PROGRESS NOTE ---
DATE: 12/24/2017 SUBJECTIVE: An 82-year-old gentleman postop day 2 from open IM nailing of a right comminuted intertroch/subtroch fracture. He seems to be doing well. He has underlying dementia. He denies much in the way of pain. OBJECTIVE: VITAL SIGNS: Temperature is 36.7. Vital signs stable. GENERAL: Reveals a pleasant, middle-aged male. He is sitting up in bed. He looks comfortable. EXTREMITIES: Examination of the right leg reveals the leg to be well aligned. Dressing is clean, dry and intact. Swelling seems to be improved. He can spontaneously dorsiflex and plantarflex his foot. LABORATORY DATA: Hemoglobin is pending. Electrolytes are pending. ASSESSMENT: An 82-year-old gentleman postop day 2 from an open intramedullary nailing of a right intertroch/subtroch fracture with quite a bit of comminution. Clinically, looks good. He has some underlying dementia and difficult to get accurate responses from but looks quite good postop day 1. PLAN: 1. DVT prophylaxis including thigh-high TEDs, SCDs. We will resume his Eliquis. We will put him on a prophylactic dose for about 72 hours starting 24 hours after surgery and then go to his therapeutic dose. 2. PT/OT. He can weightbear as tolerated, right lower extremity. 3. Pain control. Seems to be doing pretty well with current pain management. I would really try and limit narcotics. Use tramadol if needed. Otherwise, stick to Tylenol as much as possible. 4. Disposition: He would likely need a rehab stay. I need to see him back in 2 weeks out from surgery. Any orthopedic questions can be directed at [phone].
--- NOTE | 2017-12-24 07:59 | DIAGNOSTIC IMAGING REPORT ---
INTRAOPERATIVE RADIOGRAPHS CLINICAL HISTORY: Open reduction and internal fixation of the right femur. Fluoroscopy time: 149 seconds. FINDINGS: 6 spot fluoroscopic views of the right femur are correlated with radiographs dated 12/22/2017. There has been intertrochanteric and intramedullary nail fixation of a proximal right femoral shaft fracture with mandaen of near-anatomic alignment. 2 cerclage wires surround the proximal end of the intramedullary nail. 2 cortical screws transfix the distal end of the nail. Overlying soft tissue edema is noted. IMPRESSION: Intraoperative images from open reduction and internal fixation of a right femoral fracture as above. Electronically signed by: Naeem Farrell M.D. 12/23/2017 5:41 PM Dictated Date/Time: 12/23/2017 5:40 PM
--- NOTE | 2017-12-24 07:59 | DIAGNOSTIC IMAGING REPORT ---
INTRAOPERATIVE RADIOGRAPHS CLINICAL HISTORY: Open reduction and internal fixation of the right femur. Fluoroscopy time: 149 seconds. FINDINGS: 6 spot fluoroscopic views of the right femur are correlated with radiographs dated 12/22/2017. There has been intertrochanteric and intramedullary nail fixation of a proximal right femoral shaft fracture with cheondoism of near-anatomic alignment. 2 cerclage wires surround the proximal end of the intramedullary nail. 2 cortical screws transfix the distal end of the nail. Overlying soft tissue edema is noted. IMPRESSION: Intraoperative images from open reduction and internal fixation of a right femoral fracture as above. Electronically signed by: Naeem Farrell M.D. 12/23/2017 5:41 PM Dictated Date/Time: 12/23/2017 5:40 PM
[2017-12-24 08:22] LABS: CREATININE 1.74 mg/dl (0.60-1.40)
[2017-12-24 08:23] LABS: CALCIUM 7.9 mg/dl (8.5-10.1); POTASSIUM 4.6 mmol/L (3.5-5.1)
--- NOTE | 2017-12-24 08:46 | Hospitalist Progress Note ---
Hospitalist Progress Note Date of Service Dec 24, 2017. (Verena Brand PA-C) Subjective Pt evaluation today including: conversation w/ patient, physical exam, chart review, lab review, review of studies, review of inpatient medication list Patient seen and evaluated. Is S/P R Femur Nailing. Continues with paced rhythm on monitoring and intermittent PVCs/Bigem/Trigem Hemoglobin at 7.8 with repeat at 7.2 - will transfuse another 2 units. Cr slightly bumped which may just be pre-renal but was having some low normal BPs so possible ATN. About 500 cc of urine today. Patient is alert and more talkative today. Confused. Asked if I could run downstairs to get Judy so she cant take him home. called when I was at bedside and he answered to ask her to bring his wallet so he can buy us for our services. States he is feeling a lot better and having no pain. Seemed somewhat surprised when telling him he had surgery. But states he has a big bandage on his leg. Constitutional: No fever, No chills Respiratory: No shortness of breath Cardiovascular: No chest pain Musculoskeletal: + joint pain (mild ache in R hip) (Verena Brand, NANCI-C) Medications Current Inpatient Medications Medications (Trade) Dose Ordered Sig/Juan A Route Start Time Stop Time Status Last Admin Dose Admin Sodium Chloride 1,000 ml @ 80 mls/hr [id number] IV 12/22/17 12:15 01/21/18 12:14 12/23/17 23:42 80 MLS/HR Acetaminophen (Tylenol Tab) 650 mg Q4H PRN PO 12/22/17 10:45 01/21/18 10:44 Al Hydrox/Mg Hydrox/Simethicone (Maalox Max Susp) 15 ml Q4H PRN PO 12/22/17 10:45 01/21/18 10:44 Magnesium Hydroxide (Milk Of Magnesia Susp) 30 ml Q12H PRN PO 12/22/17 10:45 01/21/18 10:44 Ondansetron HCl (Zofran Inj) 4 mg Q6H PRN IV 12/22/17 10:45 01/21/18 10:44 Naloxone HCl (Narcan Inj) 0.1 mg PRN PRN IV 12/22/17 10:45 01/21/18 10:44 Senna/Docusate Sodium (Senokot S Tab) 2 tab HS PO 12/22/17 21:00 01/21/18 20:59 12/23/17 21:39 2 TAB Polyethylene (Miralax Powder Packet) 17 gm DAILY PRN PO 12/22/17 10:45 01/21/18 10:44 Magnesium Hydroxide (Milk Of Magnesia Susp) 30 ml DAILY PRN PO 12/22/17 10:45 01/21/18 10:44 Bisacodyl (Dulcolax Supp) 10 mg DAILY PRN [place] 12/22/17 10:45 01/21/18 10:44 Sodium Biphosphate/ Sodium Phosphate (Fleet Enema) 132 ml PRN PRN [place] 12/22/17 10:45 Finasteride (Proscar Tab) 5 mg QAM PO 12/23/17 09:00 01/22/18 08:59 12/24/17 07:44 5 MG Metoprolol Succinate (Toprol Xl Tab) 50 mg HS PO 12/22/17 21:00 01/21/18 20:59 12/22/17 20:33 50 MG Montelukast Sodium (Singulair Tab) 10 mg HS PO 12/22/17 21:00 01/21/18 20:59 12/23/17 21:39 10 MG Morphine Sulfate (MoRPHine SULFATE INJ) 2 mg Q3H PRN IV 12/22/17 11:15 01/05/18 11:14 12/24/17 06:16 2 MG Morphine Sulfate (MoRPHine SULFATE INJ) 4 mg Q3H PRN IV 12/22/17 11:15 01/05/18 11:14 12/23/17 05:00 4 MG Meclizine HCl (Antivert Tab) 25 mg TID PRN PO 12/22/17 12:15 01/21/18 12:14 Haloperidol (Haldol Tab) 1 mg Q6H PRN PO 12/22/17 20:00 01/21/18 19:59 12/24/17 06:12 1 MG Hydromorphone HCl (Dilaudid Inj) 0.25 mg Q20M PRN IV 12/23/17 18:00 01/06/18 17:59 Hydromorphone HCl (Dilaudid Inj) 0.5 mg Q20M PRN IV 12/23/17 18:00 01/06/18 17:59 12/23/17 19:51 0.5 MG Polyethylene (Miralax Powder Packet) 17 gm Q6 PO 12/25/17 06:00 01/24/18 05:59 Apixaban (Eliquis Tab) 2.5 mg BID@0900,1800 PO 12/24/17 18:00 01/23/18 17:59 (Verena Brand, YENIFER) Objective Vital Signs Date Time Temp Pulse Resp B/P (MAP) Pulse Ox O2 Delivery O2 Flow Rate FiO2 12/24/17 04:00 Nasal Cannula 2.0 12/24/17 03:10 36.7 98 20 111/65 (80) 100 Nasal Cannula 2.0 12/24/17 00:00 Nasal Cannula 2.0 12/24/17 00:00 37.1 61 24 122/54 (76) 95 Nasal Cannula 2.0 12/23/17 20:30 71 16 131/58 (82) 95 Nasal Cannula 4.0 12/23/17 20:00 67 16 102/38 (59) 92 Nasal Cannula 4.0 12/23/17 20:00 100 Nasal Cannula 4.0 12/23/17 19:45 62 16 92/46 (61) 96 Nasal Cannula 4.0 12/23/17 19:30 62 16 115/52 (73) 94 Nasal Cannula 4.0 12/23/17 19:15 88 16 95/49 (64) 95 Nasal Cannula 4.0 12/23/17 19:00 36.4 91 16 93/49 (64) 95 Nasal Cannula 4.0 12/23/17 18:45 36.4 61 16 107/42 100 Nasal Cannula 4 12/23/17 18:30 78 16 100/44 94 Nasal Cannula 4 12/23/17 18:20 66 16 103/41 94 Nasal Cannula 4 12/23/17 18:10 61 16 103/54 95 Oxymask 10 12/23/17 18:00 36.7 62 16 107/40 95 Oxymask 10 12/23/17 14:30 36.6 69 18 118/67 (84) 96 Room Air 12/23/17 12:00 98 Room Air 12/23/17 11:09 36.4 69 18 108/48 (30) 93 (Verena Brand PA-C) Physical Exam General Appearance: WD/WN, no apparent distress Neck: supple, no JVD, trachea midline Respiratory/Chest: lungs clear, normal breath sounds, no respiratory distress, no accessory muscle use Cardiovascular: regular rate, rhythm, + systolic murmur Abdomen: normal bowel sounds, non tender, soft Extremities: no pedal edema, no calf tenderness, + pertinent finding (dressing applied to R hip C/D/I; motor function intact to toe movement) Neurologic/Psychiatric: alert, + disoriented Skin: normal color, warm/dry (Verena Brand, YENIFER) Laboratory Results Last 24 Hours Test 12/23/17 11:07 12/23/17 17:35 12/24/17 07:17 Hemoglobin 8.2 g/dL 9.3 g/dL 7.8 g/dL Hematocrit 24.6 % 28.0 % 23.8 % White Blood Count 11.91 K/uL Red Blood Count 2.97 M/uL Mean Corpuscular Volume 80.1 fL Mean Corpuscular Hemoglobin 26.3 pg Mean Corpuscular Hemoglobin Concent 32.8 g/dl RDW Standard Deviation 42.4 fL RDW Coefficient of Variation 14.6 % Platelet Count 164 K/uL Mean Platelet Volume 9.4 fL Sodium Level 139 mmol/L Potassium Level 4.6 mmol/L Chloride Level 107 mmol/L Carbon Dioxide Level 24 mmol/L Anion Gap 8.0 mmol/L Blood Urea Nitrogen 49 mg/dl Creatinine 1.74 mg/dl Est Creatinine Clear Calc Drug Dose 33.8 ml/min Estimated GFR () 42.0 Estimated GFR (Non- 36.2 BUN/Creatinine Ratio 27.9 Random Glucose 171 mg/dl Calcium Level 7.9 mg/dl Magnesium Level 2.1 mg/dl (Verena Brand, NANCI-C) Assessment and Plan Mr. 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 Patient reports he woke up and was taking the trash to the street when he slipped on ice. Mechanical Fall with R Distracted/Comminuted R Proximal Femur Fx S/P Nailing: - Geriatric hip fx protocol - Pain management with PRN morphine - Per ortho - planning for Eliquis 2.5 mg BID x 72 hrs then resume at A Fib dosing - Orthopedic Surgery following - appreciate assistance - WBAT and outpatient F/ U in 2 weeks JAVIER on CKD Stage II: - Mild increase after surgery will continue gentle hydration and avoid nephrotoxins; a couple low normal BPs but only in 90s systolically so likely not ATN but will monitor - Will continue to monitor urine output - good output yesterday and currently documented 500 cc today Acute Blood Loss Anemia: - Hgb today is 7.8 with repeat to 7.2 - will transfuse another 2 units - Was transfused 2 units on 12/23 VT vs A Fib with Aberrancy: STABLE - Appreciate cardiologies input on interrogation reading - plan to continue to control with BB therapy CAD S/P CABG and Bioprosthetic AVR and Persistent A Fib and S/P Pacer (Pacer Dependent): - Metoprolol 50 mg HS BPH: - Proscar 5 mg daily DVT Prophylaxis: SCDs; no chemical means pending surgical intervention Code Status: DO NOT RESUSCITATE Disposition: - PT/OT evaluations - [facility] is preferred with [facility] as backup Continued [facility] stay due to: ambulation difficulties Discharge planning: rehab hospital (Verena Brand PA-C) Attending Attestation - Pt seen/examined, chart reviewed, care plan d/w NANCI Brand. I agree w/ the rma components of her documentation. Pt confused during the visit. at beside. Tele findings noted. He denies any specific complaints. VSS although BPs are low-normal o2 sats wnl gen - thin, confused neck - no JVD heart - RRR lungs - CTA b/l abd - soft, NT ext - no ankle edema Hb 7.8 Cr. 1.7 A/P: 1. right femur fracture s/p ORIF, POD #1 2. anemia - acute/chronic; acute component likely acute blood loss from bleeding into the right thigh from the femur fracture as well as perioperative blood loss; given his extensive cardiovascular disease and low BPs (and JAVIER) will transfuse 2 units PRBCs; if H/H continue to fall will need hemoccult, etc 3. dementia, with possible superimposed encephalopathy - haldol low-dose (PO) prn for agitation/severe delirium 4. nonsustained V-tachycardia - continue BB. 5. mild acute kidney injury - suspect ATN due to low or low-normal BP; transfuse PRBCs, gentle fluids, serial BMPs 6. hyperglycemia - check BSGs, add novolog coverage if necessary; consider checking hemoglobin a1c to r/o early T2DM 7. DVT proph - eliquis BID 8. CAD - no ischemic sx's. can transfer back to orthopedic floor labs in Cedrick Sher MD (Cedrick Sher MD)
--- NOTE | 2017-12-24 10:00 | Anesthesiology Progress Note ---
Anesthesia Post Op Note Date & Time Dec 24, 2017 at 09:58 Vital Signs Vital Signs Past 12 Hours Date Time Temp Pulse Resp B/P (MAP) Pulse Ox O2 Delivery O2 Flow Rate FiO2 12/24/17 04:00 Nasal Cannula 2.0 12/24/17 03:10 36.7 98 20 111/65 (80) 100 Nasal Cannula 2.0 12/24/17 00:00 Nasal Cannula 2.0 12/24/17 00:00 37.1 61 24 122/54 (76) 95 Nasal Cannula 2.0 Notes Mental Status: alert / awake / arousable, participated in evaluation Pt Amnestic to Procedure: Yes Nausea / Vomiting: adequately controlled Pain: adequately controlled Airway Patency, RR, SpO2: stable & adequate BP & HR: stable & adequate Hydration State: stable & adequate Anesthetic Complications: no major complications apparent Patient reportedly at baseline mental status per nurse. Reports no complaints from anesthetic yesterday
[2017-12-24] MEDS: SODIUM CHLORIDE 0.9% 1000ML 1,000 ML IV SCH (14:38)
[2017-12-24 15:05] LABS: HEMATOCRIT 21.5 % (42-52); HEMOGLOBIN 7.2 g/dL (14.0-18.0)
[2017-12-24 15:26] LABS: CALCIUM 7.9 mg/dl (8.5-10.1); CREATININE 1.55 mg/dl (0.60-1.40); POTASSIUM 4.5 mmol/L (3.5-5.1)
[2017-12-24] MEDS: APIXABAN 2.5 MG TAB PO SCH (19:25)
[2017-12-24] MEDS: MONTELUKAST SOD 10 MG TAB PO SCH (21:37)
[2017-12-24] MEDS: DOCUSATE SODIUM/SENNA 50/8.6MG TAB PO SCH (21:37)
[2017-12-24] MEDS: METOPROLOL SUCC 50MG EXT REL TAB PO SCH (21:37)
[2017-12-25 00:57] VITALS: BP 127/65; PULSE 76; TEMP 37; O2SAT 95
[2017-12-25] MEDS: SODIUM CHLORIDE 0.9% 1000ML 1,000 ML IV SCH ×2 (01:58→11:41)
[2017-12-25] MEDS: POLYETHYLENE (MIRALAX) 17 GM PACK PO SCH ×4 (05:50→23:27)
[2017-12-25 07:12] VITALS: BP 108/49; PULSE 64; TEMP 37; O2SAT 96
[2017-12-25] MEDS: APIXABAN 2.5 MG TAB PO SCH ×2 (09:04→18:02)
[2017-12-25 09:09] LABS: HEMATOCRIT 25.3 % (42-52); HEMOGLOBIN 8.8 g/dL (14.0-18.0); MEAN CELL VOLUME 80.6 fL (80-100); MEAN CORPUSCULAR HGB CONC 34.8 g/dl (32-36); MEAN PLATELET VOLUME 9.2 fL (7.4-10.4); PLATELET COUNT 153 K/uL (130-400); RED CELL DISTRIBUTION WIDTH CV 15.2 % (11.5-14.5); RED CELL DISTRIBUTION WIDTH SD 44.3 fL (36.4-46.3); WHITE BLOOD COUNT 10.53 K/uL (4.8-10.8)
[2017-12-25] MEDS: FINASTERIDE 5 MG TAB PO SCH (09:31)
[2017-12-25 09:49] LABS: CALCIUM 8.2 mg/dl (8.5-10.1); CREATININE 0.92 mg/dl (0.60-1.40); POTASSIUM 4.2 mmol/L (3.5-5.1)
[2017-12-25 15:30] VITALS: BP 145/74; PULSE 64; TEMP 36.3; O2SAT 96
--- NOTE | 2017-12-25 16:30 | PROGRESS NOTE ---
DATE: 12/25/2017 SUBJECTIVE: An 82-year-old gentleman postop day #2 from an open reduction and IM nailing of a right comminuted intertroch/subtroch fracture. He is doing quite well. He has had some pain, but very manageable. He has been up and ambulating with some assistance. No other complaints. OBJECTIVE: VITAL SIGNS: Temperature 36.3. Vital signs stable. EXTREMITIES: Physical examination of the right hip and leg reveals the leg to be well aligned. His incisions are intact with just a slight bit of serosanguineous drainage from the proximal incision site. Some moderate swelling, but seems to be improved. He is neurologically intact. LABORATORY DATA: Hemoglobin is 8.8. Hematocrit 25.3. Electrolytes are stable. ASSESSMENT: An 82-year-old gentleman postop day #2 from an open IM nailing of a right comminuted intertroch/subtroch fracture, doing reasonably well. PLAN: 1. DVT prophylaxis including thigh-high TEDs, SCDs, and back on Eliquis. 2. PT/OT. He can weightbear as tolerated. 3. Medical management as per the medicine service. 4. Disposition: He is orthopedically stable and acceptable for discharge any time if medically stable. I do think he just needs to observe for a short period of time to make sure hemoglobin and hematocrit are stable. I need to see him back 2 weeks postop. Any orthopedic questions can be directed at [phone].
--- NOTE | 2017-12-25 17:26 | Hospitalist Progress Note ---
Hospitalist Progress Note Date of Service Dec 25, 2017. (Verena Brand PA-C) Subjective Pt evaluation today including: conversation w/ patient, physical exam, chart review, lab review, review of inpatient medication list Patient seen and evaluated. No acute events overnight. Hemoglobin stable at 8.8 and will monitor. Does not appear to be experiencing symptoms of anemia. No indication for further transfusions at this time. Reporting minimal pain in the leg but states its is okay. Does not appear to be in any distress. Kidney function improving. UO good. States he is eating well and has no complaints. Constitutional: No fever, No chills Respiratory: No cough, No shortness of breath Cardiovascular: No chest pain Abdomen: No pain, No nausea, No vomiting Musculoskeletal: + joint pain (mild in R hip) Male : No dysuria Heme: No abnormal bleeding/bruising (Verena Brand, BRYANC) Medications Current Inpatient Medications Medications (Trade) Dose Ordered Sig/Juan A Route Start Time Stop Time Status Last Admin Dose Admin Acetaminophen (Tylenol Tab) 650 mg Q4H PRN PO 12/22/17 10:45 01/21/18 10:44 12/24/17 23:53 650 MG Al Hydrox/Mg Hydrox/Simethicone (Maalox Max Susp) 15 ml Q4H PRN PO 12/22/17 10:45 01/21/18 10:44 Magnesium Hydroxide (Milk Of Magnesia Susp) 30 ml Q12H PRN PO 12/22/17 10:45 01/21/18 10:44 Ondansetron HCl (Zofran Inj) 4 mg Q6H PRN IV 12/22/17 10:45 01/21/18 10:44 Naloxone HCl (Narcan Inj) 0.1 mg PRN PRN IV 12/22/17 10:45 01/21/18 10:44 Senna/Docusate Sodium (Senokot S Tab) 2 tab HS PO 12/22/17 21:00 01/21/18 20:59 12/24/17 21:37 2 TAB Polyethylene (Miralax Powder Packet) 17 gm DAILY PRN PO 12/22/17 10:45 01/21/18 10:44 Magnesium Hydroxide (Milk Of Magnesia Susp) 30 ml DAILY PRN PO 12/22/17 10:45 01/21/18 10:44 Bisacodyl (Dulcolax Supp) 10 mg DAILY PRN [place] 12/22/17 10:45 01/21/18 10:44 Sodium Biphosphate/ Sodium Phosphate (Fleet Enema) 132 ml PRN PRN [place] 12/22/17 10:45 Finasteride (Proscar Tab) 5 mg QAM PO 12/23/17 09:00 01/22/18 08:59 12/25/17 09:31 5 MG Metoprolol Succinate (Toprol Xl Tab) 50 mg HS PO 12/22/17 21:00 01/21/18 20:59 12/24/17 21:37 50 MG Montelukast Sodium (Singulair Tab) 10 mg HS PO 12/22/17 21:00 01/21/18 20:59 12/24/17 21:37 10 MG Haloperidol (Haldol Tab) 1 mg Q6H PRN PO 12/22/17 20:00 01/21/18 19:59 12/24/17 06:12 1 MG Polyethylene (Miralax Powder Packet) 17 gm Q6 PO 12/25/17 06:00 01/24/18 05:59 12/25/17 14:06 17 GM Apixaban (Eliquis Tab) 2.5 mg BID@0900,1800 PO 12/24/17 18:00 01/23/18 17:59 12/25/17 09:04 2.5 MG Acetaminophen/ Hydrocodone Bitart ([place] 5/325 Tab) 1 tab Q6H PRN PO 12/25/17 17:30 01/08/18 17:29 UNV (Verena Brand, BRYANC) Objective Vital Signs Date Time Temp Pulse Resp B/P (MAP) Pulse Ox O2 Delivery O2 Flow Rate FiO2 12/25/17 15:30 36.3 64 18 145/74 (97) 96 Room Air 12/25/17 07:20 Room Air 12/25/17 07:12 37.0 64 16 108/49 (68) 96 Room Air 12/25/17 00:57 37.0 76 18 127/65 95 12/24/17 23:57 36.8 66 16 126/60 96 12/24/17 23:45 Room Air 12/24/17 23:29 36.8 76 20 128/60 95 12/24/17 23:00 36.8 71 18 124/50 98 12/24/17 23:00 36.7 71 18 124/50 (74) 98 Room Air 12/24/17 22:45 37.1 76 18 121/50 99 12/24/17 22:30 37.1 86 16 122/45 99 12/24/17 20:50 37.1 87 18 122/60 96 12/24/17 20:32 37.7 87 18 127/54 96 12/24/17 20:23 Room Air 12/24/17 19:46 37.1 82 18 116/49 97 12/24/17 18:45 36.8 93 18 119/49 95 12/24/17 18:15 37.0 73 18 129/55 95 12/24/17 17:50 37.0 79 18 98 12/24/17 17:41 37.0 79 18 135/54 98 12/24/17 17:29 36.8 60 20 111/66 99 (Verena Brand, PA-C) Physical Exam General Appearance: no apparent distress, + thin Neck: supple, no JVD, trachea midline Respiratory/Chest: lungs clear, normal breath sounds, no respiratory distress, no accessory muscle use Cardiovascular: regular rate, rhythm, + systolic murmur Abdomen: normal bowel sounds, non tender, soft Extremities: + pertinent finding (hip incision open to air, well-approximated with mariano intact; intermittent droplets of blood at incision site) Neurologic/Psychiatric: alert, + disoriented Skin: normal color (Verena Brand, PA-C) Laboratory Results Last 24 Hours Test 12/24/17 21:48 12/25/17 08:36 12/25/17 08:42 12/25/17 11:48 Bedside Glucose 207 mg/dl 147 mg/dl 164 mg/dl White Blood Count 10.53 K/uL Red Blood Count 3.14 M/uL Hemoglobin 8.8 g/dL Hematocrit 25.3 % Mean Corpuscular Volume 80.6 fL Mean Corpuscular Hemoglobin 28.0 pg Mean Corpuscular Hemoglobin Concent 34.8 g/dl RDW Standard Deviation 44.3 fL RDW Coefficient of Variation 15.2 % Platelet Count 153 K/uL Mean Platelet Volume 9.2 fL Sodium Level 137 mmol/L Potassium Level 4.2 mmol/L Chloride Level 106 mmol/L Carbon Dioxide Level 26 mmol/L Anion Gap 5.0 mmol/L Blood Urea Nitrogen 27 mg/dl Creatinine 0.92 mg/dl Est Creatinine Clear Calc Drug Dose 63.9 ml/min Estimated GFR () 90.7 Estimated GFR (Non- 78.3 BUN/Creatinine Ratio 28.8 Random Glucose 125 mg/dl Calcium Level 8.2 mg/dl Magnesium Level 2.3 mg/dl (Verena Brand, PARemiC) Assessment and Plan Mr. 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 Patient reports he woke up and was taking the trash to the street when he slipped on ice. Mechanical Fall with R Distracted/Comminuted R Proximal Femur Fx S/P Nailing: STABLE - Geriatric hip fx protocol - Pain management with Tylenol and opiates as needed - will try to manage pain with oral agents to facilitate D/C - Per ortho - planning for Eliquis 2.5 mg BID x 72 hrs then resume at A Fib dosing which will be on 12/27 - 72 hours to be timed off of 24 hours after surgery - Orthopedic Surgery following - appreciate assistance - WBAT and outpatient F/ U in 2 weeks JAVIER on CKD Stage II: RESOLVED - Appears to be a pre-renal component; having good UO Acute Blood Loss Anemia: STABLE - Hgb at 8.8 and will monitor - Was transfused 2 units on 12/23 and 2 units on 12/24 VT vs A Fib with Aberrancy: STABLE CAD S/P CABG and Bioprosthetic AVR and Persistent A Fib and S/P Pacer (Pacer Dependent): STABLE - Metoprolol 50 mg HS BPH: STABLE - Proscar 5 mg daily DVT Prophylaxis: SCDs; Eliquis Code Status: DO NOT RESUSCITATE Disposition: - Family requesting patient to return home and not go to rehab - was present during PT session and hopefully will see this is likely not the safest option. - Patient was independent with ambulation and no assistive devices prior to this fall and rehab could potentially get him there with time or promote the best functionality possible - I think returning home will be more difficult then realized - medical recommendation would be for rehab on D/C and will continue to discuss with family Continued [facility] stay due to: ambulation difficulties Discharge planning: other (medical recommendation for rehab vs SNF; family would like to return home) (Verena Brand, PA-C) Attending Attestation - Pt seen/examined, chart reviewed, care plan d/w NANCI Brand. I agree w/ the ram components of her documentation. Lengthy discussion held w/ re: discharge plan. She and her daughter observed the PT session today - they feel they can adequately care for him at home. 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 He will have / supervision. No issues per staff. VSS o2 sats wnl gen - thin, confused pleasantly neck - no JVD heart - RRR lungs - CTA b/l abd - soft, NT ext - no ankle edema Hb 8.8 Cr. 0.9 A/P: 1. right femur fracture s/p ORIF, POD #2 2. anemia - acute/chronic; acute component likely acute blood loss from bleeding into the right thigh from the femur fracture as well as perioperative blood loss - s/p multiple units of PRBCs this admission with stable H/H since; repeat cbc in AM for stability 3. dementia, with possible superimposed encephalopathy - haldol low-dose (PO) prn for agitation/severe delirium 4. nonsustained V-tachycardia - continue BB. 5. mild acute kidney injury - suspect ATN due to low or low-normal BP; resolved ; BMP in AM for stability 6. hyperglycemia - resolved 7. DVT proph - eliquis BID 8. CAD - no ischemic sx's. possible d/c home tomorrow if he does ok overnight and AM labs are stable Cedrick Sher MD (Cedrick Sher MD)
[2017-12-25] MEDS ORDERED: HYDROCODONE/ACETAMIN 5/325MG TAB PO PRN (17:30)
[2017-12-25] MEDS: DOCUSATE SODIUM/SENNA 50/8.6MG TAB PO SCH (21:31)
[2017-12-25] MEDS: METOPROLOL SUCC 50MG EXT REL TAB PO SCH (21:32)
[2017-12-25] MEDS: MONTELUKAST SOD 10 MG TAB PO SCH (21:33)
[2017-12-25 22:57] VITALS: BP 131/66; PULSE 68; TEMP 36.9; O2SAT 94
[2017-12-26] MEDS: POLYETHYLENE (MIRALAX) 17 GM PACK PO SCH ×2 (05:15→11:01)
--- NOTE | 2017-12-26 07:21 | Discharge Instructions ---
Discharge Instructions Date of Service Dec 26, 2017. Admission Reason for Admission: Closed Right Femoral Fracture Discharge Discharge Diagnosis / Problem: IM Nailing of Righ Femur Fracture Discharge Goals Goal(s): Decrease discomfort, Improve function, Increase independence, Improve disease control, Therapeutic intervention Activity Recommendations Activity Limitations: per Instructions/Follow-up section Weightbearing Status: Right weightbearing . Instructions / Follow-Up Instructions / Follow-Up F/up with orthopedics 2 weeks after surgery date. Current Hospital Diet Patient's current hospital diet: Regular Diet Discharge Diet Recommended Diet: Regular Diet Procedures Procedures Performed: Long intramedullary nail of right femur, right knee aspiration Pending Studies Studies pending at discharge: no Medical Emergencies . Who to Call and When: Medical Emergencies: If at any time you feel your situation is an emergency, please call 911 immediately. . Non-Emergent Contact Non-Emergency issues call your: Surgeon . "Provider Documentation" section prepared by Ryan Flores. .
--- NOTE | 2017-12-26 07:41 | PROGRESS NOTE ---
DATE: 12/26/2017 SUBJECTIVE: An 82-year-old gentleman postop day 3 from ORIF and IM nailing of a right common intertroch/subtroch fracture. Seems to be doing well. He is at his baseline level of confusion. Denies any major pain. OBJECTIVE: VITAL SIGNS: Temperature is 36.9. Vital signs stable. GENERAL: Reveals a pleasant elderly male. He is lying in bed. He looks at baseline. He continues to have baseline dementia. EXTREMITIES: Examination of the right hip and leg reveals the dressing to be in place. Some mild serosanguineous drainage on the dressing. His swelling seems to be getting slowly improved every day. He is neurologically intact. ASSESSMENT: An 82-year-old gentleman postop day 3 from open reduction internal fixation intramedullary nailing of a right intertroch/subtroch fracture, doing pretty well. He has underlying dementia, but looks to be at baseline. Multiple cardiac issues, but he appears to be stable cardiac juarez. PLAN: 1. DVT prophylaxis including thigh-high TEDs, SCDs, and can go back on his normal dose of anticoagulation upon discharge. 2. PT/OT. He can weightbear as tolerated. 3. Medical management as per the medicine service. 4. Disposition. Family is hoping to take him home. He is orthopedically stable and acceptable for discharge any time. I am going to see him back 2 weeks postop. Any orthopedic questions can be directed to me at [phone].
[2017-12-26 07:54] LABS: HEMATOCRIT 24.5 % (42-52); HEMOGLOBIN 8.3 g/dL (14.0-18.0); MEAN CELL VOLUME 81.4 fL (80-100); MEAN CORPUSCULAR HEMOGLOBIN 27.6 pg (25-34); MEAN CORPUSCULAR HGB CONC 33.9 g/dl (32-36); MEAN PLATELET VOLUME 8.5 fL (7.4-10.4); PLATELET COUNT 172 K/uL (130-400); RED CELL DISTRIBUTION WIDTH CV 15.2 % (11.5-14.5); RED CELL DISTRIBUTION WIDTH SD 44.9 fL (36.4-46.3); WHITE BLOOD COUNT 8.92 K/uL (4.8-10.8)
[2017-12-26 08:11] LABS: CALCIUM 7.9 mg/dl (8.5-10.1); CREATININE 0.74 mg/dl (0.60-1.40); POTASSIUM 3.9 mmol/L (3.5-5.1)
[2017-12-26 08:16] VITALS: BP 128/57; PULSE 60; TEMP 36.8; O2SAT 97
[2017-12-26 08:20] LABS: HEMOGLOBIN A1C 5.1 % (4.5-5.6)
[2017-12-26] MEDS: APIXABAN 2.5 MG TAB PO SCH (09:35)
[2017-12-26] MEDS: FINASTERIDE 5 MG TAB PO SCH (09:35)
[2017-12-26] MEDS ORDERED: BISACODYL 5 MG TABEC PO ONE (10:15)
[2017-12-26] MEDS ORDERED: CHOLECALCIFEROL 1000 INTER.UNIT TAB PO SCH (10:15)
[2017-12-26] MEDS ORDERED: NURSING VERBAL MED ORDER ONE (15:30)
[2017-12-26] MEDS ORDERED: HYDR-5688 PO (16:10)
[2017-12-26] MEDS ORDERED: VTMD1000 PO (16:10)
[2017-12-26] MEDS ORDERED: SENN8.6T7 PO (16:10)
[2017-12-26] MEDS ORDERED: MRLP17X PO (16:10)
[2017-12-26] MEDS ORDERED: FRRS300 PO (16:11)
[2017-12-26] MEDS ORDERED: ELQ25 PO (16:15)
--- NOTE | 2017-12-26 16:26 | Discharge Instructions ---
Discharge Instructions Date of Service Dec 26, 2017. Admission Reason for Admission: Closed Right Femoral Fracture Discharge Discharge Diagnosis / Problem: right femur fracture - repair by Dr. Ryan Flores Discharge Goals Goal(s): Learn about illness, Diagnostic testing, Therapeutic intervention Activity Recommendations Activity Limitations: as noted below Mr. Arzate can weight bear as tolerated on the right leg. Please see Dr. Flores's discharge instructions regarding bathing, etc. Instructions / Follow-Up Instructions / Follow-Up From Dr. Sher - 1. A prescription for a wheelchair has been provided. Please call [facility] the [employer] in [place] to have this filled on Thursday. 2. Pain - * may use hydrocodone/acetaminophen 1 tablet every 6 hours as needed for pain * please note the pain pill contains tylenol * thus, do not take extra tylenol while taking the pain pills * the pain pills will cause constipation - please be sure to stay on constipation aids while taking pain pills 3. Eliquis - * [facility] is providing a separate bottle of eliquis to use for the next 48 hours * the dose is a 2.5mg tablet * start the 2.5mg tablet TONIGHT * after the 4 doses run out please resume your normal eliquis dose of 5mg twice a day as previous * the eliquis will prevent blood clots in your legs and blood clots in your lungs while you are recovering from your surgery 4. [facility] will be coming to your home tomorrow or Thursday for home health, home PT, home OT. 5. Iron supplement - * please purchase [id number] ferrous sulfate 325mg and take twice a day * you will have to take this for 2-3 months to replenish your iron stores * the iron will make your stools dark and probably cause constipation * please have Dr. Garcia or one of his partners recheck your blood count ("CBC" ) next week 6. Dressings and incision care - the dressings will need to be changed once a day per Dr. Flores's recommendation. 7. Follow-up - * see Dr. Ryan Flores - orthopedics - in 2 weeks * see Dr. Garcia within 1 week 8. Return to [facility] if - * you have fever over 100.4 degrees * worsening confusion * worsening pain despite your pain pills * inability to have bowel movement * vomiting * chest pain or difficulty breathing * worsening swelling of the legs * drainage, redness, or warmth from the right leg incisions * any other concerns 9. Please see Dr. Flores's discharge instructions for other information. Current Hospital Diet Patient's current hospital diet: Regular Diet Discharge Diet Recommended Diet: Regular Diet Procedures Procedures Performed: Long intramedullary nail of right femur, right knee aspiration CAT scan of the brain Pending Studies Studies pending at discharge: no Laboratory Results Hemoglobin A1c Test 12/26/17 07:39 Range/Units Estimated Average Glucose 100 mg/dl Hemoglobin A1c 5.1 4.5-5.6 % Medical Emergencies . Who to Call and When: Medical Emergencies: If at any time you feel your situation is an emergency, please call 911 immediately. . Non-Emergent Contact Non-Emergency issues call your: Primary Care Provider, Surgeon (orthopedics - Dr. Flores) Call Non-Emergent contact if: temperature is above 100.5, your pain is not controlled, your pain is worsening, your pain is unusual for you, your pain is concerning you, wound has increased drainage, wound has increased redness, wound has increased pain, you have any medication questions . . "Provider Documentation" section prepared by Cedrick Sher. .
[2017-12-26 16:38] VITALS: BP 128/57; PULSE 60; TEMP 36.8; O2SAT 97
[2017-12-26] MEDS ORDERED: APIXABAN 2.5 MG TAB PO SCH ×2 (18:00→21:00)
--- NOTE | 2017-12-27 22:23 | Discharge Summary ---
Discharge Summary Date of Service Dec 27, 2017. Discharge Summary Admission Date: Dec 22, 2017 at 10:51 Discharge Date: Dec 26, 2017 Discharge Disposition: Home with services Principal Diagnosis: right femur fracture s/p ORIF Problems/Secondary Diagnoses: 1. 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 CAD with prior CABG 4. S/P Bioprosthetic AVR with Repair (2003 and 2009 respectively) 5. pacemaker status 6. atrial fibrillation 7. BPH 8. acute blood loss anemia 9. chronic anemia - etiology uncertain 10. SEBLE 11. acute kidney injury - resolved 12. vitamin D insufficiency 13. hyperbilirubinemia - appears chronic - Gilbert's syndrome? 14. severe protein calorie malnutrition with significant pre-hospital weight loss - etiology uncertain 15. nonsustained V-tach on pacemaker interrogation Immunizations: Have You Had Influenza Vaccine: N/A History of Tetanus Vaccine?: Yes History of Pneumococcal: Yes Pneumococcal Date: Jun 30, 2008 History of Hepatitis B Vaccine: Unknown Procedures: 1. ORIF of right femur fracture with nail - Ryan Flores MD 2. head CT - no ICH 3. pacemaker interrogation 4. PRBCs x 4 units Consultations: cardiology orthopedics PT, OT Medication Reconciliation New Medications: Ferrous Sulfate (Ferrous Sulfate) 325 Mg Tab 325 MG PO BID, #60 TABS 2 Refills take with a glass of orange juice Apixaban (Eliquis) 2.5 Mg Tab 2.5 MG PO BID for 2 Days, #4 TAB 0 Refills Cholecalciferol (Vitamin D3) 1,000 Inter.unit Tab 2000 INTER.UNIT PO QAM, #60 TAB 5 Refills Hydrocodone/Acetaminophen 5MG/325MG (Turrell 5MG/325MG) Tab 1 TAB PO Q6H PRN for Pain, #30 TAB 0 Refills PRN PAIN Polyethylene (Miralax) 17 Gm Pow 17 GM PO DAILY, #1 BTL 2 Refills Sennosides-Docusate Sodium (Senokot S) 1 Tab Tab 2 TAB PO HS, #60 TAB 0 Refills Continued Medications: Apixaban (Eliquis) 5 Mg Tab 5 MG PO BID Aspirin (Aspirin Chewable) 81 Mg Chew 81 MG PO QAM Donepezil Hydrochloride (Donepezil Hcl) 5 Mg Tab 1 TAB PO HS PRN for PRN, TAB 3 Refills Finasteride (Finasteride) 5 Mg Tab 5 MG PO QAM Meclizine Hcl (Meclizine Hcl) 25 Mg Tab 1 TAB PO TID PRN for Dizziness or Vertigo for 10 Days, #30 TAB Metoprolol Succ (Toprol Xl) (Toprol-Xl) 50 Mg Tabcr 50 MG PO HS Montelukast Sod (Montelukast Sodium) 10 Mg Tab 10 MG PO HS Multivitamin (Multivitamin) Tab 1 TAB PO QAM, TAB Referrals At Discharge Follow up Referrals: Orthopedics Referral - Within 2 Weeks with Ryan Flores M.D. Discharge Exam Physical Exam: General Appearance: no apparent distress, + thin ENT: pharynx normal Neck: no JVD Respiratory/Chest: lungs clear, no respiratory distress, no accessory muscle use Cardiovascular: regular rate, rhythm, no gallop, no murmur, normal peripheral pulses Abdomen / GI: normal bowel sounds, non tender, soft, no organomegaly, + pertinent finding (scaphoid abdomen) Extremities: + pedal edema (right - mild), + pertinent finding (right thigh swelling ) Neurologic/Psychiatric: alert, + disoriented Skin: + pertinent finding (incisions, right thigh, clean with minimal/mild serosanguinous drainage; mariano intact) Hospital Course HISTORY OF PRESENT ILLNESS: Mr. 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 Apparently the patient woke up and was taking the trash to the street when he slipped on ice. He was lying on the ground for approximately 10 minutes. He developed acute right hip pain that radiates through the thigh and into the right knee. He reports intermittent numbness in the right leg. Patient has a history of Raynauds and chronically has cold feet. Prior to this fall he is independently ambulatory without assistive devices. He states he is able to perform his ADLs without exertional chest pain or exertional shortness of breath. He denies recent illness or sick contacts. HOSPITAL COURSE: Prior to his operation the patient underwent pacemaker interrogation which revealed runs of ventricular tachycardia. He was seen in consult by Dr. Silas Durham, cardiology, who felt the patient was optimized from a cardiac standpoint. Although the patient had had the runs of ventricular tachycardia the patient was asymptomatic from such. He had no evidence of ACS at time of admission. Presenting hemoglobin was 10.9, dropping to 8 on the AM of hospital day #2, and thus he was given 2 units of PRBCs on the day of his surgery. The cause of his acute blood loss anemia was the fracture itself (ie bleeding into the right thigh tissues due to the fracture). There may have been a dilutional effect from IV fluids as well. The patient's right femur ORIF by Dr. Folres was uncomplicated. Post-operatively he did satisfactorily from an orthopedic standpoint. Telemetry post-op was normal with no dysrhythmia. His post-op course, however, was complicated by acute kidney injury, hyperglycemia, additional acute blood loss anemia, and encephalopathy. He received an additional 2 units of PRBCs for his anemia. The patient did poorly with PT/OT and rehab was recommended to his family. However, his and children wished to take him home with home health services. The family also owns a home caregiver company and they plan to hire additional help for his home. He WILL have 04/05 supervision by his & children. With that said the medical team did consistently advise inpatient rehab. On day of discharge the patient's hemoglobin was 8.5. Creatinine had returned to baseline of 0.7. The patient should follow-up with Dr. Flores within 2 weeks and his PCP, Dr. Garcia, within 5 days of discharge. DVT prophylaxis at discharge - eliquis 2.5mg BID x 2 days, followed by 5mg BID thereafter. Total Time Spent: Greater than 30 minutes This includes examination of the patient, discharge planning, medication reconciliation, and communication with other providers. Discharge Instructions Please refer to the electronic Patient Visit Report (Discharge Instructions) for additional information. Follow-Up 1. Dr. Flores, orthopedics, within [address] Garcia, PCP, within 5 days Additional Copies To Silas Garcia M.D.; Silas Durham MD; Ryan Flores M.D.
== END 2017-12-26 17:23 | disposition home health service (06) | DRG 480 ==
LOC: EDBD 08:08 → C.EDB 08:09 → C.MED 10:51 → EDBEDREQ 10:54 → ENRESERV 11:05 → C.MS2W 12-23 06:26 → ENRESERV 12-23 18:29 → C.2T 12-23 19:04 → ENRESERV 12-24 17:27 → C.MSW 12-24 18:09
PROVIDERS: ADMIT Internal Medicine; ATTEND Internal Medicine
PROC: 0S9C3ZZ Drainage of Right Knee Joint, Percutaneous Approach (ICD-10-PCS; principal; 2017-12-23 12:00)
PROC: 0QS604Z Reposition Right Upper Femur with Internal Fixation Device, Open Approach (ICD-10-PCS; principal; 2017-12-23 12:00)
DX: S72.21XA Displaced subtrochanteric fracture of right femur, initial encounter for closed fracture (principal); G93.40 Encephalopathy, unspecified; I48.92 Unspecified atrial flutter; I48.1 Persistent atrial fibrillation; F23 Brief psychotic disorder; D62 Acute posthemorrhagic anemia; N17.9 Acute kidney failure, unspecified; I50.9 Heart failure, unspecified; Z95.2 Presence of prosthetic heart valve; Z87.891 Personal history of nicotine dependence; Z79.82 Long term (current) use of aspirin; Z95.1 Presence of aortocoronary bypass graft; N40.0 Benign prostatic hyperplasia without lower urinary tract symptoms; I73.00 Raynaud's syndrome without gangrene; E55.9 Vitamin D deficiency, unspecified; I25.10 Atherosclerotic heart disease of native coronary artery without angina pectoris; E86.0 Dehydration; Y92.017 Garden or yard in single-family (private) house as the place of occurrence of the external cause; Z95.0 Presence of cardiac pacemaker; G30.9 Alzheimer's disease, unspecified; F02.80 Dementia in other diseases classified elsewhere, unspecified severity, without behavioral disturbance, psychotic disturbance, mood disturbance, and anxiety; W00.0XXA Fall on same level due to ice and snow, initial encounter; Y93.01 Activity, walking, marching and hiking

== ENCOUNTER → 2017-12-30 | Outpatient (CLI) | payer BC, OTHER ==
[~2017-12-30] MED LIST changes: +ELQ25 PO; +FRRS300 PO; +HYDR-5688 PO; +MRLP17X PO; +SENN8.6T7 PO; +VTMD1000 PO
[2017-12-30 17:20] LABS: BASO % 0.1 %; BASO ABS # 0.01 K/uL (0-0.2); EOS % 0.7 %; EOS ABS # 0.07 K/uL (0-0.5); HEMATOCRIT 29.4 % (42-52); HEMOGLOBIN 9.5 g/dL (14.0-18.0); LYMPH % 5.4 %; LYMPH ABS # 0.53 K/uL (1.2-3.4); MEAN CORPUSCULAR HEMOGLOBIN 27.5 pg (25-34); MEAN CORPUSCULAR HGB CONC 32.3 g/dl (32-36); MEAN PLATELET VOLUME 8.4 fL (7.4-10.4); MONO % 6.6 %; MONO ABS # 0.65 K/uL (0.11-0.59); NEUT % 86.2 %; NEUT ABS # 8.45 K/uL (1.4-6.5); PLATELET COUNT 452 K/uL (130-400); RED CELL DISTRIBUTION WIDTH CV 16.7 % (11.5-14.5); RED CELL DISTRIBUTION WIDTH SD 50.3 fL (36.4-46.3); WHITE BLOOD COUNT 9.81 K/uL (4.8-10.8)
== END | disposition home or self-care (01) ==
LOC: C.LABBFT 15:18
PROVIDERS: ATTEND Internal Medicine
DX: D64.9 Anemia, unspecified (principal)

== ENCOUNTER → 2018-01-19 | Outpatient (CLI) | payer BC, OTHER ==
[2018-01-19 17:29] LABS: HEMATOCRIT 42.4 % (42-52); HEMOGLOBIN 13.7 g/dL (14.0-18.0); MEAN CELL VOLUME 85.1 fL (80-100); MEAN CORPUSCULAR HEMOGLOBIN 27.5 pg (25-34); MEAN CORPUSCULAR HGB CONC 32.3 g/dl (32-36); MEAN PLATELET VOLUME 8.6 fL (7.4-10.4); PLATELET COUNT 303 K/uL (130-400); RED CELL DISTRIBUTION WIDTH CV 16.1 % (11.5-14.5); RED CELL DISTRIBUTION WIDTH SD 50.6 fL (36.4-46.3); WHITE BLOOD COUNT 4.33 K/uL (4.8-10.8)
== END | disposition home or self-care (01) ==
LOC: C.LABBFT 13:18
PROVIDERS: ATTEND Physician Assistant Medical
DX: D64.9 Anemia, unspecified (principal)

== ENCOUNTER 2018-12-19 09:01 | Inpatient (IN) ==
[2018-12-19] MEDS ORDERED: GI COCKTAIL ED USE PO ONE (09:18)
[2018-12-19 09:38] LABS: Basophils # (auto) 0.01 K/uL (0-0.2); Basophils % (auto) 0.1 %; Hematocrit (blood only) 34.2 % (42-52); Hemoglobin 11.5 g/dL (14.0-18.0); Immature Granulocytes # (auto) 0.06 K/uL (0.00-0.02); Immature Granulocytes % (auto) 0.3 %; Lymphocytes # (auto) 0.19 K/uL (1.2-3.4); Mean Corpuscular Hgb Conc 33.6 g/dL (32-36); Mean Corpuscular Volume 76.5 fL (80-100); Mean Platelet Volume 9.3 fL (7.4-10.4); Monocytes # (auto) 0.82 K/uL (0.11-0.59); Monocytes % (auto) 4.3 %; Neutrophils % (auto) 94.3 %; Platelet Count 232 K/uL (130-400); RDW Coefficient of Variation 16.1 % (11.5-14.5); RDW Standard Deviation 44.8 fL (36.4-46.3); Red Blood Count 4.47 M/uL (4.7-6.1); White Blood Count 18.88 K/uL (4.8-10.8)
[2018-12-19] MEDS: SODIUM CHLORIDE 0.9% 500 ML IV SCH ×2 (09:42→10:24)
[2018-12-19 09:54] LABS: BUN Creatinine Ratio 27.3 (10-20); Calcium 8.6 mg/dl (8.5-10.1); Creatinine Clr Calc Pharmacy 23.6 ml/min; Est GFR (African American) 29.3; Est GFR (Non-African American) 25.3
[2018-12-19 09:57] LABS: Albumin Globulin Ratio 0.8 (0.9-2); Bilirubin,Total 2.1 mg/dl (0.2-1); Globulin 3.5 gm/dl (2.5-4.0); Total Protein 6.5 gm/dl (6.4-8.2)
[2018-12-19] MEDS ORDERED: SODIUM CHLORIDE 0.9% 1000ML 1,000 ML IV ONE (10:13)
[2018-12-19] MEDS ORDERED: SODIUM CHLORIDE 0.9% 1000ML 500 ML IV ONE (10:22)
[2018-12-19 10:39] LABS: Influenza A virus by PCR Neg for Influ A (Neg); Influenza B virus by PCR Neg for Influ B (Neg)
--- NOTE | 2018-12-19 11:00 | CT Scan Report ---
CT abd pelvis wo con CT DOSE: 544.67 mGy.cm HISTORY: Pain JAVIER, ab pain, dementia, WBC 18 TECHNIQUE: Multiaxial CT images of the abdomen and pelvis were performed without contrast. A dose lo wering technique was utilized adhering to the principles of ALARA. COMPARISON STUDY: 09/18/2018 FINDINGS: Bilateral pleural effusions mildly progressive from the prior study. Basilar parenchymal fi ndings suggesting developing congestive failure/pulmonary edema. Mild stable cardiomegaly. The liver spleen and pancreas are unremarkable. Prior cholecystectomy. Stable nonobstructing bilateral nephroca lcinosis. Stable bilateral renal cysts. Slightly progressive bilateral perinephric infiltrative reeder e. Nonobstructive bowel pattern. Trace free fluid within Collimated gutters bilaterally. Moderate chronic sigmoid diverticulosis. No evidence for acute divert iculitis. Prior right hip pinning. Normal appendix. Small appendicolith. IMPRESSION: 1. Bilateral pleural effusions and basilar findings suggesting congestive failure versus pulmonary ed chan. 2. Trace pelvic abdominal ascites. 3. Stable bilateral renal cysts with nonobstructing nephrocalcinosis. 4. Nonobstructive bowel pattern. 5. Chronic sigmoid diverticulosis. The above report was generated using voice recognition software. It may contain grammatical, syntax or spelling errors. Electronically signed by: Josué Pena M.D. 12/19/2018 10:57 AM
[2018-12-19 11:54] LABS: Appearance Urine Cloudy (Clear); Bilirubin Urine Negative (Negative); Blood Urine 3+ (Negative); Color Urine Dark Yellow; Epithelial Cell Urine Auto >30 /lpf (0-5); Glucose Urine UA Negative (Negative); Ketones Urine Negative (Negative); Leukocyte Esterase Urine 2+ (Negative); Nitrite Urine Negative (Negative); Protein Urine 2+ (Negative); Urobilinogen Urine Negative (Negative); WBC Urine Automated >30 /hpf (0-5)
[2018-12-19 12:03] LABS: Mucus Urine Present (None Prsent)
[2018-12-19 12:04] LABS: Bacteria Urine Automated 1+ (Negative); RBC Urine Automated >30 /hpf (0-4)
--- NOTE | 2018-12-19 12:22 | History & Physical Report ---
Date of Service December 19, 2018 Assessment & Plan (1) Chills: Viral syndrome vs UTI Flu swab neg--could be a false negative vs other viral syndrome UA noted for + leuk est, neg nitrites--will start on bactrim given elevated WBC and await urine cx Gentle IVF as below (2) JAVIER (acute kidney injury): Likely related to dehydration in the setting of viral syndrome vs UTI Monitor on gentle IVF given trace pleural effusions Repeat in AM (3) Atrial fibrillation with RVR: Hx of anticoagulation that has been d/c'd due to recent falls and worsening dementia Does take aspirin 81mg continue home meds (4) Dementia: Hx of ing, including at home One to one when family is not present Ideally, it pt's renal function is improved in AM, would d/c to home to prevent further issues with this d/w and she agrees (5) CHF (congestive heart failure): Listed as a dx, however cannot find hx of same No hx of diuretic use per [employer] with ECHO 2015 with EF 65-70% Hx of AVR Some pleural effusions noted on CTAP but pt and deny SOB or MARSHALL, will monitor with gentle hydration (6) Sleep apnea: Could not tolerate CPAP -> 2L NC HS however tubing was defective and pt was not compliant regularly per , so this has been d/c'd (7) BPH (benign prostatic hyperplasia): continue home meds (8) DVT prophylaxis: SCDs History of Present Illness Primary Care Provider: Silas Garcia MD 83 y/o M who was brought to the ED by his for concerns of possible flu vs UTI. Pt was out to breakfast with friends on Thursday morning when they called his stating that pt seemed unwell. Pt apparently started to have chills. He was given tylenol and would improve, but then chills would return later. This has been ongoing since Thursday. He has had decreased mobility due to feeling unwell. He has been eating well until last night when he had no appetite at dinner. He had loose stools this morning, but had no diarrhea prior. They initially thought pt had the flu and were trying to treat him at home due to his dementia issues, however daughter is a nurse and became concerned that he might have a UTI. It is unclear why she thought this (she is not present) as both pt and state that pt has had no urinary issues. Since pt was not improving, brought him to the ED today. When asked, pt states he is uncertain why he is in the ED. He has no specific complaints at this time. Pt denies fever, SOB, chest pain, abd pain, n/v/c/d, LE pain or swelling, urinary issues, URI sx. states he has had no SOB or issues with MARSHALL. states that pt has sundowning issues, even at home. Allergies Allergy/AdvReac Type Severity Reaction Status Date / Time No Known Drug Allergies Allergy Unknown none Verified 12/19/18 09:50 Home Medications Home Medications Medication Instructions Recorded Confirmed Type docusate sodium 100 mg PO QAM 09/18/18 12/19/18 History donepezil 10 mg PO HS 09/18/18 12/19/18 History finasteride 5 mg PO QAM 09/18/18 12/19/18 History metoprolol succinate 25 mg PO QAM 09/18/18 12/19/18 History quetiapine 25 mg PO HS PRN 09/18/18 12/19/18 History Past Med/Surg History Medical History A-fib (Chronic) on metoprolol Kidney stone (Chronic) GERD (gastroesophageal reflux disease) (Chronic) Hyperglycemia (Chronic) Heart disease (Chronic) Kidney disease (Chronic) Sleep apnea (Chronic) was wearing 2L N/C hs prn--stopped using all together Afib Ankylosing spondylitis BPH (benign prostatic hyperplasia) Dementia Hearing deficit History of anesthesia reaction after last aortic valve replacement, confused for days Pacemaker 07/06/2015 @ [facility]--meditronic Surgical History History of aortic valve replacement x2--2003 @ [facility] [place], [place] @ [facility] [place]--follows with Dr. Pacheco History of arthroscopy of left knee History of bilateral cataract extraction History of cardiac cath 09/13/2010 @ [facility] History of cardiac radiofrequency ablation 06/2016 @ [facility] History of cholecystectomy History of colonoscopy History of ear surgery skin graft to right eardrum History of endoscopic sinus surgery History of lithotripsy x2 History of open reduction and internal fixation (ORIF) procedure right hip History of tonsillectomy and adenoidectomy History of tooth extraction History of wisdom tooth extraction Hx of vasectomy Family History Brother Family history of diabetes mellitus Sister Family history of diabetes mellitus Other No family history of adverse response to anesthesia Social History Preferred Language: Slovenian Communication Ability: Effective Beliefs That Will Affect Care: None Current Living Situation: Spouse Other Information That Helps Us Care for You: No Feels Safe at Home: Yes Safety Concerns: Feels Safe At This Time Smoking Status: Former smoker Hx Alcohol Use: Yes Hx Substance Use: No Review of Systems Pertinent positives and negatives reviewed in HPI--all others negative Physical Exam Vital Signs (Past 24 Hours): Last Vital Signs Temp 36.9 C 12/19/18 09:07 Pulse 69 12/19/18 10:58 Resp 20 12/19/18 10:58 BP 115/56 L 12/19/18 10:58 Pulse Ox 98 12/19/18 10:58 Constitutional: WD/WN, vitals as above Eyes: normal visual hunter by confrontation and + anicteric sclerae Neck: normal visual inspection and trachea midline Respiratory: normal respiratory effort, lungs clear to auscultation Cardiovascular: Rate/Rhythm: regular rate and regular rhythm Gastrointestinal (Abdomen): Inspection/Auscultation: abdomen not distended Percussion/Palpation: abdomen soft; abdomen nontender Musculoskeletal: Head/Neck/Chest: normocephalic and head atraumatic negative for edema, peripheral pulses intact Skin: no rashes, warm and dry Neurologic: awake; not confused Speech / Cognition: normal speech Psychiatric: Orientation: oriented to person, oriented to place and cooperative Apperance: appropriately dressed Answers direct questions appropriately, occasionally interjects with thoughts that are not related to current situation but is easily redirected Results & Data Diagnostic Findings CT AP: 1. Bilateral pleural effusions and basilar findings suggesting congestive failure versus pulmonary edema. 2. Trace pelvic abdominal ascites. 3. Stable bilateral renal cysts with nonobstructing nephrocalcinosis. 4. Nonobstructive bowel pattern. 5. Chronic sigmoid diverticulosis. ECG Findings: + paced rhythm Code Status & VTE Plan Code Status DNR/DNI per VTE Prophylaxis Plan VTE Prophylaxis will be ordered: Yes
[2018-12-19] MEDS ORDERED: ONDANSETRON INJ 2 MG/ML 2 ML VIAL IV PRN (13:06)
[2018-12-19] MEDS ORDERED: SULFAMETHOXAZOLE/TRIMETHOPRIM DS 800/160MG TAB PO ONE (13:06)
[2018-12-19] MEDS ORDERED: QUETIAPINE FUMARATE 25 MG TABLET PO PRN (13:06)
[2018-12-19] MEDS ORDERED: MAGNESIUM HYDROXIDE SUSP 30 ML UDC PO PRN (13:06)
--- NOTE | 2018-12-19 13:10 | Emergency Department Note ---
Entered by Priscilla Dempsey acting as a scribe for History of Present Illness General Chief complaint: Urinary Symptoms Stated complaint: FEVER, CHILLS Time Seen by Provider: 12/19/18 09:04 Source: family () History of Present Illness Onset (ago): day(s) 2 Location: abdomen Severity: similar to prior episodes (prior UTIs) Quality: + other (urinary symptoms) Relieved By: + other (Tylenol) Associated symptoms: + other (Positive foul smelling and "colored" BM, chills, upset stomach. 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 He is accompanied by his who reports when the patient's symptoms first began, he had chills which would be alleviated with Tyelnol. She reports she discussed the patient's case with their daughter who is a nurse and recommended they come to the ED as the patient might have a UTI, which he has a hx of and this is similar. His states he had a BM this morning which was foul smelling and "colored." She states the patient has an upset stomach but denies the patient having a a cough, sore throat, congestion, ear pain, nausea, vomiting, chest pain, SOB, abdominal pain, penile pain, scrotum swelling, tobacco use. Pt regularly takes aspirin but is not on blood thinners. Pt has not gotten a flu shot this season. HPI and ROS given per . Home Medications Home Medications Medication Instructions Recorded Confirmed Type docusate sodium 100 mg PO QAM 09/18/18 12/19/18 History donepezil 10 mg PO HS 09/18/18 12/19/18 History finasteride 5 mg PO QAM 09/18/18 12/19/18 History metoprolol succinate 25 mg PO QAM 09/18/18 12/19/18 History quetiapine 25 mg PO HS PRN 09/18/18 12/19/18 History Allergies Allergy/AdvReac Type Severity Reaction Status Date / Time No Known Drug Allergies Allergy Unknown none Verified 12/19/18 09:50 Past Med/Surg History Medical History A-fib (Chronic) on metoprolol Kidney stone (Chronic) GERD (gastroesophageal reflux disease) (Chronic) Hyperglycemia (Chronic) Heart disease (Chronic) Kidney disease (Chronic) Sleep apnea (Chronic) was wearing 2L N/C hs prn--stopped using all together Afib Ankylosing spondylitis BPH (benign prostatic hyperplasia) Dementia Hearing deficit History of anesthesia reaction after last aortic valve replacement, confused for days Pacemaker 07/06/[address] [facility]--meditronic Surgical History History of aortic valve replacement x2--2003 @ [facility] [place], [place] [facility] [place] Dr. Pacheco History of arthroscopy of left knee History of bilateral cataract extraction History of cardiac cath 09/13/[address] [facility] History of cardiac radiofrequency ablation 06/[address] [facility] History of cholecystectomy History of colonoscopy History of ear surgery skin graft to right eardrum History of endoscopic sinus surgery History of lithotripsy x2 History of open reduction and internal fixation (ORIF) procedure right hip History of tonsillectomy and adenoidectomy History of tooth extraction History of wisdom tooth extraction Hx of vasectomy Family History Brother Family history of diabetes mellitus Sister Family history of diabetes mellitus Other No family history of adverse response to anesthesia Social History Preferred Language: Northern Irish Communication Ability: Effective Beliefs That Will Affect Care: None Current Living Situation: Spouse Other Information That Helps Us Care for You: No Feels Safe at Home: Yes Safety Concerns: Feels Safe At This Time Smoking Status: Former smoker Hx Alcohol Use: Yes Hx Substance Use: No Review of Systems See HPI for pertinent positives & negatives. and A total of 10 systems reviewed and were otherwise negative Other (HPI and ROS given per . ) Physical Exam Vital Signs Vital Signs - 24 hr 12/19/18 09:07 12/19/18 10:58 12/19/18 10:59 Temperature 36.9 C Temperature Source Oral Sepsis Recent Fever Within 48 Hours No Sepsis New/Unexplained Change in Mental Status No Sepsis Action Taken by Nursing No Action Required Pulse Rate 91 H Pulse Rate [Right Finger] 69 Pulse Rhythm [Right Finger] Regular Pulse Strength [Right Finger] Normal Respiratory Rate 18 20 Respiratory Effort / Characteristics Non-Labored Spontaneous Respiratory Depth Normal Normal Respiratory Pattern Regular Blood Pressure 95/56 L Blood Pressure [Right Arm] 115/56 L Blood Pressure Mean 69 Blood Pressure Mean [Right Arm] 75 Blood Pressure Position [Right Arm] Sitting Pulse Oximetry 92 98 Oxygen Delivery Method Room Air Room Air Room Air 12/19/18 11:32 12/19/18 12:00 12/19/18 13:07 Temperature 36.6 C Temperature Source Oral Sepsis Recent Fever Within 48 Hours Sepsis New/Unexplained Change in Mental Status Sepsis Action Taken by Nursing Pulse Rate Pulse Rate [Right Finger] 68 78 Pulse Rhythm [Right Finger] Regular Pulse Strength [Right Finger] Normal Respiratory Rate 18 16 Respiratory Effort / Characteristics Non-Labored Spontaneous Respiratory Depth Normal Respiratory Pattern Regular Blood Pressure Blood Pressure [Right Arm] 122/67 162/79 H Blood Pressure Mean Blood Pressure Mean [Right Arm] 85 106 Blood Pressure Position [Right Arm] Lying Lying Pulse Oximetry 96 98 Oxygen Delivery Method Room Air Room Air Room Air GENERAL: Well appearing, well nourished, NAD, non-toxic. EYE EXAM: Normal conjunctiva. PERRL, no anisocoria and EOM's grossly intact w/o pain OROPHARYNX: Moist MM. NECK: Supple, no nuchal rigidity, no adenopathy, non-tender. No signs of meningismus LUNGS: Clear to auscultation. Normal chest wall mechanics. HEART: NSR, no MRG CHEST: Device in left chest ABDOMEN: Abdomen soft, non-tender, normo-active bowel sounds, no masses, no rebound or guarding. BACK: No CVA TTP SKIN: No rashes and no bruising. UPPER EXTREMITIES: Upper extremities are grossly normal. LOWER EXTREMITIES: No pitting edema. No calf pain NEURO EXAM: Alert, pleasantly confused, follows commands. Course 0914: Past medical records reviewed. The patient was evaluated in room C1, and a complete history and physical examination were performed. 1122: I reviewed the patient's case with Dr. Anastasia Rahman, [facility] Hospitalist. She will evaluate the patient for further management. Consultations Consultation #1: I reviewed the patient's case with Dr. Anastasia Rahman, [facility] Hospitalist. She will evaluate the patient for further management. Time: 11:22 Administered Medications Discontinued Medications Al Hydrox/Mg Hydrox/Simethicone () 1 dose PO ONE ONE Stop: 12/19/18 09:19 Last Admin: 12/19/18 09:42 Dose: 1 dose Documented by: [id number] Sodium Chloride (Nss) 500 mls @ 999 mls/hr IV .Q31M MEGAN Stop: 12/19/18 10:00 Last Admin: 12/19/18 10:24 Dose: Not Given Documented by: [id number] Sodium Chloride (Nss 1000ml) 1,000 mls @ 999 mls/hr IV .Q1H1M ONE Stop: 12/19/18 11:13 Last Infusion: 12/19/18 11:17 Dose: 0 mls/hr Documented by: [id number] Admin: 12/19/18 10:23 Dose: 999 mls/hr Documented by: [id number] Sodium Chloride (Nss 1000ml) 500 mls @ 999 mls/hr IV .Q31M ONE Stop: 12/19/18 10:52 Last Admin: 12/19/18 10:24 Dose: Not Given Documented by: [id number] Medical Decision Making Medical Records Attestation: I reviewed the patient's medical records. Home Medications Current Medication List: was personally reviewed by me Laboratory Data Attestation: I reviewed the patient's lab results. Result diagrams: 12/19/18 09:28 12/19/18 09:28 Lab Results 12/19/18 12/19/18 12/19/18 Range/Units 09:28 09:28 09:28 WBC 18.88 H (4.8-10.8) K/uL RBC 4.47 L (4.7-6.1) M/uL Hgb 11.5 L (14.0-18.0) g/dL Hct 34.2 L (42-52) % MCV 76.5 L (80-100) fL MCH 25.7 (25-34) pg MCHC 33.6 (32-36) g/dL RDW Std Deviation 44.8 (36.4-46.3) fL RDW Coeff of Tripp 16.1 H (11.5-14.5) % Plt Count 232 (130-400) K/uL MPV 9.3 (7.4-10.4) fL Immature Gran % (Auto) 0.3 % Neut % (Auto) 94.3 % Lymph % (Auto) 1.0 % [place]ro % (Auto) 4.3 % Eos % (Auto) 0.0 % Baso % (Auto) 0.1 % Immature Gran # (Auto) 0.06 H (0.00-0.02) K/uL Neut # (Auto) 17.80 H (1.4-6.5) K/uL Lymph # (Auto) 0.19 L (1.2-3.4) K/uL [place]ferro # (Auto) 0.82 H (0.11-0.59) K/uL Eos # (Auto) 0.00 (0-0.5) K/uL Baso # (Auto) 0.01 (0-0.2) K/uL Sodium 133 L (136-145) mmol/L Potassium 4.0 (3.5-5.1) mmol/L Chloride 99 (98-107) mmol/L Carbon Dioxide 22 (21-32) mmol/L Anion Gap 12.0 H (3-11) BUN 64 H (7-18) mg/dl Creatinine 2.33 H (0.6-1.4) mg/dl Est Cr Clr Drug Dosing 23.6 ml/min Est GFR ( Amer) 29.3 Est GFR (Non-Af Amer) 25.3 BUN/Creatinine Ratio 27.3 H (10-20) Glucose 137 H (70-99) mg/dl Calcium 8.6 (8.5-10.1) mg/dl Total Bilirubin 2.1 H (0.2-1) mg/dl AST 14 L (15-37) U/L ALT 20 (12-78) U/L Alkaline Phosphatase 63 (45-117) U/L Troponin I 0.034 (0-0.045) ng/ml Total Protein 6.5 (6.4-8.2) gm/dl Albumin 3.0 L (3.4-5.0) gm/dl Globulin 3.5 (2.5-4.0) gm/dl Albumin/Globulin Ratio 0.8 L (0.9-2) Lipase 46 L (73-393) U/L Urine Color Urine Appearance (Clear) Urine pH (4.5-7.5) Ur Specific [place] (1.000-1.030) Urine Protein (Negative) Urine Glucose (UA) (Negative) Urine Ketones (Negative) Urine Blood (Negative) Urine Nitrite (Negative) Urine Bilirubin (Negative) Urine Urobilinogen (Negative) Ur Leukocyte Esterase (Negative) Urine WBC (Auto) (0-5) /hpf Urine RBC (Auto) (0-4) /hpf U Hyaline Cast (Auto) (0-5) /lpf U Epithel Cells (Auto) (0-5) /lpf Urine Bacteria (Auto) (Negative) Ur Renal Epithelial Cell Urine Mucus (None Prsent) Urine Yeast Influenza Type A (PCR) (Neg) Influenza Type B (PCR) (Neg) 12/19/18 12/19/18 Range/Units 09:40 11:30 WBC (4.8-10.8) K/uL RBC (4.7-6.1) M/uL Hgb (14.0-18.0) g/dL Hct (42-52) % MCV (80-100) fL MCH (25-34) pg MCHC (32-36) g/dL RDW Std Deviation (36.4-46.3) fL RDW Coeff of Tripp (11.5-14.5) % Plt Count (130-400) K/uL MPV (7.4-10.4) fL Immature Gran % (Auto) % Neut % (Auto) % Lymph % (Auto) % [place] % (Auto) % Eos % (Auto) % Baso % (Auto) % Immature Gran # (Auto) (0.00-0.02) K/uL Neut # (Auto) (1.4-6.5) K/uL Lymph # (Auto) (1.2-3.4) K/uL [place] # (Auto) (0.11-0.59) K/uL Eos # (Auto) (0-0.5) K/uL Baso # (Auto) (0-0.2) K/uL Sodium (136-145) mmol/L Potassium (3.5-5.1) mmol/L Chloride (98-107) mmol/L Carbon Dioxide (21-32) mmol/L Anion Gap (3-11) BUN (7-18) mg/dl Creatinine (0.6-1.4) mg/dl Est Cr Clr Drug Dosing ml/min Est GFR ( Amer) Est GFR (Non-Af Amer) BUN/Creatinine Ratio (10-20) Glucose (70-99) mg/dl Calcium (8.5-10.1) mg/dl Total Bilirubin (0.2-1) mg/dl AST (15-37) U/L ALT (12-78) U/L Alkaline Phosphatase (45-117) U/L Troponin I (0-0.045) ng/ml Total Protein (6.4-8.2) gm/dl Albumin (3.4-5.0) gm/dl Globulin (2.5-4.0) gm/dl Albumin/Globulin Ratio (0.9-2) Lipase (73-393) U/L Urine Color Dark Yellow Urine Appearance Cloudy H (Clear) Urine pH 5.0 (4.5-7.5) Ur Specific [place] 1.020 (1.000-1.030) Urine Protein 2+ H (Negative) Urine Glucose (UA) Negative (Negative) Urine Ketones Negative (Negative) Urine Blood 3+ H (Negative) Urine Nitrite Negative (Negative) Urine Bilirubin Negative (Negative) Urine Urobilinogen Negative (Negative) Ur Leukocyte Esterase 2+ H (Negative) Urine WBC (Auto) >30 H (0-5) /hpf Urine RBC (Auto) >30 H (0-4) /hpf U Hyaline Cast (Auto) 1-5 (0-5) /lpf U Epithel Cells (Auto) >30 H (0-5) /lpf Urine Bacteria (Auto) 1+ H (Negative) Ur Renal Epithelial Cell Not Reportable Urine Mucus Present H (None Prsent) Urine Yeast Not Reportable Influenza Type A (PCR) Neg for Influ A (Neg) Influenza Type B (PCR) Neg for Influ B (Neg) Imaging Data Radiologist's Impression: Radiology results as stated below per my review and the radiologist's interpretation: CT abd pelvis wo con CT DOSE: 544.67 mGy.cm HISTORY: Pain JAVIER, ab pain, dementia, WBC 18 TECHNIQUE: Multiaxial CT images of the abdomen and pelvis were performed without contrast. A dose lowering technique was utilized adhering to the principles of ALARA. COMPARISON STUDY: 09/18/2018 FINDINGS: Bilateral pleural effusions mildly progressive from the prior study. Basilar parenchymal findings suggesting developing congestive failure/pulmonary edema. Mild stable cardiomegaly. The liver spleen and pancreas are unremarkable. Prior cholecystectomy. Stable nonobstructing bilateral nephrocalcinosis. Stable bilateral renal cysts. Slightly progressive bilateral perinephric infiltrative change. Nonobstructive bowel pattern. Trace free fluid within Collimated gutters bilaterally. Moderate chronic sigmoid diverticulosis. No evidence for acute diverticulitis. Prior right hip pinning. Normal appendix. Small appendicolith. IMPRESSION: 1. Bilateral pleural effusions and basilar findings suggesting congestive failure versus pulmonary edema. 2. Trace pelvic abdominal ascites. 3. Stable bilateral renal cysts with nonobstructing nephrocalcinosis. 4. Nonobstructive bowel pattern. 5. Chronic sigmoid diverticulosis. The above report was generated using voice recognition software. It may contain grammatical, syntax or spelling errors. Electronically signed by: Josué Pena M.D. 12/19/2018 10:57 AM ECG Data Attestation: I personally reviewed and interpreted this ECG as follows: Indication: other (upset stomach, poor historian) Rate (beats per minute): 70 Rhythm: other (V paced ) Findings: + other (wide QRS), + PVC and + Q waves (anteriorly and inferiorly ) Comparison ECG Date: from (09/18/18) Change: no significant change Blood Pressure Blood Pressure Findings: Low blood pressure Additional Comments: Further management by hospitalist MDM Narrative Prior records/ancillary studies reviewed. Triage nursing notes reviewed. 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 Differential diagnosis: Etiologies such as renal colic, appendicitis, diverticulitis, mesenteric ischemia, aortic pathology, infections, inflammatory bowel disease, PUD, biliary pathology, UTI, as well as others were entertained. Patient was seen and evaluated the bedside. The patient reportedly has had some mildly decreased urine output and was concerned about some dark colored urine as well as it may be somewhat malodorous. The patient does have a history of dementia and the history is mostly obtained from the at the bedside. Patient did have blood work completed. Patient did have a white blood cell count of 18 and associated AK I. Given this concern a CT Noncon of the abdomen pelvis was ordered. EKG shows A. fib. No change compared to prior. The patient is not on any anticoagulant medication given a history of falls in the past. He does take metoprolol for rate control. Patient's blood work shows anemia which has improved compared to prior. Patient's kidney function is acutely worse from 0.8-2.3. The patient was initially given 2 separate [address] the abdomen pelvis did not show any evidence of hydro-or ureteronephrosis. Patient does appear to have some pleural effusions. Given this and his history of CHF he needs to be gently hydrated and I do not believe this can be accomplished within a short time frame in the emergency department given the patient's history of CHF and associated pleural effusions. Urinalysis was pending at time of admission. Antibiotics deferred to the inpatient hospitalist team. Patient is negative for flu. I did speak to the on-call hospitalist who agreed to further evaluate treat the patient. Patient was admitted to the medicine service. Impression & Plan JAVIER (acute kidney injury), Cystitis Discharge Plan Visit Data Chief Complaint: Urinary Symptoms Stated Complaint: FEVER, CHILLS ED Provider: Steven Hicks Discharge Problem: JAVIER (acute kidney injury), Cystitis Patient Disposition: Being Evaluated by Hospitalist Discharge Instructions Interventions: ED Discharge Assessment Last Done: 12/19/18 12:44 The scribe's documentation has been prepared under my direction and personally reviewed by me in its entirety. I confirm that the note above accurately reflects all work, treatment, procedures, and medical decision making performed by me.
[2018-12-19] MEDS: SODIUM CHLORIDE 0.45 % 1,000 ML IV SCH ×2 (13:13→14:46)
[2018-12-19] MEDS: cephALEXin 250 MG CAP PO SCH ×2 (14:53→21:30)
[2018-12-19] MEDS: ACETAMINOPHEN 325 MG TAB PO PRN (18:39)
[2018-12-19] MEDS ORDERED: SULFAMETHOXAZOLE/TRIMETHOPRIM DS 800/160MG TAB PO SCH (21:00)
[2018-12-19] MEDS: DONEPEZIL HCL 5 MG TAB PO SCH (21:30)
[2018-12-20] MEDS: ACETAMINOPHEN 325 MG TAB PO PRN ×2 (03:06→10:58)
[2018-12-20 06:49] LABS: Hematocrit (blood only) 32.8 % (42-52); Hemoglobin 11.2 g/dL (14.0-18.0); Immature Granulocytes # (auto) 0.04 K/uL (0.00-0.02); Immature Granulocytes % (auto) 0.3 %; Lymphocytes # (auto) 0.38 K/uL (1.2-3.4); Lymphocytes % (auto) 3.3 %; Mean Corpuscular Hgb Conc 34.1 g/dL (32-36); Mean Corpuscular Volume 76.3 fL (80-100); Mean Platelet Volume 9.4 fL (7.4-10.4); Monocytes # (auto) 0.55 K/uL (0.11-0.59); Monocytes % (auto) 4.7 %; Neutrophils # (auto) 10.63 K/uL (1.4-6.5); Neutrophils % (auto) 91.7 %; Platelet Count 214 K/uL (130-400); RDW Coefficient of Variation 16.3 % (11.5-14.5); RDW Standard Deviation 45.4 fL (36.4-46.3)
[2018-12-20 07:17] LABS: BUN Creatinine Ratio 33.6 (10-20); Calcium 8.1 mg/dl (8.5-10.1); Creatinine Clr Calc Pharmacy 23.7 ml/min; Est GFR (African American) 29.4; Est GFR (Non-African American) 25.4; Potassium 3.9 mmol/L (3.5-5.1)
[2018-12-20] MEDS: DOCUSATE SODIUM 100 MG CAP PO SCH (08:29)
[2018-12-20] MEDS: METOPROLOL SUCC 25MG EXT REL TAB PO SCH (08:29)
[2018-12-20] MEDS: FINASTERIDE 5 MG TAB PO SCH (08:30)
[2018-12-20] MEDS: SODIUM CHLORIDE 0.45 % 1,000 ML IV SCH (08:30)
[2018-12-20] MEDS: cephALEXin 250 MG CAP PO SCH ×2 (08:30→20:58)
[2018-12-20] MEDS: DONEPEZIL HCL 5 MG TAB PO SCH (20:58)
--- NOTE | 2018-12-20 22:42 | Hospitalist Progress Note ---
Date of Service December 20, 2018 Assessment & Plan (1) Chills: Viral syndrome vs UTI Flu swab neg--could be a false negative vs other viral syndrome Patient was treated with cefalexin despite documentation of being on bactrim. Unsure as to why this was changed, but bactrim was stopped before being given. Will continue to treat and await final cultures. (2) JAVIER (acute kidney injury): Likely related to dehydration in the setting of viral syndrome vs UTI Monitor on gentle IVF given trace pleural effusions Creatinine remains elevated. will continue IVF (3) Atrial fibrillation with RVR: Hx of anticoagulation that has been d/c'd due to recent falls and worsening dementia Does take aspirin 81mg continue home meds (4) Dementia: Hx of sundowning, including at home One to one when family is not present Ideally, it pt's renal function is improved in AM, would d/c to home to prevent further issues with this d/w and she agrees Appears at time of exam, patient is sundowning. (5) CHF (congestive heart failure): Listed as a dx, however cannot find hx of same No hx of diuretic use per [employer] with ECHO 2015 with EF 65-70% Hx of AVR Some pleural effusions noted on CTAP but pt and deny SOB or MARSHALL, will monitor with gentle hydration (6) Sleep apnea: Could not tolerate CPAP -> 2L NC HS however tubing was defective and pt was not compliant regularly per , so this has been d/c'd (7) BPH (benign prostatic hyperplasia): continue home meds (8) DVT prophylaxis: SCDs Subjective Patient is 83 yo male who is demented. He is unable to provide signficant history. Patient has a one to one. Unable to obtain ROS as patient is somewhat confused. Physical Exam Vital Signs (Past 24 Hours): Last Vital Signs Temp 36.8 C 12/20/18 19:00 Pulse 83 12/20/18 19:00 Resp 22 12/20/18 19:00 BP 132/74 12/20/18 19:00 Pulse Ox 97 12/20/18 19:00 Physical Exam: Constitutional: WD/WN, vitals as above Eyes: + anicteric sclerae Neck: trachea midline Respiratory: normal respiratory effort, lungs clear to auscultation Cardiovascular: Rate/Rhythm: regular rate and regular rhythm Gastrointestinal (Abdomen): Inspection/Auscultation: abdomen not distended Percussion/Palpation: abdomen soft; abdomen nontender Musculoskeletal: Head/Neck/Chest: normocephalic and head atraumatic negative for edema, peripheral pulses intact Skin: no rashes, warm and dry Neurologic: awake; confused, Psychiatric: Orientation: oriented to person, oriented to place and cooperative Apperance: appropriately dressed Answers direct questions appropriately, occasionally interjects with thoughts that are not related to current situation but is easily redirected
[2018-12-21] MEDS: SODIUM CHLORIDE 0.45 % 1,000 ML IV SCH ×2 (03:35→23:17)
[2018-12-21] MEDS: ACETAMINOPHEN 325 MG TAB PO PRN (05:22)
[2018-12-21 09:08] LABS: Hemoglobin 11.5 g/dL (14.0-18.0); Immature Granulocytes # (auto) 0.02 K/uL (0.00-0.02); Immature Granulocytes % (auto) 0.2 %; Lymphocytes # (auto) 0.33 K/uL (1.2-3.4); Lymphocytes % (auto) 3.7 %; Mean Corpuscular Hgb Conc 33.8 g/dL (32-36); Mean Corpuscular Volume 75.7 fL (80-100); Mean Platelet Volume 9.2 fL (7.4-10.4); Monocytes # (auto) 1.03 K/uL (0.11-0.59); Monocytes % (auto) 11.5 %; Neutrophils % (auto) 84.6 %; Platelet Count 230 K/uL (130-400); RDW Coefficient of Variation 16.3 % (11.5-14.5); RDW Standard Deviation 45.1 fL (36.4-46.3); Red Blood Count 4.49 M/uL (4.7-6.1); White Blood Count 8.98 K/uL (4.8-10.8)
[2018-12-21] MEDS: METOPROLOL SUCC 25MG EXT REL TAB PO SCH (09:43)
[2018-12-21] MEDS: FINASTERIDE 5 MG TAB PO SCH (09:43)
[2018-12-21] MEDS: cephALEXin 250 MG CAP PO SCH (09:43)
[2018-12-21] MEDS: DOCUSATE SODIUM 100 MG CAP PO SCH (09:43)
[2018-12-21 09:47] LABS: BUN Creatinine Ratio 43.7 (10-20); Calcium 8.6 mg/dl (8.5-10.1); Creatinine Clr Calc Pharmacy 39.2 ml/min; Est GFR (African American) 54.2; Est GFR (Non-African American) 46.8; Potassium 3.4 mmol/L (3.5-5.1)
[2018-12-21] MEDS ORDERED: NITROFURANTOIN MACROCRYSTAL 50 MG CAP PO SCH (17:00)
[2018-12-21] MEDS: AMOXICILLIN 500 MG CAP PO SCH (17:08)
[2018-12-21] MEDS: DONEPEZIL HCL 5 MG TAB PO SCH (20:44)
--- NOTE | 2018-12-21 21:24 | Hospitalist Progress Note ---
Date of Service December 21, 2018 Assessment & Plan (1) Chills: UTI Appears this is from a uti. Urine culture showed e. faecalis. Will switch patint to amoxicillin. Will keep patient overnight, be sure patient is afebrile before discharging patient. (2) JAVIER (acute kidney injury): Likely related to dehydration in the setting of viral syndrome vs UTI Monitor on gentle IVF given trace pleural effusions Creatinine improved on 12/21. (3) Atrial fibrillation with RVR: Hx of anticoagulation that has been d/c'd due to recent falls and worsening dementia Does take aspirin 81mg continue home meds (4) Dementia: Hx of sundowning, including at home One to one when family is not present Ideally, it pt's renal function is improved in AM, would d/c to home to prevent further issues with this d/w and she agrees (5) CHF (congestive heart failure): Listed as a dx, however cannot find hx of same No hx of diuretic use per Patient is not in acute congestive heart failure at this time [employer] with ECHO 2015 with EF 65-70% Hx of AVR Some pleural effusions noted on CTAP but pt and deny SOB or MARSHALL, will monitor with gentle hydration (6) Sleep apnea: Could not tolerate CPAP -> 2L NC HS however tubing was defective and pt was not compliant regularly per , so this has been d/c'd (7) BPH (benign prostatic hyperplasia): continue home meds (8) DVT prophylaxis: SCDs Spent 35 minutes in management of this patient. Subjective Patient is 83 yo male who is demented. He is unable to provide significant history. Patient has a one to one. Patient today is having rigors and is shaking. Patient overnight also had a fever. Unable to obtain ROS as patient is somewhat confused. Discussed with , will keep patient here for another night. Physical Exam Vital Signs (Past 24 Hours): Last Vital Signs Temp 36.3 C L 12/21/18 15:00 Pulse 67 12/21/18 07:43 Resp 18 12/21/18 15:00 BP 144/62 H 12/21/18 15:00 Pulse Ox 98 12/21/18 15:00 Physical Exam: Constitutional: WD/WN, vitals as above, NOT IN DISTRESS BUT IS SHAKING UNDERNEATH THE SHEETS. Eyes: + anicteric sclerae Neck: trachea midline Respiratory: normal respiratory effort, lungs clear to auscultation Cardiovascular: Rate/Rhythm: regular rate and regular rhythm Gastrointestinal (Abdomen): Inspection/Auscultation: abdomen not distended Percussion/Palpation: abdomen soft; abdomen nontender Musculoskeletal: Head/Neck/Chest: normocephalic and head atraumatic negative for edema, peripheral pulses intact Skin: no rashes, warm and dry Neurologic: awake; confused, Psychiatric: Orientation: oriented to person, oriented to place and cooperative Apperance: occasionally interjects with thoughts that are not related to current situation but is easily redirected
[2018-12-22] MEDS: ACETAMINOPHEN 325 MG TAB PO PRN (02:37)
[2018-12-22 07:09] VITALS: BP 131/69; PULSE 69; TEMP 97.2; O2SAT 100
[2018-12-22] MEDS: AMOXICILLIN 500 MG CAP PO SCH (08:08)
[2018-12-22] MEDS: METOPROLOL SUCC 25MG EXT REL TAB PO SCH (08:08)
[2018-12-22] MEDS: FINASTERIDE 5 MG TAB PO SCH (08:08)
[2018-12-22] MEDS: DOCUSATE SODIUM 100 MG CAP PO SCH (08:08)
[2018-12-22] MEDS ORDERED: POTASSIUM CHLORIDE 20 MEQ TABCR PO STA (10:37)
[2018-12-22 11:39] LABS: BUN Creatinine Ratio 39.1 (10-20); Calcium 8.1 mg/dl (8.5-10.1); Creatinine Clr Calc Pharmacy 52.8 ml/min; Est GFR (African American) 77.7; Potassium 3.4 mmol/L (3.5-5.1)
[2018-12-22] MEDS ORDERED: AMOXICILLIN 500 MG CAP PO SCH (14:00)
--- NOTE | 2018-12-30 15:37 | Discharge Summary ---
Date of Service December 22, 2018 Admission HPI Per Admitting Provider 83 y/o M who was brought to the ED by his for concerns of possible flu vs UTI. Pt was out to breakfast with friends on Thursday morning when they called his stating that pt seemed unwell. Pt apparently started to have chills. He was given tylenol and would improve, but then chills would return later. This has been ongoing since Thursday. He has had decreased mobility due to feeling unwell. He has been eating well until last night when he had no appetite at dinner. He had loose stools this morning, but had no diarrhea prior. They initially thought pt had the flu and were trying to treat him at home due to his dementia issues, however daughter is a nurse and became concerned that he might have a UTI. It is unclear why she thought this (she is not present) as both pt and state that pt has had no urinary issues. Since pt was not improving, brought him to the ED today. When asked, pt states he is uncertain why he is in the ED. He has no specific complaints at this time. Pt denies fever, SOB, chest pain, abd pain, n/v/c/d, LE pain or swelling, urinary issues, URI sx. states he has had no SOB or issues with MARSHALL. states that pt has issues, even at home. Principal Diagnosis urosepsis Discharge Exam Constitutional: WD/WN, vitals as above, resting comfortably. Eyes: + anicteric sclerae Neck: trachea midline Respiratory: normal respiratory effort, lungs clear to auscultation Cardiovascular: Rate/Rhythm: regular rate and regular rhythm Gastrointestinal (Abdomen): Inspection/Auscultation: abdomen not distended Percussion/Palpation: abdomen soft; abdomen nontender Musculoskeletal: Head/Neck/Chest: normocephalic and head atraumatic negative for edema, peripheral pulses intact Skin: no rashes, warm and dry Neurologic: awake; confused, Psychiatric: Orientation: oriented to person, oriented to place and cooperative Apperance: occasionally interjects with thoughts that are not related to current situation but is easily redirected Discharge Data Allergies Allergy/AdvReac Type Severity Reaction Status Date / Time No Known Drug Allergies Allergy Unknown none Verified 12/19/18 09:50 Consultations 12/19/18 11:28 ED Decision to Admit Stat Ordered Studies 12/19/18 10:14 CT abd pelvis wo con Stat Hospital Course (1) Chills: UTI= UROSEPSIS 12/21 Appears this is from a uti. Urine culture showed e. faecalis. Cephalosporin not covering this antibiotic. Will switch patient to amoxicillin. Will keep patient overnight, be sure patient is afebrile before discharging patient. 12/22 on day of discharge, Patient had been afebrile. WBC has imrpoved. Will discharge. (2) JAVIER (acute kidney injury): Likely related to dehydration in the setting of viral syndrome vs UTI Monitor on gentle IVF given trace pleural effusions Creatinine improved on 12/21. (3) Atrial fibrillation with RVR: Hx of anticoagulation that has been d/c'd due to recent falls and worsening dementia Does take aspirin 81mg continue home meds (4) Dementia: Hx of ing, including at home One to one when family is not present (5) CHF (congestive heart failure): Listed as a dx, however cannot find hx of same No hx of diuretic use per Patient is not in acute congestive heart failure at this time [employer] with ECHO 2016 with EF 65-70% Hx of AVR Some pleural effusions noted on CTAP but pt and deny SOB or MARSHALL, will monitor with gentle hydration (6) Sleep apnea: Could not tolerate CPAP -> 2L NC HS however tubing was defective and pt was not compliant regularly per , so this has been d/c'd (7) BPH (benign prostatic hyperplasia): continue home meds (8) DVT prophylaxis: SCDs Total Time Total Time Spent Total Time Spent (In Minutes): 31 Total Time Includes: Examination of the Patient, Discharge Planning and Medication Reconciliation Discharge Plan Discharge Items Patient Disposition: Home - Home Health Services Reason For Visit: JAVIER Discharge Diagnosis: Urinary tract infection Discharge Goals: Decrease discomfort Activity: Resume your previous activity Non-emergency contact: Primary Care Provider Call non-emergency contact if: you have any medication questions Follow-up/Referrals: Jesus Garcia MD [Primary Care Provider] - 12/29/18 3:00 pm (Please, follow up at Dr. Garcia's office with his store administrative assistant, Mari Randle PA-C, on ThursdayDecember 29 at 3:00 pm. *If you need to change this appointment, call the office at [phone].) Diet: Regular Addtl Provider Instructions: You were diagnosed with a urinary tract infection. Targrted antibiotc was started and patient has responded. Will continue on this for 4 more days. Prescriptions: New amoxicillin 500 mg Capsule 500 mg PO TID Qty: 13 RF: 0 potassium chloride 10 mEq tablet extended release 10 meq PO BID Qty: 8 RF: 0 Continued quetiapine 25 mg tablet 25 mg PO HS PRN (Reason: Sleep) RF: 0 donepezil 5 mg tablet 10 mg PO HS RF: 0 metoprolol succinate 50 mg tablet extended release 24 hr 25 mg PO QAM RF: 0 docusate sodium 100 mg capsule 100 mg PO QAM RF: 0 finasteride 5 mg tablet 5 mg PO QAM RF: 0 Stand-Alone Forms: [facility] Discharge Orders: Discharge Order (Routine); Ordered 12/22/18 Ordered By: Krish Vilchis Admission Data Admit Date/Time: 12/19/18 12:19 Attending Provider: Krish Vilchis Admit Provider: Anastasia Rahman Primary Care Provider: Jesus Garcia Other Providers: Anastasia Rahman Service: Medical Other Interventions: Discharge Summary Assessment (RN) Last Done: 12/22/18 12:56 DC Date/Time DO NOT enter until pt leaves facility: 12/22/18 13:15
--- NOTE | 2018-12-31 08:18 | Coding Query ---
SEPSIS To promote full compliance with coding requirements relating to patient care, physician participation is requested in all cases of die holder uncertainty. Please assist us with the question(s) below: In responding to this query, please exercise your independent professional judgement. The fact that a question is asked does not imply that any particular answer is desired or expected. We appreciate your clarification on this issue. Throughout the medical record, you have clearly documented a localized infection and your patient has clinical evidence of a generalized sepsis or severe sepsis. The term urosepsis is a nonspecific entity and is coded as an UTI. If the patient has sepsis, severe sepsis, from an urinary source or some other source, please clarify in your response below. The medical record reflects the following clinical findings: Patient admitted with UTI, WBC >18 , CR 2.33, SOFA score 3. Please check below as applicable. Thank you ! DEIDRE Adam [facility] ____ ( )Bacteremia (Nonspecific laboratory finding of bacteria in the blood) Specify Organism ( ) Present on Admission ( ) Not present on admission ( ) Unable to clinically determine ( ) Septicemia (Systemic disease associated with the presence of pathogenic microorganisms in the blood): Specify Organism ( ) Present on Admission( ) Not present o n admission ( ) Unable to clinically determine ( x) Sepsis Specify Organism E. Faecalis Specify Associated Condition/Diagnosis ( x) Present on Admission ( ) Not present on admission ( ) Unable to clinically determine ( ) Severe Sepsis (Sepsis associated with acute organ dysfunction) Specify Organism Specify Associated Condition/Diagnosis ( ) Present on Admission ( ) Not present on admission ( ) Unable to clinically determine ( ) Septic Shock (Severe sepsis with acute circulatory failure, unexplained by other causes) ( ) Present on Admission( ) Not present on admission ( ) Unable to clinically determine ( ) Other, patient has: MTDD
== END 2018-12-22 13:15 | disposition home health service (06) | DRG 872 ==
LOC: ED 09:01 → 4E 12:19 → SUATTDRO 12:19 → 4E 12:44

== ENCOUNTER 2019-11-02 08:20 | Observation (INO) ==
[2019-11-02] MEDS ORDERED: SODIUM CHLORIDE 0.9% 500 ML IV ONE (08:38)
[2019-11-02] MEDS ORDERED: SODIUM CHLORIDE 0.9% 500 ML IV SCH (08:45)
--- NOTE | 2019-11-02 08:53 | XRay Report ---
XR chest 1V portable CLINICAL HISTORY: weakness COMPARISON STUDY: 10/15/2019 FINDINGS: There are postsurgical changes of midline sternotomy. There is a left subclavian dual-chamb er central venous pacemaker. There are resolving left basilar airspace opacities.[There is no overt f ailure. There are no significant pleural effusions. IMPRESSION: Resolving left basilar airspace opacities. ACT 112: Negative or not required by law. Electronically signed by: Pepe Rodrigez M.D. 11/02/2019 8:51 AM
[2019-11-02 08:56] LABS: Basophils # (auto) 0.02 K/uL (0-0.2); Basophils % (auto) 0.4 %; Eosinophils # (auto) 0.08 K/uL (0-0.5); Eosinophils % (auto) 1.7 %; Hematocrit (blood only) 37.1 % (42-52); Hemoglobin 12.2 g/dL (14.0-18.0); Immature Granulocytes # (auto) 0.01 K/uL (0.00-0.02); Immature Granulocytes % (auto) 0.2 %; Lymphocytes # (auto) 0.46 K/uL (1.2-3.4); Lymphocytes % (auto) 9.5 %; Mean Corpuscular Hemoglobin 26.4 pg (25-34); Mean Corpuscular Hgb Conc 32.9 g/dL (32-36); Mean Corpuscular Volume 80.3 fL (80-100); Mean Platelet Volume 8.2 fL (7.4-10.4); Monocytes % (auto) 8.3 %; Neutrophils # (auto) 3.86 K/uL (1.4-6.5); Neutrophils % (auto) 79.9 %; Platelet Count 278 K/uL (130-400); RDW Coefficient of Variation 14.3 % (11.5-14.5); RDW Standard Deviation 41.4 fL (36.4-46.3); Red Blood Count 4.62 M/uL (4.7-6.1); White Blood Count 4.83 K/uL (4.8-10.8)
[2019-11-02 09:03] LABS: Alanine Aminotransferase 10 U/L (12-78); Albumin Level 3.5 gm/dl (3.4-5.0); Aspartate Aminotransferase 10 U/L (15-37); BUN Creatinine Ratio 31.8 (10-20); Blood Urea Nitrogen 37 mg/dl (7-18); Calcium 9.3 mg/dl (8.5-10.1); Carbon Dioxide 28 mmol/L (21-32); Chloride 107 mmol/L (98-107); Est GFR (African American) 68.3; Est GFR (Non-African American) 58.9; Glucose 141 mg/dl (70-99); Magnesium 2.2 mg/dl (1.8-2.4); Potassium 3.9 mmol/L (3.5-5.1); Sodium 138 mmol/L (136-145)
--- NOTE | 2019-11-02 09:04 | CT Scan Report ---
CT head/brain wo con CLINICAL HISTORY: Acute change in mental status COMPARISON STUDY: 10/15/2019 TECHNIQUE: Axial CT of the brain is performed from the vertex to the skull base. IV contrast was not administered for this examination. A dose lowering technique was utilized adhering to the principles of ALARA. CT DOSE: 614.27 mGy.cm FINDINGS: No intra or extra-axial mass lesions are visualized. There is no CT evidence of acute cortical infarc tion. There is no evidence of midline shift. There is no acute hemorrhage. No calvarial fractures ar e visualized. There are patchy white matter hypodensities likely on a small vessel basis. There is evidence for cor tical atrophy with secondary prominence of the subarachnoid space. There is no evidence of pathologic ventricular dilatation. There is no evidence of acute sinusitis IMPRESSION: No acute intracranial findings ACT 112: Negative or not required by law. Electronically signed by: Pepe Rodrigez M.D. 11/02/2019 9:03 AM
[2019-11-02 09:14] LABS: Alkaline Phosphatase 115 U/L (45-117); Bilirubin,Total 1.6 mg/dl (0.2-1); Globulin 3.5 gm/dl (2.5-4.0)
[2019-11-02 09:18] LABS: INR 1.2 (0.9-1.1); Prothrombin Time 12.4 Seconds (9.0-12.0)
[2019-11-02 10:25] LABS: Appearance Urine Turbid (Clear); Bacteria Urine Automated Negative (Negative); Blood Urine 3+ (Negative); Cast Urine Automated 0 /lpf (0-5); Color Urine Orange; Glucose Urine UA Negative (Negative); Ketones Urine Negative (Negative); Leukocyte Esterase Urine 1+ (Negative); Nitrite Urine Negative (Negative); Protein Urine 2+ (Negative); RBC Urine Automated >30 /hpf (0-4); Specific Gravity Urine 1.023 (1.000-1.030); Urobilinogen Urine Negative (Negative)
[2019-11-02 10:32] LABS: Bilirubin Urine Negative (Negative); Ictotest Urine Negative (Negative)
[2019-11-02] MEDS ORDERED: cefTRIAXone SODIUM 1,000 MG/50 ML BAG IV STA (10:53)
--- NOTE | 2019-11-02 11:55 | History & Physical Report ---
Date of Service November 02, 2019 Assessment & Plan (1) AMS (altered mental status): Admit to PCU on telemetry Vital signs every 4 hours As started ceftriaxone in the ER 1 g IV x1 given Continue empirically ceftriaxone 2 g IV daily for urinary tract infection Gentle IV fluid hydration Follow-up urine cultures and adjust the antibiotic irene sensitivity and specificity Monitor electrolytes and replenish as needed DVT prophylaxis teds and SCDs Full code Present on Admission?: Yes (2) Acute UTI: As discussed above Present on Admission?: Yes (3) Obstructive sleep apnea: Patient is allowed to use his own CPAP Supplemental oxygen at night as needed Present on Admission?: Yes (4) Hypertension: Patient is hypotensive on entrance. At this point we cannot hold his blood pressure medicine. When blood pressure normalizes restart his metoprolol succinate 25 mg extended release daily, amlodipine 2.5 mg p.o. q. a.m.. Continue aspirin 81 mg p.o. every morning Present on Admission?: Yes (5) CAD, multiple vessel: Hold metoprolol while patient's blood pressure is low and heart rate is below 60. Will call pacemaker physician relations representative to interrogate his pacemaker. Continue aspirin 81 mg p.o. daily Present on Admission?: Yes (6) Benign prostatic hyperplasia with urinary obstruction: Continue finasteride 5 mg p.o. every morning Present on Admission?: Yes (7) Mixed dementia: Patient takes Seroquel 100 mg p.o. nightly. Per his daughter he was also taking lorazepam at home. Hold lorazepam for now. Hold Seroquel while patient has altered mental status. Restart with a lower dose when patient feels better. Present on Admission?: Yes (8) Sick sinus syndrome: As the above Present on Admission?: Yes (9) Ambulatory dysfunction: Ordered physical and Occupational Therapy Patient would benefit from usp if able to follow the commands. Present on Admission?: Yes (10) Discharge planning issues: Patient would benefit from usp after discharge. Follow-up with physical therapy recommendations. Present on Admission?: Yes History of Present Illness Chief Complaint: Altered mental status, confusion, urinary tract infection ambulatory dysfunction with frequent falls Primary Care Provider: Silas Garcia MD The patient is a 84 years old male with past medical history of frequent urinary tract infection, dementia of mixed type, hypertension, sick sinus syndrome, with a pacemaker lacunar stroke, hearing loss, chronic gout, coronary artery disease, benign prostatic hyperplasia, aortic stenosis, atrial fibrillation, GERD who was brought by his daughter with a complaint that patient is significantly confused for the past 2 days and not acting as himself. He lives with his at home and his daughter visits them every 2 to 3 days. She is present during the interview and she answers most of the questions. She states that patient is not acting as himself for the 2 days and she is not sure what could be reason for it because he also started a new medicine Seroquel and lorazepam which she thinks could be a culprit of his altered mental status. She is not sure how many pills he took and and there is a possibility that he forgot and took 2 doses. She also reports that patient has frequent falls. Patient himself is poor historian and at this point very confused and unable to participate in review of system. It appears that patient is hallucinating. Labs are reviewed: WBC is 4.83, hemoglobin 12.2, hematocrit 37.1, platelets 278, PT 12.4, INR 1.2, sodium 138, potassium 3.9, chloride 107, carbon dioxide 28, anion gap 3, BUN 37, creatinine 1.15, GFR 58.9, BUN 31.8, glucose 141, calcium 9.3, magnesium 2.2, total bilirubin 1.6 AST 10, ALT 10, alkaline phosphatase 115, troponin 0 0.02 total protein 7, albumin 3.5, globulin 3.5, albumin 1, TSH 2.8. Urine orange, turbid protein 2+ blood 3+ leukocyte esterase 1+ WBCs 10-30, epithelial cells 5-10, negative for bacteria. Decision was made to admit patient to PCU on telemetry for further evaluation of altered mental status, urinary tract infection and ambulatory dysfunction. Allergies Allergy/AdvReac Type Severity Reaction Status Date / Time No Known Drug Allergies Allergy Unknown none Verified 11/02/19 12:00 Home Medications Home Medications Medication Instructions Recorded Confirmed Type aspirin 81 mg tablet,delayed 81 mg PO QAM tab 06/20/19 10/28/19 History release finasteride 5 mg tablet 5 mg PO QAM #30 tab 07/07/19 10/28/19 Rx quetiapine 100 mg tablet 100 mg PO HS 90 Days #90 tab 07/29/19 10/28/19 Rx metoprolol succinate 50 mg 25 mg PO QAM #90 tab 09/05/19 10/28/19 Rx tablet,extended release 24 hr amlodipine 2.5 mg PO QAM 10/15/19 10/28/19 History Past Med/Surg History Medical History A-fib (Chronic) on metoprolol Abnormal urine cytology (Acute) Afib Allergic rhinitis (Acute) Ambulatory dysfunction (Acute) Ankylosing spondylitis Anxiety (Acute) Aortic stenosis (Acute) Aortic valve disorder (Resolved) Arthritis (Acute) Atherosclerosis of aorta (Acute) Atrial flutter (Acute) Benign prostatic hyperplasia with urinary obstruction (Acute) BPH (benign prostatic hyperplasia) CAD, multiple vessel (Acute) Cerebral atrophy (Acute) Chronic gout (Acute) Chronic rhinitis (Acute) GERD (gastroesophageal reflux disease) (Chronic) Gout, unspecified (Resolved) Hearing deficit Hearing loss (Acute) Heart disease (Resolved) Hematuria, microscopic (Acute) Hematuria, unspecified (Resolved) History of anesthesia reaction after last aortic valve replacement, confused for days Hyperglycemia (Chronic) Hypertension (Acute) IPMN (intraductal papillary mucinous neoplasm) (Acute) Kidney disease (Chronic) Kidney stone (Chronic) Lacunar stroke (Resolved) Leukopenia (Acute) Mixed dementia (Chronic) Obstructive sleep apnea (Acute) Orthostatic hypotension (Acute) Pacemaker 07/06/2015 @ [facility]--meditronic Polyarthritis, unspecified (Acute) Postoperative anemia (Acute) Senile dementia of Alzheimer's type (Chronic) Sick sinus syndrome (Acute) Sleep apnea (Chronic) was wearing 2L N/C hs prn--stopped using all together Superficial basal cell carcinoma of skin of right shoulder (Acute) Tubular adenoma of colon (Acute) Urinary hesitancy (Acute) UTI (urinary tract infection) Vitamin B12 deficiency (Acute) Vocal cord paralysis (Acute) Weight loss (Acute) Wide-complex tachycardia (Acute) Surgical History History of aortic valve replacement x2--2003 @ [facility] [place], [place] [facility] [place] Dr. Pacheco History of arthroscopy of left knee History of bilateral cataract extraction History of cardiac cath 09/13/2010 @ [facility] History of cardiac radiofrequency ablation 06/2016 @ [facility] History of cholecystectomy History of colonoscopy History of ear surgery skin graft to right eardrum History of endoscopic sinus surgery History of lithotripsy x2 History of open reduction and internal fixation (ORIF) procedure right hip History of tonsillectomy and adenoidectomy History of tooth extraction History of wisdom tooth extraction Hx of vasectomy Family History Brother Family history of diabetes mellitus Sister Family history of diabetes mellitus Unknown Diabetes FH: deafness or hearing loss FHx: allergies Father Aneurysm of abdominal aorta Other No family history of adverse response to anesthesia Social History Preferred Language: Beninese Communication Ability: Impaired Communication Ability Comment: dementia Hearing Ability: Hard of Hearing Grain Distributor Required: No Beliefs That Will Affect Care: None Current Living Situation: Spouse current occupational status: retired Other Information That Helps Us Care for You: No Feels Safe at Home: Yes Safety Concerns: Feels Safe At This Time Smoking Status: Never smoker Second Hand Exposure: No ; Hx Alcohol Use: No Hx Substance Use: No Review of Systems Review of Systems: All systems reviewed & are unremarkable except as noted in HPI & below Physical Exam Constitutional: WD/WN, vitals as above well developed, + thin, + cachectic and + frail appearing Eyes: PERRL, conjunctivae normal, anicteric sclerae ENMT: Hard of hearing Neck: trachea midline, no thyromegaly Respiratory: normal respiratory effort, lungs clear to auscultation Cardiovascular: Heart Sounds: normal S1, normal S2 and + murmur Palpation: + palpable S3 Vessels: dorsalis pedis pulses present Extremities: + pedal edema Gastrointestinal (Abdomen): normal bowel sounds, soft, nontender, no hepatosplenomegaly Musculoskeletal: no cyanosis or clubbing, extremities motor strength 5/5 Skin: no rashes, warm and dry Neurologic: patellar DTR's 2+ bilat, sensation intact Psychiatric: A+Ox3, euthymic affect Genitourinary: Suprapubic tenderness Lymphatic: no cervical or axillary lymphadenopathy Results & Data Vital Signs (Past 12 Hours) Vital Signs Temp Pulse Pulse Resp BP BP Pulse Ox 11/02/19 11:30 69 16 107/58 L 96 11/02/19 11:00 66 18 130/67 98 11/02/19 10:05 67 18 96/60 L 100 11/02/19 09:12 68 18 136/68 97 11/02/19 08:27 37 C 83 16 97/41 L 96 Code Status & VTE Plan Code Status full code VTE Prophylaxis Plan VTE Prophylaxis will be ordered: Yes PG Care Time/CCT Total # of Minutes Spent Total Time Spent with Patient: Total time spent is greater than 50% in coordination of care (as documented) at patient's floor/unit and/or counseling patient: (1) AMS (altered mental status) Altered mental status type: unspecified Qualified Code(s): R41.82 - Altered mental status, unspecified
[2019-11-02] MEDS ORDERED: ONDANSETRON INJ 2 MG/ML 2 ML VIAL IV PRN (13:16)
[2019-11-02] MEDS ORDERED: ACETAMINOPHEN 325 MG TAB PO PRN (13:16)
[2019-11-02] MEDS ORDERED: ALUMINUM/MAGNESIUM SUSP 30 ML UDC PO PRN (13:16)
[2019-11-02] MEDS ORDERED: MAGNESIUM HYDROXIDE SUSP 30 ML UDC PO PRN (13:16)
[2019-11-02] MEDS ORDERED: POLYETHYLENE (MIRALAX) 17 GM PACK PO PRN (13:16)
--- NOTE | 2019-11-02 13:35 | Emergency Department Note ---
Entered by America New acting as a scribe for Fran Vallejo DO History of Present Illness General Chief complaint: Lethargic Time Seen by Provider: 11/02/19 08:20 Source: family and EMS Mode of arrival: EMS Limitations: other (dementia) History of Present Illness Onset (ago): hour(s) (this morning) Location: head (fall) Pain Consistency: + other (episode) Quality: + other (fall) Associated symptoms: + weakness and + other (fall, not acting like himself) The patient is an 84 year old male presenting to the Emergency Department via EMS complaining of an episode of a fall occurring at an unknown time this morning. EMS reports that the patient was eating breakfast this morning and slipped off of his chair. They state that the patient has been complaining of weakness and claims that he doesnt feel like himself. They note that the patient has dementia. They add that the patient lives at home. The patients family reports that the patient has internal bleeding from his kidney stones and believe that is why the patient isnt acting like himself. The HPI and ROS are limited due to dementia. Home Medications Home Medications Medication Instructions Recorded Confirmed Type aspirin 81 mg tablet,delayed 81 mg PO QAM tab 06/20/19 11/02/19 History release finasteride 5 mg tablet 5 mg PO QAM #30 tab 07/07/19 11/02/19 Rx quetiapine 100 mg tablet 100 mg PO HS 90 Days #90 tab 07/29/19 11/02/19 Rx metoprolol succinate 50 mg 25 mg PO QAM #90 tab 09/05/19 11/02/19 Rx tablet,extended release 24 hr amlodipine 2.5 mg PO QAM 10/15/19 11/02/19 History Allergies Allergy/AdvReac Type Severity Reaction Status Date / Time No Known Drug Allergies Allergy Unknown none Verified 11/02/19 12:00 Past Med/Surg History Medical History A-fib (Chronic) on metoprolol Abnormal urine cytology (Acute) Afib Allergic rhinitis (Acute) Ambulatory dysfunction (Acute) Ankylosing spondylitis Anxiety (Acute) Aortic stenosis (Acute) Aortic valve disorder (Resolved) Arthritis (Acute) Atherosclerosis of aorta (Acute) Atrial flutter (Acute) Benign prostatic hyperplasia with urinary obstruction (Acute) BPH (benign prostatic hyperplasia) CAD, multiple vessel (Acute) Cerebral atrophy (Acute) Chronic gout (Acute) Chronic rhinitis (Acute) GERD (gastroesophageal reflux disease) (Chronic) Gout, unspecified (Resolved) Hearing deficit Hearing loss (Acute) Heart disease (Resolved) Hematuria, microscopic (Acute) Hematuria, unspecified (Resolved) History of anesthesia reaction after last aortic valve replacement, confused for days Hyperglycemia (Chronic) Hypertension (Acute) IPMN (intraductal papillary mucinous neoplasm) (Acute) Kidney disease (Chronic) Kidney stone (Chronic) Lacunar stroke (Resolved) Leukopenia (Acute) Mixed dementia (Chronic) Obstructive sleep apnea (Acute) Orthostatic hypotension (Acute) Pacemaker 07/06/2015 @ [facility]--meditronic Polyarthritis, unspecified (Acute) Postoperative anemia (Acute) Senile dementia of Alzheimer's type (Chronic) Sick sinus syndrome (Acute) Sleep apnea (Chronic) was wearing 2L N/C hs prn--stopped using all together Superficial basal cell carcinoma of skin of right shoulder (Acute) Tubular adenoma of colon (Acute) Urinary hesitancy (Acute) UTI (urinary tract infection) Vitamin B12 deficiency (Acute) Vocal cord paralysis (Acute) Weight loss (Acute) Wide-complex tachycardia (Acute) Surgical History History of aortic valve replacement x2--2003 @ [facility] [place], 2009 @ [facility] [place]--follows with Dr. Pacheco History of arthroscopy of left knee History of bilateral cataract extraction History of cardiac cath 09/13/2010 @ [facility] History of cardiac radiofrequency ablation 06/2016 @ [facility] History of cholecystectomy History of colonoscopy History of ear surgery skin graft to right eardrum History of endoscopic sinus surgery History of lithotripsy x2 History of open reduction and internal fixation (ORIF) procedure right hip History of tonsillectomy and adenoidectomy History of tooth extraction History of wisdom tooth extraction Hx of vasectomy Family History Brother Family history of diabetes mellitus Sister Family history of diabetes mellitus Unknown Diabetes FH: deafness or hearing loss FHx: allergies Father Aneurysm of abdominal aorta Other No family history of adverse response to anesthesia Social History Preferred Language: Faroese Communication Ability: Impaired Hearing Ability: Hard of Hearing Utility Bill Collector Required: No Beliefs That Will Affect Care: None Current Living Situation: Spouse current occupational status: retired Feels Safe at Home: Yes Smoking Status: Never smoker Second Hand Exposure: No ; Hx Alcohol Use: No Hx Substance Use: No Review of Systems The HPI and ROS are limited due to dementia. Physical Exam Vital Signs Vital Signs - 24 hr 11/02/19 08:27 11/02/19 09:12 11/02/19 10:05 Temperature 37 C Temperature Source Oral Pulse Rate 83 Pulse Rate [Finger] 68 67 Respiratory Rate 16 18 18 Respiratory Effort / Characteristics Non-Labored Respiratory Depth Normal Blood Pressure 97/41 L Blood Pressure [Right Arm] 136/68 96/60 L Blood Pressure Mean 59 Blood Pressure Mean [Right Arm] 90 72 Pulse Oximetry 96 97 100 Oxygen Delivery Method Room Air Room Air Room Air Sepsis Recent Fever Within 48 Hours No Sepsis New/Unexplained Change in Mental Status No Sepsis Action Taken by Nursing No Action Required 11/02/19 11:00 11/02/19 11:30 Temperature Temperature Source Pulse Rate 66 69 Pulse Rate [Finger] Respiratory Rate 18 16 Respiratory Effort / Characteristics Respiratory Depth Blood Pressure 130/67 107/58 L Blood Pressure [Right Arm] Blood Pressure Mean 77 73 Blood Pressure Mean [Right Arm] Pulse Oximetry 98 96 Oxygen Delivery Method Room Air Room Air Sepsis Recent Fever Within 48 Hours Sepsis New/Unexplained Change in Mental Status Sepsis Action Taken by Nursing GENERAL: Patient is sitting up in bed wearing hospital gown. Disheveled. Non- toxic. EYE EXAM: normal conjunctiva, PERRL and EOM's grossly intact OROPHARYNX: no exudate, no erythema, lips, buccal mucosa, and tongue normal and mucous membranes are moist NECK: supple, no nuchal rigidity, no adenopathy, non-tender LUNGS: Clear to auscultation. Normal chest wall mechanics HEART: Positive DEIDRA. CHEST: Pacemaker located on left chest wall. ABDOMEN: abdomen soft, non-tender, normo-active bowel sounds, no masses, no rebound or guarding. BACK: Back is symmetrical on inspection and there is no deformity, no midline tenderness, no CVA tenderness. SKIN: no rashes and no bruising UPPER EXTREMITIES: upper extremities are grossly normal. LOWER EXTREMITIES: No pitting edema. NEURO EXAM: Mumbling. Not oriented to place or time. Oriented to person. Moving all extremities. Non-focal. Not following commands. Course Course ED COURSE: Vital signs were reviewed and showed hypotension. The patients medical record was reviewed The above diagnostic studies were performed and reviewed. ED treatments and interventions as stated above. 0822: The patient was evaluated in room B12B. A complete history and physical examination was performed. 1210: I reevaluated the patient at this time. His family is now at bedside. The patients family reports that the patient has been falling intermittently. They state that the patients speech is more slurred than normal. They note that the patient has had hematuria for the past week. 1051: I updated the patient at this time. 1054: I discussed the patients case with Dr. Loob MORGAN hospitalist. She will evaluate the patient for further management. 1100: Upon reevaluation, I discussed my findings with the patient and his family who understands and agrees with the treatment plan. Based on the patients age, coexisting illnesses, exam and lab findings the decision to treat as an inpatient was made. The patient remained stable while under my care. The patient will be evaluated for further management. Administered Medications Discontinued Medications Sodium Chloride (Nss) 500 mls @ 999 mls/hr IV .Q31M MEGAN Stop: 11/02/19 09:15 Last Infusion: 11/02/19 09:45 Dose: 0 mls/hr Documented by: [id number] Admin: 11/02/19 09:13 Dose: 999 mls/hr Documented by: [id number] Sodium Chloride (Nss) 500 mls @ 999 mls/hr IV .Q31M ONE Stop: 11/02/19 09:08 Last Infusion: 11/02/19 09:13 Dose: 0 mls/hr Documented by: [id number] Admin: 11/02/19 08:42 Dose: 999 mls/hr Documented by: [id number] Ceftriaxone Sodium (Rocephin) 1,000 mg in 50 mls @ 100 mls/hr IV NOW STA Stop: 11/02/19 11:22 Last Infusion: 11/02/19 11:41 Dose: 0 mls/hr Documented by: [id number] Admin: 11/02/19 11:06 Dose: 100 mls/hr Documented by: [id number] Medical Decision Making Differential Diagnosis Differential diagnoses includes but is not limited to toxic, metabolic, infectious, traumatic, cardiac, neurologic, hematologic, psychiatric and inflammatory etiologies. Medical Records Attestation: I reviewed the patient's medical records. Home Medications Current Medication List: was personally reviewed by me Laboratory Data Attestation: I reviewed the patient's lab results. Result diagrams: 11/02/19 08:25 11/02/19 08:25 Lab Results 11/02/19 11/02/19 11/02/19 Range/Units 08:25 08:25 08:25 WBC 4.83 (4.8-10.8) K/uL RBC 4.62 L (4.7-6.1) M/uL Hgb 12.2 L (14.0-18.0) g/dL Hct 37.1 L (42-52) % MCV 80.3 (80-100) fL MCH 26.4 (25-34) pg MCHC 32.9 (32-36) g/dL RDW Std Deviation 41.4 (36.4-46.3) fL RDW Coeff of Tripp 14.3 (11.5-14.5) % Plt Count 278 (130-400) K/uL MPV 8.2 (7.4-10.4) fL Immature Gran % (Auto) 0.2 % Neut % (Auto) 79.9 % Lymph % (Auto) 9.5 % [place] % (Auto) 8.3 % Eos % (Auto) 1.7 % Baso % (Auto) 0.4 % Immature Gran # (Auto) 0.01 (0.00-0.02) K/uL Neut # (Auto) 3.86 (1.4-6.5) K/uL Lymph # (Auto) 0.46 L (1.2-3.4) K/uL [place] # (Auto) 0.40 (0.11-0.59) K/uL Eos # (Auto) 0.08 (0-0.5) K/uL Baso # (Auto) 0.02 (0-0.2) K/uL PT 12.4 H (9.0-12.0) Seconds INR 1.2 H (0.9-1.1) Sodium 138 (136-145) mmol/L Potassium 3.9 (3.5-5.1) mmol/L Chloride 107 (98-107) mmol/L Carbon Dioxide 28 (21-32) mmol/L Anion Gap 3.0 (3-11) BUN 37 H (7-18) mg/dl Creatinine 1.15 (0.6-1.4) mg/dl Est Cr Clr Drug Dosing Not Reportable Est GFR ( Amer) 68.3 Est GFR (Non-Af Amer) 58.9 BUN/Creatinine Ratio 31.8 H (10-20) Glucose 141 H (70-99) mg/dl Calcium 9.3 (8.5-10.1) mg/dl Magnesium 2.2 (1.8-2.4) mg/dl Total Bilirubin 1.6 H (0.2-1) mg/dl AST 10 L (15-37) U/L ALT 10 L (12-78) U/L Alkaline Phosphatase 115 (45-117) U/L Troponin I 0.020 (0-0.045) ng/ml Total Protein 7.0 (6.4-8.2) gm/dl Albumin 3.5 (3.4-5.0) gm/dl Globulin 3.5 (2.5-4.0) gm/dl Albumin/Globulin Ratio 1.0 (0.9-2) TSH 2.800 (0.300-4.500) uIu/ml Urine Color Urine Appearance (Clear) Urine pH (4.5-7.5) Ur Specific [place] (1.000-1.030) Urine Protein (Negative) Urine Glucose (UA) (Negative) Urine Ketones (Negative) Urine Blood (Negative) Urine Nitrite (Negative) Urine Bilirubin (Negative) Urine Urobilinogen (Negative) Ur Leukocyte Esterase (Negative) Urine WBC (Auto) (0-5) /hpf Urine RBC (Auto) (0-4) /hpf U Hyaline Cast (Auto) (0-5) /lpf U Epithel Cells (Auto) (0-5) /lpf Urine Bacteria (Auto) (Negative) Urine Yeast 11/02/19 Range/Units 10:02 WBC (4.8-10.8) K/uL RBC (4.7-6.1) M/uL Hgb (14.0-18.0) g/dL Hct (42-52) % MCV (80-100) fL MCH (25-34) pg MCHC (32-36) g/dL RDW Std Deviation (36.4-46.3) fL RDW Coeff of Tripp (11.5-14.5) % Plt Count (130-400) K/uL MPV (7.4-10.4) fL Immature Gran % (Auto) % Neut % (Auto) % Lymph % (Auto) % [place] % (Auto) % Eos % (Auto) % Baso % (Auto) % Immature Gran # (Auto) (0.00-0.02) K/uL Neut # (Auto) (1.4-6.5) K/uL Lymph # (Auto) (1.2-3.4) K/uL [place] # (Auto) (0.11-0.59) K/uL Eos # (Auto) (0-0.5) K/uL Baso # (Auto) (0-0.2) K/uL PT (9.0-12.0) Seconds INR (0.9-1.1) Sodium (136-145) mmol/L Potassium (3.5-5.1) mmol/L Chloride (98-107) mmol/L Carbon Dioxide (21-32) mmol/L Anion Gap (3-11) BUN (7-18) mg/dl Creatinine (0.6-1.4) mg/dl Est Cr Clr Drug Dosing Est GFR ( Amer) Est GFR (Non-Af Amer) BUN/Creatinine Ratio (10-20) Glucose (70-99) mg/dl Calcium (8.5-10.1) mg/dl Magnesium (1.8-2.4) mg/dl Total Bilirubin (0.2-1) mg/dl AST (15-37) U/L ALT (12-78) U/L Alkaline Phosphatase (45-117) U/L Troponin I (0-0.045) ng/ml Total Protein (6.4-8.2) gm/dl Albumin (3.4-5.0) gm/dl Globulin (2.5-4.0) gm/dl Albumin/Globulin Ratio (0.9-2) TSH (0.300-4.500) uIu/ml Urine Color [place] Urine Appearance Turbid A (Clear) Urine pH 5.0 (4.5-7.5) Ur Specific [place] 1.023 (1.000-1.030) Urine Protein 2+ H (Negative) Urine Glucose (UA) Negative (Negative) Urine Ketones Negative (Negative) Urine Blood 3+ H (Negative) Urine Nitrite Negative (Negative) Urine Bilirubin Negative (Negative) Urine Urobilinogen Negative (Negative) Ur Leukocyte Esterase 1+ H (Negative) Urine WBC (Auto) 10-30 H (0-5) /hpf Urine RBC (Auto) >30 H (0-4) /hpf U Hyaline Cast (Auto) 0 (0-5) /lpf U Epithel Cells (Auto) 5-10 H (0-5) /lpf Urine Bacteria (Auto) Negative (Negative) Urine Yeast Not Reportable Imaging Data Radiologist's Impression: Radiology results as stated below per my review and the radiologist's interpretation: CT head/brain wo con CLINICAL HISTORY: Acute change in mental status COMPARISON STUDY: 10/15/2019 TECHNIQUE: Axial CT of the brain is performed from the vertex to the skull base. IV contrast was not administered for this examination. A dose lowering technique was utilized adhering to the principles of ALARA. CT DOSE: 614.27 mGy.cm FINDINGS: No intra or extra-axial mass lesions are visualized. There is no CT evidence of acute cortical infarction. There is no evidence of midline shift. There is no acute hemorrhage. No calvarial fractures are visualized. There are patchy white matter hypodensities likely on a small vessel basis. There is evidence for cortical atrophy with secondary prominence of the subarachnoid space. There is no evidence of pathologic ventricular dilatation. There is no evidence of acute sinusitis IMPRESSION: No acute intracranial findings ACT 112: Negative or not required by law. Electronically signed by: Pepe Rodrigez M.D. 11/02/2019 9:03 AM XR chest 1V portable CLINICAL HISTORY: weakness COMPARISON STUDY: 10/15/2019 FINDINGS: There are postsurgical changes of midline sternotomy. There is a left subclavian dual-chamber central venous pacemaker. There are resolving left basilar airspace opacities.[There is no overt failure. There are no significant pleural effusions. IMPRESSION: Resolving left basilar airspace opacities. ACT 112: Negative or not required by law. Electronically signed by: Pepe Rodrigez M.D. 11/02/2019 8:51 AM ECG Data Attestation: I personally reviewed and interpreted this ECG as follows: Indication: + altered mental status Rate (beats per minute): 83 Rhythm: + other (Ventricular paced) ECG Intervals/blocks: + Normal QT-c (Prolonged QT-c) ECG [place]: + Left axis deviation ECG Findings: + PVCs Blood Pressure Blood Pressure Findings: Elevated blood pressure Blood Pressure Disposition: further management by hospitalist TAVO Narrative Patient is an 84-year-old male who presents the ER brought in by daughter for confusion, slurred speech and a fall. Is been having some hematuria at home which concern for UTI. He was brought in by EMS. IV was established blood work was obtained and showed no significant leukocytosis or anemia. BMP with slightly elevated glucose at 141. LFTs bilirubin and troponin and TSH were unremarkable. UA does suggest a UTI. He was given IV fluids and IV Rocephin. He was updated bedside. CT head and chest x-ray were unremarkable. Patient was discussed with the hospitalist and admitted after discussion with the family for confusion secondary to UTI. Previous cultures were reviewed prior to ant ibiotic treatment. Impression & Plan AMS (altered mental status), Slurred speech, Acute UTI, Fall Discharge Plan Visit Data *Final* Discharge Date/Time: 11/02/19 12:07 Chief Complaint: Lethargic ED Provider: Fran Vallejo Discharge Problem: AMS (altered mental status), Slurred speech, Acute UTI, Fall Patient Disposition: Admitted As Inpatient Discharge Instructions Interventions: ED Discharge Assessment Last Done: 11/02/19 12:07 Discharge Problem: AMS (altered mental status) Qualifiers: Altered mental status type: unspecified Qualified Code(s): R41.82 - Altered mental status, unspecified Fall Qualifiers: Encounter type: initial encounter Qualified Code(s): W19.XXXA - Unspecified fall, initial encounter The scribe's documentation has been prepared under my direction and personally reviewed by me in its entirety. I confirm that the note above accurately reflects all work, treatment, procedures, and medical decision making performed by me.
[2019-11-02 14:19] LABS: Albumin Level 3.6 gm/dl (3.4-5.0); BUN Creatinine Ratio 36.6 (10-20); Calcium 9.2 mg/dl (8.5-10.1); Creatinine Clr Calc Pharmacy 62.9 ml/min; Est GFR (African American) 90.6; Est GFR (Non-African American) 78.2; Potassium 3.9 mmol/L (3.5-5.1)
[2019-11-02 14:29] LABS: Bilirubin,Total 1.6 mg/dl (0.2-1); Globulin 3.5 gm/dl (2.5-4.0); Thyroid Stimulating Hormone 1.97 uIu/ml (0.300-4.500); Total Protein 7.1 gm/dl (6.4-8.2); Troponin I 0.036 ng/ml (0-0.045)
[2019-11-02] MEDS: NSS + 20MEQ KCL 20 MEQ/1,000 ML BAG IV SCH (14:29)
[2019-11-02 16:24] LABS: Bacteria Urine Automated Negative (Negative); Blood Urine 3+ (Negative); Epithelial Cell Urine Auto 0-5 /lpf (0-5); Glucose Urine UA Negative (Negative); Ketones Urine Negative (Negative); Leukocyte Esterase Urine 1+ (Negative); Nitrite Urine Negative (Negative); Protein Urine 3+ (Negative); Specific Gravity Urine 1.024 (1.000-1.030); Urobilinogen Urine Negative (Negative); WBC Urine Automated >30 /hpf (0-5)
[2019-11-02 16:28] LABS: Appearance Urine Turbid (Clear); Color Urine Brown
[2019-11-02 16:30] LABS: Bilirubin Urine Negative (Negative); Ictotest Urine Negative (Negative)
[2019-11-02 16:39] LABS: RBC Urine Automated >30 /hpf (0-4)
[2019-11-02 16:46] LABS: Creatine Kinase MB 1.6 ng/ml (0.5-3.6)
--- NOTE | 2019-11-02 23:41 | Electrocardiogram Report ---
Test Reason : Blood Pressure : / mmHG Vent. Rate : 082 BPM Atrial Rate : 089 BPM P-R Int : 000 ms QRS Dur : 168 ms QT Int : 454 ms P-R-T Axes : 000 -75 086 degrees QTc Int : 530 ms Ventricular-paced rhythm with frequent Premature ventricular complexes Abnormal ECG When compared with ECG of 15-OCT-2019 10:39, Vent. rate has decreased BY 3 BPM Confirmed by Oleg Martinez ([id number]) on 11/02/2019 11:40:45 PM Referred By: ED Confirmed By:Oleg Martinez
[2019-11-03] MEDS: NSS + 20MEQ KCL 20 MEQ/1,000 ML BAG IV SCH ×2 (03:02→16:15)
--- NOTE | 2019-11-03 07:38 | Hospitalist Progress Note ---
Date of Service November 03, 2019 Assessment & Plan (1) Acute UTI: UA on 11/02 indicated infection. Urine culture from 10/31 grew E. faecalis. - Urine culture from 11/02 pending. - Continue ceftriaxone - Follow cultures (2) AMS (altered mental status): Metabolic encephalopathy secondary to UTI superimposed on his dementia. Medications could also play a role given his usage of a benzo. - Treat UTI as above (3) Hypertension: Patient was hypotensive on admission. BP medications held. Now seems to have returned to normal. - Will restart his metoprolol succinate 25 mg extended release daily, amlodipine 2.5 mg p.o. q. a.m. - Continue aspirin 81 mg p.o. every morning (4) CAD, multiple vessel: Reports no chest pain, but also not really able to say. - Continue aspirin 81 mg p.o. daily (5) Obstructive sleep apnea: Patient is allowed to use his own CPAP & supplemental oxygen at night as needed. (6) Benign prostatic hyperplasia with urinary obstruction: No LUTS this morning. - Continue finasteride 5 mg p.o. every morning (7) Mixed dementia: Patient takes Seroquel 100 mg p.o. nightly. Per his daughter he was also taking lorazepam at home. - Hold lorazepam for now. - Hold Seroquel while patient has altered mental status. - Restart with a lower dose when patient feels better. (8) Sick sinus syndrome: Pacemaker in place. - As the above (9) Ambulatory dysfunction: Unable to cope at home right now. - PT/OT (10) A-fib: History of afib. Now in a ventricularly-paced rhythm. - Continue beta-maude as able - Not on anticoagulation as outpatient (11) DVT prophylaxis: Heparin 5000 SQ Q12h Subjective Very pleasant, but no actual responses to any questions. Just answers with an unconnected response. Review of Systems Review of Systems: Unobtainable due to cognitive status Physical Exam Constitutional: WD/WN, vitals as above Eyes: EOM intact bilaterally; no conjunctival abnormality ENMT: external ear and nose normal, oropharynx normal Neck: trachea midline, no thyromegaly normal visual inspection Respiratory: normal respiratory effort, lungs clear to auscultation no respiratory distress Cardiovascular: RRR, no murmur, no edema Gastrointestinal (Abdomen): Inspection/Auscultation: abdomen normal to inspection; abdomen not distended Musculoskeletal: no cyanosis or clubbing, extremities motor strength 5/5 Skin: no rashes, warm and dry Neurologic: moves all extremities and awake Psychiatric: Orientation: alert and cooperative; + not oriented to person Results & Data Vital Signs (Past 12 Hours) Vital Signs Temp Pulse Resp BP Pulse Ox 11/03/19 07:21 36.8 C 63 18 167/79 H 100 11/03/19 02:41 36.8 C 73 20 165/71 H 99 11/02/19 22:58 37.0 C 90 20 148/76 H 99 11/02/19 20:30 36.8 C 87 18 160/69 H 98 PG Care Time/CCT Total # of Minutes Spent Total Time Spent with Patient: Total time spent is greater than 50% in coordination of care (as documented) at patient's floor/unit and/or counseling p atient: Coding Level of Care Code 12807 Subseq Hosp Care Lvl 3 Diagnoses Acute UTI N39.0 AMS (altered mental status) R41.82 Altered mental status type: unspecified Hypertension I10 CAD, multiple vessel I25.10 Obstructive sleep apnea G47.33 Benign prostatic hyperplasia with urinary obstruction N40.1; N13.8 Mixed dementia G30.9; F01.50; F02.80 Sick sinus syndrome I49.5 Ambulatory dysfunction R26.2 A-fib I48.91 DVT prophylaxis Z29.9 (1) AMS (altered mental status) Altered mental status type: unspecified Qualified Code(s): R41.82 - Altered mental status, unspecified
[2019-11-03 07:45] LABS: Basophils # (auto) 0.02 K/uL (0-0.2); Basophils % (auto) 0.5 %; Eosinophils # (auto) 0.12 K/uL (0-0.5); Eosinophils % (auto) 2.8 %; Hematocrit (blood only) 35.9 % (42-52); Lymphocytes # (auto) 0.51 K/uL (1.2-3.4); Lymphocytes % (auto) 11.8 %; Mean Corpuscular Hemoglobin 26.4 pg (25-34); Mean Corpuscular Hgb Conc 33.4 g/dL (32-36); Mean Corpuscular Volume 79.1 fL (80-100); Monocytes # (auto) 0.42 K/uL (0.11-0.59); Monocytes % (auto) 9.7 %; Neutrophils # (auto) 3.25 K/uL (1.4-6.5); Neutrophils % (auto) 75.2 %; Platelet Count 283 K/uL (130-400); RDW Coefficient of Variation 14.1 % (11.5-14.5); Red Blood Count 4.54 M/uL (4.7-6.1); White Blood Count 4.32 K/uL (4.8-10.8)
[2019-11-03 08:12] LABS: Albumin Level 3.3 gm/dl (3.4-5.0); BUN Creatinine Ratio 33.5 (10-20); Calcium 8.8 mg/dl (8.5-10.1); Creatinine Clr Calc Pharmacy 76.3 ml/min; Est GFR (African American) 100.1; Est GFR (Non-African American) 86.4
[2019-11-03 08:15] LABS: Globulin 3.5 gm/dl (2.5-4.0); Total Protein 6.8 gm/dl (6.4-8.2)
[2019-11-03] MEDS: METOPROLOL SUCC 25MG EXT REL TAB PO SCH (09:08)
[2019-11-03] MEDS: HEPARIN SOD 5,000 UNIT/0.5 ML VIAL SQ SCH ×2 (09:08→21:23)
[2019-11-03] MEDS: ASPIRIN 81 MG ECTAB PO SCH (09:08)
[2019-11-03] MEDS: FINASTERIDE 5 MG TAB PO SCH (09:08)
[2019-11-03] MEDS ORDERED: cefTRIAXone SODIUM 2,000 MG in DEXTROSE 5% 50 ML IV SCH (10:00)
[2019-11-03] MEDS ORDERED: AMPICILLIN IV SCH (16:10)
[2019-11-03] MEDS ORDERED: AD VAN IV SCH (16:10)
[2019-11-03] MEDS ORDERED: SODIUM CHLOR 0.9% IV SCH (16:10)
[2019-11-03] MEDS: AMPICILLIN 1,000 MG in SODIUM CHLOR 0.9% AD-VAN 50 ML IV SCH ×2 (16:15→20:05)
[2019-11-04] MEDS: AMPICILLIN 1,000 MG in SODIUM CHLOR 0.9% AD-VAN 50 ML IV SCH ×4 (02:24→20:00)
[2019-11-04] MEDS: NSS + 20MEQ KCL 20 MEQ/1,000 ML BAG IV SCH (05:05)
[2019-11-04 06:09] LABS: Basophils # (auto) 0.02 K/uL (0-0.2); Basophils % (auto) 0.5 %; Eosinophils # (auto) 0.07 K/uL (0-0.5); Eosinophils % (auto) 1.8 %; Hematocrit (blood only) 34.7 % (42-52); Hemoglobin 11.8 g/dL (14.0-18.0); Lymphocytes # (auto) 0.49 K/uL (1.2-3.4); Lymphocytes % (auto) 12.3 %; Mean Corpuscular Hemoglobin 26.6 pg (25-34); Mean Corpuscular Volume 78.2 fL (80-100); Mean Platelet Volume 7.8 fL (7.4-10.4); Monocytes # (auto) 0.43 K/uL (0.11-0.59); Monocytes % (auto) 10.8 %; Neutrophils # (auto) 2.98 K/uL (1.4-6.5); Neutrophils % (auto) 74.6 %; Platelet Count 256 K/uL (130-400); RDW Standard Deviation 39.8 fL (36.4-46.3); Red Blood Count 4.44 M/uL (4.7-6.1); White Blood Count 3.99 K/uL (4.8-10.8)
[2019-11-04 06:41] LABS: Albumin Level 3.1 gm/dl (3.4-5.0); BUN Creatinine Ratio 24.5 (10-20); Calcium 8.5 mg/dl (8.5-10.1); Creatinine Clr Calc Pharmacy 75.5 ml/min; Est GFR (African American) 100.1; Est GFR (Non-African American) 86.4
[2019-11-04 06:44] LABS: Albumin Globulin Ratio 0.9 (0.9-2); Bilirubin,Total 2.3 mg/dl (0.2-1); Globulin 3.4 gm/dl (2.5-4.0); Total Protein 6.5 gm/dl (6.4-8.2)
[2019-11-04] MEDS: HEPARIN SOD 5,000 UNIT/0.5 ML VIAL SQ SCH ×2 (08:23→20:00)
[2019-11-04] MEDS: AMLODIPINE BESYLATE 5 MG TAB PO SCH (08:24)
[2019-11-04] MEDS: FINASTERIDE 5 MG TAB PO SCH (08:24)
[2019-11-04] MEDS: METOPROLOL SUCC 25MG EXT REL TAB PO SCH (08:24)
[2019-11-04] MEDS: ASPIRIN 81 MG ECTAB PO SCH (08:25)
[2019-11-04] MEDS ORDERED: LACTATED RINGER'S 1,000 ML IV SCH (08:45)
--- NOTE | 2019-11-04 09:25 | Urology Consultation ---
Date of Consultation November 04, 2019 Assessment & Plan (1) Acute UTI: (2) Abnormal urine cytology: 84 yo M with dementia and multiple comorbidities admitted for weakness and increased confusion secondary to UTI. - Recommend continue antibiotics for UTI. Agree with current regimen with Amp icillin. Convert to PO 500 mg QID for total of 10-14 days - Abnormal cytology previously. Clear cystoscopy in Nov 2018. Prior CT imaging with bilateral stones, but no upper tract tumors. - Discussed with Dr. Silvestre, no acute intervention at this time. Will follow up outpatient. Thank you for allowing us to participate in the acute care of Mr. Arzate. Please reconsult us with additional questions, concerns or changes in patient status. History of Present Illness Attending Physician: Yong Storey MD History of Present Illness 84 yo M with dementia and multiple comorbidities admitted for weakness, fall, increased confusion and urinary tract infection. New consult for hematuria, UTI, and positive urine cytology. Patient is known to our service, follows with Dr. Silvestre. Pt admitted through [facility] ED on 11/02/19 for weakness, fall, and increased confusion. UA suggestive of UTI. UC&S on 10/31 showing Enterococcus UTI. Treated with IV Ceftriaxone in ED. 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 Appears comfortable. ROS not obtainable due to cognitive status. Allergies Allergy/AdvReac Type Severity Reaction Status Date / Time No Known Drug Allergies Allergy Unknown none Verified 11/02/19 12:00 Home Medications Home Medications Medication Instructions Recorded Confirmed Type aspirin 81 mg tablet,delayed 81 mg PO QAM tab 06/20/19 11/02/19 History release finasteride 5 mg tablet 5 mg PO QAM #30 tab 07/07/19 11/02/19 Rx quetiapine 100 mg tablet 100 mg PO HS 90 Days #90 tab 07/29/19 11/02/19 Rx metoprolol succinate 50 mg 25 mg PO QAM #90 tab 09/05/19 11/02/19 Rx tablet,extended release 24 hr amlodipine 2.5 mg PO QAM 10/15/19 11/02/19 History Patient History Medical History A-fib (Chronic) on metoprolol Abnormal urine cytology (Acute) Afib Allergic rhinitis (Acute) Ambulatory dysfunction (Acute) Ankylosing spondylitis Anxiety (Acute) Aortic stenosis (Acute) Aortic valve disorder (Resolved) Arthritis (Acute) Atherosclerosis of aorta (Acute) Atrial flutter (Acute) Benign prostatic hyperplasia with urinary obstruction (Acute) BPH (benign prostatic hyperplasia) CAD, multiple vessel (Acute) Cerebral atrophy (Acute) Chronic gout (Acute) Chronic rhinitis (Acute) GERD (gastroesophageal reflux disease) (Chronic) Gout, unspecified (Resolved) Hearing deficit Hearing loss (Acute) Heart disease (Resolved) Hematuria, microscopic (Acute) Hematuria, unspecified (Resolved) History of anesthesia reaction after last aortic valve replacement, confused for days Hyperglycemia (Chronic) Hypertension (Acute) IPMN (intraductal papillary mucinous neoplasm) (Acute) Kidney disease (Chronic) Kidney stone (Chronic) Lacunar stroke (Resolved) Leukopenia (Acute) Mixed dementia (Chronic) Obstructive sleep apnea (Acute) Orthostatic hypotension (Acute) Pacemaker 07/06/2015 @ [facility]--meditronic Polyarthritis, unspecified (Acute) Postoperative anemia (Acute) Senile dementia of Alzheimer's type (Chronic) Sick sinus syndrome (Acute) Sleep apnea (Chronic) was wearing 2L N/C hs prn--stopped using all together Superficial basal cell carcinoma of skin of right shoulder (Acute) Tubular adenoma of colon (Acute) Urinary hesitancy (Acute) UTI (urinary tract infection) Vitamin B12 deficiency (Acute) Vocal cord paralysis (Acute) Weight loss (Acute) Wide-complex tachycardia (Acute) Surgical History History of aortic valve replacement x2--2003 @ [facility] [place], 2009 @ [facility] [place]--follows with Dr. Pacheco History of arthroscopy of left knee History of bilateral cataract extraction History of cardiac cath 09/13/2010 @ [facility] History of cardiac radiofrequency ablation 06/2016 @ [facility] History of cholecystectomy History of colonoscopy History of ear surgery skin graft to right eardrum History of endoscopic sinus surgery History of lithotripsy x2 History of open reduction and internal fixation (ORIF) procedure right hip History of tonsillectomy and adenoidectomy History of tooth extraction History of wisdom tooth extraction Hx of vasectomy Family History Brother Family history of diabetes mellitus Sister Family history of diabetes mellitus Unknown Diabetes FH: deafness or hearing loss FHx: allergies Father Aneurysm of abdominal aorta Other No family history of adverse response to anesthesia Social History Preferred Language: Colombian Communication Ability: Impaired Hearing Ability: Hard of Hearing Program Mgr Required: No Beliefs That Will Affect Care: None Current Living Situation: Spouse current occupational status: retired Feels Safe at Home: Yes Smoking Status: Never smoker Second Hand Exposure: No ; Hx Alcohol Use: No Hx Substance Use: No Review of Systems Review of Systems: Unobtainable due to cognitive status Physical Exam Constitutional: + thin and comfortable; no acute distress Respiratory: normal respiratory effort; no respiratory distress Cardiovascular: Extremities: no edema Gastrointestinal (Abdomen): Inspection/Auscultation: abdomen normal to inspection; abdomen not distended Percussion/Palpation: abdomen soft; abdomen nontender and no guarding Neurologic: moves all extremities and awake Psychiatric: Orientation: alert and cooperative Genitourinary: no CVA tenderness Voiding spontaneously, urine not visualized during exam Results & Data Vital Signs (Past 12 Hours) Vital Signs Temp Pulse Pulse Resp BP Pulse Ox 11/04/19 07:54 85 11/04/19 07:10 36.5 C 71 18 177/80 H 99 11/04/19 03:10 36.4 C L 63 18 152/59 H 99 11/03/19 23:12 36.4 C L 78 18 144/62 H 97 PG Care Time/CCT Total # of Minutes Spent Total Time Spent with Patient: Total time spent is greater than 50% in coordination of care (as documented) at patient's floor/unit and/or counseling patient: Coding Level of Care Code 39602 Inpt Consult Level 3 Diagnoses Acute UTI N39.0 Abnormal urine cytology R82.8
--- NOTE | 2019-11-04 11:30 | Hospitalist Progress Note ---
Date of Service November 04, 2019 Assessment & Plan (1) Acute UTI: UA on 11/02 indicated infection. Urine culture from 10/31 grew E. faecalis. - Urine culture from 11/02 growing Strep spc.; likely Enterococcus. - Started ampicillin on 11/03 - Consider this the first day of abx. Will treat for 10-14 days per urology. - Follow culture (2) AMS (altered mental status): Metabolic encephalopathy secondary to UTI superimposed on his dementia. reports no recent usage of Seroquel or Ativan, so meds unlikely to be playing a role. - Treat UTI as above (3) Hypertension: Patient was hypotensive on admission. BP medications held. Now seems to have returned to normal. - Continue home metoprolol succinate 25 mg extended release daily, amlodipine 2.5 mg p.o. q. a.m. - Continue aspirin 81 mg p.o. every morning - BP stable today. (4) CAD, multiple vessel: Reports no chest pain, but also not really able to say. - Continue aspirin 81 mg p.o. daily (5) Obstructive sleep apnea: Patient is allowed to use his own CPAP & supplemental oxygen at night as needed. (6) Benign prostatic hyperplasia with urinary obstruction: No LUTS this morning. Urine cytology from - Continue finasteride 5 mg p.o. every morning (7) Mixed dementia: Per patient's , she stopped the Seroquel weeks ago because it did not help. Likewise, he only got the Ativan a few times and was used sparingly. - Hold lorazepam for now. - Hold Seroquel while patient has altered mental status. - Discharge off any medications. will need to follow up with PCP if agitation becomes more prominent. (8) Sick sinus syndrome: Pacemaker in place. 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 Will work with her regarding safe placement. - PT/OT (10) A-fib: History of afib. Now in a ventricularly-paced rhythm. - Continue beta-maude as able - Not on anticoagulation as outpatient due to episodic hematuria. Follows with Dr. Silvestre. (11) DVT prophylaxis: Heparin 5000 SQ Q12h Subjective Very pleasant, but cannot answer questions due to his dementia. Review of Systems Review of Systems: Unobtainable due to cognitive status Physical Exam Constitutional: WD/WN, vitals as above Eyes: EOM intact bilaterally; no conjunctival abnormality ENMT: external ear and nose normal, oropharynx normal Neck: trachea midline, no thyromegaly normal visual inspection Respiratory: normal respiratory effort, lungs clear to auscultation no respiratory distress Cardiovascular: RRR, no murmur, no edema Gastrointestinal (Abdomen): Inspection/Auscultation: abdomen normal to inspection; abdomen not distended Musculoskeletal: no cyanosis or clubbing, extremities motor strength 5/5 Skin: no rashes, warm and dry Neurologic: moves all extremities and awake Psychiatric: Orientation: alert and cooperative; + not oriented to person Results & Data Vital Signs (Past 12 Hours) Vital Signs Temp Pulse Pulse Resp BP Pulse Ox 11/04/19 11:01 36.3 C L 70 16 134/64 96 11/04/19 07:54 85 11/04/19 07:10 36.5 C 71 18 177/80 H 99 11/04/19 03:10 36.4 C L 63 18 152/59 H 99 PG Care Time/CCT Total # of Minutes Spent Total Time Spent with Patient: Total time spent is greater than 50% in coordination of care (as documented) at patient's floor/unit and/or counseling patient: Coding Level of Care Code 80253 Subseq Hosp Care Lvl 3 Diagnoses Acute UTI N39.0 AMS (altered mental status) R41.82 Altered mental status type: unspecified Hypertension I10 CAD, multiple vessel I25.10 Obstructive sleep apnea G47.33 Benign prostatic hyperplasia with urinary obstruction N40.1; N13.8 Mixed dementia G30.9; F01.50; F02.80 Sick sinus syndrome I49.5 Ambulatory dysfunction R26.2 A-fib I48.91 DVT prophylaxis Z29.9 (1) AMS (altered mental status) Altered mental status type: unspecified Qualified Code(s): R41.82 - Altered mental status, unspecified
[2019-11-05] MEDS: AMPICILLIN 1,000 MG in SODIUM CHLOR 0.9% AD-VAN 50 ML IV SCH ×4 (02:02→20:22)
[2019-11-05] MEDS: METOPROLOL SUCC 25MG EXT REL TAB PO SCH (09:30)
[2019-11-05] MEDS: ASPIRIN 81 MG ECTAB PO SCH (09:30)
[2019-11-05] MEDS: AMLODIPINE BESYLATE 5 MG TAB PO SCH (09:30)
[2019-11-05] MEDS: FINASTERIDE 5 MG TAB PO SCH (09:31)
[2019-11-05] MEDS: HEPARIN SOD 5,000 UNIT/0.5 ML VIAL SQ SCH ×2 (09:32→20:27)
--- NOTE | 2019-11-05 15:10 | Hospitalist Progress Note ---
Date of Service November 05, 2019 Assessment & Plan (1) Acute UTI: UA on 11/02 indicated infection. Urine culture from 10/31 grew E. faecalis. - Urine culture from 11/02 growing E. faecalis again. - Started ampicillin on 11/03 - Amoxicillin sent to pharmacy. Will treat for 14 days per urology. (End date: 11/16/2019). Will follow up with them in the clinic. (2) AMS (altered mental status): Metabolic encephalopathy secondary to UTI superimposed on his dementia. reports no recent usage of Seroquel or Ativan, so meds unlikely to be playing a role. - Discharge off any Seroquel or other agent. - Treat UTI as above (3) Hypertension: Patient was hypotensive on admission. BP medications held. Now seems to have returned to normal. - Continue home metoprolol succinate 25 mg extended release daily, amlodipine 2.5 mg p.o. q. a.m. - Continue aspirin 81 mg p.o. every morning - BP stable at 125/80. (4) CAD, multiple vessel: Reports no chest pain, but also not really able to say. - Continue aspirin 81 mg p.o. daily (5) Obstructive sleep apnea: Patient is allowed to use his own CPAP & supplemental oxygen at night as needed. (6) Benign prostatic hyperplasia with urinary obstruction: No LUTS this morning. Urine cytology from 11/01 shows urothelial cell cancer. - Seen by urology. Will follow up as outpatient. - Continue finasteride 5 mg p.o. every morning (7) Mixed dementia: Per patient's , she stopped the Seroquel weeks ago because it did not help. Likewise, he only got the Ativan a few times and was used sparingly. - Hold lorazepam & Seroquel - Discharge off any medications. will need to follow up with PCP if agitation becomes more prominent. (8) Sick sinus syndrome: Pacemaker in place. 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 Will work with her regarding safe placement. - Discharge home. (10) A-fib: History of afib. Now in a ventricularly-paced rhythm. - Continued beta-maude - Not on anticoagulation as outpatient due to episodic hematuria. Follows with Dr. Silvestre for hematuria. (11) DVT prophylaxis: Heparin 5000 SQ Q12h Subjective Much more alert and awake today. He is pleasant and actually answer that he has some pain in his hand. Otherwise, unable to complete ROS. Review of Systems Review of Systems: Unobtainable due to cognitive status Physical Exam Constitutional: WD/WN, vitals as above Eyes: EOM intact bilaterally; no conjunctival abnormality ENMT: external ear and nose normal, oropharynx normal Neck: trachea midline, no thyromegaly normal visual inspection Respiratory: normal respiratory effort, lungs clear to auscultation no respiratory distress Cardiovascular: RRR, no murmur, no edema Gastrointestinal (Abdomen): Inspection/Auscultation: abdomen normal to inspection; abdomen not distended Musculoskeletal: no cyanosis or clubbing, extremities motor strength 5/5 Skin: no rashes, warm and dry Neurologic: moves all extremities and awake Psychiatric: Orientation: alert and cooperative; + not oriented to person Results & Data Vital Signs (Past 12 Hours) Vital Signs Temp Pulse Resp BP Pulse Ox 11/05/19 08:45 36.6 C 78 20 125/79 96 PG Care Time/CCT Total # of Minutes Spent Total Time Spent with Patient: Total time spent is greater than 50% in coordination of care (as documented) at patient's floor/unit and/or counseling patient: Coding Level of Care Code 71093 Subseq Hosp Care Lvl 2 Diagnoses Acute UTI N39.0 AMS (altered mental status) R41.82 Altered mental status type: unspecified Hypertension I10 CAD, multiple vessel I25.10 Obstructive sleep apnea G47.33 Benign prostatic hyperplasia with urinary obstruction N40.1; N13.8 Mixed dementia G30.9; F01.50; F02.80 Sick sinus syndrome I49.5 Ambulatory dysfunction R26.2 A-fib I48.91 DVT prophylaxis Z29.9 (1) AMS (altered mental status) Altered mental status type: unspecified Qualified Code(s): R41.82 - Altered mental status, unspecified
[2019-11-06] MEDS: AMPICILLIN 1,000 MG in SODIUM CHLOR 0.9% AD-VAN 50 ML IV SCH ×3 (01:00→08:38)
[2019-11-06] MEDS: METOPROLOL SUCC 25MG EXT REL TAB PO SCH (08:32)
[2019-11-06] MEDS: AMLODIPINE BESYLATE 5 MG TAB PO SCH (08:32)
[2019-11-06] MEDS: HEPARIN SOD 5,000 UNIT/0.5 ML VIAL SQ SCH (08:33)
[2019-11-06] MEDS: FINASTERIDE 5 MG TAB PO SCH (08:33)
[2019-11-06] MEDS: ASPIRIN 81 MG ECTAB PO SCH (08:34)
--- NOTE | 2019-11-06 14:17 | Discharge Summary ---
Date of Service November 06, 2019 Admission HPI Per Admitting Provider The patient is a 84 years old male with past medical history of frequent urinary tract infection, dementia of mixed type, hypertension, sick sinus syndrome, with a pacemaker lacunar stroke, hearing loss, chronic gout, coronary artery disease, benign prostatic hyperplasia, aortic stenosis, atrial fibrillation, GERD who was brought by his daughter with a complaint that patient is significantly confused for the past 2 days and not acting as himself. He lives with his at home and his daughter visits them every 2 to 3 days. She is present during the interview and she answers most of the questions. She states that patient is not acting as himself for the 2 days and she is not sure what could be reason for it because he also started a new medicine Seroquel and lorazepam which she thinks could be a culprit of his altered mental status. She is not sure how many pills he took and and there is a possibility that he forgot and took 2 doses. She also reports that patient has frequent falls. Patient himself is poor historian and at this point very confused and unable to participate in review of system. It appears that patient is hallucinating. Labs are reviewed: WBC is 4.83, hemoglobin 12.2, hematocrit 37.1, platelets 278, PT 12.4, INR 1.2, sodium 138, potassium 3.9, chloride 107, carbon dioxide 28, anion gap 3, BUN 37, creatinine 1.15, GFR 58.9, BUN 31.8, glucose 141, calcium 9.3, magnesium 2.2, total bilirubin 1.6 AST 10, ALT 10, alkaline phosphatase 115, troponin 0 0.02 total protein 7, albumin 3.5, globulin 3.5, albumin 1, TSH 2.8. Urine orange, turbid protein 2+ blood 3+ leukocyte esterase 1+ WBCs 10-30, epithelial cells 5-10, negative for bacteria. Decision was made to admit patient to PCU on telemetry for further evaluation of altered mental status, urinary tract infection and ambulatory dysfunction. Principal Diagnosis UTI & progressing Alzheimer's dementia Discharge Exam Constitutional WD/WN, vitals as above Eyes EOM intact bilaterally; no conjunctival abnormality ENMT external ear and nose normal, oropharynx normal Neck trachea midline, no thyromegaly normal visual inspection Respiratory normal respiratory effort, lungs clear to auscultation no respiratory distress Cardiovascular RRR, no murmur, no edema Gastrointestinal (Abdomen) Inspection/Auscultation: abdomen normal to inspection; abdomen not distended Musculoskeletal no cyanosis or clubbing, extremities motor strength 5/5 Skin no rashes, warm and dry Neurologic moves all extremities and awake Psychiatric Orientation: alert and cooperative; + not oriented to person Discharge Data Allergies Allergy/AdvReac Type Severity Reaction Status Date / Time No Known Drug Allergies Allergy Unknown none Verified 11/02/19 12:00 Consultations 11/02/19 10:53 ED Decision to Admit Stat 11/03/19 16:09 Consult Urology Routine Ordered Studies 11/02/19 08:35 CT head/brain wo con Stat Hospital Course (1) Acute UTI: UA on 11/02 indicated infection. Urine culture from 10/31 grew E. faecalis. - Urine culture from 11/02 growing E. faecalis again. - Started ampicillin on 11/03 - Amoxicillin sent to pharmacy. Will treat for 14 days per urology. (End date: 11/16/2019). Will follow up with urology in the clinic. (2) AMS (altered mental status): Possible metabolic encephalopathy secondary to UTI superimposed on his dementia. reports no recent usage of Seroquel or Ativan, so meds unlikely to be playing a role. - Discharge off any Seroquel or other agent. - Treat UTI as above - I think this is mostly his progressing dementia. Even on discharge, he was barely able to follow directions regarding walking and sitting on the toilet. still wanted to take him home, but I do not think we'll see a lot of improvement from treating his UTI. (3) Hypertension: Patient was hypotensive on admission. BP medications held. Now seems to have returned to normal. - Continue home metoprolol succinate 25 mg extended release daily, amlodipine 2.5 mg p.o. q. a.m. - Continue aspirin 81 mg p.o. every morning - BP stable at 125/80. (4) CAD, multiple vessel: Reports no chest pain, but also not really able to say. - Continue aspirin 81 mg p.o. daily (5) Obstructive sleep apnea: Patient is allowed to use his own CPAP & supplemental oxygen at night as needed. (6) Benign prostatic hyperplasia with urinary obstruction: No LUTS this morning. Urine cytology from 11/01 shows urothelial cell cancer. - Seen by urology. Will follow up as outpatient. - Continue finasteride 5 mg p.o. every morning (7) Mixed dementia: Per patient's , she stopped the Seroquel weeks ago because it did not help. Likewise, he only got the Ativan a few times and was used sparingly. - Hold lorazepam & Seroquel - Discharge off any medications. will need to follow up with PCP if agitation becomes more prominent. (8) Sick sinus syndrome: Pacemaker in place. 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 Will work with her regarding safe placement. - Discharge home. (10) A-fib: History of afib. Now in a ventricularly-paced rhythm. - Continued beta-maude - Not on anticoagulation as outpatient due to episodic hematuria. Follows with Dr. Silvestre for hematuria. (11) DVT prophylaxis: Heparin 5000 SQ Q12h Total Time Total Time Spent Total Time Spent (In Minutes): 35 Discharge Plan Discharge Items Patient Disposition: Home - Home Health Services Reason For Visit: AMS, UTI, FREQUEST FALLS Discharge Diagnosis: Urinary tract infection Activity: Resume your previous activity Non-emergency contact: Primary Care Provider Call non-emergency contact if: your symptoms worsen and your temperature is above 101 Follow-up/Referrals: Jesus Garcia MD [Primary Care Provider] - 11/09/19 3:00 pm (Please, follow up at Dr. Garcia's office with his associate, Mari Randle PA-C, on ThursdayNovember 09 at 3:00 pm. *If you need to change this appointment, call their office at [phone].) Diet: Regular Addtl Attending Provider Instructions: Mr. Arzate, You were admitted with increased confusion and trouble coping at home that we feel was partially due to a UTI and partially due to worsening Alzheimer's disease. We determined the species of bacteria in your bladder and have started you on an appropriate antibiotic. The urology team saw you and requested a 2-week course of antibiotics. You will see them in their clinic in 1-2 weeks to be sure you are improving. Pending Studies at Discharge: No Stand-Alone Forms: My [facility] [employer], Smoking Cessation Medications and DC Order Prescriptions: New amoxicillin 500 mg capsule 500 mg PO TID Qty: 33 RF: 0 Continued finasteride 5 mg tablet 5 mg PO QAM Qty: 30 RF: 1 metoprolol succinate 50 mg tablet extended release 24 hr 25 mg PO QAM Qty: 90 RF: 1 aspirin 81 mg tablet,delayed release (DR/EC) 81 mg PO QAM RF: 0 amlodipine 2.5 mg tablet 2.5 mg PO QAM RF: 0 Discontinued quetiapine 100 mg tablet 100 mg PO HS 90 Days Qty: 90 RF: 3 Discharge Orders: Discharge Order (Routine); Ordered 11/06/19 Ordered By: Yong Storey Admission Data Admit Date/Time: 11/02/19 11:46 Attending Provider: Yong Storey Admit Provider: Shelly Diamond Primary Care Provider: Jesus Garcia Other Providers: Yong Storey ; Shelly Diamond ; Todd Vega Other Interventions: Discharge Summary Assessment (RN) Last Done: 11/06/19 13:22 DC Date/Time DO NOT enter until pt leaves facility: 11/06/19 14:06 Coding Level of Care Code D/C Day Management >30 mins Diagnoses Acute UTI N39.0 AMS (altered mental status) R41.82 Altered mental status type: unspecified Hypertension I10 CAD, multiple vessel I25.10 Obstructive sleep apnea G47.33 Benign prostatic hyperplasia with urinary obstruction N40.1; N13.8 Mixed dementia G30.9; F01.50; F02.80 Sick sinus syndrome I49.5 Ambulatory dysfunction R26.2 A-fib I48.91 DVT prophylaxis Z29.9
== END 2019-11-06 14:06 | disposition home health service (06) ==
LOC: ED 08:20 → INTOOBSV 11:46 → SUATTDRO 11:46 → 2S 11:46 → 2N 11-04 12:41 → 4W 11-04 19:52

== ENCOUNTER 2019-11-23 15:14 | Observation (INO) ==
[2019-11-23] MEDS ORDERED: SODIUM CHLORIDE 0.9% 1000ML 1,000 ML IV SCH (15:30)
--- NOTE | 2019-11-23 15:39 | XRay Report ---
XR chest 1V portable CLINICAL HISTORY: 84 years-old Male presenting with weakness. TECHNIQUE: Portable upright AP view of the chest was obtained. COMPARISON: 11/02/2019. FINDINGS: Left subclavian pacer with leads to the right atrium and right ventricular apex. Prosthetic aortic va lve and median sternotomy wires noted. Atherosclerosis of the aortic arch. Cardiac silhouette mildly enlarged. Significant pulmonary vascular prominence and interstitial prominence has increased from pr ior. Added density of the mid to lower lungs, right greater than left, new from prior. Small right an d trace left pleural effusion suspected. No pneumothorax. Osteopenia suspected. Old left posterior ri b fracture. Upper abdomen normal. IMPRESSION: 1. Cardiomegaly with significant volume overload, congestive change, and moderate pulmonary edema. A spiration or multifocal infection considered less likely. 2. Suspected small right and trace left pleural effusions. ACT 112: Negative or not required by law. Electronically signed by: Chaz Starkey M.D. 11/23/2019 3:38 PM
--- NOTE | 2019-11-23 15:48 | Emergency Department Note ---
Entered by Laxmi Ledesma acting as a scribe for Herbie Hernandes DO History of Present Illness General Chief complaint: Illness Stated complaint: WEAKNESS, Time Seen by Provider: 11/23/19 15:17 Source: patient and EMS History of Present Illness Onset (ago): day(s) 5 Location: head Pain Consistency: + other (persistent) Maximum Pain Intensity: 0 Quality: + other (weakness) Associated symptoms: + other (infected wound on right wrist, dehydration, fall) The patient is a 84 year old male that is presenting to the Emergency Room with complaints of persistent weakness following a fall 5 days ago. The patient was brought to the ED via EMS who provided the history. The patient fell in the shower 5 days ago and remained on the floor for 1 hour until he was found. He has a cyst on his right wrist that was removed by Dr. Reyna. He has been picking at the wound and it appears to be infected. The patient appears jaundiced and dehydrated. He has urinated only 1600cc of urine since yesterday. He has not been eating or drinking. EMS notes that the patient is DNR and that his family would like the patient to go into hospice care after being discharged from the ED. EMS reports that the patients family has been trying to contact the patients PCP without success so the patient was brought to the ED for immediate care. The patient denies any pain. He states that he is unsure why he is in the hospital currently. Home Medications Home Medications Medication Instructions Recorded Confirmed Type aspirin 81 mg tablet,delayed 81 mg PO QAM tab 06/20/19 11/23/19 History release metoprolol succinate 50 mg 25 mg PO QAM #90 tab 09/05/19 11/23/19 Rx tablet,extended release 24 hr finasteride 5 mg tablet 5 mg PO QAM #90 tab 11/09/19 11/23/19 Rx amlodipine 2.5 mg PO QAM 11/23/19 11/23/19 History donepezil 10 mg PO QAM 11/23/19 11/23/19 History montelukast 10 mg PO DAILY 11/23/19 11/23/19 History Allergies Allergy/AdvReac Type Severity Reaction Status Date / Time No Known Drug Allergies Allergy Unknown none Verified 11/23/19 16:47 Past Med/Surg History Medical History Abnormal urine cytology (Acute) PT'S UNAWARE Afib DX YEARS AGO> NO CARDIOVERSIONS >PACEMAKER Ambulatory dysfunction (Acute) Ankylosing spondylitis Anxiety (Acute) Aortic stenosis (Acute) Aortic valve disorder (Resolved) Arthritis (Acute) Atherosclerosis of aorta (Acute) Atrial flutter (Acute) Benign prostatic hyperplasia with urinary obstruction (Acute) BPH (benign prostatic hyperplasia) CAD, multiple vessel (Acute) FOLLOWS DR. PACHECO Cerebral atrophy (Acute) Chronic gout (Acute) NO MEDS GERD (gastroesophageal reflux disease) (Chronic) Hearing deficit Hearing loss (Acute) Heart disease (Resolved) Hematuria, microscopic (Acute) RESOLVED History of anesthesia reaction after last aortic valve replacement, confused for days Hyperglycemia (Chronic) Hypertension (Acute) IPMN (intraductal papillary mucinous neoplasm) (Acute) PT'S UNAWARE Kidney disease (Chronic) FOLLOWS DR. LEAVITT > [place] Kidney stone (Chronic) Lacunar stroke (Resolved) PT'S UNAWARE Leukopenia (Acute) Mixed dementia (Chronic) Orthostatic hypotension (Acute) Pacemaker 07/06/2015 @ [facility]--meditronic> LAST CHECKED JUN 2019. Polyarthritis, unspecified (Acute) Postoperative anemia (Acute) HX Senile dementia of Alzheimer's type (Chronic) Sick sinus syndrome (Acute) Sleep apnea (Chronic) was wearing 2L N/C hs prn--stopped using all together> NO LONGER USING CPAP Tubular adenoma of colon (Acute) Urinary hesitancy (Acute) UTI (urinary tract infection) DC'ED FROM [facility] 11/06/19 > STILL ON AMOXICILLIN Vitamin B12 deficiency (Acute) Vocal cord paralysis (Acute) RESOLVED Weight loss (Acute) Wide-complex tachycardia (Acute) Surgical History History of aortic valve replacement x2--2003 @ [facility] [place], 2009 @ [facility] [place]--follows with Dr. Pacheco History of arthroscopy of left knee History of bilateral cataract extraction History of cardiac cath 09/13/2010 @ [facility] > NO STENTS History of cardiac radiofrequency ablation 06/2016 @ [facility] History of cholecystectomy History of colonoscopy History of ear surgery skin graft to right eardrum History of endoscopic sinus surgery History of lithotripsy x2 History of open reduction and internal fixation (ORIF) procedure right hip History of tonsillectomy and adenoidectomy History of tooth extraction History of wisdom tooth extraction Hx of vasectomy Superficial basal cell carcinoma of skin of right shoulder (Acute) WITH REMOVAL Family History Brother Family history of diabetes mellitus Sister Family history of diabetes mellitus Unknown Diabetes FH: deafness or hearing loss FHx: allergies Father Aneurysm of abdominal aorta Other No family history of adverse response to anesthesia Social History Preferred Language: Tuvaluan Communication Ability: Impaired Hearing Ability: Hard of Hearing Ammunition Officer Required: No Beliefs That Will Affect Care: None Current Living Situation: Spouse current occupational status: retired Feels Safe at Home: Yes Smoking Status: Unknown if ever smoked Hx Alcohol Use: No Hx Substance Use: No Review of Systems See HPI for pertinent positives & negatives. and A total of 10 systems reviewed and were otherwise negative Physical Exam Vital Signs Vital Signs - 24 hr 11/23/19 15:17 11/23/19 15:24 11/23/19 17:00 Temperature 36.5 C Temperature Source Oral Pulse Rate 88 Pulse Rate [Apical] 66 Pulse Rhythm [Apical] Regular Pulse Strength [Apical] Normal Respiratory Rate 25 H 20 Respiratory Effort / Characteristics Non-Labored Spontaneous Non-Labored Spontaneous Respiratory Depth Shallow Normal Respiratory Pattern Regular Regular Blood Pressure 136/67 Blood Pressure [Right Arm] 146/61 H Blood Pressure Mean 90 Blood Pressure Mean [Right Arm] 89 Blood Pressure Position Lying Blood Pressure Position [Right Arm] Lying Pulse Oximetry 99 98 98 Oxygen Delivery Method Room Air Room Air Room Air Sepsis Recent Fever Within 48 Hours No Sepsis New/Unexplained Change in Mental Status No Sepsis Action Taken by Nursing No Action Required 11/23/19 19:00 Temperature Temperature Source Pulse Rate Pulse Rate [Apical] 110 H Pulse Rhythm [Apical] Pulse Strength [Apical] Respiratory Rate 22 Respiratory Effort / Characteristics Non-Labored Respiratory Depth Normal Respiratory Pattern Regular Blood Pressure Blood Pressure [Right Arm] 120/53 L Blood Pressure Mean Blood Pressure Mean [Right Arm] 75 Blood Pressure Position Blood Pressure Position [Right Arm] Lying Pulse Oximetry Oxygen Delivery Method Sepsis Recent Fever Within 48 Hours Sepsis New/Unexplained Change in Mental Status Sepsis Action Taken by Nursing GENERAL: The patient is listless and slow to respond to questioning. He does answer questions appropriately but slowly when prompted. EYES: The conjunctivae are clear. The pupils are round and reactive. EARS, NOSE, MOUTH AND THROAT: The nose is without any evidence of any deformity. Mucous membranes are dry. NECK: The neck is nontender and supple. RESPIRATORY: Diminished breath sounds are noted throughout. There are rales at both bases. CARDIOVASCULAR: Regular rate and rhythm noted there no murmurs rubs or gallops normal S1 normal S2. GASTROINTESTINAL: The abdomen is soft. Abdomen is nontender. MUSCULOSKELETAL/EXTREMITIES: There is no evidence of gross deformity full range of motion is noted in the hips and shoulders. SKIN: There is pedal edema bilaterally. There is a postoperative area in the right wrist which is erythematous but not draining. NEUROLOGIC: The patient is oriented to person place but not time or situation. Strength is diminished but symmetric. Course Course 1521:The patient was evaluated in room B02. A complete history and physical examination was performed. 1829: I spoke with the patient's regarding his current treatment plan. 2044: Upon reevaluation, the patient is resting comfortably. I discussed laboratory and radiographic results with the patient and his family. They verbalized agreement of the treatment plan. The patient will be evaluated for further management and care. 2106: I discussed the patients case with Dr. Coyle, [facility], who will evaluate the patient for further management and care. Administered Medications Discontinued Medications Sodium Chloride (Nss 1000ml) 1,000 mls @ 999 mls/hr IV .Q1H1M MEGAN Stop: 11/23/19 16:30 Last Infusion: 11/23/19 19:09 Dose: 0 mls/hr Documented by: [id number] Admin: 11/23/19 16:13 Dose: 999 mls/hr Documented by: [id number] Ceftriaxone Sodium (Rocephin) 1,000 mg in 50 mls @ 100 mls/hr IV NOW STA Stop: 11/23/19 20:20 Last Admin: 11/23/19 20:32 Dose: 100 mls/hr Documented by: [id number] Sodium Chloride (Nss 1000ml) 500 mls @ 999 mls/hr IV .Q31M ONE Stop: 11/23/19 20:21 Last Admin: 11/23/19 20:33 Dose: 999 mls/hr Documented by: [id number] Medical Decision Making Differential Diagnosis Differential Diagnosis includes but is not limited to dehydration, stroke, anemia, hypoglycemia, hyponatremia, hypernatremia, urinary tract infection, pneumonia, bronchitis, sepsis, gastroenteritis, additional abdominal pathology, metabolic abnormalities and infections. Medical Records Attestation: I reviewed the patient's medical records. Home Medications Current Medication List: was personally reviewed by me Laboratory Data Attestation: I reviewed the patient's lab results. Result diagrams: 11/23/19 16:06 11/23/19 16:06 Lab Results 11/23/19 11/23/19 11/23/19 Range/Units 16:06 16:06 16:06 WBC 7.05 (4.8-10.8) K/uL RBC 3.96 L (4.7-6.1) M/uL Hgb 10.4 L (14.0-18.0) g/dL Hct 30.8 L (42-52) % MCV 77.8 L (80-100) fL MCH 26.3 (25-34) pg MCHC 33.8 (32-36) g/dL RDW Std Deviation 42.5 (36.4-46.3) fL RDW Coeff of Tripp 15.1 H (11.5-14.5) % Plt Count 288 (130-400) K/uL MPV 7.7 (7.4-10.4) fL Immature Gran % (Auto) 0.3 % Neut % (Auto) 87.8 % Lymph % (Auto) 4.7 % Elbert % (Auto) 6.0 % Eos % (Auto) 1.1 % Baso % (Auto) 0.1 % Immature Gran # (Auto) 0.02 (0.00-0.02) K/uL Neut # (Auto) 6.19 (1.4-6.5) K/uL Lymph # (Auto) 0.33 L (1.2-3.4) K/uL Elbert # (Auto) 0.42 (0.11-0.59) K/uL Eos # (Auto) 0.08 (0-0.5) K/uL Baso # (Auto) 0.01 (0-0.2) K/uL PT 13.2 H (9.0-12.0) Seconds INR 1.3 H (0.9-1.1) APTT 29.4 (21.0-31.0) Seconds PTT Ratio 1.1 Sodium 139 (136-145) mmol/L Potassium 3.7 (3.5-5.1) mmol/L Chloride 107 (98-107) mmol/L Carbon Dioxide 26 (21-32) mmol/L Anion Gap 6.0 (3-11) BUN 33 H (7-18) mg/dl Creatinine 0.70 (0.6-1.4) mg/dl Est Cr Clr Drug Dosing 81.6 ml/min Est GFR ( Amer) 101.9 Est GFR (Non-Af Amer) 87.9 BUN/Creatinine Ratio 47.0 H (10-20) Glucose 145 H (70-99) mg/dl Calcium 8.7 (8.5-10.1) mg/dl Magnesium 2.1 (1.8-2.4) mg/dl Total Bilirubin 2.8 H (0.2-1) mg/dl AST 18 (15-37) U/L ALT 16 (12-78) U/L Alkaline Phosphatase 72 (45-117) U/L Troponin I 0.026 (0-0.045) ng/ml Total Protein 6.3 L (6.4-8.2) gm/dl Albumin 2.9 L (3.4-5.0) gm/dl Globulin 3.4 (2.5-4.0) gm/dl Albumin/Globulin Ratio 0.9 (0.9-2) TSH 1.760 (0.300-4.500) uIu/ml Urine Color Urine Appearance (Clear) Urine pH (4.5-7.5) Ur Specific White (1.000-1.030) Urine Protein (Negative) Urine Glucose (UA) (Negative) Urine Ketones (Negative) Urine Blood (Negative) Urine Nitrite (Negative) Urine Bilirubin (Negative) Urine Urobilinogen (Negative) Ur Leukocyte Esterase (Negative) Urine WBC (Auto) (0-5) /hpf Urine RBC (Auto) (0-4) /hpf U Hyaline Cast (Auto) (0-5) /lpf U Epithel Cells (Auto) (0-5) /lpf Urine Bacteria (Auto) (Negative) 11/23/19 Range/Units 19:25 WBC (4.8-10.8) K/uL RBC (4.7-6.1) M/uL Hgb (14.0-18.0) g/dL Hct (42-52) % MCV (80-100) fL MCH (25-34) pg MCHC (32-36) g/dL RDW Std Deviation (36.4-46.3) fL RDW Coeff of Tripp (11.5-14.5) % Plt Count (130-400) K/uL MPV (7.4-10.4) fL Immature Gran % (Auto) % Neut % (Auto) % Lymph % (Auto) % Elbert % (Auto) % Eos % (Auto) % Baso % (Auto) % Immature Gran # (Auto) (0.00-0.02) K/uL Neut # (Auto) (1.4-6.5) K/uL Lymph # (Auto) (1.2-3.4) K/uL Elbert # (Auto) (0.11-0.59) K/uL Eos # (Auto) (0-0.5) K/uL Baso # (Auto) (0-0.2) K/uL PT (9.0-12.0) Seconds INR (0.9-1.1) APTT (21.0-31.0) Seconds PTT Ratio Sodium (136-145) mmol/L Potassium (3.5-5.1) mmol/L Chloride (98-107) mmol/L Carbon Dioxide (21-32) mmol/L Anion Gap (3-11) BUN (7-18) mg/dl Creatinine (0.6-1.4) mg/dl Est Cr Clr Drug Dosing ml/min Est GFR ( Amer) Est GFR (Non-Af Amer) BUN/Creatinine Ratio (10-20) Glucose (70-99) mg/dl Calcium (8.5-10.1) mg/dl Magnesium (1.8-2.4) mg/dl Total Bilirubin (0.2-1) mg/dl AST (15-37) U/L ALT (12-78) U/L Alkaline Phosphatase (45-117) U/L Troponin I (0-0.045) ng/ml Total Protein (6.4-8.2) gm/dl Albumin (3.4-5.0) gm/dl Globulin (2.5-4.0) gm/dl Albumin/Globulin Ratio (0.9-2) TSH (0.300-4.500) uIu/ml Urine Color [place] Urine Appearance Cloudy A (Clear) Urine pH 5.5 (4.5-7.5) Ur Specific White 1.027 (1.000-1.030) Urine Protein 2+ H (Negative) Urine Glucose (UA) Negative (Negative) Urine Ketones Negative (Negative) Urine Blood 3+ H (Negative) Urine Nitrite Positive A (Negative) Urine Bilirubin 1+ H (Negative) Urine Urobilinogen Negative (Negative) Ur Leukocyte Esterase 1+ H (Negative) Urine WBC (Auto) 10-30 H (0-5) /hpf Urine RBC (Auto) >30 H (0-4) /hpf U Hyaline Cast (Auto) 1-5 (0-5) /lpf U Epithel Cells (Auto) 5-10 H (0-5) /lpf Urine Bacteria (Auto) Negative (Negative) Imaging Data Radiologist's Impression: Radiology results as stated below per my review and the radiologist's interpretation: CT cervical spine wo con CLINICAL HISTORY: 84 years-old Male presenting with fall, confusion. TECHNIQUE: Multidetector CT of the cervical spine was performed without the use of intravenous contrast. IV contrast: None. One or more dose lowering techniques were used consistent with the principles of ALARA (as low as reasonably achievable), including automatic exposure control, mA or kV adjustment to individual patient size, and/or use of iterative reconstruction. COMPARISON: None. CT DOSE (mGy.cm): The estimated cumulative dose is 1040.06 mGy.cm. FINDINGS: General Surgery Physician Assistant topogram: Left subclavian implanted cardiac device. Median sternotomy wires. Normal cervical lordosis. Vertebral bodies maintain normal height and alignment. Osteopenia is likely present. Intervertebral disc height loss to varying degrees at several levels. Osseous fusion noted at C5-6. There is mild to moderate posterior bony spurring at C5-6 with resultant spinal canal narrowing greater on the left. Mild facet arthropathy and uncovertebral hypertrophy result in very degrees of osseous neural foraminal narrowing most significant on the left at C3-4. No acute fracture or subluxation. Moderate degenerative changes of the atlantodental articulation. Visualized portion of the skull base intact. Paraspinal soft tissues within normal limits. Moderate to large right pleural effusion noted. Apices otherwise clear. Atherosclerosis. IMPRESSION: 1. Allowing for osteopenia, no acute osseous injury. 2. Mild multilevel degenerative changes. 3. Right pleural effusion. ACT 112: Negative or not required by law. Electronically signed by: Chaz Starkey M.D. 11/23/2019 5:20 PM XR chest 1V portable CLINICAL HISTORY: 84 years-old Male presenting with weakness. TECHNIQUE: Portable upright AP view of the chest was obtained. COMPARISON: 11/02/2019. FINDINGS: Left subclavian pacer with leads to the right atrium and right ventricular apex. Prosthetic aortic valve and median sternotomy wires noted. Atherosclerosis of the aortic arch. Cardiac silhouette mildly enlarged. Significant pulmonary vascular prominence and interstitial prominence has increased from prior. Added density of the mid to lower lungs, right greater than left, new from prior. Small right and trace left pleural effusion suspected. No pneumothorax. Ost eopenia suspected. Old left posterior rib fracture. Upper abdomen normal. IMPRESSION: 1. Cardiomegaly with significant volume overload, congestive change, and moderate pulmonary edema. Aspiration or multifocal infection considered less likely. 2. Suspected small right and trace left pleural effusions. ACT 112: Negative or not required by law. Electronically signed by: Chaz Starkey M.D. 11/23/2019 3:[address] OF THE HEAD WITHOUT CONTRAST CLINICAL HISTORY: fall COMPARISON STUDY: Head CT November 02, 2019. TECHNIQUE: Helical axial images of the head were obtained without IV contrast. Automated exposure control was utilized for the study. A dose lowering technique was utilized adhering to the principles of ALARA. FINDINGS: No acute intrathoracic cranial hemorrhage, midline shift or mass effect is present. Ventricular system is stable. Prominence of the extra-axial spaces is unchanged, due to atrophy. Basilar cisterns are patent. There are no extra axial fluid collections. There are no findings to suggest acute dural sinus thrombosis or acute territorial infarct. Mild white matter hypodensity suggests small vessel disease. There is no calvarial fracture. IMPRESSION: 1. No acute intracranial findings. No change in appearance of the brain. 2. No calvarial fracture. ACT 112: Negative or not required by law. Electronically signed by: Troy Dejesus M.D. 11/23/2019 5:20 PM ECG Data Attestation: I personally reviewed and interpreted this ECG as follows: Indication: + weakness Rate (beats per minute): 66 Rhythm: + other (ventricularly paced) ECG Intervals/blocks: + Left bundle branch block ECG Findings: + PVCs Comparison ECG Date: from (11/13/2019) Change: no significant change Blood Pressure Blood Pressure Findings: Elevated blood pressure Blood Pressure Disposition: elevated BP felt to be situational MDM Narrative The patient is an 84-year-old male who presented to the emergency department for an evaluation. History was obtained from the prehospital personnel. They state the patient has had frequent falls and more confusion. They also initially stated that the family was interested in help with hospice or possible placement. When the patient's significant other arrived she stated that she did not wish to discuss hospice rather she was concerned as to why the patient's condition had started to decline over the last few months. The patient has been seen in our facility recently for urinary tract infection. He also had a procedure on his right wrist. She was concerned that this area may be infected. There is significant erythema in the postoperative state but there is no drainage or discharge. The patient had no fever. His white blood cell count was normal. Reviewed the patient's laboratory and radiographic studies do reveal the patient has become more anemic over the last few months. He is also had an elevation in his bilirubin. He was treated with IV fluids in the emergency department but does have signs of volume overload on chest x-ray. The patient has another urinary tract infection and was treated with an IV antibiotic. I discussed the patient's condition with the on-call [facility] hospitalist. It is possible the patient may require further inpatient management to determine if there is an acute process causing the patient's presentation this evening or if this is worsening of his underlying dementia. I am concerned about the patient's safety at home given his frequent falls. Impression & Plan AMS (altered mental status), Fall, Hyperbilirubinemia, UTI (urinary tract infection), Dehydration, Anemia, Contusion of left shoulder Discharge Plan Visit Data Chief Complaint: Illness Stated Complaint: WEAKNESS, ED Provider: Herbie Hernandes Discharge Problem: AMS (altered mental status), Fall, Hyperbilirubinemia, UTI (urinary tract infection), Dehydration, Anemia, Contusion of left shoulder Patient Disposition: Being Evaluated by Hospitalist Forms Stand Alone Forms: My [facility] Prescriptions Prescriptions: No Action metoprolol succinate 50 mg tablet extended release 24 hr 25 mg PO QAM Qty: 90 RF: 1 finasteride 5 mg tablet 5 mg PO QAM Qty: 90 RF: 1 aspirin 81 mg tablet,delayed release (DR/EC) 81 mg PO QAM RF: 0 donepezil 10 mg tablet 10 mg PO QAM RF: 0 amlodipine 2.5 mg tablet 2.5 mg PO QAM RF: 0 montelukast 10 mg Tablet 10 mg PO DAILY RF: 0 Referrals Referrals: Jesus Garcia MD [Primary Care Provider] - Discharge Problem: AMS (altered mental status) Qualifiers: Altered mental status type: unspecified Qualified Code(s): R41.82 - Altered mental status, unspecified Fall Qualifiers: Encounter type: initial encounter Qualified Code(s): W19.XXXA - Unspecified fall, initial encounter UTI (urinary tract infection) Qualifiers: Urinary tract infection type: site unspecified Hematuria presence: with hematuria Qualified Code(s): N39.0 - Urinary tract infection, site not specified Anemia Qualifiers: Anemia type: unspecified type Qualified Code(s): D64.9 - Anemia, unspecified Contusion of left shoulder Qualifiers: Encounter type: initial encounter Qualified Code(s): S40.012A - Contusion of left shoulder, initial encounter The scribe's documentation has been prepared under my direction and personally reviewed by me in its entirety. I confirm that the note above accurately reflects all work, treatment, procedures, and medical decision making performed by me.
[2019-11-23 16:19] LABS: Basophils # (auto) 0.01 K/uL (0-0.2); Basophils % (auto) 0.1 %; Eosinophils # (auto) 0.08 K/uL (0-0.5); Eosinophils % (auto) 1.1 %; Hematocrit (blood only) 30.8 % (42-52); Hemoglobin 10.4 g/dL (14.0-18.0); Immature Granulocytes # (auto) 0.02 K/uL (0.00-0.02); Immature Granulocytes % (auto) 0.3 %; Lymphocytes # (auto) 0.33 K/uL (1.2-3.4); Lymphocytes % (auto) 4.7 %; Mean Corpuscular Hemoglobin 26.3 pg (25-34); Mean Corpuscular Hgb Conc 33.8 g/dL (32-36); Mean Corpuscular Volume 77.8 fL (80-100); Mean Platelet Volume 7.7 fL (7.4-10.4); Monocytes # (auto) 0.42 K/uL (0.11-0.59); Neutrophils # (auto) 6.19 K/uL (1.4-6.5); Neutrophils % (auto) 87.8 %; Platelet Count 288 K/uL (130-400); RDW Coefficient of Variation 15.1 % (11.5-14.5); RDW Standard Deviation 42.5 fL (36.4-46.3); Red Blood Count 3.96 M/uL (4.7-6.1); White Blood Count 7.05 K/uL (4.8-10.8)
[2019-11-23 16:31] LABS: INR 1.3 (0.9-1.1); Partial Thromboplastin Ratio 1.1; Partial Thromboplastin Time 29.4 Seconds (21.0-31.0); Prothrombin Time 13.2 Seconds (9.0-12.0)
[2019-11-23 16:39] LABS: Albumin Level 2.9 gm/dl (3.4-5.0); Calcium 8.7 mg/dl (8.5-10.1); Creatinine Clr Calc Pharmacy 81.6 ml/min; Est GFR (African American) 101.9; Est GFR (Non-African American) 87.9; Magnesium 2.1 mg/dl (1.8-2.4); Potassium 3.7 mmol/L (3.5-5.1)
[2019-11-23 16:51] LABS: Albumin Globulin Ratio 0.9 (0.9-2); Bilirubin,Total 2.8 mg/dl (0.2-1); Globulin 3.4 gm/dl (2.5-4.0); Thyroid Stimulating Hormone 1.76 uIu/ml (0.300-4.500); Total Protein 6.3 gm/dl (6.4-8.2); Troponin I 0.026 ng/ml (0-0.045)
--- NOTE | 2019-11-23 17:21 | CT Scan Report ---
CT OF THE HEAD WITHOUT CONTRAST CLINICAL HISTORY: fall COMPARISON STUDY: Head CT November 02, 2019. TECHNIQUE: Helical axial images of the head were obtained without IV contrast. Automated exposure con trol was utilized for the study. A dose lowering technique was utilized adhering to the principles o f ALARA. FINDINGS: No acute intrathoracic cranial hemorrhage, midline shift or mass effect is present. Ventric ular system is stable. Prominence of the extra-axial spaces is unchanged, due to atrophy. Basilar cis terns are patent. There are no extra axial fluid collections. There are no findings to suggest acute dural sinus thrombosis or acute territorial infarct. Mild white matter hypodensity suggests small ves talia disease. There is no calvarial fracture. IMPRESSION: 1. No acute intracranial findings. No change in appearance of the brain. 2. No calvarial fracture. ACT 112: Negative or not required by law. Electronically signed by: Troy Dejesus M.D. 11/23/2019 5:20 PM
--- NOTE | 2019-11-23 17:22 | CT Scan Report ---
CT cervical spine wo con CLINICAL HISTORY: 84 years-old Male presenting with fall, confusion. TECHNIQUE: Multidetector CT of the cervical spine was performed without the use of intravenous contra st. IV contrast: None. One or more dose lowering techniques were used consistent with the principles of ALARA (as low as reasonably achievable), including automatic exposure control, mA or kV adjustment to individual patient size, and/or use of iterative reconstruction. COMPARISON: None. CT DOSE (mGy.cm): The estimated cumulative dose is 1040.06 mGy.cm. FINDINGS: Cord Cutter topogram: Left subclavian implanted cardiac device. Median sternotomy wires. Normal cervical lordosis. Vertebral bodies maintain normal height and alignment. Osteopenia is likely present. Intervertebral disc height loss to varying degrees at several levels. Osseous fusion noted at C5-6. There is mild to moderate posterior bony spurring at C5-6 with resultant spinal canal narrow ing greater on the left. Mild facet arthropathy and uncovertebral hypertrophy result in very degrees of osseous neural foraminal narrowing most significant on the left at C3-4. No acute fracture or subl uxation. Moderate degenerative changes of the atlantodental articulation. Visualized portion of the s kull base intact. Paraspinal soft tissues within normal limits. Moderate to large right pleural effus ion noted. Apices otherwise clear. Atherosclerosis. IMPRESSION: 1. Allowing for osteopenia, no acute osseous injury. 2. Mild multilevel degenerative changes. 3. Right pleural effusion. ACT 112: Negative or not required by law. Electronically signed by: Chaz Starkey M.D. 11/23/2019 5:20 PM
[2019-11-23 19:38] LABS: Appearance Urine Cloudy (Clear); Bacteria Urine Automated Negative (Negative); Blood Urine 3+ (Negative); Color Urine Orange; Glucose Urine UA Negative (Negative); Ketones Urine Negative (Negative); Leukocyte Esterase Urine 1+ (Negative); Nitrite Urine Positive (Negative); Protein Urine 2+ (Negative); RBC Urine Automated >30 /hpf (0-4); Specific Gravity Urine 1.027 (1.000-1.030); Urobilinogen Urine Negative (Negative); pH Urine 5.5 (4.5-7.5)
[2019-11-23 19:41] LABS: Bilirubin Urine 1+ (Negative)
[2019-11-23 19:42] LABS: Ictotest Urine Positive (Negative)
[2019-11-23] MEDS ORDERED: cefTRIAXone SODIUM 1,000 MG/50 ML BAG IV STA (19:51)
[2019-11-23] MEDS ORDERED: SODIUM CHLORIDE 0.9% 1000ML 500 ML IV ONE (19:51)
--- NOTE | 2019-11-23 20:51 | XRay Report ---
XR scapula LT CLINICAL HISTORY: fall COMPARISON: Chest radiograph November 02, 2019. FINDINGS: Left shoulder subclavian pacer is noted. Old left rib fractures are noted. There is no acu te fracture within the left scapula. Alignment of the left shoulder is anatomic. IMPRESSION: No acute fracture within the left scapula. ACT 112: Negative or not required by law. Electronically signed by: Troy Dejesus M.D. 11/23/2019 8:49 PM
--- NOTE | 2019-11-23 22:42 | History & Physical Report ---
Date of Service November 23, 2019 Assessment & Plan (1) AMS (altered mental status): Luis Carlos is an 84-year-old male with a past medical history of severe dementia, A. fib, CAD, hypertension, lacunar stroke, SEBLE, wide-complex tachycardia who presents with 1 week of new incontinence with weakness/fall in the shower. Weakness/fall 2/2 progressive dementia versus infectious metabolic encephalopathy CT head no acute findings X-ray of the scapula shows no acute findings or fracture CT spine shows no acute findings or fracture Concern for UTI as discussed below Progressive dementia as discussed below Patient previously able to ambulate with the assistance of his , but does not ambulate independently Severe dementia, Alzheimer's versus parkinsonian Patient's reports he has never had a history of Parkinson's, although he has a first-degree relative that passed from Parkinson's He has had progressive dementia for many years, severe, and no longer gives meaningful answers to most questions He has a resting cogwheeling tremor in both hands at rest. With patient's ext remely advanced disease even if diagnosis were confirmed as parkinsonian dementia he is unlikely to have substantial benefit or alteration in his clinical course even with trials of dopaminergic medication. Continue donepezil 10 mg p.o. every morning Concern for UTI Prior E faecalis UTI treated 10/31 treated with amoxicillin UA on admission with 5-10 epithelial cells, leukocyte esterase and white blood cells but no bacteria Treated empirically in ED with Rocephin 1 g UC pending Hypertension/CAD Continue aspirin 81 mg Continue amlodipine 2.5 mg p.o. every morning Continue metoprolol succinate 50 mg daily Depletion with inadequate p.o. intake IV fluids in ED, 1.5 L given Periodic reassessment fluid status given chest x-ray findings Gentle LR at 50 cc/h, bolus as needed BMP daily History of wide complex tachycardia Continue metoprolol as above Diet: SALES SECRETARY consulted DVT prophylaxis: Heparin 5000 units every 12 Disposition: Med surg with one-to-one. Patient is nonviolent but pulls medical equipment, and requires require redirection. (2) UTI (urinary tract infection): (3) Ganglion cyst of dorsum of right wrist: (4) Hyperbilirubinemia: (5) Fall: (6) Atrial fibrillation with RVR: (7) Dementia with Parkinsonism: History of Present Illness Chief Complaint: Weakness, fall Primary Care Provider: Silas Garcia MD Luis Carlos is an 84-year-old male with a past medical history of severe dementia, A. fib, CAD, hypertension, lacunar stroke, SEBLE, and wide-complex tachycardia with a recent hospital admit for UTI treated with amoxicillin who presents with weakness and a fall for approximately 1 week in addition to new incontinence. 5 days ago he was found in the shower with his close on thought to be down for approximately 1 hour by his . Since that time he has had difficulty ambulating, and has had very frequent urinary incontinence. His became concerned and wanted him evaluated in the ED for UTI, she was mostly concerned because he has had minimal oral intake for couple of days. He lives at home, his and daughter have started exploring hospice options given his advanced dementia and difficulty at home. On admission to the emergency department he was found to have leukocyte esterase and white blood cells in his urine, 5-10 epithelial cells and no gaby bacteria. He was given empiric Rocephin and IV fluids. Chest x-ray on admission showed signs of trace effusion with volume overload, he has no history of heart failure and has never needed Lasix. CT head showed no acute findings, x-ray of the left scapula where he fell showed no acute findings, CT spine showed no acute findings or fracture. Patient's history is extremely limited by severe dementia, he is redirectable but does not give meaningful answers to questions or follow commands. Medical history: As above Surgical history: Reviewed in EMR Family history: Family history of Parkinson's. Remaining history reviewed Allergies: No known drug allergies Social: Lives at home with his , their daughter assist in his care and is a nurse. No alcohol, no tobacco, no recreational drug use. CODE STATUS: DNR/DNI. Allergies Allergy/AdvReac Type Severity Reaction Status Date / Time No Known Drug Allergies Allergy Unknown none Verified 11/23/19 16:47 Home Medications Home Medications Medication Instructions Recorded Confirmed Type aspirin 81 mg tablet,delayed 81 mg PO QAM tab 06/20/19 11/23/19 History release metoprolol succinate 50 mg 25 mg PO QAM #90 tab 09/05/19 11/23/19 Rx tablet,extended release 24 hr finasteride 5 mg tablet 5 mg PO QAM #90 tab 11/09/19 11/23/19 Rx amlodipine 2.5 mg PO QAM 11/23/19 11/23/19 History donepezil 10 mg PO QAM 11/23/19 11/23/19 History montelukast 10 mg PO DAILY 11/23/19 11/23/19 History Past Med/Surg History Medical History Abnormal urine cytology (Acute) PT'S UNAWARE Afib DX YEARS AGO> NO CARDIOVERSIONS >PACEMAKER Ambulatory dysfunction (Acute) Ankylosing spondylitis Anxiety (Acute) Aortic stenosis (Acute) Aortic valve disorder (Resolved) Arthritis (Acute) Atherosclerosis of aorta (Acute) Atrial flutter (Acute) Benign prostatic hyperplasia with urinary obstruction (Acute) BPH (benign prostatic hyperplasia) CAD, multiple vessel (Acute) FOLLOWS DR. PACHECO Cerebral atrophy (Acute) Chronic gout (Acute) NO MEDS GERD (gastroesophageal reflux disease) (Chronic) Hearing deficit Hearing loss (Acute) Heart disease (Resolved) Hematuria, microscopic (Acute) RESOLVED History of anesthesia reaction after last aortic valve replacement, confused for days Hyperglycemia (Chronic) Hypertension (Acute) IPMN (intraductal papillary mucinous neoplasm) (Acute) PT'S UNAWARE Kidney disease (Chronic) FOLLOWS DR. LEAVITT > [place] Kidney stone (Chronic) Lacunar stroke (Resolved) PT'S UNAWARE Leukopenia (Acute) Mixed dementia (Chronic) Orthostatic hypotension (Acute) Pacemaker 07/06/2015 @ [facility]--meditronic> LAST CHECKED JUN 2019. Polyarthritis, unspecified (Acute) Postoperative anemia (Acute) HX Senile dementia of Alzheimer's type (Chronic) Sick sinus syndrome (Acute) Sleep apnea (Chronic) was wearing 2L N/C hs prn--stopped using all together> NO LONGER USING CPAP Tubular adenoma of colon (Acute) Urinary hesitancy (Acute) UTI (urinary tract infection) DC'ED FROM [facility] 11/06/19 > STILL ON AMOXICILLIN Vitamin B12 deficiency (Acute) Vocal cord paralysis (Acute) RESOLVED Weight loss (Acute) Wide-complex tachycardia (Acute) Surgical History History of aortic valve replacement x2--2003 @ [facility] [place], 2009 @ [facility] [place]--follows with Dr. Pacheco History of arthroscopy of left knee History of bilateral cataract extraction History of cardiac cath 09/13/2010 @ [facility] > NO STENTS History of cardiac radiofrequency ablation 06/2016 @ [facility] History of cholecystectomy History of colonoscopy History of ear surgery skin graft to right eardrum History of endoscopic sinus surgery History of lithotripsy x2 History of open reduction and internal fixation (ORIF) procedure right hip History of tonsillectomy and adenoidectomy History of tooth extraction History of wisdom tooth extraction Hx of vasectomy Superficial basal cell carcinoma of skin of right shoulder (Acute) WITH REMOVAL Family History Brother Family history of diabetes mellitus Sister Family history of diabetes mellitus Unknown Diabetes FH: deafness or hearing loss FHx: allergies Father Aneurysm of abdominal aorta Other No family history of adverse response to anesthesia Social History Preferred Language: Vietnamese Communication Ability: Effective Communication Ability Comment: dementia Hearing Ability: Hard of Hearing Embedded Software Programmer Required: No Beliefs That Will Affect Care: None Current Living Situation: Spouse current occupational status: retired Feels Safe at Home: Yes Smoking Status: Never smoker Second Hand Exposure: Yes ; Hx Alcohol Use: No Hx Substance Use: No Review of Systems Review of Systems: Unobtainable due to cognitive status Physical Exam Physical Exam: General: Patient does not give meaningful answers to questions. Awake, alert, no acute distress. HEENT: Mucous membranes tacky, external ear and nasal anatomy atraumatic Pulm: CTAB A&P. -wheezes, -rales, -rhonchi. Symmetrical chest rise. No increase work of breathing. No respiratory distress. Cardiac: RRR, -mrg. Radial pulses intact and symmetrical. No JVD appreciated Abdominal: Nontender, nondistended, soft. BS present. Pupils are equal and react to light and accomidation. Visual acuity grossly intact No facial asymmetry. Extremity: Right dorsal wrist and hand with postsurgical incision from cyst excision. Mild erythema without warmth, slight crust without overt discharge. No fluctuance. Patient does not withdraw or show painful response to firm palpation. No lower extremity pitting edema bilaterally. Results & Data Vital Signs (Past 12 Hours) Vital Signs Temp Pulse Pulse Resp BP BP Pulse Ox 11/23/19 22:14 82 20 152/75 H 95 11/23/19 19:00 110 H 22 120/53 L 11/23/19 17:00 66 20 146/61 H 98 11/23/19 15:24 98 11/23/19 15:17 36.5 C 88 25 H 136/67 99 Supervising Physician Co-Signing Physician Notes Patient was seen and examined by me personally. I reviewed the chart, the orders and discussed the case in detail with Dr. Chaz Maya MD . I read this H&P and agree with its contents to entirety. As I visited the patient at around 0200, he was awake and "fidgety" according to 1:1 nursing. As such, I gave dose of lorazepam 0.5mg and Benadryl 25mg. Resident Activity Tracking Resident Involvement: Resident Care Provided Care Provided: Adult Hospital Medicine (1) UTI (urinary tract infection) Hematuria presence: with hematuria Urinary tract infection type: site unspecified Qualified Code(s): N39.0 - Urinary tract infection, site not specified; R31.9 - Hematuria, unspecified (2) AMS (altered mental status) Altered mental status type: unspecified Qualified Code(s): R41.82 - Altered mental status, unspecified (3) Fall Encounter type: initial encounter Qualified Code(s): W19.XXXA - Unspecified fall, initial encounter
[2019-11-23] MEDS ORDERED: LACTATED RINGER'S 1,000 ML IV SCH (23:21)
[2019-11-24] MEDS ORDERED: DiphenhydrAMINE HCL 50 MG/ML VIAL IV ONE (02:32)
[2019-11-24] MEDS ORDERED: LORazepam 0.5 MG/1 ML VIAL IV ONE (02:32)
[2019-11-24 05:56] LABS: Basophils # (auto) 0.01 K/uL (0-0.2); Basophils % (auto) 0.2 %; Eosinophils # (auto) 0.07 K/uL (0-0.5); Eosinophils % (auto) 1.2 %; Hematocrit (blood only) 30.7 % (42-52); Hemoglobin 10.1 g/dL (14.0-18.0); Immature Granulocytes # (auto) 0.02 K/uL (0.00-0.02); Immature Granulocytes % (auto) 0.3 %; Lymphocytes # (auto) 0.41 K/uL (1.2-3.4); Lymphocytes % (auto) 6.9 %; Mean Corpuscular Hemoglobin 26.2 pg (25-34); Mean Corpuscular Hgb Conc 32.9 g/dL (32-36); Mean Corpuscular Volume 79.7 fL (80-100); Mean Platelet Volume 8.4 fL (7.4-10.4); Monocytes % (auto) 6.7 %; Neutrophils # (auto) 5.02 K/uL (1.4-6.5); Neutrophils % (auto) 84.7 %; Platelet Count 306 K/uL (130-400); RDW Coefficient of Variation 15.4 % (11.5-14.5); RDW Standard Deviation 43.7 fL (36.4-46.3); Red Blood Count 3.85 M/uL (4.7-6.1); White Blood Count 5.93 K/uL (4.8-10.8)
[2019-11-24 06:31] LABS: Calcium 8.5 mg/dl (8.5-10.1); Creatinine Clr Calc Pharmacy 81.1 ml/min; Est GFR (African American) 102.5; Est GFR (Non-African American) 88.4; Potassium 3.4 mmol/L (3.5-5.1)
[2019-11-24] MEDS: HEPARIN SOD 5,000 UNIT/0.5 ML VIAL SQ SCH ×2 (11:02→21:22)
[2019-11-24] MEDS: FINASTERIDE 5 MG TAB PO SCH (12:54)
[2019-11-24] MEDS: ASPIRIN 81 MG ECTAB PO SCH (12:54)
[2019-11-24] MEDS: AMLODIPINE BESYLATE 5 MG TAB PO SCH (12:54)
[2019-11-24] MEDS: DONEPEZIL HCL 10 MG TAB PO SCH (12:55)
[2019-11-24] MEDS: MONTELUKAST SODIUM 10 MG TABLET PO SCH (12:55)
[2019-11-24] MEDS: METOPROLOL SUCC 25MG EXT REL TAB PO SCH (12:55)
--- NOTE | 2019-11-24 13:12 | Electrocardiogram Report ---
Test Reason : Blood Pressure : / mmHG Vent. Rate : 066 BPM Atrial Rate : 065 BPM P-R Int : 000 ms QRS Dur : 170 ms QT Int : 512 ms P-R-T Axes : 002 -77 079 degrees QTc Int : 536 ms Poor data quality, interpretation may be adversely affected Ventricular-paced rhythm with occasional Premature ventricular complexes Abnormal ECG When compared with ECG of 02-NOV-2019 08:27, Vent. rate has decreased BY 16 BPM Confirmed by Justo Pachceo ([id number]) on 11/24/2019 1:11:57 PM Referred By: REFERRED SELF Confirmed By:Justo Pacheco
[2019-11-24] MEDS: ACETAMINOPHEN 325 MG TAB PO SCH ×4 (14:16→21:24)
[2019-11-24] MEDS ORDERED: ONDANSETRON INJ 2 MG/ML 2 ML VIAL IV PRN (15:09)
--- NOTE | 2019-11-24 19:19 | Hospitalist Progress Note ---
Date of Service November 24, 2019 Assessment & Plan (1) AMS (altered mental status): - Progressive dementia vs infectious vs dehydration/metabolic encephalopathy - Reports less than a week ago sustaining a fall in the shower and possibly down approx. 1 hour until found - question possibly aspiration event after fall/increased weakness given CXR findings as he does not appear overtly overloaded -- Family states he does have chronic sinusitis and post-nasal drip; also can ask if the fall in the shower was with water running - maybe had an aspiration event then? - no leukocytosis/no fever, oxygen saturations appropriate on RA - Will obtain F/U CXR in AM and assess need for change of Abx to cover for an aspiration component - Gently given IVF through the day. Will monitor off fluid for the night given CXR findings and can restart in AM if oral intake still reduced/pulmonary status is good -- reporting limited intake over past couple days (2) UTI (urinary tract infection): - Seems to have chronic enterococcus faecalis in urine culture - did finish Abx recently from last admission (14 day course) - Family states he then developed hematuria, urinary incontinence, and worsening confusion/weakness - UCx so far with no growth - Maybe a component of colonization? Maybe benefit from suppressive Abx - Family would like to discuss with Urology as patient follows with Dr. Silvestre - question if stone management needs to be address or cystoscopy? (3) Ganglion cyst of dorsum of right wrist: - Recent removal by Dr. Reyna - Family states he would not leave bandage alone and would rub this area - skin is mildly erythematous around incision which may be post-operative inflammation - no drainage or wound dehiscence - Continue Rocephin which would cover skin organisms and re-assess (4) Hyperbilirubinemia: - Chronic; only mild elevation in direct bili - Possibly [place]? he is S/P Cholecystectomy and liver marked as unremarkable on CT from Oct 2019 (5) Fall: - Will check CK in AM - even though is a few days out from fall - No acute injury on imaging - PT/OT - normally ambulates with assistance of (6) Dementia with Parkinsonism: - STABLE - maybe progressive? - Possibility of parkinsonism component? However at this stage initiating dopaminergic medications would likely yield limited benefits Disposition: Met with patient, , daughter, grand-daughters. Some mixed thoughts on how to advance forward. Per chart some have mentioned consideration for hospice services. Some are looking for ongoing treatments/interventions while others considering a more conservative approach. Did discuss palliative care consultation and family does agree at this time to discuss as a family on goals of care. This can ultimately help with discharge planning; PT/OT Admission and Anticipated Discharge Date Admission Date: November 23, 2019 Supervising Physician Co-Signing Physician Notes PA Supervision Note: I did not personally see or examine the patient today, but I verified all ram points of NANCI Brand's assessment and plan with the following exceptions/additions: None Subjective Patient is alert. Have advanced dementia so conversation is limited. Family states over the past couple days he has appeared more confused and talking was a little worse however can understand some words now but his speech is very limited at baseline. They also reported that his Abx stopped on Thursday and since they noticed increased confusion/hematuria. Family states they have not noticed any new symptoms to explain weakness or worsening confusion other then urinary source. He does have a chronic sinusitis/postnasal drip and a son that was recently diagnosed with influenza. Review of Systems Review of Systems: Unobtainable due to cognitive status (advanced dementia) Physical Exam Constitutional: + frail appearing; no acute distress Eyes: + anicteric sclerae ENMT: Ears: no hearing impairment Neck: trachea midline Respiratory: normal respiratory effort cannot follow commands for deep breathing so limited exam - possibly some crackles in bases Cardiovascular: Rate/Rhythm: regular rate and regular rhythm Heart Sounds: no murmur Vessels: no JVD Gastrointestinal (Abdomen): Inspection/Auscultation: normal bowel sounds Percussion/Palpation: abdomen soft; abdomen nontender Musculoskeletal: R wrist incisions with mild erythema at site but incisions well-approximated and no drainage. No tenderness to palp Skin: no rashes, warm and dry (other than mentioned in MS section) Neurologic: moves all extremities Psychiatric: Orientation: alert and oriented to person Results & Data ([facility]) Vital Signs (Past 12 Hours) Vital Signs Temp Pulse Resp BP Pulse Ox 11/24/19 15:18 36.8 C 64 18 140/68 98 11/24/19 10:54 97 11/24/19 08:22 36.8 C 40 L 18 138/66 11/24/19 08:00 68 PG Care Time/CCT Total # of Minutes Spent Total Time Spent with Patient: Total time spent is greater than 50% in coordination of care (as documented) at patient's floor/unit and/or counseling patient: Coding Level of Care Code 71315 Subseq Hosp Care Lvl 3 Diagnoses AMS (altered mental status) R41.82 Altered mental status type: unspecified UTI (urinary tract infection) N39.0; R31.9 Hematuria presence: with hematuria Urinary tract infection type: site unspecified Ganglion cyst of dorsum of right wrist M67.431 Hyperbilirubinemia E80.6 Fall W19.XXXA Encounter type: initial encounter Dementia with Parkinsonism G31.83; F02.80 (1) UTI (urinary tract infection) Hematuria presence: with hematuria Urinary tract infection type: site unspecified Qualified Code(s): N39.0 - Urinary tract infection, site not specified; R31.9 - Hematuria, unspecified (2) AMS (altered mental status) Altered mental status type: unspecified Qualified Code(s): R41.82 - Altered mental status, unspecified (3) Fall Encounter type: initial encounter Qualified Code(s): W19.XXXA - Unspecified fall, initial encounter
[2019-11-24] MEDS: cefTRIAXone SODIUM 2,000 MG in DEXTROSE 5% 50 ML IV SCH (19:54)
[2019-11-25] MEDS: ACETAMINOPHEN 325 MG TAB PO SCH ×6 (01:21→21:54)
[2019-11-25 06:22] LABS: Hematocrit (blood only) 31.2 % (42-52); Hemoglobin 10.4 g/dL (14.0-18.0); Mean Corpuscular Hemoglobin 25.9 pg (25-34); Mean Corpuscular Hgb Conc 33.3 g/dL (32-36); Mean Corpuscular Volume 77.6 fL (80-100); Mean Platelet Volume 7.8 fL (7.4-10.4); Platelet Count 348 K/uL (130-400); RDW Coefficient of Variation 15.4 % (11.5-14.5); RDW Standard Deviation 42.6 fL (36.4-46.3); Red Blood Count 4.02 M/uL (4.7-6.1); White Blood Count 8.93 K/uL (4.8-10.8)
[2019-11-25 06:49] LABS: BUN Creatinine Ratio 40.4 (10-20); Calcium 8.7 mg/dl (8.5-10.1); Creatinine Clr Calc Pharmacy 86.1 ml/min; Est GFR (Non-African American) 90.6; Potassium 3.6 mmol/L (3.5-5.1)
[2019-11-25 06:54] LABS: Ferritin 105.2 ng/ml (8-388)
--- NOTE | 2019-11-25 07:24 | XRay Report ---
XR chest 1V portable HISTORY: 84 years-old Male F/U Fluid follow-up study in a patient with shortness of breath and conge stive heart failure COMPARISON: Chest radiograph 11/23/2019 TECHNIQUE: Portable AP view of the chest FINDINGS: Cardiac silhouette is enlarged. Prior median sternotomy. Calcified plaque the thoracic aortic arch. L eft subclavian pacer. There is persistent right greater left pulmonary edema with slightly worsened o pacities throughout the right lung. No pneumothorax. Right greater than left pleural effusions have m ildly increased in size and there is persistent right greater left bibasilar opacities. Degenerative changes of the shoulders and spine. IMPRESSION: 1. Cardiomegaly with stable to slightly worsened pulmonary edema. 2. Slightly increased size of the right greater than left pleural effusions. 3. Persistent bibasilar consolidation. ACT 112: Negative or not required by law. The above report was generated using voice recognition software. It may contain grammatical, syntax o r spelling errors. Electronically signed by: Bob Quinn M.D. 11/25/2019 7:23 AM
[2019-11-25] MEDS: METOPROLOL SUCC 25MG EXT REL TAB PO SCH (07:54)
[2019-11-25] MEDS: AMLODIPINE BESYLATE 5 MG TAB PO SCH (07:54)
[2019-11-25] MEDS: ASPIRIN 81 MG ECTAB PO SCH (07:55)
[2019-11-25] MEDS: MONTELUKAST SODIUM 10 MG TABLET PO SCH (07:55)
[2019-11-25] MEDS: DONEPEZIL HCL 10 MG TAB PO SCH (07:56)
[2019-11-25] MEDS: FINASTERIDE 5 MG TAB PO SCH (07:57)
[2019-11-25] MEDS: HEPARIN SOD 5,000 UNIT/0.5 ML VIAL SQ SCH ×2 (07:57→20:44)
--- NOTE | 2019-11-25 12:51 | Urology Consultation ---
Date of Consultation November 25, 2019 Assessment & Plan (1) Recurrent UTI (urinary tract infection): 84 yo M with dementia and multiple comorbidities admitted for weakness after fall, increased confusion, and suspected urinary tract infection. Reviewed case with Dr. Leavitt Reason for admission likely multifactorial UC&S reviewed and not suggestive of infection Monitor bladder scans prn Will follow-up outpatient as scheduled Thank you for allowing us to participate in the acute care of Mr. Arzate. Please reconsult us with additional questions, concerns or changes in patient status. History of Present Illness Attending Physician: Venus Vidal MD History of Present Illness 84 yo M with dementia and multiple comorbidities admitted for weakness after fall, increased confusion, and suspected urinary tract infection. Admitted via [facility] ED on 11/23/19 after fall 5 days prior to arrival. Per chart notes, he was found down in the shower with his clothes on, thought he was down for approximately 1 hour. Subsequently had difficulty ambulating, and very frequent urinary incontinence. His became concerned for UTI and dehydration, reporting minimal oral intake for past few days. On admission to the emergency department he was found to have leukocyte esterase and white blood cells in his urine, 5-10 epithelial cells, positive nitrites, and no bacteria. He was given empiric Rocephin and IV fluids. Chart review: Afebrile Cr - 0.65 WBC - 8.93 UC&S - contamination, low counts On IV ceftriaxone Alert, sitting up in bedside chair. and granddaughter at bedside. ROS not obtainable due to cognitive status. Patient appears comfortable. Voiding spontaneously. denies recent hematuria. No complaints at this time. states that they are discussing palliative care at this time. Patient follows with [facility], Dr. Leavitt for history of hematuria, kidney stones. Allergies Allergy/AdvReac Type Severity Reaction Status Date / Time No Known Drug Allergies Allergy Unknown none Verified 11/23/19 16:47 Home Medications Home Medications Medication Instructions Recorded Confirmed Type aspirin 81 mg tablet,delayed 81 mg PO QAM tab 06/20/19 11/23/19 History release metoprolol succinate 50 mg 25 mg PO QAM #90 tab 09/05/19 11/23/19 Rx tablet,extended release 24 hr finasteride 5 mg tablet 5 mg PO QAM #90 tab 11/09/19 11/23/19 Rx amlodipine 2.5 mg PO QAM 11/23/19 11/23/19 History donepezil 10 mg PO QAM 11/23/19 11/23/19 History montelukast 10 mg PO DAILY 11/23/19 11/23/19 History Patient History Medical History Abnormal urine cytology (Acute) PT'S UNAWARE Afib DX YEARS AGO> NO CARDIOVERSIONS >PACEMAKER Ambulatory dysfunction (Acute) Ankylosing spondylitis Anxiety (Acute) Aortic stenosis (Acute) Aortic valve disorder (Resolved) Arthritis (Acute) Atherosclerosis of aorta (Acute) Atrial flutter (Acute) Benign prostatic hyperplasia with urinary obstruction (Acute) BPH (benign prostatic hyperplasia) CAD, multiple vessel (Acute) FOLLOWS DR. PACHECO Cerebral atrophy (Acute) Chronic gout (Acute) NO MEDS GERD (gastroesophageal reflux disease) (Chronic) Hearing deficit Hearing loss (Acute) Heart disease (Resolved) Hematuria, microscopic (Acute) RESOLVED History of anesthesia reaction after last aortic valve replacement, confused for days Hyperglycemia (Chronic) Hypertension (Acute) IPMN (intraductal papillary mucinous neoplasm) (Acute) PT'S UNAWARE Kidney disease (Chronic) FOLLOWS DR. LEAVITT > [place] Kidney stone (Chronic) Lacunar stroke (Resolved) PT'S UNAWARE Leukopenia (Acute) Mixed dementia (Chronic) Orthostatic hypotension (Acute) Pacemaker 07/06/2015 @ [facility]--meditronic> LAST CHECKED JUN 2019. Polyarthritis, unspecified (Acute) Postoperative anemia (Acute) HX Senile dementia of Alzheimer's type (Chronic) Sick sinus syndrome (Acute) Sleep apnea (Chronic) was wearing 2L N/C hs prn--stopped using all together> NO LONGER USING CPAP Tubular adenoma of colon (Acute) Urinary hesitancy (Acute) UTI (urinary tract infection) DC'ED FROM [facility] 11/06/19 > STILL ON AMOXICILLIN Vitamin B12 deficiency (Acute) Vocal cord paralysis (Acute) RESOLVED Weight loss (Acute) Wide-complex tachycardia (Acute) Surgical History History of aortic valve replacement x2--2003 @ [facility] [place], 2009 @ [facility] [place]--follows with Dr. Pacheco History of arthroscopy of left knee History of bilateral cataract extraction History of cardiac cath 09/13/2010 @ [facility] > NO STENTS History of cardiac radiofrequency ablation 06/2016 @ [facility] History of cholecystectomy History of colonoscopy History of ear surgery skin graft to right eardrum History of endoscopic sinus surgery History of lithotripsy x2 History of open reduction and internal fixation (ORIF) procedure right hip History of tonsillectomy and adenoidectomy History of tooth extraction History of wisdom tooth extraction Hx of vasectomy Superficial basal cell carcinoma of skin of right shoulder (Acute) WITH REMOVAL Family History Brother Family history of diabetes mellitus Sister Family history of diabetes mellitus Unknown Diabetes FH: deafness or hearing loss FHx: allergies Father Aneurysm of abdominal aorta Other No family history of adverse response to anesthesia Social History Preferred Language: Finnish Communication Ability: Impaired Communication Ability Comment: dementia Hearing Ability: Hard of Hearing 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 Required: No Beliefs That Will Affect Care: None Current Living Situation: Spouse current occupational status: retired Feels Safe at Home: Yes Smoking Status: Never smoker Second Hand Exposure: Yes ; Hx Alcohol Use: No Hx Substance Use: No Review of Systems Review of Systems: Unobtainable due to cognitive status Physical Exam Constitutional: + cachectic and cooperative; no acute distress Cardiovascular: Extremities: no pedal edema Gastrointestinal (Abdomen): Inspection/Auscultation: abdomen normal to inspection; abdomen not distended Percussion/Palpation: abdomen soft; abdomen nontender and no guarding Neurologic: moves all extremities and awake Psychiatric: Orientation: alert and cooperative Genitourinary: voiding spontaneously, urine not visualized during exam Results & Data Vital Signs (Past 12 Hours) Vital Signs Temp Pulse Resp BP Pulse Ox 11/25/19 07:29 36.5 C 60 18 106/66 98 PG Care Time/CCT Total # of Minutes Spent Total Time Spent with Patient: Total time spent is greater than 50% in coordination of care (as documented) at patient's floor/unit and/or counseling patient: Coding Level of Care Code 13054 Inpt Consult Level 3 Diagnoses Recurrent UTI (urinary tract infection) N39.0
--- NOTE | 2019-11-25 14:28 | Palliative Care Consultation ---
Date of Consultation November 25, 2019 Assessment & Plan (1) Goals of care, counseling/discussion: Chart reviewed, patient seen and examined. Patient's and granddaughter who was also an RN at bedside. Patient is an 84-year-old gentleman with dementia, increasing falls, CHF, A. fib who was brought to the emergency room by his for increasing weakness and general decline. Patient's reports patient has perked up with IV fluids. was considering hospice care but felt that since he had improved she did not require hospice at this time. Patient's family is very supportive of hospice including her granddaughter who is present who is also an RN in the [place] area as well as her daughter who lives with them who is also an RN. Discussed with what patient's wishes would be at this time in his life. Discussed whether or not he would want his life prolonged as long as possible given his current status. replied he would not nor would she. Discussed how IV fluids can be helpful in the short-term but do not change his long-term prognosis. Discussed providing comfort and allowing him to eat what he wants when he wants as much as he wants. She does agree that there are days when he does not want to eat and other days where he eats more than usual. Talked about the average over several days, and that he also continues to have weight loss despite eating well at times. Discussed role of hospice in providing emotional support for her as well as medical support for her . Patient's agreeable to hospice referral, had been considering getting a hospital bed- informed her that hospice can supply this as well is any other DME that she would need. Patient is currently active with [facility]-we will discuss hospice referral with case management. PPS 40% FAST 7A with 7C characteristics (2) Mixed dementia: Discussed whether or not patient and family would want a prolonged his life given his current condition-agree to comfort goal of care. FAST 7A with 7C characteristics (3) Weight loss: Recommend comfort feeding-allow patient to eat what he wants when he wants (4) Recurrent UTI (urinary tract infection): Urine grew out 3 types of organisms (5) Fall: Discussed given patient's dementia-frequent falls are expected. Discussed safety measures Encounter type: initial encounter Qualified Code(s): W19.XXXA - Unspecified fall, initial encounter (6) Atrial fibrillation with RVR: Rate controlled with beta-maude (7) CHF (congestive heart failure): History of Present Illness Reason for Consultation: Discuss goals of care Current CODE STATUS is DNR/DNI Requesting Physician: Verena Brand PA-C Attending Physician: Venus Vidal MD History of Present Illness Chart reviewed, patient seen and examined. Patient's and granddaughter who was also an RN at bedside. Patient is an 84-year-old gentleman with dementia, increasing falls, CHF, A. fib who was brought to the emergency room by his for increasing weakness and general decline. Patient's reports patient has perked up with IV fluids. was considering hospice care but felt that since he had improved she did not require hospice at this time. Patient's family is very supportive of hospice including her granddaughter who is present who is also an RN in the [place] area as well as her daughter who lives with them who is also an RN. Discussed with what patient's wishes would be at this time in his life. Discussed whether or not he would want his life prolonged as long as possible given his current status. replied he would not nor would she. Discussed how IV fluids can be helpful in the short-term but do not change his long-term prognosis. Discussed providing comfort and allowing him to eat what he wants when he wants as much as he wants. She does agree that there are days when he does not want to eat and other days where he eats more than usual. Talked about the average over several days, and that he also continues to have weight loss despite eating well at times. Discussed role of hospice in providing emotional support for her as well as medical support for her . Patient's agreeable to hospice referral, had been considering getting a hospital bed- informed her that hospice can supply this as well is any other DME that she would need. [facility]-we will discuss hospice referral with case management. Allergies Allergy/AdvReac Type Severity Reaction Status Date / Time No Known Drug Allergies Allergy Unknown none Verified 11/23/19 16:47 Home Medications Home Medications Medication Instructions Recorded Confirmed Type aspirin 81 mg tablet,delayed 81 mg PO QAM tab 06/20/19 11/23/19 History release metoprolol succinate 50 mg 25 mg PO QAM #90 tab 09/05/19 11/23/19 Rx tablet,extended release 24 hr finasteride 5 mg tablet 5 mg PO QAM #90 tab 11/09/19 11/23/19 Rx amlodipine 2.5 mg PO QAM 11/23/19 11/23/19 History donepezil 10 mg PO QAM 11/23/19 11/23/19 History montelukast 10 mg PO DAILY 11/23/19 11/23/19 History Patient History Medical History Abnormal urine cytology (Acute) PT'S UNAWARE Afib DX YEARS AGO> NO CARDIOVERSIONS >PACEMAKER Ambulatory dysfunction (Acute) Ankylosing spondylitis Anxiety (Acute) Aortic stenosis (Acute) Aortic valve disorder (Resolved) Arthritis (Acute) Atherosclerosis of aorta (Acute) Atrial flutter (Acute) Benign prostatic hyperplasia with urinary obstruction (Acute) BPH (benign prostatic hyperplasia) CAD, multiple vessel (Acute) FOLLOWS DR. PACHECO Cerebral atrophy (Acute) Chronic gout (Acute) NO MEDS GERD (gastroesophageal reflux disease) (Chronic) Hearing deficit Hearing loss (Acute) Heart disease (Resolved) Hematuria, microscopic (Acute) RESOLVED History of anesthesia reaction after last aortic valve replacement, confused for days Hyperglycemia (Chronic) Hypertension (Acute) IPMN (intraductal papillary mucinous neoplasm) (Acute) PT'S UNAWARE Kidney disease (Chronic) FOLLOWS DR. LEAVITT > [place] Kidney stone (Chronic) Lacunar stroke (Resolved) PT'S UNAWARE Leukopenia (Acute) Mixed dementia (Chronic) Orthostatic hypotension (Acute) Pacemaker 07/06/2015 @ [facility]--meditronic> LAST CHECKED JUN 2019. Polyarthritis, unspecified (Acute) Postoperative anemia (Acute) HX Senile dementia of Alzheimer's type (Chronic) Sick sinus syndrome (Acute) Sleep apnea (Chronic) was wearing 2L N/C hs prn--stopped using all together> NO LONGER USING CPAP Tubular adenoma of colon (Acute) Urinary hesitancy (Acute) UTI (urinary tract infection) DC'ED FROM [facility] 11/06/19 > STILL ON AMOXICILLIN Vitamin B12 deficiency (Acute) Vocal cord paralysis (Acute) RESOLVED Weight loss (Acute) Wide-complex tachycardia (Acute) Surgical History History of aortic valve replacement x2--2003 @ [facility] [place], 2009 @ [facility] [place]--follows with Dr. Pacheco History of arthroscopy of left knee History of bilateral cataract extraction History of cardiac cath 09/13/2010 @ [facility] > NO STENTS History of cardiac radiofrequency ablation 06/2016 @ [facility] History of cholecystectomy History of colonoscopy History of ear surgery skin graft to right eardrum History of endoscopic sinus surgery History of lithotripsy x2 History of open reduction and internal fixation (ORIF) procedure right hip History of tonsillectomy and adenoidectomy History of tooth extraction History of wisdom tooth extraction Hx of vasectomy Superficial basal cell carcinoma of skin of right shoulder (Acute) WITH REMOVAL Family History Brother Family history of diabetes mellitus Sister Family history of diabetes mellitus Unknown Diabetes FH: deafness or hearing loss FHx: allergies Father Aneurysm of abdominal aorta Other No family history of adverse response to anesthesia Social History Preferred Language: Lithuanian Communication Ability: Impaired Communication Ability Comment: dementia Hearing Ability: Hard of Hearing Superintendent Pressure Required: No Beliefs That Will Affect Care: None Current Living Situation: Spouse current occupational status: retired Feels Safe at Home: Yes Smoking Status: Never smoker Second Hand Exposure: Yes ; Hx Alcohol Use: No Hx Substance Use: No Review of Systems Review of Systems: Unobtainable due to cognitive status Physical Exam Physical Exam: PE: Patient awake and alert, no acute distress, sitting in a chair at bedside. HEENT: [place] Respirations: Clear breath sounds bilaterally CV: Regular rate, no edema Abdomen: Soft, nontender, not distended Extremities: Right upper extremity with swelling-surgical site scabbed over Neuro: Patient oriented to self, speech is garbled with only a few words understandable, cannot ambulate without assistance. Results & Data Vital Signs (Past 12 Hours) Vital Signs Temp Pulse Resp BP Pulse Ox 11/25/19 07:29 97.7 F 60 18 106/66 98 PG Care Time/CCT Total # of Minutes Spent Total Time Spent with Patient: Total time spent 70 minutes with greater than 50% of the time spent at bedside discussing goals of care as well as counseling patient's regarding expected course of dementia. Coding Level of Care Code 47546 Inpt Consult Level 3 Diagnoses Goals of care, counseling/discussion Z71.89 Mixed dementia G30.9; F01.50; F02.80 Weight loss R63.4 Recurrent UTI (urinary tract infection) N39.0 Fall W19.XXXA Encounter type: initial encounter Atrial fibrillation with RVR I48.91 CHF (congestive heart failure) I50.9 Time Spent (min) 70
--- NOTE | 2019-11-25 16:05 | Hospitalist Progress Note ---
Date of Service November 25, 2019 Assessment & Plan (1) AMS (altered mental status): - Progressive dementia vs infectious vs dehydration/metabolic encephalopathy - Reports less than a week ago sustaining a fall in the shower and possibly down approx. 1 hour until found - question possibly aspiration event after fall/increased weakness given CXR findings as he does not appear overtly overloaded -- Family states he does have chronic sinusitis and post-nasal drip; water was not running when he was down in the shower - no leukocytosis/no fever, oxygen saturations appropriate on RA - F/U CXR still with congestion - however respiratory status is stable with appropriate saturations; no leukocytosis, no fever; discussed consideration for CT scan to further assess lungs but family feels that this can be deferred as he is clinically doing well and the ultimate plan is hospice and do agree - Will continue to monitor off fluids -- reporting limited intake over past couple days (2) UTI (urinary tract infection): - Seems to have chronic enterococcus faecalis in urine culture - did finish Abx recently from last admission (14 day course) - Family states he then developed hematuria, urinary incontinence, and worsening confusion/weakness - UCx so far with no growth -- Maybe the questionable hematuria was just dark urine from dehydration? - Holding on suppressive Abx at this time - Family would like to discuss with Urology as patient follows with Dr. Silvestre - discussed with CRNPs - no intervention warranted at this time (3) Ganglion cyst of dorsum of right wrist: - Recent removal by Dr. Reyna - Family states he would not leave bandage alone and would rub this area - skin is mildly erythematous around incision which may be post-operative inflammation - no drainage or wound dehiscence - Continue Rocephin which would cover skin organisms and re-assess - can stop this on D/C (4) Hyperbilirubinemia: - Chronic; only mild elevation in direct bili - Possibly [place]? he is S/P Cholecystectomy and liver marked as unremarkable on CT from Oct 2019 (5) Fall: - CK normal - No acute injury on imaging - PT/OT - normally ambulates with assistance of (6) Dementia with Parkinsonism: - STABLE - maybe progressive? - Possibility of parkinsonism component? However at this stage initiating dopaminergic medications would likely yield limited benefits Disposition: Met with patient, , and granddaughter. Discussed with case management, palliative care, urology. Plan is to seek hospice services. D/C tomorrow with family support and supplied delivered today. Admission and Anticipated Discharge Date Admission Date: November 23, 2019 Supervising Physician Co-Signing Physician Notes PA Supervision Note: I did not personally see or examine the patient today, but I verified all ram points of NANCI Brand's assessment and plan with the following exceptions/additions: None Subjective Mr. Arzate looks more energetic today. At baseline conversation is limited. When asked how he was doing he stated "pretty boring situation". Family feels he is more energized like his normal self. ROS limited given dementia but denies pain or difficulty breathing. Discussed with Urology and Palliative Care. Plan for home with hospice tomorrow. Review of Systems Review of Systems: Unobtainable due to cognitive status (advanced dementia; denied pain, SOB) Physical Exam Constitutional: + frail appearing; no acute distress Eyes: + anicteric sclerae Neck: trachea midline Respiratory: no respiratory distress Auscultation: + diminished lung sounds (bases; good aeration in upper lobes) Limited exam due to not being able to cooperate with deep breathing and starting snoring during my assessment Cardiovascular: RRR, no murmur, no edema Gastrointestinal (Abdomen): Inspection/Auscultation: normal bowel sounds Musculoskeletal: Head/Neck/Chest: normocephalic and head atraumatic Skin: R wrist surgical incision slightly less erythematous touday with incision well approximated; no tenderness to palp; no drainage Neurologic: moves all extremities Psychiatric: Orientation: alert and oriented to person Results & Data ([facility]) Vital Signs (Past 12 Hours) Vital Signs Temp Pulse Resp BP Pulse Ox 11/25/19 14:48 36.5 C 68 18 115/62 99 11/25/19 07:29 36.5 C 60 18 106/66 98 PG Care Time/CCT Total # of Minutes Spent Total Time Spent with Patient: Total time spent is greater than 50% in coordination of care (as documented) at patient's floor/unit and/or counseling patient: Coding Level of Care Code 58461 Subseq Hosp Care Lvl 2 Diagnoses AMS (altered mental status) R41.82 Altered mental status type: unspecified UTI (urinary tract infection) N39.0; R31.9 Hematuria presence: with hematuria Urinary tract infection type: site unspecified Ganglion cyst of dorsum of right wrist M67.431 Hyperbilirubinemia E80.6 Fall W19.XXXA Encounter type: initial encounter Dementia with Parkinsonism G31.83; F02.80 (1) UTI (urinary tract infection) Hematuria presence: with hematuria Urinary tract infection type: site unspecified Qualified Code(s): N39.0 - Urinary tract infection, site not specified; R31.9 - Hematuria, unspecified (2) AMS (altered mental status) Altered mental status type: unspecified Qualified Code(s): R41.82 - Altered mental status, unspecified (3) Fall Encounter type: initial encounter Qualified Code(s): W19.XXXA - Unspecified fall, initial encounter
[2019-11-25] MEDS: cefTRIAXone SODIUM 2,000 MG in DEXTROSE 5% 50 ML IV SCH (20:42)
[2019-11-26] MEDS: ACETAMINOPHEN 325 MG TAB PO SCH ×3 (02:27→10:55)
[2019-11-26] MEDS: AMLODIPINE BESYLATE 5 MG TAB PO SCH (07:27)
[2019-11-26] MEDS: METOPROLOL SUCC 25MG EXT REL TAB PO SCH (07:27)
[2019-11-26] MEDS: DONEPEZIL HCL 10 MG TAB PO SCH (07:27)
[2019-11-26] MEDS: ASPIRIN 81 MG ECTAB PO SCH (07:27)
[2019-11-26] MEDS: FINASTERIDE 5 MG TAB PO SCH (07:28)
[2019-11-26] MEDS: HEPARIN SOD 5,000 UNIT/0.5 ML VIAL SQ SCH (07:28)
[2019-11-26] MEDS: MONTELUKAST SODIUM 10 MG TABLET PO SCH (07:28)
--- NOTE | 2019-11-26 13:09 | Discharge Summary ---
Date of Service November 26, 2019 Admission HPI Per Admitting Provider Luis Carlos is an 84-year-old male with a past medical history of severe dementia, A. fib, CAD, hypertension, lacunar stroke, SEBLE, and wide-complex tachycardia with a recent hospital admit for UTI treated with amoxicillin who presents with weakness and a fall for approximately 1 week in addition to new incontinence. 5 days ago he was found in the shower with his close on thought to be down for approximately 1 hour by his . Since that time he has had difficulty ambulating, and has had very frequent urinary incontinence. His became concerned and wanted him evaluated in the ED for UTI, she was mostly concerned because he has had minimal oral intake for couple of days. He lives at home, his and daughter have started exploring hospice options given his advanced dementia and difficulty at home. On admission to the emergency department he was found to have leukocyte esterase and white blood cells in his urine, 5-10 epithelial cells and no gaby bacteria. He was given empiric Rocephin and IV f luids. Chest x-ray on admission showed signs of trace effusion with volume overload, he has no history of heart failure and has never needed Lasix. CT head showed no acute findings, x-ray of the left scapula where he fell showed no acute findings, CT spine showed no acute findings or fracture. Patient's history is extremely limited by severe dementia, he is redirectable but does not give meaningful answers to questions or follow commands. Medical history: As above Surgical history: Reviewed in EMR Family history: Family history of Parkinson's. Remaining history reviewed Allergies: No known drug allergies Social: Lives at home with his , their daughter assist in his care and is a nurse. No alcohol, no tobacco, no recreational drug use. CODE STATUS: DNR/DNI. Principal Diagnosis Dehydration; Fall Discharge Exam Constitutional + frail appearing; no acute distress Eyes + anicteric sclerae ENMT Ears: no hearing impairment Neck trachea midline Respiratory normal respiratory effort; no respiratory distress Auscultation: + diminished lung sounds (bases; good aeration in upper lobes) limited exam - cannot follow command to take deep breaths and will snore when listening to him Cardiovascular RRR, no murmur, no edema Rate/Rhythm: regular rate and regular rhythm Heart Sounds: no murmur Vessels: no JVD Gastrointestinal (Abdomen) Inspection/Auscultation: normal bowel sounds Percussion/Palpation: abdomen soft; abdomen nontender Musculoskeletal Head/Neck/Chest: normocephalic and head atraumatic R wrist incisions from ganglion cyst removal - incision intact mild erythema around incision but non-tender and no drainage Skin no rashes, warm and dry (other than mentioned in MS section) Neurologic moves all extremities Psychiatric Orientation: alert and oriented to person at baseline he cannot hold conversation. When told he will be going home today his response was "they were bad today" but then closed his eyes Discharge Data Allergies Allergy/AdvReac Type Severity Reaction Status Date / Time No Known Drug Allergies Allergy Unknown none Verified 11/23/19 16:47 Consultations 11/23/19 21:04 ED Decision to Admit Stat 11/24/19 14:29 Consult Palliative Care Routine Consult Urology Routine Ordered Studies 11/23/19 15:24 CT cervical spine wo con Stat CT head/brain wo con Stat Hospital Course (1) AMS (altered mental status): - Progressive dementia vs infectious vs dehydration/metabolic encephalopathy - Reports less than a week ago sustaining a fall in the shower and possibly down approx. 1 hour until found - question possibly aspiration event after fall/increased weakness given CXR findings as he does not appear overtly overloaded -- Family states he does have chronic sinusitis and post-nasal drip; water was not running when he was down in the shower - no leukocytosis/no fever, oxygen saturations appropriate on RA - F/U CXR still with congestion - however respiratory status is stable with appropriate saturations; no leukocytosis, no fever; discussed consideration for CT scan to further assess lungs but family feels that this can be deferred as he is clinically doing well and the ultimate plan is hospice and do agree (2) UTI (urinary tract infection): - Seems to have chronic enterococcus faecalis in urine culture - did finish Abx recently from last admission (14 day course) - Family states he then developed hematuria, urinary incontinence, and worsening confusion/weakness - UCx with no growth -- Maybe the questionable hematuria was just dark urine from dehydration? - Holding on suppressive Abx at this time - Family discussed with Urology as patient follows with Dr. Silvestre - no intervention warranted at this time (3) Ganglion cyst of dorsum of right wrist: - Recent removal by Dr. Reyna - Family states he would not leave bandage alone and would rub this area - skin is mildly erythematous around incision which may be post-operative inflammation - no drainage or wound dehiscence - Had Rocephin in hospital but will D/C further antibiotics as a true infectious source is not present (4) Hyperbilirubinemia: - Chronic; only mild elevation in direct bili - Possibly [place]? he is S/P Cholecystectomy and liver marked as unremarkable on CT from Oct 2019 (5) Fall: - CK normal - No acute injury on imaging - PT/OT - normally ambulates with assistance of (6) Dementia with Parkinsonism: - STABLE - maybe progressive? - Possibility of parkinsonism component? However at this stage initiating dopaminergic medications would likely yield limited benefits Disposition: Met with patient, , and granddaughter, and daughter during hospital stay. Family met with Palliative Care. Plan is to seek hospice services. Equipment has been delivered and family coming into town to assist for a few days. Hospice services through [facility] Total Time Total Time Spent Total Time Spent (In Minutes): Greater than 30 minutes Discharge Plan Discharge Items Patient Disposition: Hospice - Home Reason For Visit: AMS,WEAKNESS,UTI Discharge Diagnosis: Fall with Weakness/Dehydration; Dementia Activity: Resume your previous activity Non-emergency contact: Primary Care Provider Call non-emergency contact if: you have any medication questions, your symptoms worsen and you have a fever Follow-up/Referrals: Jesus Garcia MD [Primary Care Provider] - (Patient d/c to home on hospice. Will not need follow up appt.) Diet: Regular Addtl Attending Provider Instructions: Confusion/Weakness/Falls: - You sustained a fall a few days ago that likely caused some weakness and some dehydration. The fluids seemed to help the most to get you back to your normal. - Thankfully you did not have any fevers and your blood checks did not suggest an infection. - Your urine culture did not grow any bacteria which it has been awhile since this has happened so it seems the recent antibiotics helped. - You met with Dr. Machuca the palliative care doctor who helped set up hospice services. This group will see you at your home and also had some equipment delivered for you. - This hospice agency can help coordinate additional care or needs you or your family may need. Ganglion Cyst: - There is some redness at the incision however area but this may be just post- surgical inflammation. Recommend to try and avoid picking at this area. 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 Thankfully on our last CAT scan the liver looked good and the gallbladder has been removed. Pending Studies at Discharge: No Stand-Alone Forms: My [facility] Medications and DC Order Prescriptions: Continued metoprolol succinate 50 mg tablet extended release 24 hr 25 mg PO QAM Qty: 90 RF: 1 finasteride 5 mg tablet 5 mg PO QAM Qty: 90 RF: 1 aspirin 81 mg tablet,delayed release (DR/EC) 81 mg PO QAM RF: 0 donepezil 10 mg tablet 10 mg PO QAM RF: 0 amlodipine 2.5 mg tablet 2.5 mg PO QAM RF: 0 montelukast 10 mg Tablet 10 mg PO DAILY RF: 0 Discharge Orders: Discharge Order (Routine); Ordered 11/26/19 Ordered By: Venus Vidal Admission Data Admit Date/Time: 11/23/19 22:45 Attending Provider: Venus Vidal Admit Provider: Chaz Maya Primary Care Provider: Jesus Garcia Other Providers: Jose Coyle ; [facility] ; Juliana Michel ; Jesus Silvestre Other Interventions: Discharge Summary Assessment (RN) Last Done: 11/26/19 12:54 Coding Level of Care Code D/C Day Management >30 mins Diagnoses AMS (altered mental status) R41.82 Altered mental status type: unspecified UTI (urinary tract infection) N39.0; R31.9 Hematuria presence: with hematuria Urinary tract infection type: site unspecified Ganglion cyst of dorsum of right wrist M67.431 Hyperbilirubinemia E80.6 Fall W19.XXXA Encounter type: initial encounter Dementia with Parkinsonism G31.83; F02.80
== END 2019-11-26 13:51 | disposition hospice, home (50) ==
LOC: ED 15:14 → 4W 22:45 → INTOOBSV 22:45 → SUATTDRO 22:45 → 4W 23:04